=== PATIENT | male | born 1940 | race Caucasian/White ===

== ENCOUNTER → 2017-08-04 05:00 | Outpatient (REF) | payer MEDICARE, SELFPAY ==
[2017-08-04 10:12] LABS: Hematocrit 41.3 % (40-54); Hemoglobin 12.6 g/dl (13.0-16.5); Mean Corp Hgb Conc 30.5 g/gl (32-36); Mean Corpuscular Hgb 30.2 pg (27.0-32.0); Mean Platelet Vol. 10.9 fl (6.2-12.0); Platelet Count 127 K/mm3 (150-450); RBC Distribution Width CV 14.6 % (11.6-14.6); RBC Distribution Width SD 52.6 fl (35.1-43.9); Red Blood Count 4.17 M/mm3 (4.6-6.2); Scan Indicated on CBC? Y/N NO; White Blood Count 3.9 K/mm3 (4.4-11.0)
[2017-08-04 10:30] LABS: Anion Gap 7 (5-15); BUN 19 mg/dL (7-18); BUN/Creat Ratio 16.7 RATIO (10-20); Chloride 113 mmol/L (98-107); Creatinine, Serum 1.14 mg/dL (0.70-1.30); EST Glomerular Filtration Rate 67 mL/min (>60); Est Glom Filt Rate - Afr Amer 81 mL/min (>60); Glucose 98 mg/dL (70-110); Potassium 4.2 mmol/L (3.5-5.1); Sodium Level 145 mmol/L (136-145)
== END ==
LOC: OLS.WHLBEN 05:00
PROVIDERS: Visit Provider Family Medicine
DX: E78.5 Hyperlipidemia, unspecified (principal)
CPT/HCPCS: 36415; 80048; 85027

== ENCOUNTER → 2017-11-02 05:00 | Outpatient (REF) | payer MEDICARE, SELFPAY ==
[2017-11-02 09:22] LABS: Hemoglobin 12.6 g/dl (13.0-16.5); Mean Corp Hgb Conc 31.5 g/gl (32-36); Mean Corpuscular Hgb 31.1 pg (27.0-32.0); Mean Corpuscular Volume 98.8 fL (80-94); Platelet Count 115 K/mm3 (150-450); RBC Distribution Width CV 14.4 % (11.6-14.6); RBC Distribution Width SD 50.7 fl (35.1-43.9); Red Blood Count 4.05 M/mm3 (4.6-6.2); White Blood Count 4.1 K/mm3 (4.4-11.0)
[2017-11-02 09:30] LABS: Scan Indicated on CBC? Y/N NO
[2017-11-02 09:35] LABS: Anion Gap 5 (5-15); BUN 14 mg/dL (7-18); BUN/Creat Ratio 12.7 RATIO (10-20); Calcium,Total 7.8 mg/dL (8.5-10.1); Chloride 114 mmol/L (98-107); Cholesterol 83 mg/dL (200); EST Glomerular Filtration Rate 69 mL/min (>60); Est Glom Filt Rate - Afr Amer 84 mL/min (>60); Glucose 91 mg/dL (74-106); High Density Lipoprotein 28 mg/dL; Potassium 3.8 mmol/L (3.5-5.1); Sodium Level 145 mmol/L (136-145); Triglycerides 89 mg/dL; Very Low Density Lipoprotein 18 mg/dL (5-40)
== END ==
LOC: OLS.WHLBEN 05:00
PROVIDERS: Visit Provider Family Medicine
DX: I10 Essential (primary) hypertension (principal); E78.5 Hyperlipidemia, unspecified
CPT/HCPCS: 36415; 80048; 80061; 85027

== ENCOUNTER 2017-11-12 15:14 | Inpatient (IN) | payer MEDICARE, SELFPAY ==
[2017-11-12] VITALS (13 sets, daily range): BP systolic 90–114; BP diastolic 46–61; PULSE 62–74; RESP 19–27; TEMP 36.8–37.2; O2SAT 92–922; BMI 27.1; BMI 25.8; BMI 25.9
--- NOTE | 2017-11-12 15:40 | ED.VISSUMM ---
- ER Visit Summary Date of Service: 11/12/17 Chief Complaint: Dyspnea, cough History of Present Illness: The patient is a 77 M sent from [facility] for increasing dyspnea and cough since yesterday. History of CHF, COPD and coronary stents. Noted outpatient chest x-ray yesterday was negative. Patient states previously on as needed oxygen. No chronic O2 use. Subjective fevers. Denies any productive cough. States his mild chest discomfort with cough. Decreased urine output. No burning. Unclear on his last hospitalization however states it was for pneumonia. Remote tobacco. No vomiting or diarrhea. No abdominal pain. No other complaints. Past med history: Coronary disease, CHF, COPD, hypertension, hypercholesterolemia, depression, BPH, paroxysmal A. fib, DVT Physical Examination: General: Alert and oriented ?3, no acute distress HEENT: Normocephalic, atraumatic. Moist mucosa membranes Neck: supple, nontender. Cardiovascu mild expiratory wheezing, no distress stress Abdomen: Soft, nontender, nondistended Extremities: Nontender, no edema, pulses intact ?4 Neuro: no focal neurological deficits. Test Results: EKG: Sinus rate of 71, no ST or T-wave changes. WBC 2.8. Hemoglobin 12.1. Platelets 67. Creatinine 2.33, INR 1.2. Troponin 0 0.28. UA negative. Lactic acid 1.2. Chest x-ray: Atelectasis versus evolving left lower lobe infiltrate Emergency Department Course and Treatment: Patient noted 88% on 2 L per EMS. Increased to 8 L and aerosol treatment by EMS. His continue at 3 L here. Additional aerosol treatment for mild wheezing. Solu-Medrol started with a COPD history. EKG no acute process. Patient's 2 view chest x-ray read by radiology concern for possible evolving left lobe infiltrate. Reported fevers and cough. Pending labs, at the time noted there is a respiratory rate 21, sepsis labs added prior to antibiotics. Rocephin and Zithromax for community acquired pneumonia. White count returned at 2.8. Creatinine 2.33. Last creatinine was 1.1. He was given 500 cc bolus of fluids initially. Blood pressure rechecked was 115/57 at 1655. Lactic acid returned at 1.2. Troponin returned 0.28. Patient planes of chest discomfort with cough. Does not seem to be cardiac in nature. Patient currently on aspirin. Wheezing improved. Currently vitals are stable. With initial hypoxemia, discuss with hospitalist for admission. Treatment Plan: [] Disposition: Admission Impression: Community acquired pneumonia, hypoxemia, acute kidney injury, elevated troponin, thrombocytopenia This note was generated with [employer] dictation software. It may contain incorrect words, spelling, and punctuation that were not noted in review of the chart prior to signing ED Disposition - Plan for ED Patient: Disposition: Acute Care Hospital [facility] Chief Complaint: Shortness of Breath Diagnosis: Pneumonia, Hypoxemia, JOHANNE (acute kidney injury), Elevated troponin, Thrombocytopenia Referrals: Omer Rodriguez MD [Primary Care Provider] -
--- NOTE | 2017-11-12 15:41 | EKG12_ITS ---
Test Reason : SOB Blood Pressure : / mmHG Vent. Rate : 071 BPM Atrial Rate : 071 BPM P-R Int : 124 ms QRS Dur : 076 ms QT Int : 440 ms P-R-T Axes : 029 004 019 degrees QTc Int : 478 ms Sinus rhythm with Premature atrial complexes Otherwise normal ECG Confirmed by TRINI KIRKPATRICK ([id number]), visual effects editor HÉCTOR IVEY ([id number]) on 11/17/2017 2:45:26 PM Referred By: MANOLO Confirmed By:TRINI KIRKPATRICK
--- NOTE | 2017-11-12 15:41 | RAD_ITS ---
STUDY: X-RAY CHEST REASON FOR EXAM: Male, 77 years old. Cough and short of breath TECHNIQUE: PA and lateral COMPARISON: March 12, 2016 FINDINGS: There is mild chronic interstitial disease with asymmetric density in left lower lobe which may be consistent with coexisting atelectasis or evolving infiltrate.. There is no demonstrated pleural abnormality. Borderline cardiomegaly. Normal mediastinum and nancy. Normal visualized pulmonary arteries. Normal visualized aortic arch and descending thoracic aorta. Dorsal spine demonstrates spondylosis. Normal visualized ribs, clavicles, and shoulders. There is no demonstrated abnormality of the visualized soft tissue structures of the upper abdomen. RAD/Chest PA and Lateral IMPRESSION: Mild diffuse chronic interstitial changes with asymmetrically increased density in left lower lobe which may be consistent with coexisting atelectasis or evolving infiltrate.. Electronically Signed: Jose Juan Junior MD at 16:33 EDT , Service support ,
--- NOTE | 2017-11-12 15:44 | ED.DCSUM_ITS ---
- ER Visit Summary Date of Service: 11/12/17 Chief Complaint: Dyspnea, cough History of Present Illness: The patient is a 77 M sent from [facility] for increasing dyspnea and cough since yesterday. History of CHF, COPD and coronary stents. Noted outpatient chest x-ray yesterday was negative. Patient states previously on as needed oxygen. No chronic O2 use. Subjective fevers. Denies any productive cough. States his mild chest discomfort with cough. Decreased urine output. No burning. Unclear on his last hospitalization however states it was for pneumonia. Remote tobacco. No vomiting or diarrhea. No abdominal pain. No other complaints. Past med history: Coronary disease, CHF, COPD, hypertension, hypercholesterolemia, depression, BPH, paroxysmal A. fib, DVT Physical Examination: General: Alert and oriented ?3, no acute distress HEENT: Normocephalic, atraumatic. Moist mucosa membranes Neck: supple, nontender. Cardiovascu mild expiratory wheezing, no distress stress Abdomen: Soft, nontender, nondistended Extremities: Nontender, no edema, pulses intact ?4 Neuro: no focal neurological deficits. Test Results: EKG: Sinus rate of 71, no ST or T-wave changes. WBC 2.8. Hemoglobin 12.1. Platelets 67. Creatinine 2.33, INR 1.2. Troponin 0 0.28. UA negative. Lactic acid 1.2. Chest x-ray: Atelectasis versus evolving left lower lobe infiltrate Emergency Department Course and Treatment: Patient noted 88% on 2 L per EMS. Increased to 8 L and aerosol treatment by EMS. His continue at 3 L here. Additional aerosol treatment for mild wheezing. Solu-Medrol started with a COPD history. EKG no acute process. Patient's 2 view chest x-ray read by radiology concern for possible evolving left lobe infiltrate. Reported fevers and cough. Pending labs, at the time noted there is a respiratory rate 21, sepsis labs added prior to antibiotics. Rocephin and Zithromax for community acquired pneumonia. White count returned at 2.8. Creatinine 2.33. Last creatinine was 1.1. He was given 500 cc bolus of fluids initially. Blood pressure rechecked was 115/57 at 1655. Lactic acid returned at 1.2. Troponin returned 0.28. Patient planes of chest discomfort with cough. Does not seem to be cardiac in nature. Patient currently on aspirin. Wheezing improved. Currently vitals are stable. With initial hypoxemia, discuss with hospitalist for admission. Treatment Plan: [] Disposition: Admission Impression: Community acquired pneumonia, hypoxemia, acute kidney injury, elevated troponin, thrombocytopenia This note was generated with [employer] dictation software. It may contain incorrect words, spelling, and punctuation that were not noted in review of the chart prior to signing ED Disposition - Plan for ED Patient: Disposition: Acute Care Hospital [facility] Chief Complaint: Shortness of Breath Diagnosis: Pneumonia, Hypoxemia, JOHANNE (acute kidney injury), Elevated troponin, Thrombocytopenia Referrals: Omer Rodriguez MD [Primary Care Provider] -
[2017-11-12] MEDS: Ipratropium/Albuterol Sulfate 3 ML AMPUL.NEB INHALATION (15:55)
[2017-11-12] MEDS: MethylPREDNISolone 125 MG/2 ML Vial IV (16:02)
[2017-11-12 16:42] LABS: Squamous Epithelial Cells - UA 0 SEEN /hpf (0-5); White Blood Cells 0 SEEN /hpf (0-5)
[2017-11-12 16:55] LABS: Color, Urine Yellow (Yellow); Glucose, Dipstick Normal (Normal); Ketone-Dipstick 5 mg/dl (Negative); Leukocyte Esterase-Dipstick Negative /ul (Negative); Nitrite-Dipstick Negative (Negative); Occult Blood-Urine 25 /ul (Negative); Protein-Dipstick 30 mg/dl (Negative); Urine Clarity Cloudy (Clear); Urine Urobilinogen Normal (Normal)
[2017-11-12 17:06] LABS: Absolute Lymphocyte Count 0.77 X10^3/ul (0.83-4.51); Absolute Neutrophil Count 1.8 X10^3/uL (2.0-7.7); Hematocrit 39.7 % (40-54); Hemoglobin 12.1 g/dl (13.0-16.5); Lymphocyte # 0.77 X10^3/ul (4.0); Lymphocyte % 27.3 % (19-41); Mean Corp Hgb Conc 30.5 g/gl (32-36); Mean Corpuscular Hgb 30.1 pg (27.0-32.0); Mean Corpuscular Volume 98.8 fL (80-94); Mean Platelet Vol. 11.6 fl (6.2-12.0); Monocyte# 0.24 X10^3/uL; Monocyte% 8.5 % (0-10); Neutrophil # 1.81 X10^3/uL (2.7-7.7); Neutrophil % 64.2 % (47-70); POSITIVE COUNT NO; POSITIVE DIFFERENTIAL NO; POSITIVE MORPHOLOGY NO; Platelet Count 67 K/mm3 (150-450); RBC Distribution Width CV 15.6 % (11.6-14.6); RBC Distribution Width SD 57.4 fl (35.1-43.9); Red Blood Count 4.02 M/mm3 (4.6-6.2); White Blood Count 2.8 K/mm3 (4.4-11.0)
[2017-11-12 17:08] LABS: Urine Bilirubin Dipstick 1 mg/dL (Negative)
[2017-11-12 17:10] LABS: International Normalized Ratio 1.2
[2017-11-12 17:11] LABS: Partial Thromboplast Time 41.6 Seconds (24.1-36.2)
[2017-11-12 17:11] LABS: Coarse Granular Cast 0-5 SEEN /lpf (0-5 /lpf)
[2017-11-12 17:16] LABS: Fine Granular Cast- Urine 0-5 SEEN /lpf (0-5)
[2017-11-12 17:17] LABS: Bacteria 1+ /hpf (None Seen)
[2017-11-12 17:18] LABS: Renal Epithelial Cells 5-10 SEEN /hpf (0-5); Transitional Epithelial - Ur 0-5 SEEN /hpf (0-5)
[2017-11-12 17:19] LABS: Red Blood Cells-Urine 0-5 SEEN /hpf (0-5)
[2017-11-12 17:23] LABS: ALB/GLOB Ratio 0.9 RATIO (0.9-2.4); AST(SGOT) 59 U/L (15-37); Alanine Aminotransfer ALT/SGPT 27 U/L (16-61); Albumin, Serum 2.6 g/dL (3.2-5.0); Alkaline Phosphatase 74 U/L (45-117); Anion Gap 8 (5-15); BUN 40 mg/dL (7-18); BUN/Creat Ratio 17.2 RATIO (10-20); Calcium,Total 7.2 mg/dL (8.5-10.1); Chloride 113 mmol/L (98-107); Creatinine, Serum 2.33 mg/dL (0.70-1.30); EST Glomerular Filtration Rate 29 mL/min (>60); Est Glom Filt Rate - Afr Amer 35 mL/min (>60); Estimated Creatinine Clearance 30.07 ml/min; Glucose 112 mg/dL (74-106); Potassium 3.7 mmol/L (3.5-5.1); Protein, Total 5.6 g/dL (6.4-8.2); Sodium Level 144 mmol/L (136-145)
[2017-11-12] MEDS: Ceftriaxone 1 GM/50 ML BAG IV (17:24)
[2017-11-12 17:36] LABS: Lactic Acid 1.2 mmol/L (0.4-2.0)
[2017-11-12 17:41] LABS: Hyaline Cast 0-5 SEEN /lpf (0-5)
[2017-11-12 17:43] LABS: Mucous, Urine 1+ /hpf (<or=2+)
--- NOTE | 2017-11-12 18:01 | PCM.HP.STD ---
Problem List (1) JOHANNE (acute kidney injury) Status: Acute (2) Elevated troponin Status: Acute (3) Hypoxemia Status: Acute (4) Pneumonia Status: Acute (5) Thrombocytopenia Status: Acute (6) Paroxysmal atrial fibrillation Status: Chronic (7) Premature ventricular contraction Status: Chronic (8) Atherosclerotic heart disease of [place] coronary artery without angina pectoris Status: Chronic Comment: PTCA/BINA to mid RCA 04/09/05 (9) Benign essential HTN Status: Chronic (10) COPD (chronic obstructive pulmonary disease) Status: Chronic (11) Cardiomyopathy, dilated Status: Chronic (12) Chronic diastolic (congestive) heart failure Status: Chronic (13) Coronary artery disease Status: Chronic (14) Dementia Status: Chronic (15) Depression Status: Chronic (16) HLD (hyperlipidemia) Status: Chronic (17) History of PTCA Status: Chronic (18) PAT (paroxysmal atrial tachycardia) Status: Chronic (19) Presence of stent in coronary artery Status: Chronic Comment: PTCA/BINA to mid RCA 04/09/05 History of Present Illness Date of Admission: 11/12/17 Chief Complaint: Shortness of breath, cough, fever. The patient is a 77 year old M who presents to the emergency room from assisted living facility with complaints of shortness of breath, cough, fever. Patient has dementia and is a poor historian. He complains of chest discomfort associated with cough. He states he has oxygen available which he uses as needed at assisted living facility. He denies sputum production with cough. Denies other associated complaints. His other past medical history per records includes paroxysmal atrial fibrillation, dementia, coronary artery disease status post PTCA, COPD, hyperlipidemia, hypertension, depression, chronic diastolic CHF, chronic kidney disease. Past Medical History Past Medical History (Chronic Problems): Chronic Problems (Last Updated 11/03/17 @ 17:00 by Daisha Lucio) Atherosclerotic heart disease of [place] coronary artery without angina pectoris (Chronic) PTCA/BINA to mid RCA 04/09/05 Cardiomyopathy, dilated (Chronic) Presence of stent in coronary artery (Chronic ~04/09/05) PTCA/BINA to mid RCA 04/09/05 Chronic diastolic (congestive) heart failure (Chronic) Premature ventricular contraction (Chronic) Paroxysmal atrial fibrillation (Chronic) Benign essential HTN (Chronic) Depression (Chronic) HLD (hyperlipidemia) (Chronic) PAT (paroxysmal atrial tachycardia) (Chronic) History of PTCA (Chronic) COPD (chronic obstructive pulmonary disease) (Chronic) Coronary artery disease (Chronic) Dementia (Chronic) Allergies No Known Allergies Allergy (Verified 10/09/15 09:37) Home Medications: Ambulatory Orders Medication Instructions Recorded Aspirin [Aspirin, Baby] 81 mg PO DAILY@0800 09/23/15 Atorvastatin Calcium [Lipitor] 40 mg PO QHS 09/23/15 Carvedilol [Coreg (Beta Tasha)] 25 mg PO BID 09/23/15 Famotidine [Pepcid] 20 mg PO DAILY 09/23/15 Ipratropium/Albuterol Sulfate 3 ml INHALATION Q4HWA.RT PRN 09/23/15 [Duoneb] Lisinopril [Zestril] 10 mg PO DAILY 09/23/15 Acetaminophen [Tylenol] 650 mg PO Q6H PRN PRN 10/09/15 Umeclidinium Brm/Vilanterol Tr 1 ea IH DAILY 10/09/15 [Anoro Ellipta 62.5-25 Mcg INH] escitalopram 10 mg tablet 10 mg PO DAILY tab 11/03/17 guaifenesin ER 600 mg tablet, 600 mg PO Q12H tab 11/03/17 extended release 12 hr loratadine 10 mg tablet 10 mg PO QDAY PRN 11/03/17 nitroglycerin 0.4 mg sublingual 0.4 mg SUBLINGUAL Q5-15M PRN 11/03/17 tablet tamsulosin 0.4 mg capsule 0.4 mg PO QDAY 11/03/17 Amlodipine [Norvasc] 2.5 mg PO DAILY 11/12/17 Surgical History: total hip arthroplasty - left, - - Left knee repair, back surgery Psychiatric History: No pertinent psych hx 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 Denies: Edema, Light Headedness, Palpitations, Syncope Respiratory: Reports: Cough, Shortness of Breath, Wheezing. Denies: Sputum production Gastrointestinal: Denies: Abdominal Pain, Nausea, Vomiting Genitourinary: Denies: Dysuria Musculoskeletal: Denies: Joint Pain, Joint Tenderness Skin: Denies: Rash, Wounds Neurological: Denies: Numbness, Tingling, Focal weakness Psychiatric: Denies: Anxiety, Depression, Homicidal Ideations, Suicidal Ideations Hematologic/ Lymphatic: Denies: Easy Bruising, Easy Bleeding VTE Information - Inpt Only VTE Present on Admission: No VTE Mechan Device Prophylaxis: None VTE Pharm Prophylaxis ordered?: Yes Patient Problems: Active and Suspected Problems (Last Updated 11/03/17 @ 17:00 by Daisha Lucio) Pneumonia (Acute) Hypoxemia (Acute) JOHANNE (acute kidney injury) (Acute) Elevated troponin (Acute) Thrombocytopenia (Acute) - Physical Exam General: Alert, Cooperative, No apparent distress HEENT: Atraumatic, PERRLA, EOMI, Normocephalic Oral: Dry Mucosa Neck: Supple, No JVD, Negative Carotid Bruits Lungs: Diminished, Wheezes Cardiovascular: Regular rate, Regular Rhythm, Normal S1, Normal S2, No murmurs Abdomen: Bowel Sounds Present, Soft, Non Tender, Non-Distended Extremities: No clubbing, No cyanosis, No edema, Capillary Refill Less than 3 Seconds Skin: No rashes, No breakdown Musculoskeletal: No Tenderness to Palpation of Joints or Extremities Neurological: Cranial nerves II-XII grossly intact, Neuro grossly intact Psych/Mental Status: Normal Affect, Appropriate Vital Signs Temp Pulse Resp BP Pulse Ox 98.3 F 67 22 H 114/61 922 11/12/17 15:14 11/12/17 17:32 11/12/17 17:32 11/12/17 17:32 11/12/17 17:32 Oxygen Flow Rate (L/min) 4 Oxygen Delivery Method Nasal Cannula Weight: 90.718 kg Body Mass Index (BMI) 27.1 Finger Stick Blood Glucose 95 Laboratory Tests Past 24 Hrs 11/12/17 11/12/17 11/12/17 16:30 16:45 16:45 WBC 2.8 L RBC 4.02 L Hgb 12.1 L Hct 39.7 L MCV 98.8 H MCH 30.1 MCHC 30.5 L RDW 15.6 H RDW Differential 57.4 H Plt Count 67 L MPV 11.6 Immature Gran % (Auto) 0.000 Neut % (Auto) 64.2 Lymph % (Auto) 27.3 [place] % (Auto) 8.5 Eos % (Auto) 0.0 Baso % (Auto) 0.0 Absolute Neuts (auto) 1.8 L Absolute Lymphs (auto) 0.77 L Total Counted Not Reportable PT INR APTT Sodium 144 Potassium 3.7 Chloride 113 H Carbon Dioxide 23.0 Anion Gap 8 BUN 40 H Creatinine 2.33 H Estim Creat Clear Calc 30.07 Est GFR (MDRD) Af Amer 35 L Est GFR (MDRD) Non-Af 29 L BUN/Creatinine Ratio 17.2 Glucose 112 H Lactic Acid Calcium 7.2 L Total Bilirubin 0.50 AST 59 H ALT 27 Alkaline Phosphatase 74 Troponin I 0.28 H Total Protein 5.6 L Albumin 2.6 L Globulin 3.0 Albumin/Globulin Ratio 0.9 Urine Color Yellow Urine Clarity Cloudy Urine pH 5.0 Ur Specific [place] 1.020 Urine Protein 30 H Urine Glucose (UA) Normal Urine Ketones 5 H Urine Occult Blood 25 H Urine Nitrite Negative Urine Bilirubin 1 H Urine Urobilinogen Normal Ur Leukocyte Esterase Negative Urine RBC 0-5 SEEN Urine WBC 0 SEEN Ur Squamous Epith Cells 0 SEEN Ur Transition Epith Cell 0-5 SEEN Ur Renal Epithelial Cell 5-10 SEEN Urine Bacteria 1+ Hyaline Casts 0-5 SEEN Fine Granular Casts 0-5 SEEN Coarse Granular Casts 0-5 SEEN Urine Mucus 1+ 11/12/17 11/12/17 16:45 16:45 WBC RBC Hgb Hct MCV MCH MCHC RDW RDW Differential Plt Count MPV Immature Gran % (Auto) Neut % (Auto) Lymph % (Auto) [place] % (Auto) Eos % (Auto) Baso % (Auto) Absolute Neuts (auto) Absolute Lymphs (auto) Total Counted PT 15.0 H INR 1.2 APTT 41.6 H Sodium Potassium Chloride Carbon Dioxide Anion Gap BUN Creatinine Estim Creat Clear Calc Est GFR (MDRD) Af Amer Est GFR (MDRD) Non-Af BUN/Creatinine Ratio Glucose Lactic Acid 1.2 Calcium Total Bilirubin AST ALT Alkaline Phosphatase Troponin I Total Protein Albumin Globulin Albumin/Globulin Ratio Urine Color Urine Clarity Urine pH Ur Specific [place] Urine Protein Urine Glucose (UA) Urine Ketones Urine Occult Blood Urine Nitrite Urine Bilirubin Urine Urobilinogen Ur Leukocyte Esterase Urine RBC Urine WBC Ur Squamous Epith Cells Ur Transition Epith Cell Ur Renal Epithelial Cell Urine Bacteria Hyaline Casts Fine Granular Casts Coarse Granular Casts Urine Mucus Assessment/Plan Active and Suspected Problems (Last Updated 11/03/17 @ 17:00 by Daisha Lucio) Pneumonia (Acute) Hypoxemia (Acute) JOHANNE (acute kidney injury) (Acute) Elevated troponin (Acute) Thrombocytopenia (Acute) 1. Acute hypoxia secondary to suspected community-acquired left lower lobe pneumonia and COPD exacerbation-continue supplemental oxygen to maintain O2 at or above 90%. Patient will need walking pulse ox prior to discharge to assess if he needs chronic supplemental oxygen. Patient states he has oxygen available at assisted living facility which he uses as needed. 2. Acute community-acquired left lower lobe pneumonia-chest x-ray on admission with increased density in the left lower lobe. Patient reports subjective fever, cough. Lactic acid 1.2. Patient started on IV antibiotics with azithromycin and ceftriaxone in ER. Blood cultures drawn. Send sputum sample if able. Urine for strep and Legionella. Albuterol and DuoNeb aerosols. Begin IV Levaquin. PEP/IS. Continue supplemental oxygen to maintain O2 at or above 90%. 3. Acute on chronic COPD exacerbation-albuterol DuoNeb aerosols. Begin IV Solu-Medrol 40 mg every 6 hours. Continue supplemental oxygen to maintain O2 at or above 90%. Complete respiratory panel. 4. Acute kidney injury on chronic kidney disease-suspect secondary to dehydration. IV fluids. Monitor BMP. 5. Elevated troponin-suspect demand ischemia secondary to #1. Trend enzymes. EKG in ER without evidence of ischemia. 6. Chronic thrombocytopenia-unclear etiology. Monitor CBC. 7. CAD-status post PTCA/BINA to mid RCA in 2004. Patient had cardiac catheterization in 2016 which showed patent stents to the proximal mid RCA. Continue aspirin, statin. 8. Paroxysmal atrial fibrillation-currently sinus rhythm. Continue Coreg. Not on anticoagulation. 9. Chronic diastolic CHF-no acute exacerbation. 10. Hypertension-stable, continue home regimen. 11. Hyperlipidemia-continue statin. 12. Dementia-not on home regimen. Previously on donepezil. 13. BPH-continue home tamsulosin regimen. 14. GERD-continue famotidine regimen. DVT prophylaxis-heparin subcu. This patient was seen by ALISSA Mann under the supervision of Dr. Taylor.
--- NOTE | 2017-11-12 18:12 | ED.RN ---
Attempted to call [facility], unable to get nurse on line after 3 attempts.
[2017-11-12] MEDS: 0.9% Normal Saline 1,000 ML 100 ML IV (19:51)
[2017-11-12] MEDS: levoFLOXacin IV 750 MG/150 ML BAG 100 MG IV (20:41)
[2017-11-12] MEDS: guaiFENesin 600 MG Tablet PO (21:31)
[2017-11-12] MEDS: Heparin Injection 5,000 UNITS/ML Syringe 5000 UNITS SC (21:31)
[2017-11-12] MEDS: Carvedilol 25 MG Tablet PO (21:31)
[2017-11-12] MEDS: Atorvastatin Calcium 40 MG Tablet PO (21:32)
[2017-11-12] MEDS: 0.9% NaCl Peripheral Flush Adult/Peds IV (21:32)
[2017-11-13] VITALS (13 sets, daily range): BP systolic 107–125; BP diastolic 53–66; PULSE 61–83; RESP 18–23; TEMP 36.6–36.9; O2SAT 94–97
[2017-11-13] MEDS: 0.9% Normal Saline 1,000 ML 100 ML IV (05:32)
[2017-11-13] MEDS: Heparin Injection 5,000 UNITS/ML Syringe 5000 UNITS SC ×3 (05:32→21:49)
[2017-11-13] MEDS: 0.9% NaCl Peripheral Flush Adult/Peds IV ×2 (05:33→14:58)
[2017-11-13 06:52] LABS: Hematocrit 39.2 % (40-54); Hemoglobin 12.1 g/dl (13.0-16.5); Mean Corp Hgb Conc 30.9 g/gl (32-36); Mean Corpuscular Hgb 30.4 pg (27.0-32.0); Mean Corpuscular Volume 98.5 fL (80-94); Mean Platelet Vol. 11.5 fl (6.2-12.0); Platelet Count 61 K/mm3 (150-450); RBC Distribution Width CV 15.1 % (11.6-14.6); RBC Distribution Width SD 53.7 fl (35.1-43.9); Red Blood Count 3.98 M/mm3 (4.6-6.2); White Blood Count 1.9 K/mm3 (4.4-11.0)
[2017-11-13 06:56] LABS: Scan Indicated on CBC? Y/N NO
[2017-11-13 06:58] LABS: BUN 34 mg/dL (7-18); Creatinine, Serum 1.67 mg/dL (0.70-1.30); Glucose 140 mg/dL (74-106)
[2017-11-13 06:59] LABS: Anion Gap 6 (5-15); BUN/Creat Ratio 20.4 RATIO (10-20); Calcium,Total 7.2 mg/dL (8.5-10.1); Chloride 115 mmol/L (98-107); EST Glomerular Filtration Rate 43 mL/min (>60); Est Glom Filt Rate - Afr Amer 52 mL/min (>60); Estimated Creatinine Clearance 41.95 ml/min; Potassium 4.1 mmol/L (3.5-5.1); Sodium Level 145 mmol/L (136-145)
--- NOTE | 2017-11-13 09:25 | CASEMGMT ---
Addendum entered by Cyndi Stevens 11/13/17 11:50: Patient has the Flu, BRENDA faxed this information to Lizette at [facility]. Cyndi SHARIF CIGARETTE SELLER Original Note: BRENDA called Lizette at [facility] and patient is from their assisted living. BRENDA faxed her updates. Will await PT/OT evaluations and send them to [facility] to make sure he is okay to return to their AL. Plan: Return to [facility] either AL or SNF Cyndi SHARIF CIGARETTE SELLER
[2017-11-13] MEDS: Famotidine 20 MG Tablet PO (09:52)
[2017-11-13] MEDS: Aspirin 81 MG TAB.CHEW PO (09:52)
[2017-11-13] MEDS: guaiFENesin 600 MG Tablet PO ×2 (09:52→21:48)
[2017-11-13] MEDS: Carvedilol 25 MG Tablet PO ×2 (09:52→21:49)
[2017-11-13] MEDS: Escitalopram Oxalate 10 MG Tablet PO (09:52)
[2017-11-13] MEDS: Lisinopril 10 MG Tablet PO (09:52)
[2017-11-13] MEDS: amLODIPine 2.5 MG Tablet PO (09:52)
--- NOTE | 2017-11-13 12:21 | CASEMGMT ---
SW received a call from Lizette at [facility]. When patient is ready for d/c they want him to go to the retirement side. He will require insurance authorization for this, therefore he will not be able to be d/c over the weekend. Plan: [facility] retirement pending insurance approval. Cyndi SHARIF MSW
--- NOTE | 2017-11-13 13:59 | CHAPLAIN ---
Type of Pastoral Visit _x__ Initial Visit ___ Follow-up Visit ___ On-call Visit ___ General Patient Visit ___ Spiritual Assessment ___ Family Conference ___ Bereavement ___ Rapid Response ___ Code Blue ___ Other (describe below) Pastoral Care Referral From _x__ Patient ___ Family ___ Nurse ___ Physician ___ Hat Sprayer ___ Project Developer ___ Other (describe below) Sacrament/Intervention _x__ Active listening ___ Anointing ___ Rastafarian ___ Bereavement ___ Communion ___ Karol exploration ___ ___ Life review ___ Prayer ___ Reconciliation ___ Sacrament of Sick _x__ Supportive presence ___ Wedding ___ Other (describe below) Pastoral Comments
--- NOTE | 2017-11-13 14:25 | PN_ITS ---
<Lexie Sanabria - Last Filed: 11/13/17 14:25> Patient Problems: Active and Suspected Problems (Last Updated 11/03/17 @ 17:00 by Daisha Lucio ) Pneumonia (Acute) Hypoxemia (Acute) JOHANNE (acute kidney injury) (Acute) Elevated troponin (Acute) Thrombocytopenia (Acute) Subjective: Patient seen and examined. States he still feels bad. Denies specific complaints. Denies significant cough. Denies fever, chills. States shortness of breath is improved. Denies other complaints. - Physical Exam General: Alert, Oriented x3, Cooperative, No apparent distress HEENT: Atraumatic, PERRLA, EOMI, Normocephalic Oral: Dry Mucosa Neck: Supple, No JVD, Negative Carotid Bruits Lungs: Diminished, Wheezes Cardiovascular: Regular rate, Regular Rhythm, Normal S1, Normal S2, No murmurs Abdomen: Bowel Sounds Present, Soft, Non Tender, Non-Distended Extremities: No clubbing, No cyanosis, No edema, Capillary Refill Less than 3 Seconds Skin: No rashes, No breakdown Musculoskeletal: No Tenderness to Palpation of Joints or Extremities Neurological: Cranial nerves II-XII grossly intact, Neuro grossly intact Psych/Mental Status: Normal Affect, Appropriate Vital Signs Temp Pulse Resp BP Pulse Ox 98.2 F 64 22 H 123/66 H 96 11/13/17 10:01 11/13/17 11:10 11/13/17 10:01 11/13/17 10:01 11/13/17 10:01 Oxygen Flow Rate (L/min) 4 Oxygen Delivery Method Nasal Cannula Weight: 86.4 kg Body Mass Index (BMI) 25.8 Intake and Output for Last 24 Hours 11/11/17 11/12/17 11/13/17 23:59 23:59 23:59 Intake Total 784 / 784 1127 / 1127 Balance 784 / 784 1127 / 1127 Microbiology Past 72 Hours 11/12/17 20:00 Respiratory Panel (PCR) - Final Mucosa - Nose Influenzae B Laboratory Tests Past 24 Hrs 11/12/17 11/13/17 11/13/17 20:56 00:28 06:35 WBC 1.9 L RBC 3.98 L Hgb 12.1 L Hct 39.2 L MCV 98.5 H MCH 30.4 MCHC 30.9 L RDW 15.1 H RDW Differential 53.7 H Plt Count 61 L MPV 11.5 Sodium Potassium Chloride Carbon Dioxide Anion Gap BUN Creatinine Estim Creat Clear Calc Est GFR (MDRD) Af Amer Est GFR (MDRD) Non-Af BUN/Creatinine Ratio Glucose Calcium Troponin I 0.26 H 0.24 H 11/13/17 11/13/17 06:35 06:35 WBC RBC Hgb Hct MCV MCH MCHC RDW RDW Differential Plt Count MPV Sodium 145 Potassium 4.1 Chloride 115 H Carbon Dioxide 24.0 Anion Gap 6 BUN 34 H Creatinine 1.67 H Estim Creat Clear Calc 41.95 Est GFR (MDRD) Af Amer 52 L Est GFR (MDRD) Non-Af 43 L BUN/Creatinine Ratio 20.4 H Glucose 140 H Calcium 7.2 L Troponin I 0.21 H Medical Necessity - Tobacco Use Smoking Status: Former smoker Tobacco Use: Cigarettes Assessment/Plan Active and Suspected Problems (Last Updated 11/03/17 @ 17:00 by Daisha Lucio ) Pneumonia (Acute) Hypoxemia (Acute) JOHANNE (acute kidney injury) (Acute) Elevated troponin (Acute) Thrombocytopenia (Acute) Patient is a 77-year-old male admitted 11/12/17 due to shortness of breath, cough , fever. His past medical history per records includes dementia, paroxysmal atrial fibrillation, dementia, coronary artery disease status post PTCA, COPD, hyperlipidemia, hypertension, depression, chronic diastolic CHF, chronic kidney disease. 1. Acute hypoxia secondary to suspected community-acquired left lower lobe pneumonia and COPD exacerbation secondary to influenza B-continue supplemental oxygen to maintain O2 at or above 90%. Patient will need walking pulse ox prior to discharge to assess if he needs chronic supplemental oxygen. Patient states he has oxygen available at assisted living facility which he uses as needed. 2. Acute community-acquired left lower lobe pneumonia-chest x-ray on admission with increased density in the left lower lobe. Patient reports subjective fever , cough. Lactic acid 1.2. Continue IV Levaquin. Blood cultures pending. Send sputum sample if able. Urine for strep and Legionella. Albuterol and DuoNeb aerosols. PEP/IS. Continue supplemental oxygen to maintain O2 at or above 90%. 3. Acute on chronic COPD exacerbation secondary to acute influenza B-albuterol DuoNeb aerosols. Continue IV Solu-Medrol 40 mg every 8 hours. Continue supplemental oxygen to maintain O2 at or above 90%. Respiratory panel positive for influenza B. Started on Tamiflu 30 mg twice daily for 5 days. 4. Acute kidney injury on chronic kidney disease-suspect secondary to dehydration. Significant improvement with IV fluids. Monitor BMP. 5. Elevated troponin-suspect demand ischemia secondary to #1. EKG in ER without evidence of ischemia. 6. Chronic thrombocytopenia-unclear etiology. Monitor CBC. 7. CAD-status post PTCA/BINA to mid RCA in 2004. Patient had cardiac catheterization in 2016 which showed patent stents to the proximal mid RCA. Continue aspirin, statin. 8. Paroxysmal atrial fibrillation-currently sinus rhythm. Continue Coreg. Not on anticoagulation. 9. Chronic diastolic CHF-no acute exacerbation. 10. Hypertension-stable, continue home regimen. 11. Hyperlipidemia-continue statin. 12. Dementia-not on home regimen. Previously on donepezil. 13. BPH-continue home tamsulosin regimen. 14. GERD-continue famotidine regimen. DVT prophylaxis-heparin subcu. This patient was seen by ALISSA Mann under the supervision of Dr. Healy. <Teresa Healy - Last Filed: 11/13/17 16:30> - Physical Exam Vital Signs Temp Pulse Resp BP Pulse Ox 97.9 F 66 20 H 107/53 L 96 11/13/17 16:04 11/13/17 16:04 11/13/17 16:04 11/13/17 16:04 11/13/17 16:04 Oxygen Flow Rate (L/min) 4 Oxygen Delivery Method Nasal Cannula Weight: 86.4 kg Body Mass Index (BMI) 25.8 Intake and Output for Last 24 Hours 11/11/17 11/12/17 11/13/17 23:59 23:59 23:59 Intake Total 784 / 784 1127 / 1127 Balance 784 / 784 1127 / 1127 Microbiology Past 72 Hours 11/12/17 20:00 Respiratory Panel (PCR) - Final Mucosa - Nose Influenzae B Laboratory Tests Past 24 Hrs 11/12/17 11/13/17 11/13/17 20:56 00:28 06:35 WBC 1.9 L RBC 3.98 L Hgb 12.1 L Hct 39.2 L MCV 98.5 H MCH 30.4 MCHC 30.9 L RDW 15.1 H RDW Differential 53.7 H Plt Count 61 L MPV 11.5 Sodium Potassium Chloride Carbon Dioxide Anion Gap BUN Creatinine Estim Creat Clear Calc Est GFR (MDRD) Af Amer Est GFR (MDRD) Non-Af BUN/Creatinine Ratio Glucose Calcium Troponin I 0.26 H 0.24 H 11/13/17 11/13/17 06:35 06:35 WBC RBC Hgb Hct MCV MCH MCHC RDW RDW Differential Plt Count MPV Sodium 145 Potassium 4.1 Chloride 115 H Carbon Dioxide 24.0 Anion Gap 6 BUN 34 H Creatinine 1.67 H Estim Creat Clear Calc 41.95 Est GFR (MDRD) Af Amer 52 L Est GFR (MDRD) Non-Af 43 L BUN/Creatinine Ratio 20.4 H Glucose 140 H Calcium 7.2 L Troponin I 0.21 H Assessment/Plan Patient was seen and examined independently of the nurse practitioner Lexie Sanabria. I agree with above interval history, physical examination assessment and plan. Patient feels much better. He remains on 3 L of oxygen. Denies any dizziness or chest pain. Has audible wheezes on exam but also on auscultation there are no wheezes. Labs reviewed, noted leukopenia and elevated troponin secondary to demand ischemia Agree with oxygen therapy and would wean for SPO2 more than 94%, agree with treatment for influenza B, acute COPD exacerbation and pneumonia. Medications reviewed and agree. Code Visit Inpatient E&M: 08271 Subs Hosp L3
[2017-11-13] MEDS: Tamsulosin HCl 0.4 MG Capsule PO (17:02)
[2017-11-13] MEDS: 0.9% Normal Saline 1,000 ML 75 ML IV (17:03)
[2017-11-13] MEDS: Atorvastatin Calcium 40 MG Tablet PO (21:48)
[2017-11-13] MEDS: Oseltamivir Phosphate 30 MG Capsule PO (21:58)
[2017-11-14] VITALS (12 sets, daily range): BP systolic 97–122; BP diastolic 49–70; PULSE 56–95; RESP 16–20; TEMP 36.6–36.7; O2SAT 92–97
[2017-11-14 06:28] LABS: Anion Gap 8 (5-15); BUN 40 mg/dL (7-18); BUN/Creat Ratio 25.2 RATIO (10-20); Calcium,Total 7.2 mg/dL (8.5-10.1); Chloride 119 mmol/L (98-107); Creatinine, Serum 1.59 mg/dL (0.70-1.30); EST Glomerular Filtration Rate 45 mL/min (>60); Est Glom Filt Rate - Afr Amer 55 mL/min (>60); Estimated Creatinine Clearance 44.06 ml/min; Glucose 159 mg/dL (74-106); Sodium Level 144 mmol/L (136-145)
[2017-11-14 06:30] LABS: Absolute Lymphocyte Count 0.34 X10^3/ul (0.83-4.51); Absolute Neutrophil Count 1.5 X10^3/uL (2.0-7.7); Hematocrit 37.3 % (40-54); Hemoglobin 11.3 g/dl (13.0-16.5); Lymphocyte # 0.34 X10^3/ul (4.0); Lymphocyte % 17.5 % (19-41); Mean Corp Hgb Conc 30.3 g/gl (32-36); Mean Corpuscular Hgb 30.2 pg (27.0-32.0); Mean Corpuscular Volume 99.7 fL (80-94); Mean Platelet Vol. 12.5 fl (6.2-12.0); Monocyte# 0.08 X10^3/uL; Monocyte% 4.1 % (0-10); Neutrophil # 1.51 X10^3/uL (2.7-7.7); Neutrophil % 77.9 % (47-70); Platelet Count 53 K/mm3 (150-450); RBC Distribution Width CV 15.2 % (11.6-14.6); RBC Distribution Width SD 55.9 fl (35.1-43.9); Red Blood Count 3.74 M/mm3 (4.6-6.2); White Blood Count 1.9 K/mm3 (4.4-11.0)
[2017-11-14 06:31] LABS: Differential Indicated SCAN CRITERIA MET; POSITIVE COUNT NO; POSITIVE DIFFERENTIAL YES; POSITIVE MORPHOLOGY NO
[2017-11-14] MEDS: 0.9% Normal Saline 1,000 ML 75 ML IV ×2 (06:31→21:00)
[2017-11-14] MEDS: Heparin Injection 5,000 UNITS/ML Syringe 5000 UNITS SC ×3 (06:31→21:00)
[2017-11-14 06:46] LABS: Differential Comment SCANNED
[2017-11-14] MEDS: Aspirin 81 MG TAB.CHEW PO (08:52)
[2017-11-14] MEDS: guaiFENesin 600 MG Tablet PO ×2 (08:52→21:01)
[2017-11-14] MEDS: Oseltamivir Phosphate 30 MG Capsule PO ×2 (08:52→21:01)
[2017-11-14] MEDS: Escitalopram Oxalate 10 MG Tablet PO (08:52)
[2017-11-14] MEDS: Lisinopril 10 MG Tablet PO (08:52)
[2017-11-14] MEDS: amLODIPine 2.5 MG Tablet PO (08:52)
[2017-11-14] MEDS: Famotidine 20 MG Tablet PO (08:52)
[2017-11-14] MEDS: Carvedilol 25 MG Tablet PO ×2 (08:53→21:01)
[2017-11-14] MEDS: levoFLOXacin IV 750 MG/150 ML BAG 100 MG IV (08:55)
--- NOTE | 2017-11-14 11:15 | EKG12_ITS ---
Test Reason : Blood Pressure : / mmHG Vent. Rate : 065 BPM Atrial Rate : 069 BPM P-R Int : 000 ms QRS Dur : 080 ms QT Int : 432 ms P-R-T Axes : 000 013 010 degrees QTc Int : 449 ms Atrial fibrillation Abnormal ECG When compared with ECG of 12-NOV-2017 15:22, MANUAL COMPARISON REQUIRED, DATA IS UNCONFIRMED Confirmed by ANKIT HAGEN, BRIANNA ([id number]), newspaper copy editor HÉCTOR IVEY ([id number]) on 11/20/2017 3:48:01 PM Referred By: CORNELL Confirmed By:BRIANNA PHAM MD
--- NOTE | 2017-11-14 12:35 | PCM.PROGNOTE ---
Patient Problems: Active and Suspected Problems (Last Updated 11/03/17 @ 17:00 by Daisha Lucio) Pneumonia (Acute) Hypoxemia (Acute) JOHANNE (acute kidney injury) (Acute) Elevated troponin (Acute) Thrombocytopenia (Acute) Subjective: Patient seen and examined. States he feels somewhat improved today. Continues to have mild shortness of breath. Denies fever, chills. Denies cough. Complains of generalized weakness. Denies other complaints. - Physical Exam General: Alert, Oriented x3, Cooperative, No apparent distress HEENT: Atraumatic, PERRLA, EOMI, Normocephalic Neck: Supple, No JVD, Negative Carotid Bruits Lungs: Diminished, Wheezes Cardiovascular: Regular rate, Regular Rhythm, Normal S1, Normal S2, No murmurs Abdomen: Bowel Sounds Present, Soft, Non Tender, Non-Distended Extremities: No clubbing, No cyanosis, No edema, Capillary Refill Less than 3 Seconds Skin: No rashes, No breakdown Musculoskeletal: No Tenderness to Palpation of Joints or Extremities Neurological: Cranial nerves II-XII grossly intact, Neuro grossly intact Psych/Mental Status: Normal Affect, Appropriate Vital Signs Temp Pulse Resp BP Pulse Ox 97.8 F 64 18 109/70 94 11/14/17 08:45 11/14/17 11:12 11/14/17 08:45 11/14/17 08:45 11/14/17 08:45 Oxygen Flow Rate (L/min) 2 Oxygen Delivery Method Nasal Cannula Weight: 87.1 kg Body Mass Index (BMI) 25.8 Intake and Output for Last 24 Hours 11/12/17 11/13/17 11/14/17 23:59 23:59 23:59 Intake Total 784 / 784 1800 / 1800 1992 Balance 784 / 784 1800 / 1800 1992 Microbiology Past 72 Hours 11/12/17 20:00 Respiratory Panel (PCR) - Final Mucosa - Nose Influenzae B Laboratory Tests Past 24 Hrs 11/14/17 11/14/17 05:48 05:48 WBC 1.9 L RBC 3.74 L Hgb 11.3 L Hct 37.3 L MCV 99.7 H MCH 30.2 MCHC 30.3 L RDW 15.2 H RDW Differential 55.9 H Plt Count 53 L MPV 12.5 H Immature Gran % (Auto) 0.500 Neut % (Auto) 77.9 H Lymph % (Auto) 17.5 L [place] % (Auto) 4.1 Eos % (Auto) 0.0 Baso % (Auto) 0.0 Absolute Neuts (auto) 1.5 L Absolute Lymphs (auto) 0.34 L Total Counted Not Reportable Differential Comment SCANNED Sodium 144 Potassium 4.0 Chloride 119 H Carbon Dioxide 17.0 L Anion Gap 8 BUN 40 H Creatinine 1.59 H Estim Creat Clear Calc 44.06 Est GFR (MDRD) Af Amer 55 L Est GFR (MDRD) Non-Af 45 L BUN/Creatinine Ratio 25.2 H Glucose 159 H Calcium 7.2 L Medical Necessity - Tobacco Use Smoking Status: Former smoker Tobacco Use: Cigarettes Assessment/Plan Active and Suspected Problems (Last Updated 11/03/17 @ 17:00 by Daisha Lucio) Pneumonia (Acute) Hypoxemia (Acute) JOHANNE (acute kidney injury) (Acute) Elevated troponin (Acute) Thrombocytopenia (Acute) Patient is a 77-year-old male admitted 11/12/17 due to shortness of breath, cough, fever. His past medical history per records includes dementia, paroxysmal atrial fibrillation, dementia, coronary artery disease status post PTCA, COPD, hyperlipidemia, hypertension, depression, chronic diastolic CHF, chronic kidney disease. 1. Acute hypoxia secondary to suspected community-acquired left lower lobe pneumonia and COPD exacerbation secondary to influenza B-continue supplemental oxygen to maintain O2 at or above 90%. Patient will need walking pulse ox prior to discharge to assess if he needs chronic supplemental oxygen. Patient states he has oxygen available at assisted living facility which he uses as needed. 2. Acute community-acquired left lower lobe pneumonia-chest x-ray on admission with increased density in the left lower lobe. Patient reported subjective fever, cough on admission. Lactic acid 1.2. Continue IV Levaquin. Blood cultures pending. Send sputum sample if able. Urine for strep and Legionella negative. Albuterol and DuoNeb aerosols. PEP/IS. Continue supplemental oxygen to maintain O2 at or above 90%. 3. Acute on chronic COPD exacerbation secondary to acute influenza B-albuterol DuoNeb aerosols. Continue IV Solu-Medrol 40 mg every 8 hours. Continue supplemental oxygen to maintain O2 at or above 90%. Respiratory panel positive for influenza B. Started on Tamiflu 30 mg twice daily for 5 days. 4. Acute kidney injury on chronic kidney disease-suspect secondary to dehydration. Significant improvement with IV fluids. Monitor BMP. 5. Elevated troponin-suspect demand ischemia secondary to #1. EKG in ER without evidence of ischemia. 6. Chronic thrombocytopenia-unclear etiology. Monitor CBC. 7. CAD-status post PTCA/BINA to mid RCA in 2004. Patient had cardiac catheterization in 2016 which showed patent stents to the proximal mid RCA. Continue aspirin, statin. 8. Paroxysmal atrial fibrillation-currently sinus rhythm. Continue Coreg. Not on anticoagulation. 9. Chronic diastolic CHF-no acute exacerbation. 10. Hypertension-stable, continue home regimen. 11. Hyperlipidemia-continue statin. 12. Dementia-not on home regimen. Previously on donepezil. 13. BPH-continue home tamsulosin regimen. 14. GERD-continue famotidine regimen. DVT prophylaxis-heparin subcu. This patient was seen by ALISSA Mann under the supervision of Dr. Taylor.
[2017-11-14] MEDS: Tamsulosin HCl 0.4 MG Capsule PO (17:47)
[2017-11-14] MEDS: 0.9% NaCl Peripheral Flush Adult/Peds IV (21:01)
[2017-11-14] MEDS: Atorvastatin Calcium 40 MG Tablet PO (21:01)
[2017-11-14] MEDS: Acetaminophen 325 MG Tablet 650 MG PO (21:07)
[2017-11-15] VITALS (15 sets, daily range): BP systolic 96–123; BP diastolic 50–65; PULSE 70–84; RESP 18–20; TEMP 36.5–36.6; O2SAT 93–96
[2017-11-15] MEDS: Heparin Injection 5,000 UNITS/ML Syringe 5000 UNITS SC ×3 (05:21→21:01)
[2017-11-15 05:58] LABS: Absolute Lymphocyte Count 0.49 X10^3/ul (0.83-4.51); Absolute Neutrophil Count 2.4 X10^3/uL (2.0-7.7); Basophil# 0.01 X10^3/uL; Basophil% 0.3 % (0-1); Hematocrit 36.6 % (40-54); Hemoglobin 11.4 g/dl (13.0-16.5); Lymphocyte # 0.49 X10^3/ul (4.0); Lymphocyte % 16.1 % (19-41); Mean Corp Hgb Conc 31.1 g/gl (32-36); Mean Corpuscular Hgb 30.7 pg (27.0-32.0); Mean Corpuscular Volume 98.7 fL (80-94); Mean Platelet Vol. 12.2 fl (6.2-12.0); Monocyte# 0.15 X10^3/uL; Monocyte% 4.9 % (0-10); Neutrophil # 2.39 X10^3/uL (2.7-7.7); Neutrophil % 78.4 % (47-70); Platelet Count 61 K/mm3 (150-450); RBC Distribution Width CV 14.9 % (11.6-14.6); RBC Distribution Width SD 51.6 fl (35.1-43.9); Red Blood Count 3.71 M/mm3 (4.6-6.2); White Blood Count 3.1 K/mm3 (4.4-11.0)
[2017-11-15 06:01] LABS: Anion Gap 9 (5-15); BUN 35 mg/dL (7-18); BUN/Creat Ratio 27.1 RATIO (10-20); Calcium,Total 7.2 mg/dL (8.5-10.1); Chloride 119 mmol/L (98-107); Creatinine, Serum 1.29 mg/dL (0.70-1.30); Differential Indicated SCAN CRITERIA MET; EST Glomerular Filtration Rate 58 mL/min (>60); Est Glom Filt Rate - Afr Amer 70 mL/min (>60); Estimated Creatinine Clearance 54.31 ml/min; Glucose 149 mg/dL (74-106); POSITIVE COUNT NO; POSITIVE DIFFERENTIAL YES; POSITIVE MORPHOLOGY NO; Potassium 3.9 mmol/L (3.5-5.1); Sodium Level 147 mmol/L (136-145)
[2017-11-15] MEDS: Lisinopril 10 MG Tablet PO (09:36)
[2017-11-15] MEDS: Oseltamivir Phosphate 30 MG Capsule PO ×2 (09:36→21:01)
[2017-11-15] MEDS: Famotidine 20 MG Tablet PO (09:36)
[2017-11-15] MEDS: Escitalopram Oxalate 10 MG Tablet PO (09:36)
[2017-11-15] MEDS: Carvedilol 25 MG Tablet PO ×2 (09:36→21:01)
[2017-11-15] MEDS: amLODIPine 2.5 MG Tablet PO (09:36)
[2017-11-15] MEDS: guaiFENesin 600 MG Tablet PO ×2 (09:36→21:01)
[2017-11-15] MEDS: Aspirin 81 MG TAB.CHEW PO (09:39)
[2017-11-15] MEDS: 0.9% Normal Saline 1,000 ML 75 ML IV (09:39)
--- NOTE | 2017-11-15 10:36 | PN_ITS ---
Patient Problems: Active and Suspected Problems (Last Updated 11/03/17 @ 17:00 by Daisha Lucio ) Pneumonia (Acute) Hypoxemia (Acute) JOHANNE (acute kidney injury) (Acute) Elevated troponin (Acute) Thrombocytopenia (Acute) Subjective: Patient seen and examined. Sitting in chair in no acute distress. States he feels somewhat improved today but continues to feel generally weak. Denies other complaints. No acute events overnight. - Physical Exam General: Alert, Oriented x3, Cooperative, No apparent distress HEENT: Atraumatic, PERRLA, EOMI, Normocephalic Neck: Supple, No JVD, Negative Carotid Bruits Lungs: Clear to auscultation, Diminished Cardiovascular: Regular rate, Regular Rhythm, Normal S1, Normal S2, No murmurs Abdomen: Bowel Sounds Present, Soft, Non Tender, Non-Distended Extremities: No clubbing, No cyanosis, No edema, Capillary Refill Less than 3 Seconds Skin: No rashes, No breakdown Musculoskeletal: No Tenderness to Palpation of Joints or Extremities Neurological: Cranial nerves II-XII grossly intact, Neuro grossly intact Psych/Mental Status: Normal Affect, Appropriate Vital Signs Temp Pulse Resp BP Pulse Ox 97.8 F 78 18 100/50 L 94 11/15/17 09:29 11/15/17 09:29 11/15/17 09:29 11/15/17 09:29 11/15/17 09:29 Oxygen Flow Rate (L/min) 1 Oxygen Delivery Method Nasal Cannula Weight: 86.9 kg Body Mass Index (BMI) 25.8 Intake and Output for Last 24 Hours 11/13/17 11/14/17 11/15/17 23:59 23:59 23:59 Intake Total 1800 / 1800 2646 / 2646 968 / 968 Balance 1800 / 1800 2646 / 2646 968 / 968 Microbiology Past 72 Hours 11/12/17 20:00 Respiratory Panel (PCR) - Final Mucosa - Nose Influenzae B Laboratory Tests Past 24 Hrs 11/15/17 11/15/17 05:03 05:03 WBC 3.1 L RBC 3.71 L Hgb 11.4 L Hct 36.6 L MCV 98.7 H MCH 30.7 MCHC 31.1 L RDW 14.9 H RDW Differential 51.6 H Plt Count 61 L MPV 12.2 H Immature Gran % (Auto) 0.300 Neut % (Auto) 78.4 H Lymph % (Auto) 16.1 L [place] % (Auto) 4.9 Eos % (Auto) 0.0 Baso % (Auto) 0.3 Absolute Neuts (auto) 2.4 Absolute Lymphs (auto) 0.49 L Total Counted Not Reportable Sodium 147 H Potassium 3.9 Chloride 119 H Carbon Dioxide 19.0 L Anion Gap 9 BUN 35 H Creatinine 1.29 Estim Creat Clear Calc 54.31 Est GFR (MDRD) Af Amer 70 Est GFR (MDRD) Non-Af 58 L BUN/Creatinine Ratio 27.1 H Glucose 149 H Calcium 7.2 L Medical Necessity - Tobacco Use Smoking Status: Former smoker Tobacco Use: Cigarettes Assessment/Plan Active and Suspected Problems (Last Updated 11/03/17 @ 17:00 by Daisha Lucio ) Pneumonia (Acute) Hypoxemia (Acute) JOHANNE (acute kidney injury) (Acute) Elevated troponin (Acute) Thrombocytopenia (Acute) Patient is a 77-year-old male admitted 11/12/17 due to shortness of breath, cough , fever. His past medical history per records includes dementia, paroxysmal atrial fibrillation, dementia, coronary artery disease status post PTCA, COPD, hyperlipidemia, hypertension, depression, chronic diastolic CHF, chronic kidney disease. 1. Acute hypoxia secondary to suspected community-acquired left lower lobe pneumonia and COPD exacerbation secondary to influenza B-continue supplemental oxygen to maintain O2 at or above 90%. Patient will need walking pulse ox prior to discharge to assess if he needs chronic supplemental oxygen. Patient states he has oxygen available at assisted living facility which he uses as needed. 2. Acute community-acquired left lower lobe pneumonia-chest x-ray on admission with increased density in the left lower lobe. Patient reported subjective fever, cough on admission. Lactic acid 1.2. Patient initially received IV Levaquin and transitioned to oral Levaquin 750 mg every 48hr. Blood cultures show no growth. Send sputum sample if able. Urine for strep and Legionella negative. Albuterol and DuoNeb aerosols. PEP/IS. Continue supplemental oxygen to maintain O2 at or above 90%. 3. Acute on chronic COPD exacerbation secondary to acute influenza B-albuterol DuoNeb aerosols. Received IV Solu-Medrol. Transition to oral prednisone taper. Continue supplemental oxygen to maintain O2 at or above 90%. Respiratory panel positive for influenza B. Started on Tamiflu 30 mg twice daily for 5 days. 4. Acute kidney injury on chronic kidney disease-suspect secondary to dehydration. Resolved with IV fluids. Monitor BMP. 5. Elevated troponin-suspect demand ischemia secondary to #1. EKG in ER without evidence of ischemia. 6. Chronic thrombocytopenia-unclear etiology. Monitor CBC. 7. CAD-status post PTCA/BINA to mid RCA in 2004. Patient had cardiac catheterization in 2016 which showed patent stents to the proximal mid RCA. Continue aspirin, statin. 8. Paroxysmal atrial fibrillation-currently sinus rhythm. Continue Coreg. Not on anticoagulation. 9. Chronic diastolic CHF-no acute exacerbation. 10. Hypertension-stable, continue home regimen. 11. Hyperlipidemia-continue statin. 12. Dementia-not on home regimen. Previously on donepezil. 13. BPH-continue home tamsulosin regimen. 14. GERD-continue famotidine regimen. DVT prophylaxis-heparin subcu. Discharge planning: Patient previously from assisted living facility. Likely needs SNF at discharge. This patient was seen by ALISSA Mann under the supervision of Dr. Taylor.
[2017-11-15] MEDS: predniSONE 10 MG Tablet 40 MG PO (11:35)
[2017-11-15] MEDS: Tamsulosin HCl 0.4 MG Capsule PO (18:21)
[2017-11-15] MEDS: Atorvastatin Calcium 40 MG Tablet PO (21:01)
[2017-11-16] VITALS (9 sets, daily range): BP systolic 91–123; BP diastolic 53–61; PULSE 63–90; RESP 16–22; TEMP 36.4–36.6; O2SAT 91–96
[2017-11-16] MEDS: levoFLOXacin 750 MG Tablet PO (06:13)
[2017-11-16] MEDS: Heparin Injection 5,000 UNITS/ML Syringe 5000 UNITS SC ×2 (06:13→14:45)
[2017-11-16 06:38] LABS: Anion Gap 7 (5-15); BUN 31 mg/dL (7-18); BUN/Creat Ratio 26.7 RATIO (10-20); Calcium,Total 7.4 mg/dL (8.5-10.1); Chloride 116 mmol/L (98-107); Creatinine, Serum 1.16 mg/dL (0.70-1.30); EST Glomerular Filtration Rate 65 mL/min (>60); Est Glom Filt Rate - Afr Amer 79 mL/min (>60); Estimated Creatinine Clearance 60.39 ml/min; Glucose 149 mg/dL (74-106); Potassium 3.8 mmol/L (3.5-5.1); Sodium Level 147 mmol/L (136-145)
[2017-11-16 06:55] LABS: Absolute Lymphocyte Count 0.45 X10^3/ul (0.83-4.51); Basophil# 0.01 X10^3/uL; Basophil% 0.4 % (0-1); Hematocrit 36.9 % (40-54); Hemoglobin 11.5 g/dl (13.0-16.5); Lymphocyte # 0.45 X10^3/ul (4.0); Lymphocyte % 16.7 % (19-41); Mean Corp Hgb Conc 31.2 g/gl (32-36); Mean Corpuscular Hgb 30.7 pg (27.0-32.0); Mean Corpuscular Volume 98.4 fL (80-94); Mean Platelet Vol. 12.1 fl (6.2-12.0); Monocyte% 7.4 % (0-10); Neutrophil # 2.03 X10^3/uL (2.7-7.7); Neutrophil % 75.1 % (47-70); Platelet Count 58 K/mm3 (150-450); RBC Distribution Width CV 14.8 % (11.6-14.6); RBC Distribution Width SD 51.5 fl (35.1-43.9); Red Blood Count 3.75 M/mm3 (4.6-6.2); White Blood Count 2.7 K/mm3 (4.4-11.0)
[2017-11-16 07:02] LABS: Differential Indicated SCAN CRITERIA MET; POSITIVE COUNT NO; POSITIVE DIFFERENTIAL YES; POSITIVE MORPHOLOGY NO
[2017-11-16 07:19] LABS: Differential Comment SCANNED
[2017-11-16] MEDS: Escitalopram Oxalate 10 MG Tablet PO (09:28)
[2017-11-16] MEDS: Oseltamivir Phosphate 30 MG Capsule PO (09:28)
[2017-11-16] MEDS: predniSONE 10 MG Tablet 40 MG PO (09:28)
[2017-11-16] MEDS: guaiFENesin 600 MG Tablet PO (09:28)
[2017-11-16] MEDS: Carvedilol 25 MG Tablet PO (09:28)
[2017-11-16] MEDS: Lisinopril 10 MG Tablet PO (09:29)
[2017-11-16] MEDS: Aspirin 81 MG TAB.CHEW PO (09:29)
[2017-11-16] MEDS: amLODIPine 2.5 MG Tablet PO (09:29)
[2017-11-16] MEDS: Famotidine 20 MG Tablet PO (09:29)
--- NOTE | 2017-11-16 09:42 | CASEMGMT ---
Addendum entered by Aditi Garcia 11/16/17 11:46: Spoke with Lizette at [facility] and precert has been submitted to insurance. Will await return call from [facility] for determination. IMELDA Robbins Original Note: Social Work Rounds completed with FLOOR CLERK and pt will be ready for d/c today. Updated clinicals faxed to Lizette at [facility] and phone call placed to Lizette with left requesting return call to verify insurance precert. will follow for SNF placement. Plan: [facility], Pending insurance precert IMELDA Robbins
--- NOTE | 2017-11-16 10:11 | PCM.EXTCARCO ---
- Diet 11/12/17 17:54 Diet: Cardiac/Low Cholesterol Food consistency:: Regular Liquid Consistency:: Regular/Thin - Routine Orders/Code Status Enema Type: Fleetz Enema Frequency: Daily PRN Suppository Type: Dulcolax 10mg Suppository Frequency: Daily PRN O2 Liters per Minute: 1-4 O2 Frequency: PRN Keep PO Greater than or Equal to (%): 90 Routine Lab Work: CBC, BMP, - - Q week Code Status: Full Code - Suggestions for Active Care Change Position every (hours): 2 Times a day to sit in chair: 3 - Therapies Physical Therapy: Eval and Treat Occupational Therapy: Eval and Treat - Problem/Diagnosis (1) JOHANNE (acute kidney injury) Status: Acute Current Visit: Yes (2) Elevated troponin Status: Acute Current Visit: Yes (3) Hypoxemia Status: Acute Current Visit: Yes (4) Pneumonia Status: Acute Current Visit: Yes (5) Thrombocytopenia Status: Acute Current Visit: Yes (6) Paroxysmal atrial fibrillation Status: Chronic Current Visit: No (7) Premature ventricular contraction Status: Chronic Current Visit: No (8) Atherosclerotic heart disease of [place] coronary artery without angina pectoris Status: Chronic Comment: PTCA/BINA to mid RCA 04/09/05 Current Visit: No (9) Benign essential HTN Status: Chronic Current Visit: No (10) COPD (chronic obstructive pulmonary disease) Status: Chronic Current Visit: No (11) Cardiomyopathy, dilated Status: Chronic Current Visit: No (12) Chronic diastolic (congestive) heart failure Status: Chronic Current Visit: No (13) Coronary artery disease Status: Chronic Current Visit: No (14) Dementia Status: Chronic Current Visit: No (15) Depression Status: Chronic Current Visit: No (16) HLD (hyperlipidemia) Status: Chronic Current Visit: No (17) History of PTCA Status: Chronic Current Visit: No (18) PAT (paroxysmal atrial tachycardia) Status: Chronic Current Visit: No (19) Presence of stent in coronary artery Status: Chronic Comment: PTCA/BINA to mid RCA 04/09/05 Current Visit: No - Allergies/Procedures Done in Hospital Allergies/Adverse Reactions: Allergies No Known Allergies Allergy (Verified 10/09/15 09:37) Procedures: None - Type of Care/Length of Stay Estimated LOS: More Than 30 Days Type of Care Needed: Skilled Rehab Potential: Fair Prognosis: Fair - Additional Orders/Day of Discharge H&P will serve as current which was dated: 11/12/17 Day of Discharge: 11/16/17 - Follow Up Care Primary Care Physician: Omer Rodriguez MD [Primary Care Provider] - Please follow up with your Primary Care Physician in: 1 Week
--- NOTE | 2017-11-16 10:16 | PCM.DC.SUM ---
<Lexie Sanabria - Last Filed: 11/16/17 10:24> Discharge Date and Diagnosis Date of Admission: 11/12/17 Date of Discharge: 11/16/17 - Primary Discharge Diagnosis Active and Suspected Problems (Last Updated 11/03/17 @ 17:00 by Daisha Lucio) 1. Acute hypoxia secondary to community-acquired left lower lobe pneumonia and COPD exacerbation secondary to acute influenza B 2. Acute community-acquired left lower lobe pneumonia, suspected gram-negative 3. Acute on chronic COPD exacerbation secondary to acute influenza B 4. Acute kidney injury on chronic kidney disease 5. Elevated troponin secondary to demand ischemia as a result of #1 6. Chronic thrombocytopenia - Secondary Discharge Diagnosis Chronic Problems (Last Updated 11/03/17 @ 17:00 by Daisha Lucio) Atherosclerotic heart disease of [place] coronary artery without angina pectoris (Chronic) PTCA/BINA to mid RCA 04/09/05 Cardiomyopathy, dilated (Chronic) Presence of stent in coronary artery (Chronic ~04/09/05) PTCA/BINA to mid RCA 04/09/05 Chronic diastolic (congestive) heart failure (Chronic) Premature ventricular contraction (Chronic) Paroxysmal atrial fibrillation (Chronic) Benign essential HTN (Chronic) Depression (Chronic) HLD (hyperlipidemia) (Chronic) PAT (paroxysmal atrial tachycardia) (Chronic) History of PTCA (Chronic) COPD (chronic obstructive pulmonary disease) (Chronic) Coronary artery disease (Chronic) Dementia (Chronic) Hospital Course and Treatment Imaging Results: Diagnostic Data Chest X-Ray 11/12/17 15:41 IMPRESSION: Mild diffuse chronic interstitial changes with asymmetrically increased density in left lower lobe which may be consistent with coexisting atelectasis or evolving infiltrate.. Electronically Signed: Jose Juan Junior MD at 16:33 EDT , Service support , Operations: None, - Procedures: None Summary of Care Provided: Patient is a 77-year-old male admitted 11/12/17 due to shortness of breath, cough, fever. His past medical history per records includes dementia, paroxysmal atrial fibrillation, dementia, coronary artery disease status post PTCA, COPD, hyperlipidemia, hypertension, depression, chronic diastolic CHF, chronic kidney disease. 1. Acute hypoxia secondary to suspected community-acquired left lower lobe pneumonia and COPD exacerbation secondary to influenza B-continue supplemental oxygen to maintain O2 at or above 90%. 2. Acute community-acquired left lower lobe pneumonia-chest x-ray on admission with increased density in the left lower lobe. Patient reported subjective fever, cough on admission. Lactic acid 1.2. Patient initially received IV Levaquin and transitioned to oral Levaquin 750 mg every 48hr. Blood cultures show no growth. Not able to send sputum for culture. Urine for strep and Legionella negative. Albuterol and DuoNeb aerosols. Continue supplemental oxygen to maintain O2 at or above 90%. 3. Acute on chronic COPD exacerbation secondary to acute influenza B-albuterol DuoNeb aerosols. Received IV Solu-Medrol. Transition to oral prednisone taper. Continue supplemental oxygen to maintain O2 at or above 90%. Respiratory panel positive for influenza B. Continue Tamiflu 30 mg twice daily for 5 days. 4. Acute kidney injury on chronic kidney disease-suspect secondary to dehydration. Resolved with IV fluids. Monitor BMP. 5. Elevated troponin-suspect demand ischemia secondary to #1. EKG in ER without evidence of ischemia. 6. Chronic thrombocytopenia-unclear etiology. Monitor CBC. 7. CAD-status post PTCA/BINA to mid RCA in 2004. Patient had cardiac catheterization in 2016 which showed patent stents to the proximal mid RCA. Continue aspirin, statin. 8. Paroxysmal atrial fibrillation-currently sinus rhythm. Continue Coreg. Not on anticoagulation. 9. Chronic diastolic CHF-no acute exacerbation. 10. Hypertension-stable, continue home regimen. 11. Hyperlipidemia-continue statin. 12. Dementia-not on home regimen. Previously on donepezil. 13. BPH-continue home tamsulosin regimen. 14. GERD-continue famotidine regimen. General: Alert, Oriented x3, Cooperative, No apparent distress HEENT: Atraumatic, PERRLA, EOMI, Normocephalic Neck: Supple, No JVD, Negative Carotid Bruits Lungs: Clear to auscultation, Diminished Cardiovascular: Regular rate, Regular Rhythm, Normal S1, Normal S2, No murmurs Abdomen: Bowel Sounds Present, Soft, Non Tender, Non-Distended Extremities: No clubbing, No cyanosis, No edema, Capillary Refill Less than 3 Seconds Skin: No rashes, No breakdown Musculoskeletal: No Tenderness to Palpation of Joints or Extremities Neurological: Cranial nerves II-XII grossly intact, Neuro grossly intact Psych/Mental Status: Normal Affect, Appropriate Patient seen and examined prior to discharge. Physical assessment as noted above. Patient stable for [facility] to correction facility. This patient was seen by ALISSA Mann under the supervision of Dr. Healy. Home Medications: Medications to take at Discharge Aspirin [Aspirin, Baby] 81 mg PO DAILY@0800 09/23/15 Atorvastatin Calcium [Lipitor] 40 mg PO QHS 09/23/15 Carvedilol [Coreg (Beta Tasha)] 25 mg PO BID 09/23/15 Famotidine [Pepcid] 20 mg PO DAILY 09/23/15 Ipratropium/Albuterol Sulfate [Duoneb] 3 ml INHALATION Q4HWA.RT PRN 09/23/15 Lisinopril [Zestril] 10 mg PO DAILY 09/23/15 Acetaminophen [Tylenol] 650 mg PO BID 10/09/15 Umeclidinium Brm/Vilanterol Tr [Anoro Ellipta 62.5-25 Mcg INH] 1 ea IH DAILY 10/09/15 escitalopram 10 mg tablet 10 mg PO DAILY tab 11/03/17 guaifenesin ER 600 mg tablet, extended release 12 hr 600 mg PO Q12H tab 11/03/17 loratadine 10 mg tablet 10 mg PO DAILY 11/03/17 nitroglycerin 0.4 mg sublingual tablet 0.4 mg SUBLINGUAL Q5-15M PRN 11/03/17 tamsulosin 0.4 mg capsule 0.4 mg PO DAILY 11/03/17 Amlodipine [Norvasc] 2.5 mg PO QHS 11/12/17 Oseltamivir Phosphate [Tamiflu] 30 mg PO BID capsule 11/16/17 Prednisone See Taper PO DAILY #22 tablet 11/16/17 levoFLOXacin tablet [Levaquin tablet] 750 mg PO Q48@0600 tablet 11/16/17 Following Prescrptions Were Given to Patient: Prednisone See Taper PO DAILY #22 tablet Primary Care Physician: Omer Rodriguez MD [Primary Care Provider] - Please follow up with your Primary Care Physician in: 1 Week Disposition: [facility] facility Minutes spent on discharge:: 35 Patient Condition:: Stable Medical Necessity - Tobacco Use Smoking Status: Former smoker Tobacco Use: Cigarettes Meaningful Use Info Meaningful Use Diagnoses (Choose all that apply): None applicable <Teresa Healy - Last Filed: 11/16/17 11:15> Discharge Date and Diagnosis - Secondary Discharge Diagnosis Chronic Problems (Last Updated 11/03/17 @ 17:00 by Daisha Lucio) Atherosclerotic heart disease of [place] coronary artery without angina pectoris (Chronic) PTCA/BINA to mid RCA 04/09/05 Cardiomyopathy, dilated (Chronic) Presence of stent in coronary artery (Chronic ~04/09/05) PTCA/BINA to mid RCA 04/09/05 Chronic diastolic (congestive) heart failure (Chronic) Premature ventricular contraction (Chronic) Paroxysmal atrial fibrillation (Chronic) Benign essential HTN (Chronic) Depression (Chronic) HLD (hyperlipidemia) (Chronic) PAT (paroxysmal atrial tachycardia) (Chronic) History of PTCA (Chronic) COPD (chronic obstructive pulmonary disease) (Chronic) Coronary artery disease (Chronic) Dementia (Chronic) Hospital Course and Treatment Summary of Care Provided: The patient is a 77 year old M [] Code Visit Inpatient E&M: 75539 Disch Hosp
--- NOTE | 2017-11-16 10:23 | DS.PCM_ITS ---
<Lexie Sanabria - Last Filed: 11/16/17 10:24> Discharge Date and Diagnosis Date of Admission: 11/12/17 Date of Discharge: 11/16/17 - Primary Discharge Diagnosis Active and Suspected Problems (Last Updated 11/03/17 @ 17:00 by Daisha Lucio ) 1. Acute hypoxia secondary to community-acquired left lower lobe pneumonia and COPD exacerbation secondary to acute influenza B 2. Acute community-acquired left lower lobe pneumonia, suspected gram-negative 3. Acute on chronic COPD exacerbation secondary to acute influenza B 4. Acute kidney injury on chronic kidney disease 5. Elevated troponin secondary to demand ischemia as a result of #1 6. Chronic thrombocytopenia - Secondary Discharge Diagnosis Chronic Problems (Last Updated 11/03/17 @ 17:00 by Daisha Lucio) Atherosclerotic heart disease of [place] coronary artery without angina pectoris (Chronic) PTCA/BINA to mid RCA 04/09/05 Cardiomyopathy, dilated (Chronic) Presence of stent in coronary artery (Chronic ~04/09/05) PTCA/BINA to mid RCA 04/09/05 Chronic diastolic (congestive) heart failure (Chronic) Premature ventricular contraction (Chronic) Paroxysmal atrial fibrillation (Chronic) Benign essential HTN (Chronic) Depression (Chronic) HLD (hyperlipidemia) (Chronic) PAT (paroxysmal atrial tachycardia) (Chronic) History of PTCA (Chronic) COPD (chronic obstructive pulmonary disease) (Chronic) Coronary artery disease (Chronic) Dementia (Chronic) Hospital Course and Treatment Imaging Results: Diagnostic Data Chest X-Ray 11/12/17 15:41 IMPRESSION: Mild diffuse chronic interstitial changes with asymmetrically increased density in left lower lobe which may be consistent with coexisting atelectasis or evolving infiltrate.. Electronically Signed: Jose Juan Junior MD at 16:33 EDT , Service support , Operations: None, - Procedures: None Summary of Care Provided: Patient is a 77-year-old male admitted 11/12/17 due to shortness of breath, cough , fever. His past medical history per records includes dementia, paroxysmal atrial fibrillation, dementia, coronary artery disease status post PTCA, COPD, hyperlipidemia, hypertension, depression, chronic diastolic CHF, chronic kidney disease. 1. Acute hypoxia secondary to suspected community-acquired left lower lobe pneumonia and COPD exacerbation secondary to influenza B-continue supplemental oxygen to maintain O2 at or above 90%. 2. Acute community-acquired left lower lobe pneumonia-chest x-ray on admission with increased density in the left lower lobe. Patient reported subjective fever, cough on admission. Lactic acid 1.2. Patient initially received IV Levaquin and transitioned to oral Levaquin 750 mg every 48hr. Blood cultures show no growth. Not able to send sputum for culture. Urine for strep and Legionella negative. Albuterol and DuoNeb aerosols. Continue supplemental oxygen to maintain O2 at or above 90%. 3. Acute on chronic COPD exacerbation secondary to acute influenza B-albuterol DuoNeb aerosols. Received IV Solu-Medrol. Transition to oral prednisone taper. Continue supplemental oxygen to maintain O2 at or above 90%. Respiratory panel positive for influenza B. Continue Tamiflu 30 mg twice daily for 5 days. 4. Acute kidney injury on chronic kidney disease-suspect secondary to dehydration. Resolved with IV fluids. Monitor BMP. 5. Elevated troponin-suspect demand ischemia secondary to #1. EKG in ER without evidence of ischemia. 6. Chronic thrombocytopenia-unclear etiology. Monitor CBC. 7. CAD-status post PTCA/BINA to mid RCA in 2004. Patient had cardiac catheterization in 2016 which showed patent stents to the proximal mid RCA. Continue aspirin, statin. 8. Paroxysmal atrial fibrillation-currently sinus rhythm. Continue Coreg. Not on anticoagulation. 9. Chronic diastolic CHF-no acute exacerbation. 10. Hypertension-stable, continue home regimen. 11. Hyperlipidemia-continue statin. 12. Dementia-not on home regimen. Previously on donepezil. 13. BPH-continue home tamsulosin regimen. 14. GERD-continue famotidine regimen. General: Alert, Oriented x3, Cooperative, No apparent distress HEENT: Atraumatic, PERRLA, EOMI, Normocephalic Neck: Supple, No JVD, Negative Carotid Bruits Lungs: Clear to auscultation, Diminished Cardiovascular: Regular rate, Regular Rhythm, Normal S1, Normal S2, No murmurs Abdomen: Bowel Sounds Present, Soft, Non Tender, Non-Distended Extremities: No clubbing, No cyanosis, No edema, Capillary Refill Less than 3 Seconds Skin: No rashes, No breakdown Musculoskeletal: No Tenderness to Palpation of Joints or Extremities Neurological: Cranial nerves II-XII grossly intact, Neuro grossly intact Psych/Mental Status: Normal Affect, Appropriate Patient seen and examined prior to discharge. Physical assessment as noted above. Patient stable for discharge to longterm facility. This patient was seen by ALISSA Mann under the supervision of Dr. Healy. Home Medications: Medications to take at Discharge Aspirin [Aspirin, Baby] 81 mg PO DAILY@0800 09/23/15 Atorvastatin Calcium [Lipitor] 40 mg PO QHS 09/23/15 Carvedilol [Coreg (Beta Tasha)] 25 mg PO BID 09/23/15 Famotidine [Pepcid] 20 mg PO DAILY 09/23/15 Ipratropium/Albuterol Sulfate [Duoneb] 3 ml INHALATION Q4HWA.RT PRN 09/23/15 Lisinopril [Zestril] 10 mg PO DAILY 09/23/15 Acetaminophen [Tylenol] 650 mg PO BID 10/09/15 Umeclidinium Brm/Vilanterol Tr [Anoro Ellipta 62.5-25 Mcg INH] 1 ea IH DAILY escitalopram 10 mg tablet 10 mg PO DAILY tab 11/03/17 guaifenesin ER 600 mg tablet, extended release 12 hr 600 mg PO Q12H tab loratadine 10 mg tablet 10 mg PO DAILY 11/03/17 nitroglycerin 0.4 mg sublingual tablet 0.4 mg SUBLINGUAL Q5-15M PRN 11/03/17 tamsulosin 0.4 mg capsule 0.4 mg PO DAILY 11/03/17 Amlodipine [Norvasc] 2.5 mg PO QHS 11/12/17 Oseltamivir Phosphate [Tamiflu] 30 mg PO BID capsule 11/16/17 Prednisone See Taper PO DAILY #22 tablet 11/16/17 levoFLOXacin tablet [Levaquin tablet] 750 mg PO Q48@0600 tablet 11/16/17 Following Prescrptions Were Given to Patient: Prednisone See Taper PO DAILY #22 tablet Primary Care Physician: Omer Rodriguez MD [Primary Care Provider] - Please follow up with your Primary Care Physician in: 1 Week [facility]position: [facility] Minutes spent on discharge:: 35 Patient Condition:: Stable Medical Necessity - Tobacco Use Smoking Status: Former smoker Tobacco Use: Cigarettes Meaningful Use Info Meaningful Use Diagnoses (Choose all that apply): None applicable <Teresa Healy - Last Filed: 11/16/17 11:15> Discharge Date and Diagnosis - Secondary Discharge Diagnosis Chronic Problems (Last Updated 11/03/17 @ 17:00 by Daisha Lucio) Atherosclerotic heart disease of [place] coronary artery without angina pectoris (Chronic) PTCA/BINA to mid RCA 04/09/05 Cardiomyopathy, dilated (Chronic) Presence of stent in coronary artery (Chronic ~04/09/05) PTCA/BINA to mid RCA 04/09/05 Chronic diastolic (congestive) heart failure (Chronic) Premature ventricular contraction (Chronic) Paroxysmal atrial fibrillation (Chronic) Benign essential HTN (Chronic) Depression (Chronic) HLD (hyperlipidemia) (Chronic) PAT (paroxysmal atrial tachycardia) (Chronic) History of PTCA (Chronic) COPD (chronic obstructive pulmonary disease) (Chronic) Coronary artery disease (Chronic) Dementia (Chronic) Hospital Course and Treatment Summary of Care Provided: The patient is a 77 year old M [] Code Visit Inpatient E&M: 14139 Disch Hosp
--- NOTE | 2017-11-16 12:56 | CASEMGMT ---
This MG DALY received call from Jennifer Canales at [facility] inquiring about pt and disposition. Call back to Jennifer at [phone] and updated that pt will be going to skilled side of [facility] and that we are awaiting precert, voices understanding and states she will f/u with pt once he has been discharged. [place] SW aware of all at this time, voices understanding. [facility] MG DALY
[2017-11-16] MEDS: Ipratropium/Albuterol Sulfate 3 ML AMPUL.NEB INHALATION (13:12)
[2017-11-16] MEDS: Acetaminophen 325 MG Tablet 650 MG PO (14:44)
--- NOTE | 2017-11-16 16:06 | CASEMGMT ---
Social Work Received phone call from Lizette at [facility] and precert has been obtained. Physician notified and pt ready for d/c. Met with pt in room and informed that d/c is planned for today and pt will be going to Skilled section of [facility] not assisted living. Pt expressing understanding and agreement. With permission, phone call to pt roman Wagner and informed of above. No preference on transportation used. Wheel chair ambulette setup for 5pm chart picker by [facility]. Pt, [facility] and nursing made aware of d/c time. Orders faxed to [facility] and [facility] [id number] completed. IMELDA Robbins
[2017-11-16] MEDS: Tamsulosin HCl 0.4 MG Capsule PO (16:16)
--- NOTE | 2017-11-16 16:48 | NURSING ---
Report called to Irma at [facility] at this time.
[2017-11-17 09:54] LABS: Pathologist Review Reviewed
== END 2017-11-16 17:05 | disposition skilled nursing facility (03) | DRG 178 ==
LOC: ED 17:59 → PCU 18:15
PROVIDERS: Nurse Practitioner Family; Admitting Provider Internal Medicine; Emergency Provider Emergency Medicine; Family Provider Family Medicine; PCP Family Medicine; Visit Provider Internal Medicine
DX: J10.08 Influenza due to other identified influenza virus with other specified pneumonia (principal); N17.9 Acute kidney failure, unspecified; J15.6 Pneumonia due to other Gram-negative bacteria; I13.0 Hypertensive heart and chronic kidney disease with heart failure and stage 1 through stage 4 chronic kidney disease, or unspecified chronic kidney disease; I50.32 Chronic diastolic (congestive) heart failure; N18.9 Chronic kidney disease, unspecified; J44.0 Chronic obstructive pulmonary disease with (acute) lower respiratory infection; J44.1 Chronic obstructive pulmonary disease with (acute) exacerbation; I42.0 Dilated cardiomyopathy; I47.1 Supraventricular tachycardia; I24.8 Other forms of acute ischemic heart disease; I48.0 Paroxysmal atrial fibrillation; E86.0 Dehydration; R09.02 Hypoxemia; I25.10 Atherosclerotic heart disease of native coronary artery without angina pectoris; E78.5 Hyperlipidemia, unspecified; D69.6 Thrombocytopenia, unspecified; K21.9 Gastro-esophageal reflux disease without esophagitis; N40.0 Benign prostatic hyperplasia without lower urinary tract symptoms; F32.9 Major depressive disorder, single episode, unspecified; F03.90 Unspecified dementia, unspecified severity, without behavioral disturbance, psychotic disturbance, mood disturbance, and anxiety; Z96.642 Presence of left artificial hip joint; Z79.82 Long term (current) use of aspirin; Z79.899 Other long term (current) drug therapy; Z86.718 Personal history of other venous thrombosis and embolism; Z87.891 Personal history of nicotine dependence; Z95.5 Presence of coronary angioplasty implant and graft; Z87.01 Personal history of pneumonia (recurrent)
CPT/HCPCS: 36415; 71046; 80048; 80053; 81001; 83605; 84484; 85025; 85027; 85610; 85730; 87040; 87449; 87633; 93005; 94640; 97110; 97162; 97166; 97530; 97535; 97802; 99285; J7030; J7040; A4216

== ENCOUNTER 2017-12-24 16:05 | Emergency (ER) | payer MEDICARE, SELFPAY ==
--- NOTE | 2017-12-24 16:05 | DT_ITS ---
This patient was seen during an EMR downtime December 21, 2017 - December 28, 2017. This patient may have a combination of paper and electronic documentation or all paper documentation. All documentation is viewable within the e-chart portion of [facility] for each patient visit.
--- NOTE | 2017-12-24 16:14 | RAD_ITS ---
STUDY: X-RAY - PELVIS REASON FOR EXAM: Male, 77 years old. Pain TECHNIQUE: One view of the pelvis was obtained. COMPARISON: CT 06/20/2015 FINDINGS: There is a non-specific bowel gas pattern. There are atherosclerotic vascular calcifications of the pelvic arteries. Postoperative changes are seen within the lower lumbar spine. Normal bilateral iliac wings, sacroiliac joints and visualized sacrum. Normal visualized bilateral superior and inferior pubic rami. Normal pubic symphysis. Normal ischial tuberosities. Normal visualized right femoral head. Normal right acetabulum. There is mild articular joint space narrowing of the right hip. A proximal left femoral prosthesis is partially visualized. The orthopedic hardware appears intact in its visualized portions. Normal left acetabulum. Normal left hip joint. RAD/Pelvis 1 or 2 Views IMPRESSION: Postoperative changes to the left hip. No acute bony abnormality. Electronically Signed: Zuhair Sanabria DO at 13:13 EDT Tel , Service support ,
== END 2017-12-24 17:40 | disposition home or self-care (01) ==
LOC: ED 12-25 10:17
PROVIDERS: Emergency Provider Emergency Medicine; Family Provider Family Medicine; PCP Family Medicine
DX: S30.0XXA Contusion of lower back and pelvis, initial encounter (principal); X58.XXXA Exposure to other specified factors, initial encounter; Y93.9 Activity, unspecified; Y92.9 Unspecified place or not applicable; F03.90 Unspecified dementia, unspecified severity, without behavioral disturbance, psychotic disturbance, mood disturbance, and anxiety; I69.354 Hemiplegia and hemiparesis following cerebral infarction affecting left non-dominant side; J44.9 Chronic obstructive pulmonary disease, unspecified; I25.10 Atherosclerotic heart disease of native coronary artery without angina pectoris; I11.0 Hypertensive heart disease with heart failure; I50.9 Heart failure, unspecified; E78.00 Pure hypercholesterolemia, unspecified; I48.91 Unspecified atrial fibrillation; F32.9 Major depressive disorder, single episode, unspecified; Z87.09 Personal history of other diseases of the respiratory system; Z79.82 Long term (current) use of aspirin; Z96.642 Presence of left artificial hip joint; Z79.899 Other long term (current) drug therapy; Z87.891 Personal history of nicotine dependence
CPT/HCPCS: 72170; 99283

== ENCOUNTER → 2017-12-28 13:45 | Outpatient (REF) | payer MEDICARE, SELFPAY | LOC: OLS.WHLBEN 13:45 | PROVIDERS: Visit Provider Family Medicine | DX: J18.9 Pneumonia, unspecified organism (principal) | CPT/HCPCS: 87449 ==

== ENCOUNTER 2018-02-19 18:44 | Inpatient (IN) | payer MEDICARE, SELFPAY ==
[2018-02-19] VITALS (8 sets, daily range): BP systolic 128–168; BP diastolic 69–85; PULSE 83–95; RESP 21–42; TEMP 37–38.8; O2SAT 92–95; BMI 26.8; BMI 25.4; BMI 25.5
[2018-02-19] MEDS: Ondansetron 4 MG/2 ML Vial IV (19:14)
[2018-02-19 19:16] LABS: Absolute Lymphocyte Count 0.89 X10^3/ul (0.83-4.51); Absolute Neutrophil Count 7.2 X10^3/uL (2.0-7.7); Basophil# 0.01 X10^3/uL; Basophil% 0.1 % (0-1); Hematocrit 40.7 % (40-54); Hemoglobin 12.5 g/dl (13.0-16.5); Lymphocyte # 0.89 X10^3/ul (4.0); Lymphocyte % 10.3 % (19-41); Mean Corp Hgb Conc 30.7 g/gl (32-36); Mean Corpuscular Hgb 29.9 pg (27.0-32.0); Mean Corpuscular Volume 97.4 fL (80-94); Mean Platelet Vol. 11.4 fl (6.2-12.0); Monocyte# 0.61 X10^3/uL; Neutrophil # 7.15 X10^3/uL (2.7-7.7); Neutrophil % 82.6 % (47-70); POSITIVE COUNT NO; POSITIVE DIFFERENTIAL NO; POSITIVE MORPHOLOGY NO; Platelet Count 91 K/mm3 (150-450); RBC Distribution Width CV 14.6 % (11.6-14.6); RBC Distribution Width SD 51.9 fl (35.1-43.9); Red Blood Count 4.18 M/mm3 (4.6-6.2); White Blood Count 8.7 K/mm3 (4.4-11.0)
[2018-02-19 19:19] LABS: International Normalized Ratio 1.3
[2018-02-19 19:20] LABS: Partial Thromboplast Time 39.1 Seconds (24.1-36.2)
[2018-02-19 19:26] LABS: ALB/GLOB Ratio 0.8 RATIO (0.9-2.4); AST(SGOT) 12 U/L (15-37); Alanine Aminotransfer ALT/SGPT 13 U/L (16-61); Alkaline Phosphatase 89 U/L (45-117); Anion Gap 7 (5-15); BUN 13 mg/dL (7-18); BUN/Creat Ratio 11.2 RATIO (10-20); Calcium,Total 8.2 mg/dL (8.5-10.1); Chloride 111 mmol/L (98-107); Creatinine, Serum 1.16 mg/dL (0.70-1.30); EST Glomerular Filtration Rate 65 mL/min (>60); Est Glom Filt Rate - Afr Amer 79 mL/min (>60); Estimated Creatinine Clearance 60.39 ml/min; Glucose 122 mg/dL (74-106); Potassium 3.5 mmol/L (3.5-5.1); Sodium Level 142 mmol/L (136-145)
[2018-02-19 19:32] LABS: Bacteria 0 SEEN /hpf (None Seen); Mucous, Urine 0 SEEN /hpf (<or=2+); Squamous Epithelial Cells - UA 0 SEEN /hpf (0-5); White Blood Cells 0 SEEN /hpf (0-5)
--- NOTE | 2018-02-19 19:33 | RAD_ITS ---
STUDY: X-RAY CHEST REASON FOR EXAM: Male, 77 years old. Fever, shortness of breath, hypoxia TECHNIQUE: PA and lateral views of the chest. COMPARISON: Prior study of 11/12/2017 FINDINGS: teletypesetter monitor leads are seen. There are chronic interstitial fibrotic changes of the lungs. There is no demonstrated pleural abnormality. Normal size heart. Normal mediastinum and nancy. Normal visualized pulmonary arteries. There are calcified plaques of the aortic arch. Normal visualized thoracic spine. Normal visualized ribs, clavicles, and shoulders. There is no demonstrated abnormality of the visualized soft tissue structures of the upper abdomen. RAD/Chest PA and Lateral IMPRESSION: 1. 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 2. Calcific plaques of the aortic arch. 3. Generalized osteopenia. 4. No acute cardiopulmonary disease process is seen. There is no evidence of infiltrate, atelectasis, or pleural effusion. Electronically Signed: Jose Marie MD at 19:53 EDT , Service support ,
[2018-02-19 19:47] LABS: Color, Urine Yellow (Yellow); Glucose, Dipstick Normal (Normal); Ketone-Dipstick 5 mg/dl (Negative); Leukocyte Esterase-Dipstick 25 /ul (Negative); Nitrite-Dipstick Negative (Negative); Occult Blood-Urine 50 /ul (Negative); Protein-Dipstick 100 mg/dl (Negative); Urine Bilirubin Dipstick Negative (Negative); Urine Clarity Clear (Clear); Urine Urobilinogen 1 mg/dl (Normal)
[2018-02-19 19:57] LABS: Red Blood Cells-Urine 0-5 SEEN /hpf (0-5)
--- NOTE | 2018-02-19 20:24 | ED.VISSUMM ---
- ER Visit Summary Date of Service: 02/19/18 Chief Complaint: Fever and cough History of Present Illness: The patient is a [address] Omer Rodriguez. He is a poor informant. [facility] notes that he had a fever of 103? and was given Tylenol approximately an hour and a half ago. Patient does admit to a cough. He denies any chest pain or shortness of breath. Upon arrival to the emergency department patient complains of abdominal pain. He vomited twice. No blood in his emesis. He denies any diarrhea, dysuria or frequency. He does admit to generalized weakness. Physical Examination: Vitals: 102.0, 160/85, 87, 22, 95% on room air which is not hypoxic. General: Well-nourished and well-developed. Head: Normocephalic atraumatic. Neck: Supple, no lymphadenopathy. No JVD. Nontender. Cardiovascular: Regular rate and rhythm. 2 out of 6 systolic murmur. Respiratory: No respiratory distress. Rhonchi bilaterally. Abdominal: Soft, nontender, nondistended, normal bowel sounds. No guarding, rebound, or peritoneal signs. Back: Nontender. Extremities: Nontender, no edema. Skin: Normal color, no rash. Neurologic: Alert and oriented ?2. Cranial nerves II through XII are intact. Normal strength and sensation. Psych: Normal affect. Test Results: CBC is marked for hemoglobin 12.5, platelets 291, segmented neutrophils 83, lymphocytes of 10. Chem-7 is more for chloride 111, glucose 120, calcium 8.2. LFTs marked for an albumin 3.0, ALT of 13, AST of 12. INR is 1.3. PTT is 39.1. UA is negative. Lactic acid is 1.0. Chest x-ray shows chronic changes. Emergency Department Course and Treatment: Patient was given Zofran IV. After discussion with the hospitalist the patient was given Zosyn and vancomycin IV. Treatment Plan: Patient has had a fever to 103?. His temperature here is 102?. While the chest x-ray does not show any obvious pneumonia the patient has pneumonia clinically. He will be admitted to the hospital for further relation and treatment. Disposition: Admitted in serious condition. Impression: 1. Clinical pneumonia. This note was generated with [employer] software. It may contain incorrect words, spelling, and punctuation that were not noted in review of the chart prior to signing ED Disposition - Plan for ED Patient: Chief Complaint: Shortness of Breath Referrals: Omer Rodriguez MD [Primary Care Provider] -
--- NOTE | 2018-02-19 20:31 | NURSING ---
Called ED Charge Ady yeung to bring patient to floor.
--- NOTE | 2018-02-19 20:40 | PCM.HP.STD ---
Problem List (1) Thrombocytopenia Status: Chronic (2) Chronic diastolic (congestive) heart failure Status: Chronic (3) Paroxysmal atrial fibrillation Status: Chronic (4) Benign essential HTN Status: Chronic (5) Depression Status: Chronic (6) HLD (hyperlipidemia) Status: Chronic Qualifiers: (7) COPD (chronic obstructive pulmonary disease) Status: Chronic (8) Coronary artery disease Status: Chronic (9) Dementia Status: Chronic History of Present Illness Date of Admission: 02/19/18 Chief Complaint: Fever. The patient is a 77 year old M with past medical history as mentioned above [facility]. The patient has demented, confused and disoriented at baseline and is not able to provide good history. He is a poor informant. When I asked him few questions, he just replies yes. Reportedly, he had a fever at the [facility] of up to 103 Fahrenheit and he has been having cough as well. Patient himself did admit that he has cough with some sputum as well. He denied chest pain or shortness of breath. He had a history of paroxysmal atrial fibrillation, has been on Coreg for rate control but not on any anticoagulation because of high risk of bleeding. He has a history of CAD status post stents and he has been on aspirin, statins, beta blockers and SHUN inhibitors. He has a history of chronic thrombocytopenia and his platelet counts are always low since 2013. He had history of COPD and he has been on bronchodilators at the [facility]. In the emergency department, patient was febrile, tachypneic and pulse ox was 92% on room air. His heart rate was above 90/min. His routine blood work is remarkable for hemoglobin of 12.5 g/dL, platelet count of 91,000, otherwise normal. Lactic acid was normal. LFT was normal. Urinalysis revealed clear urine without evidence of acute cystitis. Chest x-ray showed chronic fibrotic changes without evidence of acute infiltrate or consolidation. He is being admitted for probable healthcare associated pneumonia with sepsis. Past Medical History Past Medical History (Chronic Problems): Chronic Problems (Last Updated 02/19/18 @ 20:40 by Andre Bolaños MD) Thrombocytopenia (Chronic) Atherosclerotic heart disease of [place] coronary artery without angina pectoris (Chronic) PTCA/BINA to mid RCA 04/09/05 Cardiomyopathy, dilated (Chronic) Presence of stent in coronary artery (Chronic ~04/09/05) PTCA/BINA to mid RCA 04/09/05 Chronic diastolic (congestive) heart failure (Chronic) Premature ventricular contraction (Chronic) Paroxysmal atrial fibrillation (Chronic) Benign essential HTN (Chronic) Depression (Chronic) HLD (hyperlipidemia) (Chronic) PAT (paroxysmal atrial tachycardia) (Chronic) History of PTCA (Chronic) COPD (chronic obstructive pulmonary disease) (Chronic) Coronary artery disease (Chronic) Dementia (Chronic) Medical History: Medical History (Last Updated 02/19/18 @ 20:40 by Andre Bolaños MD) Thrombocytopenia (Chronic) D69.6 Atherosclerotic heart disease of [place] coronary artery without angina pectoris (Chronic) I25.10 PTCA/BINA to mid RCA 04/09/05 Cardiomyopathy, dilated (Chronic) I42.0 Presence of stent in coronary artery (Chronic) Onset Date: ~04/09/05 Z95.5 PTCA/BINA to mid RCA 04/09/05 Chronic diastolic (congestive) heart failure (Chronic) I50.32 Premature ventricular contraction (Chronic) I49.3 Paroxysmal atrial fibrillation (Chronic) I48.0 Benign essential HTN (Chronic) I10 Depression (Chronic) F32.9 HLD (hyperlipidemia) (Chronic) E78.5 PAT (paroxysmal atrial tachycardia) (Chronic) COPD (chronic obstructive pulmonary disease) (Chronic) J44.9 Coronary artery disease (Chronic) I25.10 Dementia (Chronic) F03.90 CVA (cerebral vascular accident) I63.9 TIA (transient ischemic attack) G45.9 Hypertension I10 Allergies No Known Allergies Allergy (Verified 02/19/18 19:02) Home Medications: Ambulatory Orders Medication Instructions Recorded Aspirin [Aspirin, Baby] 81 mg PO DAILY@0800 09/23/15 Atorvastatin Calcium [Lipitor] 40 mg PO QHS 09/23/15 Carvedilol [Coreg (Beta Tasha)] 25 mg PO BID 09/23/15 Famotidine [Pepcid] 20 mg PO DAILY 09/23/15 Ipratropium/Albuterol Sulfate 3 ml INHALATION Q4HWA.RT PRN 09/23/15 [Duoneb] Lisinopril [Zestril] 10 mg PO DAILY 09/23/15 Acetaminophen [Tylenol] 650 mg PO BID 10/09/15 Umeclidinium Brm/Vilanterol Tr 1 inh INHALATION DAILY 10/09/15 [Anoro Ellipta 62.5-25 Mcg INH] escitalopram 10 mg tablet 10 mg PO DAILY tab 11/03/17 loratadine 10 mg tablet 10 mg PO DAILY 11/03/17 nitroglycerin 0.4 mg sublingual 0.4 mg SUBLINGUAL Q5-15M PRN 11/03/17 tablet tamsulosin 0.4 mg capsule 0.4 mg PO DAILY 11/03/17 Amoxicillin/Potassium Clav 1 tab PO BID 02/19/18 [Augmentin 875-125 Tablet] Docusate Sodium [Colace] 200 mg PO DAILY 02/19/18 Guaifenesin [Mucinex] 600 mg PO BID 02/19/18 Surgical History: Surgical History (Last Reviewed 11/30/17 @ 10:38 by Araceli Simon) History of PTCA (Chronic) Z98.61 History of back surgery Z98.890 History of knee replacement procedure of right knee Z96.651 Surgical History: total hip arthroplasty - left, - - Left knee repair, back surgery Psychiatric History: No pertinent psych hx Lives: Jail Smoking Status: Former smoker Alcohol: None Drugs: None - *Family History Maternal Family History: Family History (Last Reviewed 11/30/17 @ 10:38 by Araceli Simon) Mother CAD (coronary artery disease) CHF (congestive heart failure) Brother Heart disease History Items: Heart Disease Paternal Family History: Family History (Last Reviewed 11/30/17 @ 10:38 by Araceli Simon) Mother CAD (coronary artery disease) CHF (congestive heart failure) Brother Heart disease History Items: Heart Disease Review of Systems Constitutional: Reports: Fever. Denies: Anorexia, Chills, Weakness Eyes: Denies: Blurred vision, Double vision, Drainage, Redness HEENT: Denies: Difficulty Hearing, Ear Pain, Eye Pain, Nasal Congestion, Sore Throat Cardiovascular: Denies: Chest Pain, Chest Pressure, Palpitations, Syncope Respiratory: Reports: Cough, Shortness of Breath. Denies: Pleuritic Pain, Wheezing Gastrointestinal: Denies: Abdominal Pain, Diarrhea, Nausea, Vomiting Genitourinary: Denies: Dysuria, Frequency, Hematuria Musculoskeletal: Denies: Arm Pain, Back Pain, Foot Pain Skin: Denies: Dryness, Rash Neurological: Reports: Confusion. Denies: Balance problems, Double vision, Change in Speech, Focal weakness, Headaches, Incoordination Psychiatric: Reports: Depression. Denies: Anxiety Endocrine: Denies: Change in Body Habitus, Polydipsia VTE Information - Inpt Only VTE Present on Admission: No VTE Mechan Device Prophylaxis: None VTE Pharm Prophylaxis ordered?: Yes - Physical Exam General: Alert, Cooperative, Confused, Disoriented, - - Minimally short of breath. HEENT: Atraumatic, PERRLA, EOMI, Normocephalic Oral: Moist Mucosa, No Gingival or Mucosal Lesions/ Ulcerations Neck: Supple, No JVD, Negative Carotid Bruits, Trachea Midline, Thyroid Normal Size and Texture Lungs: No wheeze, Diminished, Rales, Rhonchi, Short of Breath, - - Decreased breath sounds bilateral, bilateral rhonchi, coarse crackles. Cardiovascular: Normal S1, Normal S2, PMI Normal, Irregular Rate Abdomen: Bowel Sounds Present, Soft, Non Tender, Non-Distended, No Hepato-splenomegaly Extremities: No clubbing, No cyanosis, No edema Skin: No rashes, No breakdown Lymphatic: No Cervical, Supraclavicular, or Inguinal Adenopathy Neurological: Cranial nerves II-XII grossly intact, Motor Exam 5/5 strength throughout Psych/Mental Status: Flat Affect Vital Signs Temp Pulse Resp BP Pulse Ox 98.6 F 93 21 H 159/73 H 93 02/19/18 20:22 02/19/18 20:00 02/19/18 20:00 02/19/18 20:00 02/19/18 20:00 Oxygen Flow Rate (L/min) 4 Oxygen Delivery Method Room Air Weight: 197 lb 12.074 oz Body Mass Index (BMI) 26.8 Finger Stick Blood Glucose 95 Laboratory Tests Past 24 Hrs 02/19/18 02/19/18 02/19/18 18:59 18:59 18:59 WBC 8.7 RBC 4.18 L Hgb 12.5 L Hct 40.7 MCV 97.4 H MCH 29.9 MCHC 30.7 L RDW 14.6 RDW Differential 51.9 H Plt Count 91 L MPV 11.4 Immature Gran % (Auto) 0.000 Neut % (Auto) 82.6 H Lymph % (Auto) 10.3 L [place] % (Auto) 7.0 Eos % (Auto) 0.0 Baso % (Auto) 0.1 Absolute Neuts (auto) 7.2 Absolute Lymphs (auto) 0.89 Total Counted Not Reportable PT 16.0 H INR 1.3 APTT 39.1 H Sodium 142 Potassium 3.5 Chloride 111 H Carbon Dioxide 24.0 Anion Gap 7 BUN 13 Creatinine 1.16 Estim Creat Clear Calc 60.39 Est GFR (MDRD) Af Amer 79 Est GFR (MDRD) Non-Af 65 BUN/Creatinine Ratio 11.2 Glucose 122 H Lactic Acid Calcium 8.2 L Total Bilirubin 1.00 AST 12 L ALT 13 L Alkaline Phosphatase 89 Total Protein 7.0 Albumin 3.0 L Globulin 4.0 Albumin/Globulin Ratio 0.8 L Urine Color Urine Clarity Urine pH Ur Specific [place] Urine Protein Urine Glucose (UA) Urine Ketones Urine Occult Blood Urine Nitrite Urine Bilirubin Urine Urobilinogen Ur Leukocyte Esterase Urine RBC Urine WBC Ur Squamous Epith Cells Urine Bacteria Urine Mucus 02/19/18 02/19/18 18:59 19:26 WBC RBC Hgb Hct MCV MCH MCHC RDW RDW Differential Plt Count MPV Immature Gran % (Auto) Neut % (Auto) Lymph % (Auto) [place] % (Auto) Eos % (Auto) Baso % (Auto) Absolute Neuts (auto) Absolute Lymphs (auto) Total Counted PT INR APTT Sodium Potassium Chloride Carbon Dioxide Anion Gap BUN Creatinine Estim Creat Clear Calc Est GFR (MDRD) Af Amer Est GFR (MDRD) Non-Af BUN/Creatinine Ratio Glucose Lactic Acid 1.0 Calcium Total Bilirubin AST ALT Alkaline Phosphatase Total Protein Albumin Globulin Albumin/Globulin Ratio Urine Color Yellow Urine Clarity Clear Urine pH 7.0 Ur Specific [place] 1.010 Urine Protein 100 H Urine Glucose (UA) Normal Urine Ketones 5 H Urine Occult Blood 50 H Urine Nitrite Negative Urine Bilirubin Negative Urine Urobilinogen 1 H Ur Leukocyte Esterase 25 H Urine RBC 0-5 SEEN Urine WBC 0 SEEN Ur Squamous Epith Cells 0 SEEN Urine Bacteria 0 SEEN Urine Mucus 0 SEEN Clinical Impression(s) from Imaging Studies Chest X-Ray 02/19/18 19:33 IMPRESSION: 1. 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 2. Calcific plaques of the aortic arch. 3. Generalized osteopenia. 4. No acute cardiopulmonary disease process is seen. There is no evidence of infiltrate, atelectasis, or pleural effusion. Electronically Signed: Jose Marie MD at 19:53 EDT , Service support , Assessment/Plan All Active Problems (Last Updated 02/19/18 @ 20:40 by Andre Bolaños MD) CAP (community acquired pneumonia) (Resolved) DVT (deep venous thrombosis) (Resolved) This is a 77 years old male patient was [facility] because of fever and cough, found to have probable healthcare associated pneumonia based on fever, productive cough, tachypnea, chest auscultation and also found to have sepsis and he is being admitted for treatment. #1 probable healthcare associated pneumonia/sepsis: This is based on symptoms of cough with sputum, fever, chest auscultation, tachypnea. Chest x-ray showed no obvious infiltrate. No other source of infection identified. No reported aspiration or choking. At this time, blood pressure stable as well as heart rate, pulse ox is 92% on room air. Plan: Admit to PCU, cardiac monitoring, blood culture, urine culture, sputum culture, chest physical therapy, bronchodilators, incentive spirometer, IV vancomycin and Zosyn, repeat CBC and BMP tomorrow morning, repeat chest x-ray tomorrow morning, PT OT evaluation and treatment. #2 CAD status post stents: Patient denies any chest pain. Plan to do routine EKG, troponin ?1. Continue aspirin, Coreg, Lipitor and lisinopril. #3 paroxysmal atrial fibrillation: Rate is controlled. Plan to continue Coreg for rate control. Patient is not on anticoagulation. #4 hypertension: Blood pressure stable, continue Coreg and lisinopril. #5 hyperlipidemia: Continue statins. #6 chronic diastolic CHF: Clinically stable, compensated. Plan for gentle IV Hydration, Monitor for Volume Overload, Continue Coreg and Lisinopril As Well As Aspirin and Statins. #7 COPD: DuoNeb every 6 hours, albuterol as needed, chest physiotherapy, incentive spirometer. #8 dementia: Patient is demented, confused and disoriented at baseline. #9 chronic thrombocytopenia: Admission platelet count is 91,000, this is chronic. No evidence of active bleeding. Plan to repeat CBC tomorrow morning. #10 DVT prophylaxis: Subcu Lovenox. This note was generated with [employer] software. It may contain incorrect words, spelling, and punctuation that were not noted in checking the note before signing. Code Visit Inpatient E&M: 09034 Init Hosp L3
--- NOTE | 2018-02-19 20:43 | HP.PCM_ITS ---
Problem List (1) Thrombocytopenia Status: Chronic (2) Chronic diastolic (congestive) heart failure Status: Chronic (3) Paroxysmal atrial fibrillation Status: Chronic (4) Benign essential HTN Status: Chronic (5) Depression Status: Chronic (6) HLD (hyperlipidemia) Status: Chronic Qualifiers: (7) COPD (chronic obstructive pulmonary disease) Status: Chronic (8) Coronary artery disease Status: Chronic (9) Dementia Status: Chronic History of Present Illness Date of Admission: 02/19/18 Chief Complaint: Fever. The patient is a 77 year old M with past medical history as mentioned above [facility] because of fever. The patient has demented, confused and disoriented at baseline and is not able to provide good history. He is a poor informant. When I asked him few questions, he just replies yes. Reportedly, he had a fever at the [facility] of up to 103 Fahrenheit and he has been having cough as well. Patient himself did admit that he has cough with some sputum as well. He denied chest pain or shortness of breath. He had a history of paroxysmal atrial fibrillation, has been on Coreg for rate control but not on any anticoagulation because of high risk of bleeding. He has a history of CAD status post stents and he has been on aspirin , statins, beta blockers and SHUN inhibitors. He has a history of chronic thrombocytopenia and his platelet counts are always low since 2013. He had history of COPD and he has been on bronchodilators at the [facility]. In the emergency department, patient was febrile, tachypneic and pulse ox was 92% on room air. His heart rate was above 90/min. His routine blood work is remarkable for hemoglobin of 12.5 g/dL, platelet count of 91,000, otherwise normal. Lactic acid was normal. LFT was normal. Urinalysis revealed clear urine without evidence of acute cystitis. Chest x-ray showed chronic fibrotic changes without evidence of acute infiltrate or consolidation. He is being admitted for probable healthcare associated pneumonia with sepsis. Past Medical History Past Medical History (Chronic Problems): Chronic Problems (Last Updated 02/19/18 @ 20:40 by Andre Bolaños MD) Thrombocytopenia (Chronic) Atherosclerotic heart disease of [place] coronary artery without angina pectoris (Chronic) PTCA/BINA to mid RCA 04/09/05 Cardiomyopathy, dilated (Chronic) Presence of stent in coronary artery (Chronic ~04/09/05) PTCA/BINA to mid RCA 04/09/05 Chronic diastolic (congestive) heart failure (Chronic) Premature ventricular contraction (Chronic) Paroxysmal atrial fibrillation (Chronic) Benign essential HTN (Chronic) Depression (Chronic) HLD (hyperlipidemia) (Chronic) PAT (paroxysmal atrial tachycardia) (Chronic) History of PTCA (Chronic) COPD (chronic obstructive pulmonary disease) (Chronic) Coronary artery disease (Chronic) Dementia (Chronic) Medical History: Medical History (Last Updated 02/19/18 @ 20:40 by Andre Bolaños MD) Thrombocytopenia (Chronic) D69.6 Atherosclerotic heart disease of [place] coronary artery without angina pectoris (Chronic) I25.10 PTCA/BINA to mid RCA 04/09/05 Cardiomyopathy, dilated (Chronic) I42.0 Presence of stent in coronary artery (Chronic) Onset Date: ~04/09/05 Z95.5 PTCA/BINA to mid RCA 04/09/05 Chronic diastolic (congestive) heart failure (Chronic) I50.32 Premature ventricular contraction (Chronic) I49.3 Paroxysmal atrial fibrillation (Chronic) I48.0 Benign essential HTN (Chronic) I10 Depression (Chronic) F32.9 HLD (hyperlipidemia) (Chronic) E78.5 PAT (paroxysmal atrial tachycardia) (Chronic) COPD (chronic obstructive pulmonary disease) (Chronic) J44.9 Coronary artery disease (Chronic) I25.10 Dementia (Chronic) F03.90 CVA (cerebral vascular accident) I63.9 TIA (transient ischemic attack) G45.9 Hypertension I10 Allergies No Known Allergies Allergy (Verified 02/19/18 19:02) Home Medications: Ambulatory Orders Medication Instructions Recorded Aspirin [Aspirin, Baby] 81 mg PO DAILY@0800 09/23/15 Atorvastatin Calcium [Lipitor] 40 mg PO QHS 09/23/15 Carvedilol [Coreg (Beta Tasha)] 25 mg PO BID 09/23/15 Famotidine [Pepcid] 20 mg PO DAILY 09/23/15 Ipratropium/Albuterol Sulfate 3 ml INHALATION Q4HWA.RT PRN 09/23/15 [Duoneb] Lisinopril [Zestril] 10 mg PO DAILY 09/23/15 Acetaminophen [Tylenol] 650 mg PO BID 10/09/15 Umeclidinium Brm/Vilanterol Tr 1 inh INHALATION DAILY 10/09/15 [Anoro Ellipta 62.5-25 Mcg INH] escitalopram 10 mg tablet 10 mg PO DAILY tab 11/03/17 loratadine 10 mg tablet 10 mg PO DAILY 11/03/17 nitroglycerin 0.4 mg sublingual 0.4 mg SUBLINGUAL Q5-15M PRN 11/03/17 tablet tamsulosin 0.4 mg capsule 0.4 mg PO DAILY 11/03/17 Amoxicillin/Potassium Clav 1 tab PO BID 02/19/18 [Augmentin 875-125 Tablet] Docusate Sodium [Colace] 200 mg PO DAILY 02/19/18 Guaifenesin [Mucinex] 600 mg PO BID 02/19/18 Surgical History: Surgical History (Last Reviewed 11/30/17 @ 10:38 by Araceli Simon) History of PTCA (Chronic) Z98.61 History of back surgery Z98.890 History of knee replacement procedure of right knee Z96.651 Surgical History: total hip arthroplasty - left, - - Left knee repair, back surgery Psychiatric History: No pertinent psych hx Lives: Prison Smoking Status: Former smoker Alcohol: None Drugs: None - *Family History Maternal Family History: Family History (Last Reviewed 11/30/17 @ 10:38 by Araceli Simon) Mother CAD (coronary artery disease) CHF (congestive heart failure) Brother Heart disease History Items: Heart Disease Paternal Family History: Family History (Last Reviewed 11/30/17 @ 10:38 by Araceli Simon) Mother CAD (coronary artery disease) CHF (congestive heart failure) Brother Heart disease History Items: Heart Disease Review of Systems Constitutional: Reports: Fever. Denies: Anorexia, Chills, Weakness Eyes: Denies: Blurred vision, Double vision, Drainage, Redness HEENT: Denies: Difficulty Hearing, Ear Pain, Eye Pain, Nasal Congestion, Sore Throat Cardiovascular: Denies: Chest Pain, Chest Pressure, Palpitations, Syncope Respiratory: Reports: Cough, Shortness of Breath. Denies: Pleuritic Pain, Wheezing Gastrointestinal: Denies: Abdominal Pain, Diarrhea, Nausea, Vomiting Genitourinary: Denies: Dysuria, Frequency, Hematuria Musculoskeletal: Denies: Arm Pain, Back Pain, Foot Pain Skin: Denies: Dryness, Rash Neurological: Reports: Confusion. Denies: Balance problems, Double vision, Change in Speech, Focal weakness, Headaches, Incoordination Psychiatric: Reports: Depression. Denies: Anxiety Endocrine: Denies: Change in Body Habitus, Polydipsia VTE Information - Inpt Only VTE Present on Admission: No VTE Mechan Device Prophylaxis: None VTE Pharm Prophylaxis ordered?: Yes - Physical Exam General: Alert, Cooperative, Confused, Disoriented, - - Minimally short of breath. HEENT: Atraumatic, PERRLA, EOMI, Normocephalic Oral: Moist Mucosa, No Gingival or Mucosal Lesions/ Ulcerations Neck: Supple, No JVD, Negative Carotid Bruits, Trachea Midline, Thyroid Normal Size and Texture Lungs: No wheeze, Diminished, Rales, Rhonchi, Short of Breath, - - Decreased breath sounds bilateral, bilateral rhonchi, coarse crackles. Cardiovascular: Normal S1, Normal S2, PMI Normal, Irregular Rate Abdomen: Bowel Sounds Present, Soft, Non Tender, Non-Distended, No Hepato- splenomegaly Extremities: No clubbing, No cyanosis, No edema Skin: No rashes, No breakdown Lymphatic: No Cervical, Supraclavicular, or Inguinal Adenopathy Neurological: Cranial nerves II-XII grossly intact, Motor Exam 5/5 strength throughout Psych/Mental Status: Flat Affect Vital Signs Temp Pulse Resp BP Pulse Ox 98.6 F 93 21 H 159/73 H 93 02/19/18 20:22 02/19/18 20:00 02/19/18 20:00 02/19/18 20:00 02/19/18 20:00 Oxygen Flow Rate (L/min) 4 Oxygen Delivery Method Room Air Weight: 197 lb 12.074 oz Body Mass Index (BMI) 26.8 Finger Stick Blood Glucose 95 Laboratory Tests Past 24 Hrs 02/19/18 02/19/18 02/19/18 18:59 18:59 18:59 WBC 8.7 RBC 4.18 L Hgb 12.5 L Hct 40.7 MCV 97.4 H MCH 29.9 MCHC 30.7 L RDW 14.6 RDW Differential 51.9 H Plt Count 91 L MPV 11.4 Immature Gran % (Auto) 0.000 Neut % (Auto) 82.6 H Lymph % (Auto) 10.3 L [place] % (Auto) 7.0 Eos % (Auto) 0.0 Baso % (Auto) 0.1 Absolute Neuts (auto) 7.2 Absolute Lymphs (auto) 0.89 Total Counted Not Reportable PT 16.0 H INR 1.3 APTT 39.1 H Sodium 142 Potassium 3.5 Chloride 111 H Carbon Dioxide 24.0 Anion Gap 7 BUN 13 Creatinine 1.16 Estim Creat Clear Calc 60.39 Est GFR (MDRD) Af Amer 79 Est GFR (MDRD) Non-Af 65 BUN/Creatinine Ratio 11.2 Glucose 122 H Lactic Acid Calcium 8.2 L Total Bilirubin 1.00 AST 12 L ALT 13 L Alkaline Phosphatase 89 Total Protein 7.0 Albumin 3.0 L Globulin 4.0 Albumin/Globulin Ratio 0.8 L Urine Color Urine Clarity Urine pH Ur Specific [place] Urine Protein Urine Glucose (UA) Urine Ketones Urine Occult Blood Urine Nitrite Urine Bilirubin Urine Urobilinogen Ur Leukocyte Esterase Urine RBC Urine WBC Ur Squamous Epith Cells Urine Bacteria Urine Mucus 02/19/18 02/19/18 18:59 19:26 WBC RBC Hgb Hct MCV MCH MCHC RDW RDW Differential Plt Count MPV Immature Gran % (Auto) Neut % (Auto) Lymph % (Auto) [place] % (Auto) Eos % (Auto) Baso % (Auto) Absolute Neuts (auto) Absolute Lymphs (auto) Total Counted PT INR APTT Sodium Potassium Chloride Carbon Dioxide Anion Gap BUN Creatinine Estim Creat Clear Calc Est GFR (MDRD) Af Amer Est GFR (MDRD) Non-Af BUN/Creatinine Ratio Glucose Lactic Acid 1.0 Calcium Total Bilirubin AST ALT Alkaline Phosphatase Total Protein Albumin Globulin Albumin/Globulin Ratio Urine Color Yellow Urine Clarity Clear Urine pH 7.0 Ur Specific [place] 1.010 Urine Protein 100 H Urine Glucose (UA) Normal Urine Ketones 5 H Urine Occult Blood 50 H Urine Nitrite Negative Urine Bilirubin Negative Urine Urobilinogen 1 H Ur Leukocyte Esterase 25 H Urine RBC 0-5 SEEN Urine WBC 0 SEEN Ur Squamous Epith Cells 0 SEEN Urine Bacteria 0 SEEN Urine Mucus 0 SEEN Clinical Impression(s) from Imaging Studies Chest X-Ray 02/19/18 19:33 IMPRESSION: 1. 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 2. Calcific plaques of the aortic arch. 3. Generalized osteopenia. 4. No acute cardiopulmonary disease process is seen. There is no evidence of infiltrate, atelectasis, or pleural effusion. Electronically Signed: Jose Marie MD at 19:53 EDT , Service support , Assessment/Plan All Active Problems (Last Updated 02/19/18 @ 20:40 by Andre Bolaños MD) CAP (community acquired pneumonia) (Resolved) DVT (deep venous thrombosis) (Resolved) This is a 77 years old male patient was [facility] to ER [facility] because of fever and cough, found to have probable healthcare associated pneumonia based on fever, productive cough, tachypnea, chest auscultation and also found to have sepsis and he is being admitted for treatment. #1 probable healthcare associated pneumonia/sepsis: This is based on symptoms of cough with sputum, fever, chest auscultation, tachypnea. Chest x-ray showed no obvious infiltrate. No other source of infection identified. No reported aspiration or choking. At this time, blood pressure stable as well as heart rate, pulse ox is 92% on room air. Plan: Admit to PCU, cardiac monitoring, blood culture, urine culture, sputum culture, chest physical therapy, bronchodilators, incentive spirometer, IV vancomycin and Zosyn, repeat CBC and BMP tomorrow morning, repeat chest x-ray tomorrow morning, PT OT evaluation and treatment. #2 CAD status post stents: Patient denies any chest pain. Plan to do routine EKG, troponin ?1. Continue aspirin, Coreg, Lipitor and lisinopril. #3 paroxysmal atrial fibrillation: Rate is controlled. Plan to continue Coreg for rate control. Patient is not on anticoagulation. #4 hypertension: Blood pressure stable, continue Coreg and lisinopril. #5 hyperlipidemia: Continue statins. #6 chronic diastolic CHF: Clinically stable, compensated. Plan for gentle IV Hydration, Monitor for Volume Overload, Continue Coreg and Lisinopril As Well As Aspirin and Statins. #7 COPD: DuoNeb every 6 hours, albuterol as needed, chest physiotherapy, incentive spirometer. #8 dementia: Patient is demented, confused and disoriented at baseline. #9 chronic thrombocytopenia: Admission platelet count is 91,000, this is chronic. No evidence of active bleeding. Plan to repeat CBC tomorrow morning. #10 DVT prophylaxis: Subcu Lovenox. This note was generated with [employer] software. It may contain incorrect words, spelling, and punctuation that were not noted in checking the note before signing. Code Visit Inpatient E&M: 19645 Init Hosp L3
--- NOTE | 2018-02-19 21:52 | EKG12_ITS ---
Test Reason : AMEKG Blood Pressure : / mmHG Vent. Rate : 075 BPM Atrial Rate : 075 BPM P-R Int : 168 ms QRS Dur : 136 ms QT Int : 478 ms P-R-T Axes : 036 011 156 degrees QTc Int : 533 ms Normal sinus rhythm Left bundle branch block Abnormal ECG Confirmed by REVA HAGEN, SANTOSH ([id number]), manager editorial HÉCTOR IVEY ([id number] on 02/24/2018 11:37:18 AM Referred By: DR COBB Confirmed By:SANTOSH ARDON MD
[2018-02-19] MEDS: Carvedilol 25 MG Tablet PO (22:30)
[2018-02-19] MEDS: Atorvastatin Calcium 40 MG Tablet PO (22:31)
[2018-02-19] MEDS: 0.9% Normal Saline 1,000 ML 75 ML IV (23:21)
[2018-02-19] MEDS: Piperacil/Tazobactam 3.375 GM/50 ML ML IV (23:37)
[2018-02-19] MEDS: guaiFENesin 1,200 MG Tablet 1200 MG PO (23:38)
[2018-02-20] VITALS (21 sets, daily range): BP systolic 117–137; BP diastolic 57–68; PULSE 62–89; RESP 18–31; TEMP 36.6–38.5; O2SAT 92–96
[2018-02-20] MEDS: Ipratropium/Albuterol Sulfate 3 ML AMPUL.NEB INHALATION ×5 (03:25→19:33)
[2018-02-20] MEDS: 0.9% Normal Saline 1,000 ML 75 ML IV ×2 (05:29→17:58)
[2018-02-20] MEDS: Piperacil/Tazobactam 3.375 GM/50 ML ML IV (05:33)
--- NOTE | 2018-02-20 05:52 | PCM.RX.CS ---
Consult Pharmacy has been consulted to manage selected antiobiotic: Vancomycin Type of Consult: New start Suspected Infection: Pneumonia Labs: Sodium 142 mmol/L (136-145) 02/19/18 18:59 Potassium 3.5 mmol/L (3.5-5.1) 02/19/18 18:59 Chloride 111 mmol/L (98-107) H 02/19/18 18:59 Carbon Dioxide 24.0 mmol/L (21.0-32.0) 02/19/18 18:59 Anion Gap 7 (5-15) 02/19/18 18:59 BUN 13 mg/dL (7-18) 02/19/18 18:59 Creatinine 1.16 mg/dL (0.70-1.30) 02/19/18 18:59 Est GFR (MDRD) Af Amer 79 mL/min (>60) 08 18:59 Est GFR (MDRD) Non-Af 65 mL/min (>60) 02/19/18 18:59 BUN/Creatinine Ratio 11.2 RATIO (10-20) 02/19/18 18:59 Glucose 122 mg/dL (74-106) H 02/19/18 18:59 Estimated Creatinine Clearance: 1.16 Goal Trough: 15-20 mcg/mL Pharmacy Plan for Drug Dosing: Pharmacy Service will continue to monitor and adjust dosing as required. Medications Vancomycin HCl (Vancomycin) 1,000 mg in 200 mls @ 200 mls/hr IV Q12H YVROSE Discontinued Medications Vancomycin HCl 1,250 mg/ (Sodium Chloride) 275 mls @ 167 mls/hr IV X1 ONE Stop: 02/20/18 02:08 Last Admin: 02/20/18 00:17 Dose: 167 mls/hr Follow-Up Labs: Trough Vancomycin Labs to be done on [date and time ordered]: 02/21 @ 1200
[2018-02-20 06:50] LABS: Absolute Lymphocyte Count 0.67 X10^3/ul (0.83-4.51); Absolute Neutrophil Count 7.1 X10^3/uL (2.0-7.7); Basophil# 0.01 X10^3/uL; Basophil% 0.1 % (0-1); Eosinophil# 0.01 X10^3/uL; Eosinophils% 0.1 % (0-5); Hematocrit 37.3 % (40-54); Hemoglobin 11.3 g/dl (13.0-16.5); Lymphocyte # 0.67 X10^3/ul (4.0); Lymphocyte % 7.9 % (19-41); Mean Corp Hgb Conc 30.3 g/gl (32-36); Mean Corpuscular Hgb 30.6 pg (27.0-32.0); Mean Corpuscular Volume 101.1 fL (80-94); Mean Platelet Vol. 10.5 fl (6.2-12.0); Monocyte# 0.65 X10^3/uL; Monocyte% 7.7 % (0-10); Neutrophil # 7.07 X10^3/uL (2.7-7.7); Neutrophil % 83.8 % (47-70); Platelet Count 59 K/mm3 (150-450); RBC Distribution Width CV 14.8 % (11.6-14.6); RBC Distribution Width SD 53.3 fl (35.1-43.9); Red Blood Count 3.69 M/mm3 (4.6-6.2); White Blood Count 8.4 K/mm3 (4.4-11.0)
[2018-02-20 06:52] LABS: POSITIVE COUNT NO; POSITIVE DIFFERENTIAL NO; POSITIVE MORPHOLOGY NO
[2018-02-20 07:02] LABS: Anion Gap 7 (5-15); BUN 17 mg/dL (7-18); Calcium,Total 7.6 mg/dL (8.5-10.1); Chloride 113 mmol/L (98-107); Creatinine, Serum 1.21 mg/dL (0.70-1.30); EST Glomerular Filtration Rate 62 mL/min (>60); Est Glom Filt Rate - Afr Amer 75 mL/min (>60); Glucose 107 mg/dL (74-106); Potassium 3.7 mmol/L (3.5-5.1); Sodium Level 143 mmol/L (136-145)
[2018-02-20] MEDS: Docusate Sodium 100 MG Capsule 200 MG PO (09:13)
[2018-02-20] MEDS: Aspirin 81 MG TAB.CHEW PO (09:13)
[2018-02-20] MEDS: Carvedilol 25 MG Tablet PO ×2 (09:13→21:51)
[2018-02-20] MEDS: Escitalopram Oxalate 10 MG Tablet PO (09:14)
[2018-02-20] MEDS: Famotidine 20 MG Tablet PO (09:14)
[2018-02-20] MEDS: guaiFENesin 1,200 MG Tablet 1200 MG PO ×2 (09:14→21:52)
[2018-02-20] MEDS: Tamsulosin HCl 0.4 MG Capsule PO (09:14)
[2018-02-20] MEDS: Lisinopril 10 MG Tablet PO (09:15)
--- NOTE | 2018-02-20 09:27 | RAD_ITS ---
STUDY: X-RAY CHEST REASON FOR EXAM: Male, 77 years old. Fever pneumonia sepsis TECHNIQUE: PA and lateral views of the chest. COMPARISON: February 19, 2018 chest x-ray FINDINGS: The lungs are underexpanded. There is otherwise focal subtle opacity in the left upper lobe. There is patchy density in the lingula left lower lobe. The interstitial markings are prominent suggesting underlying chronic lung disease. There is mild cardiac enlargement. Normal mediastinum and nancy. Normal visualized pulmonary arteries. Normal visualized aortic arch and descending thoracic aorta. There are diffuse degenerative changes of the visualized thoracic spine. Normal visualized ribs, clavicles, and shoulders. There is no demonstrated abnormality of the visualized soft tissue structures of the upper abdomen. RAD/Chest PA and Lateral IMPRESSION: Findings are suspicious for possible multifocal pneumonia superimposed on underlying chronic lung disease. Consider follow-up noncontrast chest CT for clarification. Electronically Signed: Dione Lopez MD at 10:16 EDT Tel , Service support ,
--- NOTE | 2018-02-20 09:48 | CASEMGMT ---
Social Work Referral for return placement. Reviewed patient chart. Noted that patient address is [facility]. Spoke with patient in room. This social introduced self as well as role. Patient reporting to have been living in the assisted living section of [facility] ([facility]) prior. Patient unsure if oxygen is new. Patient notes to have a diagnosis of Dementia. Patient unable to answer any other questions in regards to mobility. Patient agreeable to this director social contact patient son, Bernard who patient reports as main contact. Telephone call to Bernard. Bernard confirming above information and reporting that patient was using a walker and sometimes a mobility chair within the assisted living. Bernard reporting that patient was using oxygen sometimes. Bernard reporting that discharge plan would be for patient to return to the assisted living vs. SNF at [facility]. Bernard aware that therapy evaluations are pending at this time and it is unclear whether patient would benefit from skilled services. Bernard aware that is patient does not require skilled services the plan would be for patient to return to [facility] assisted living, but if patient requires skilled patient would need to stay until Thursday to obtain pre-cert. Bernard voicing understanding and agreeable to plan. Support given. Telephone call to [facility], this director social spoke with patient nurse and reported above discharge plan. Green sheet placed on chart in the event that patient is ready to discharge this weekend to the assisted living. Social work to follow as needed. Lorena SEGURA, [employer]
[2018-02-20] MEDS: Vancomycin IV 1,000 MG/200 ML BAG 200 MG IV (11:38)
--- NOTE | 2018-02-20 12:16 | PCM.PN.HOSP ---
Subjective: no new complaints. Vitals/I&O's: Vital Signs Temp Pulse Resp BP Pulse Ox 37.0 C 80 24 H 117/68 96 02/20/18 07:30 02/20/18 11:12 02/20/18 10:34 02/20/18 07:30 02/20/18 07:30 Oxygen Flow Rate (L/min) 5 Oxygen Delivery Method Nasal Cannula Weight: 85.3 kg Body Mass Index (BMI) 25.4 Intake and Output for Last 24 Hours 02/18/18 02/19/18 02/20/18 23:59 23:59 23:59 Intake Total 283.5 / 283.5 1333.8 / 1333.8 Output Total 0 / 0 0 / 0 Balance 283.5 / 283.5 1333.8 / 1333.8 General: Alert, No apparent distress HEENT: Atraumatic, Normocephalic Oral: Moist Mucosa, No Gingival or Mucosal Lesions/ Ulcerations Neck: No Nodes, Thyroid Normal Size and Texture Lungs: Diminished, - - coarse breath sounds bilaterally. Cardiovascular: Regular rate, Regular Rhythm, Normal S1, Normal S2, No murmurs Abdomen: Bowel Sounds Present, Soft, Non Tender, Non-Distended, No Hepato-splenomegaly Extremities: No edema, No Calf Tenderness Psych/Mental Status: Appropriate, Flat Affect Laboratory Results 02/19/18 22:13: Troponin I 0.020 02/20/18 06:00: Sodium 143, Potassium 3.7, Chloride 113 H, Carbon Dioxide 23.0, Anion Gap 7, BUN 17, Creatinine 1.21, Estim Creat Clear Calc 57.90, Est GFR (MDRD) Af Amer 75, Est GFR (MDRD) Non-Af 62, BUN/Creatinine Ratio 14.0, Glucose 107 H, Calcium 7.6 L 02/20/18 06:00: WBC 8.4, RBC 3.69 L, Hgb 11.3 L, Hct 37.3 L, MCV 101.1 H, MCH 30.6, MCHC 30.3 L, RDW 14.8 H, RDW Differential 53.3 H, Plt Count 59 L, MPV 10.5, Immature Gran % (Auto) 0.400, Neut % (Auto) 83.8 H, Lymph % (Auto) 7.9 L, [place] % (Auto) 7.7, Eos % (Auto) 0.1, Baso % (Auto) 0.1, Absolute Neuts (auto) 7.1, Absolute Lymphs (auto) 0.67 L, Total Counted Not Reportable Current Medications Acetaminophen (Tylenol) 650 mg PO Q4H PRN PRN PRN Reason: FEVER Albuterol Sulfate (Ventolin Aerosols) 2.5 mg INHALATION Q2H PRN PRN PRN Reason: SHORTNESS OF BREATH Albuterol/Ipratropium (Duoneb) 3 ml INHALATION Q4H.RT ON LICENSE OF [facility] Last Admin: 02/20/18 10:34 Dose: 3 ml Aspirin (Aspirin, Baby) 81 mg PO DAILY@0800 ON LICENSE OF [facility] Last Admin: 02/20/18 09:13 Dose: 81 mg Atorvastatin Calcium (Lipitor) 40 mg PO QHS ON LICENSE OF [facility] Last Admin: 02/19/18 22:31 Dose: 40 mg Carvedilol (Coreg) 25 mg PO BID ON LICENSE OF [facility] Last Admin: 02/20/18 09:13 Dose: 25 mg Docusate Sodium (Colace) 200 mg PO DAILY ON LICENSE OF [facility] Last Admin: 02/20/18 09:13 Dose: 200 mg Enoxaparin Sodium (Lovenox) 30 mg SC DAILY@1000 ON LICENSE OF [facility] Last Admin: 02/20/18 09:38 Dose: Not Given Escitalopram Oxalate (Lexapro) 10 mg PO DAILY ON LICENSE OF [facility] Last Admin: 02/20/18 09:14 Dose: 10 mg Famotidine (Pepcid) 20 mg PO DAILY ON LICENSE OF [facility] Last Admin: 02/20/18 09:14 Dose: 20 mg Guaifenesin (Mucinex) 1,200 mg PO BID ON LICENSE OF [facility] Last Admin: 02/20/18 09:14 Dose: 1,200 mg Sodium Chloride () 1,000 mls @ 75 mls/hr IV .[id number] ON LICENSE OF [facility] Last Admin: 02/20/18 05:29 Dose: 75 mls/hr Piperacillin Sod/Tazobactam Sod (Zosyn) 3.375 gm in 50 mls @ 12.5 mls/hr IV Q8 ON LICENSE OF [facility] Last Admin: 02/20/18 05:33 Dose: 12.5 mls/hr Vancomycin HCl (Vancomycin) 1,000 mg in 200 mls @ 200 mls/hr IV Q12H ON LICENSE OF [facility] Last Admin: 02/20/18 11:38 Dose: 200 mls/hr Lisinopril (Zestril) 10 mg PO DAILY ON LICENSE OF [facility] Last Admin: 02/20/18 09:15 Dose: 10 mg Magnesium Hydroxide (Milk Of Magnesia) 30 ml PO DAILY PRN PRN Reason: Constipation Nutritional Formula (Lactose Free) (Ensure Enlive) 120 ml PO 4X/DAY ON LICENSE OF [facility] Last Admin: 02/20/18 09:14 Dose: 120 ml Ondansetron HCl (Zofran) 4 mg IV Q8H PRN PRN PRN Reason: Nausea Tamsulosin HCl (Flomax) 0.4 mg PO DAILY ON LICENSE OF [facility] Last Admin: 02/20/18 09:14 Dose: 0.4 mg Medical Necessity - Tobacco Use Smoking Status: Former smoker Assessment/Plan All Active Problems (Last Updated 02/19/18 @ 20:40 by Andre Bolaños MD) CAP (community acquired pneumonia) (Resolved) DVT (deep venous thrombosis) (Resolved) 1. Sepsis Present on arrival Secondary to pneumonia Supportive management 2. Suspected pneumococcal pneumonia Appears patient has not been hospitalized in 3 months but is currently residing in assisted living Sputum culture pending Blood cultures pending Again change his antibiotics to Rocephin and azithromycin and discontinue the vancomycin and Zosyn Continue with pulmonary toilet 3. Debility Patient resides in assisted living and not a long-term Therapy was evaluated patient saw patient earlier and will await their recommendations in regards to placement 4. DVT prophylaxis with Lovenox Code Visit Inpatient E&M: [id number] [facility] Hosp L2
--- NOTE | 2018-02-20 12:21 | PN_ITS ---
Subjective: no new complaints. Vitals/I&O's: Vital Signs Temp Pulse Resp BP Pulse Ox 37.0 C 80 24 H 117/68 96 02/20/18 07:30 02/20/18 11:12 02/20/18 10:34 02/20/18 07:30 02/20/18 07:30 Oxygen Flow Rate (L/min) 5 Oxygen Delivery Method Nasal Cannula Weight: 85.3 kg Body Mass Index (BMI) 25.4 Intake and Output for Last 24 Hours 02/18/18 02/19/18 02/20/18 23:59 23:59 23:59 Intake Total 283.5 / 283.5 1333.8 / 1333.8 Output Total 0 / 0 0 / 0 Balance 283.5 / 283.5 1333.8 / 1333.8 General: Alert, No apparent distress HEENT: Atraumatic, Normocephalic Oral: Moist Mucosa, No Gingival or Mucosal Lesions/ Ulcerations Neck: No Nodes, Thyroid Normal Size and Texture Lungs: Diminished, - - coarse breath sounds bilaterally. Cardiovascular: Regular rate, Regular Rhythm, Normal S1, Normal S2, No murmurs Abdomen: Bowel Sounds Present, Soft, Non Tender, Non-Distended, No Hepato- splenomegaly Extremities: No edema, No Calf Tenderness Psych/Mental Status: Appropriate, Flat Affect Laboratory Results 02/19/18 22:13: Troponin I 0.020 02/20/18 06:00: Sodium 143, Potassium 3.7, Chloride 113 H, Carbon Dioxide 23.0, Anion Gap 7, BUN 17, Creatinine 1.21, Estim Creat Clear Calc 57.90, Est GFR ( MDRD) Af Amer 75, Est GFR (MDRD) Non-Af 62, BUN/Creatinine Ratio 14.0, Glucose 107 H, Calcium 7.6 L 02/20/18 06:00: WBC 8.4, RBC 3.69 L, Hgb 11.3 L, Hct 37.3 L, MCV 101.1 H, MCH 30.6, MCHC 30.3 L, RDW 14.8 H, RDW Differential 53.3 H, Plt Count 59 L, MPV 10.5 , Immature Gran % (Auto) 0.400, Neut % (Auto) 83.8 H, Lymph % (Auto) 7.9 L, [place] % (Auto) 7.7, Eos % (Auto) 0.1, Baso % (Auto) 0.1, Absolute Neuts (auto) 7.1, Absolute Lymphs (auto) 0.67 L, Total Counted Not Reportable Current Medications Acetaminophen (Tylenol) 650 mg PO Q4H PRN PRN PRN Reason: FEVER Albuterol Sulfate (Ventolin Aerosols) 2.5 mg INHALATION Q2H PRN PRN PRN Reason: SHORTNESS OF BREATH Albuterol/Ipratropium (Duoneb) 3 ml INHALATION Q4H.RT [facility] Last Admin: 02/20/18 10:34 Dose: 3 ml Aspirin (Aspirin, Baby) 81 mg PO DAILY@0800 [facility] Last Admin: 02/20/18 09:13 Dose: 81 mg Atorvastatin Calcium (Lipitor) 40 mg PO QHS [facility] Last Admin: 02/19/18 22:31 Dose: 40 mg Carvedilol (Coreg) 25 mg PO BID [facility] Last Admin: 02/20/18 09:13 Dose: 25 mg Docusate Sodium (Colace) 200 mg PO DAILY [facility] Last Admin: 02/20/18 09:13 Dose: 200 mg Enoxaparin Sodium (Lovenox) 30 mg SC DAILY@1000 [facility] Last Admin: 02/20/18 09:38 Dose: Not Given Escitalopram Oxalate (Lexapro) 10 mg PO DAILY [facility] Last Admin: 02/20/18 09:14 Dose: 10 mg Famotidine (Pepcid) 20 mg PO DAILY [facility] Last Admin: 02/20/18 09:14 Dose: 20 mg Guaifenesin (Mucinex) 1,200 mg PO BID [facility] Last Admin: 02/20/18 09:14 Dose: 1,200 mg Sodium Chloride () 1,000 mls @ 75 mls/hr IV .[id number] [facility] Last Admin: 02/20/18 05:29 Dose: 75 mls/hr Piperacillin Sod/Tazobactam Sod (Zosyn) 3.375 gm in 50 mls @ 12.5 mls/hr IV Q8 [facility] Last Admin: 02/20/18 05:33 Dose: 12.5 mls/hr Vancomycin HCl (Vancomycin) 1,000 mg in 200 mls @ 200 mls/hr IV Q12H [facility] Last Admin: 02/20/18 11:38 Dose: 200 mls/hr Lisinopril (Zestril) 10 mg PO DAILY [facility] Last Admin: 02/20/18 09:15 Dose: 10 mg Magnesium Hydroxide (Milk Of Magnesia) 30 ml PO DAILY PRN PRN Reason: Constipation Nutritional Formula (Lactose Free) (Ensure Enlive) 120 ml PO 4X/DAY [facility] Last Admin: 02/20/18 09:14 Dose: 120 ml Ondansetron HCl (Zofran) 4 mg IV Q8H PRN PRN PRN Reason: Nausea Tamsulosin HCl (Flomax) 0.4 mg PO DAILY [facility] Last Admin: 02/20/18 09:14 Dose: 0.4 mg Medical Necessity - Tobacco Use Smoking Status: Former smoker Assessment/Plan All Active Problems (Last Updated 02/19/18 @ 20:40 by Andre Bolaños MD) CAP (community acquired pneumonia) (Resolved) DVT (deep venous thrombosis) (Resolved) 1. Sepsis * Present on arrival * Secondary to pneumonia * Supportive management 2. Suspected pneumococcal pneumonia * Appears patient has not been hospitalized in 3 months but is currently residing in assisted living * Sputum culture pending * Blood cultures pending * Again change his antibiotics to Rocephin and azithromycin and discontinue the vancomycin and Zosyn * Continue with pulmonary toilet 3. Debility * Patient resides in assisted living and not a senior care * Therapy was evaluated patient saw patient earlier and will await their recommendations in regards to placement 4. DVT prophylaxis with Lovenox Code Visit Inpatient E&M: 06072 [facility] Hosp L2
[2018-02-20] MEDS: Atorvastatin Calcium 40 MG Tablet PO (21:51)
[2018-02-21] VITALS (18 sets, daily range): BP systolic 127–141; BP diastolic 54–72; PULSE 47–84; RESP 18–26; TEMP 36.9–37.6; O2SAT 92–96
--- NOTE | 2018-02-21 05:55 | EKG12_ITS ---
Test Reason : AM EKG Blood Pressure : / mmHG Vent. Rate : 074 BPM Atrial Rate : 074 BPM P-R Int : 170 ms QRS Dur : 132 ms QT Int : 406 ms P-R-T Axes : 043 022 188 degrees QTc Int : 450 ms Sinus rhythm with Premature atrial complexes and Premature ventricular complexes or Fusion complexes Left bundle branch block Abnormal ECG Confirmed by REVA HAGEN, SANTOSH ([id number]), associate entertainment editor HÉCTOR IVEY ([id number]) on 02/24/2018 11:31:43 AM Referred By: DIVINE Confirmed By:SANTOSH ARDON MD
[2018-02-21] MEDS: Ipratropium/Albuterol Sulfate 3 ML AMPUL.NEB INHALATION ×4 (06:43→20:20)
[2018-02-21 06:50] LABS: Absolute Lymphocyte Count 0.79 X10^3/ul (0.83-4.51); Absolute Neutrophil Count 3.6 X10^3/uL (2.0-7.7); Basophil# 0.01 X10^3/uL; Basophil% 0.2 % (0-1); Hematocrit 34.1 % (40-54); Hemoglobin 10.1 g/dl (13.0-16.5); Lymphocyte # 0.79 X10^3/ul (4.0); Lymphocyte % 15.9 % (19-41); Mean Corp Hgb Conc 29.6 g/gl (32-36); Mean Corpuscular Hgb 30.1 pg (27.0-32.0); Mean Corpuscular Volume 101.8 fL (80-94); Mean Platelet Vol. 11.1 fl (6.2-12.0); Monocyte# 0.44 X10^3/uL; Monocyte% 8.8 % (0-10); Neutrophil # 3.63 X10^3/uL (2.7-7.7); Neutrophil % 72.9 % (47-70); Platelet Count 78 K/mm3 (150-450); RBC Distribution Width CV 14.7 % (11.6-14.6); RBC Distribution Width SD 53.2 fl (35.1-43.9); Red Blood Count 3.35 M/mm3 (4.6-6.2)
[2018-02-21 06:58] LABS: POSITIVE COUNT NO; POSITIVE DIFFERENTIAL NO; POSITIVE MORPHOLOGY NO
[2018-02-21 07:13] LABS: Anion Gap 6 (5-15); BUN 20 mg/dL (7-18); BUN/Creat Ratio 16.4 RATIO (10-20); Calcium,Total 7.6 mg/dL (8.5-10.1); Chloride 115 mmol/L (98-107); Creatinine, Serum 1.22 mg/dL (0.70-1.30); EST Glomerular Filtration Rate 62 mL/min (>60); Est Glom Filt Rate - Afr Amer 74 mL/min (>60); Estimated Creatinine Clearance 57.42 ml/min; Glucose 101 mg/dL (74-106); Potassium 3.7 mmol/L (3.5-5.1); Sodium Level 147 mmol/L (136-145)
[2018-02-21 07:18] LABS: Magnesium 2.3 mg/dL (1.6-2.6)
--- NOTE | 2018-02-21 07:30 | NURSING ---
This RN attempted to straight cath pt this AM for urine sample. Attempt unsuccessful.
[2018-02-21] MEDS: Aspirin 81 MG TAB.CHEW PO (09:16)
[2018-02-21] MEDS: 0.9% Normal Saline 1,000 ML 75 ML IV (09:17)
[2018-02-21] MEDS: Docusate Sodium 100 MG Capsule 200 MG PO (09:17)
[2018-02-21] MEDS: Tamsulosin HCl 0.4 MG Capsule PO (09:17)
[2018-02-21] MEDS: Carvedilol 25 MG Tablet PO ×2 (09:17→21:14)
[2018-02-21] MEDS: Ceftriaxone 1 GM/50 ML BAG IV (09:18)
[2018-02-21] MEDS: Famotidine 20 MG Tablet PO (09:18)
[2018-02-21] MEDS: Escitalopram Oxalate 10 MG Tablet PO (09:18)
[2018-02-21] MEDS: guaiFENesin 1,200 MG Tablet 1200 MG PO ×2 (09:18→21:14)
[2018-02-21] MEDS: Lisinopril 10 MG Tablet PO (09:18)
--- NOTE | 2018-02-21 12:38 | PN_ITS ---
Subjective: no new complaints. Vitals/I&O's: Vital Signs Temp Pulse Resp BP Pulse Ox 36.9 C 83 24 H 141/54 H 95 02/21/18 09:42 02/21/18 10:51 02/21/18 10:51 02/21/18 09:42 02/21/18 09:42 Oxygen Flow Rate (L/min) 3 Oxygen Delivery Method Nasal Cannula Weight: 85.3 kg Body Mass Index (BMI) 25.4 Intake and Output for Last 24 Hours 02/19/18 02/20/18 02/21/18 23:59 23:59 23:59 Intake Total 283.5 / 283.5 2895.8 / 2895.8 1127 / 1127 Output Total 0 / 0 0 / 0 200 / 200 Balance 283.5 / 283.5 2895.8 / 2895.8 927 / 927 General: Alert, No apparent distress HEENT: Atraumatic, Normocephalic Oral: Moist Mucosa, No Gingival or Mucosal Lesions/ Ulcerations Neck: No Nodes, Thyroid Normal Size and Texture Lungs: Diminished, - - bibasilar crackles. Cardiovascular: Regular rate, Regular Rhythm, Normal S1, Normal S2, No murmurs Abdomen: Bowel Sounds Present, Soft, Non Tender, Non-Distended Extremities: No edema, No Calf Tenderness Skin: No rashes, No breakdown Psych/Mental Status: Normal Affect, Appropriate Microbiology Past 72 Hours 02/21/18 07:20 Urine, Clean Catch Streptococcus pneumoniae Antigen (M - Final 02/21/18 07:20 Urine, Clean Catch Legionella Antigen - Final 02/20/18 03:04 Sputum, Induced/Lukens Gram Stain - Final Laboratory Results 02/21/18 06:00: Sodium 147 H, Potassium 3.7, Chloride 115 H, Carbon Dioxide 26.0 , Anion Gap 6, BUN 20 H, Creatinine 1.22, Estim Creat Clear Calc 57.42, Est GFR (MDRD) Af Amer 74, Est GFR (MDRD) Non-Af 62, BUN/Creatinine Ratio 16.4, Glucose 101, Calcium 7.6 L 02/21/18 06:00: WBC 5.0, RBC 3.35 L, Hgb 10.1 L, Hct 34.1 L, MCV 101.8 H, MCH 30.1, MCHC 29.6 L, RDW 14.7 H, RDW Differential 53.2 H, Plt Count 78 L, MPV 11.1 , Immature Gran % (Auto) 0.200, Neut % (Auto) 72.9 H, Lymph % (Auto) 15.9 L, [place] % (Auto) 8.8, Eos % (Auto) 2.0, Baso % (Auto) 0.2, Absolute Neuts (auto) 3.6, Absolute Lymphs (auto) 0.79 L, Total Counted Not Reportable 02/21/18 06:00: Magnesium 2.3 Current Medications Acetaminophen (Tylenol) 650 mg PO Q4H PRN PRN PRN Reason: FEVER Albuterol Sulfate (Ventolin Aerosols) 2.5 mg INHALATION Q2H PRN PRN PRN Reason: SHORTNESS OF BREATH Albuterol/Ipratropium (Duoneb) 3 ml INHALATION Q4H.RT [facility] Last Admin: 02/21/18 10:50 Dose: 3 ml Aspirin (Aspirin, Baby) 81 mg PO DAILY@0800 [facility] Last Admin: 02/21/18 09:16 Dose: 81 mg Atorvastatin Calcium (Lipitor) 40 mg PO QHS [facility] Last Admin: 02/20/18 21:51 Dose: 40 mg Carvedilol (Coreg) 25 mg PO BID [facility] Last Admin: 02/21/18 09:17 Dose: 25 mg Docusate Sodium (Colace) 200 mg PO DAILY [facility] Last Admin: 02/21/18 09:17 Dose: 200 mg Enoxaparin Sodium (Lovenox) 30 mg SC DAILY@1000 [facility] Last Admin: 02/21/18 10:02 Dose: Not Given Escitalopram Oxalate (Lexapro) 10 mg PO DAILY [facility] Last Admin: 02/21/18 09:18 Dose: 10 mg Famotidine (Pepcid) 20 mg PO DAILY [facility] Last Admin: 02/21/18 09:18 Dose: 20 mg Guaifenesin (Mucinex) 1,200 mg PO BID [facility] Last Admin: 02/21/18 09:18 Dose: 1,200 mg Sodium Chloride () 1,000 mls @ 75 mls/hr IV .[id number] [facility] Last Admin: 02/21/18 09:17 Dose: 75 mls/hr Azithromycin 500 mg/ Dextrose 255 mls @ 250 mls/hr IV Q24 [facility] Last Admin: 02/21/18 10:28 Dose: 250 mls/hr Ceftriaxone Sodium (Rocephin) 1 gm in 50 mls @ 100 mls/hr IV Q24 [facility] Last Admin: 02/21/18 09:18 Dose: 100 mls/hr Lisinopril (Zestril) 10 mg PO DAILY [facility] Last Admin: 02/21/18 09:18 Dose: 10 mg Magnesium Hydroxide (Milk Of Magnesia) 30 ml PO DAILY PRN PRN Reason: Constipation Nutritional Formula (Lactose Free) (Ensure Enlive) 120 ml PO 4X/DAY [facility] Last Admin: 02/21/18 09:17 Dose: 120 ml Ondansetron HCl (Zofran) 4 mg IV Q8H PRN PRN PRN Reason: Nausea Tamsulosin HCl (Flomax) 0.4 mg PO DAILY [facility] Last Admin: 02/21/18 09:17 Dose: 0.4 mg Medical Necessity - Tobacco Use Smoking Status: Former smoker Assessment/Plan All Active Problems (Last Updated 02/19/18 @ 20:40 by Andre Bolaños MD) CAP (community acquired pneumonia) (Resolved) DVT (deep venous thrombosis) (Resolved) 1. Sepsis * Present on arrival * Secondary to pneumonia * Supportive management 2. Suspected pneumococcal pneumonia * Appears patient has not been hospitalized in 3 months but is currently residing in assisted living * Sputum culture pending * Blood cultures pending * Again change his antibiotics to Rocephin and azithromycin and discontinue the vancomycin and Zosyn * Continue with pulmonary toilet * antigens for strep and legionella negative. 3. Debility * Patient resides in assisted living and not a [facility] * Therapy was evaluated patient saw patient earlier and will await their recommendations in regards to placement 4. DVT prophylaxis with Lovenox Code Visit Inpatient E&M: 57585 Subs Hosp L2
[2018-02-21] MEDS: Atorvastatin Calcium 40 MG Tablet PO (21:14)
[2018-02-22] VITALS (16 sets, daily range): BP systolic 123–159; BP diastolic 57–72; PULSE 34–110; RESP 14–30; TEMP 37.2–37.6; O2SAT 93–99
[2018-02-22] MEDS: 0.9% Normal Saline 1,000 ML 75 ML IV (00:28)
[2018-02-22] MEDS: Ipratropium/Albuterol Sulfate 3 ML AMPUL.NEB INHALATION ×4 (07:24→22:53)
--- NOTE | 2018-02-22 08:02 | PCM.PROGNOTE ---
Subjective: Chief complaint: Follow-up after admission for healthcare associated pneumonia and sepsis. Patient seen and examined. No acute events overnight. Patient is demented at baseline. He complains of mild dry cough. No other symptoms. His vital signs are stable, pulse ox is maintained on 2 L. He has been afebrile. - Physical Exam General: Alert, Cooperative, No apparent distress, Disoriented HEENT: Atraumatic, PERRLA, EOMI, Normocephalic Oral: Moist Mucosa, No Gingival or Mucosal Lesions/ Ulcerations Neck: Supple, No JVD, Negative Carotid Bruits, Trachea Midline, Thyroid Normal Size and Texture Lungs: No wheeze, No rales, Diminished, Rhonchi, - - Decreased breath sounds bilateral, rhonchi. Cardiovascular: Normal S1, Normal S2, No murmurs, PMI Normal, Irregular Rate Abdomen: Bowel Sounds Present, Soft, Non Tender, Non-Distended, No Hepato-splenomegaly Extremities: No clubbing, No cyanosis, No edema Skin: No rashes, No breakdown Lymphatic: No Cervical, Supraclavicular, or Inguinal Adenopathy Neurological: Cranial nerves II-XII grossly intact, Neuro grossly intact Psych/Mental Status: Normal Affect, Appropriate Vital Signs Temp Pulse Resp BP Pulse Ox 99 F 78 18 139/60 H 93 02/22/18 03:06 02/22/18 07:30 02/22/18 03:06 02/22/18 03:06 02/22/18 03:06 Oxygen Flow Rate (L/min) 2 Oxygen Delivery Method Nasal Cannula Weight: 188 lb 0.869 oz Body Mass Index (BMI) 25.4 Intake and Output for Last 24 Hours 02/20/18 02/21/18 02/22/18 23:59 23:59 23:59 Intake Total 2895.8 / 2895.8 2664 / 2664 1290 / 1290 Output Total 0 / 0 200 / 200 125 / 125 Balance 2895.8 / 2895.8 2464 / 2464 1165 / 1165 Microbiology Past 72 Hours 02/21/18 07:20 Streptococcus pneumoniae Antigen (M - Final Urine, Clean Catch 02/21/18 07:20 Legionella Antigen - Final Urine, Clean Catch 02/20/18 03:04 Gram Stain - Final Sputum, Induced/Lukens Medical Necessity - Tobacco Use Smoking Status: Former smoker Assessment/Plan All Active Problems (Last Updated 02/19/18 @ 20:40 by Andre Bolaños MD) CAP (community acquired pneumonia) (Resolved) DVT (deep venous thrombosis) (Resolved) This is a 77 years old male patient was sent to ER by his PCP from the care home because of fever and cough, found to have probable healthcare associated pneumonia based on fever, productive cough, tachypnea, chest auscultation and also found to have sepsis and he is being admitted for treatment. #1 healthcare associated pneumonia/sepsis: On admission, I started him on IV Zosyn and vancomycin. Now, he is on IV Rocephin and Zithromax. He does have healthcare associated pneumonia, he is a care home resident. His vital signs are stable, afebrile. Routine blood work from today reviewed, unremarkable. Blood culture pending. Urine culture showed no growth. Pneumococcal and Legionella antigen were negative. Sputum cultures pending. Plan to change to IV Zosyn, DC IV Rocephin and Zithromax. #2 CAD status post stents: Stable, continue aspirin, statins, Coreg and lisinopril. #3 paroxysmal atrial fibrillation: Rate is controlled. continue Coreg for rate control. Patient is not on anticoagulation. #4 hypertension: Blood pressure stable, continue Coreg and lisinopril. #5 hyperlipidemia: Continue statins. #6 chronic diastolic CHF: Clinically stable, compensated. Continue Coreg and Lisinopril As Well As Aspirin and Statins. #7 COPD: DuoNeb every 6 hours, albuterol as needed, chest physiotherapy, incentive spirometer. #8 dementia: Patient is demented, confused and disoriented at baseline. #9 chronic thrombocytopenia: Admission platelet count is 91,000, this is chronic. No evidence of active bleeding. Today's platelet count is 78,000. #10 DVT prophylaxis: Subcu Lovenox. This note was generated with [employer] dictation software. It may contain incorrect words, spelling, and punctuation that were not noted in checking the note before signing. Code Visit Inpatient E&M: 11771 Subs Hosp L2
--- NOTE | 2018-02-22 08:08 | PN_ITS ---
Subjective: Chief complaint: Follow-up after admission for healthcare associated pneumonia and sepsis. Patient seen and examined. No acute events overnight. Patient is demented at baseline. He complains of mild dry cough. No other symptoms. His vital signs are stable, pulse ox is maintained on 2 L. He has been afebrile. - Physical Exam General: Alert, Cooperative, No apparent distress, Disoriented HEENT: Atraumatic, PERRLA, EOMI, Normocephalic Oral: Moist Mucosa, No Gingival or Mucosal Lesions/ Ulcerations Neck: Supple, No JVD, Negative Carotid Bruits, Trachea Midline, Thyroid Normal Size and Texture Lungs: No wheeze, No rales, Diminished, Rhonchi, - - Decreased breath sounds bilateral, rhonchi. Cardiovascular: Normal S1, Normal S2, No murmurs, PMI Normal, Irregular Rate Abdomen: Bowel Sounds Present, Soft, Non Tender, Non-Distended, No Hepato- splenomegaly Extremities: No clubbing, No cyanosis, No edema Skin: No rashes, No breakdown Lymphatic: No Cervical, Supraclavicular, or Inguinal Adenopathy Neurological: Cranial nerves II-XII grossly intact, Neuro grossly intact Psych/Mental Status: Normal Affect, Appropriate Vital Signs Temp Pulse Resp BP Pulse Ox 99 F 78 18 139/60 H 93 02/22/18 03:06 02/22/18 07:30 02/22/18 03:06 02/22/18 03:06 02/22/18 03:06 Oxygen Flow Rate (L/min) 2 Oxygen Delivery Method Nasal Cannula Weight: 188 lb 0.869 oz Body Mass Index (BMI) 25.4 Intake and Output for Last 24 Hours 02/20/18 02/21/18 02/22/18 23:59 23:59 23:59 Intake Total 2895.8 / 2895.8 2664 / 2664 1290 / 1290 Output Total 0 / 0 200 / 200 125 / 125 Balance 2895.8 / 2895.8 2464 / 2464 1165 / 1165 Microbiology Past 72 Hours 02/21/18 07:20 Streptococcus pneumoniae Antigen (M - Final Urine, Clean Catch 02/21/18 07:20 Legionella Antigen - Final Urine, Clean Catch 02/20/18 03:04 Gram Stain - Final Sputum, Induced/Lukens Medical Necessity - Tobacco Use Smoking Status: Former smoker Assessment/Plan All Active Problems (Last Updated 02/19/18 @ 20:40 by Andre Bolaños MD) CAP (community acquired pneumonia) (Resolved) DVT (deep venous thrombosis) (Resolved) This is a 77 years old male patient was [facility] because of fever and cough, found to have probable healthcare associated pneumonia based on fever, productive cough, tachypnea, chest auscultation and also found to have sepsis and he is being admitted for treatment. #1 healthcare associated pneumonia/sepsis: On admission, I started him on IV Zosyn and vancomycin. Now, he is on IV Rocephin and Zithromax. He does have healthcare associated pneumonia, [facility] is a [facility]. His vital signs are stable, afebrile. Routine blood work from today reviewed, unremarkable. Blood culture pending. Urine culture showed no growth. Pneumococcal and Legionella antigen were negative. Sputum cultures pending. Plan to change to IV Zosyn, DC IV Rocephin and Zithromax. #2 CAD status post stents: Stable, continue aspirin, statins, Coreg and lisinopril. #3 paroxysmal atrial fibrillation: Rate is controlled. continue Coreg for rate control. Patient is not on anticoagulation. #4 hypertension: Blood pressure stable, continue Coreg and lisinopril. #5 hyperlipidemia: Continue statins. #6 chronic diastolic CHF: Clinically stable, compensated. Continue Coreg and Lisinopril As Well As Aspirin and Statins. #7 COPD: DuoNeb every 6 hours, albuterol as needed, chest physiotherapy, incentive spirometer. #8 dementia: Patient is demented, confused and disoriented at baseline. #9 chronic thrombocytopenia: Admission platelet count is 91,000, this is chronic. No evidence of active bleeding. Today's platelet count is 78,000. #10 DVT prophylaxis: Subcu Lovenox. This note was generated with [employer] dictation software. It may contain incorrect words, spelling, and punctuation that were not noted in checking the note before signing. Code Visit Inpatient E&M: 41422 Subs Hosp L2
[2018-02-22] MEDS: Docusate Sodium 100 MG Capsule 200 MG PO (08:59)
[2018-02-22] MEDS: Aspirin 81 MG TAB.CHEW PO (08:59)
[2018-02-22] MEDS: guaiFENesin 1,200 MG Tablet 1200 MG PO ×2 (09:00→21:01)
[2018-02-22] MEDS: Carvedilol 25 MG Tablet PO ×2 (09:00→21:00)
[2018-02-22] MEDS: Tamsulosin HCl 0.4 MG Capsule PO (09:00)
[2018-02-22] MEDS: Piperacil/Tazobactam 3.375 GM/50 ML ML IV ×3 (09:00→21:01)
[2018-02-22] MEDS: Enoxaparin 30 MG/0.3 ML Syringe SC (09:00)
[2018-02-22] MEDS: Escitalopram Oxalate 10 MG Tablet PO (09:00)
[2018-02-22] MEDS: Lisinopril 10 MG Tablet PO (09:01)
[2018-02-22] MEDS: Famotidine 20 MG Tablet PO (09:01)
--- NOTE | 2018-02-22 10:43 | CASEMGMT ---
Social Work Phone call to Isis at [facility]. They do have skilled beds available. Referral sent to assess if pt would benefit from SNF or return to [place]. SW requested if SNF precert be started. Met with pt and informed of above. SW will follow. IMELDA Robbins
--- NOTE | 2018-02-22 15:48 | CASEMGMT ---
Social Work: TC to Isis at [facility]. Isis states a skilled male bed is available and [facility] is able to accept patient. Isis states that precert was started earlier today but no determination has been received from insurance company as of yet. SW to continue to follow. PLAN: Patient to be discharged to [facility] for skilled care once precert has been obtained. RAFITA Perdomo
--- NOTE | 2018-02-22 16:50 | CASEMGMT ---
Social Work Return call from Isis at [facility] and they would like pt to come to Skilled side of facility prior to returning to [place]. PRecert has been started. Met with pt and informed and he is agreeable. Phone call to pt son Bernard and he is agreeable. Plan: [facility], pending precert IMELDA Robbins
[2018-02-22] MEDS: Atorvastatin Calcium 40 MG Tablet PO (21:01)
[2018-02-23] VITALS (9 sets, daily range): BP systolic 136–153; BP diastolic 51–70; PULSE 45–86; RESP 16–24; TEMP 36.6–37.2; O2SAT 94–97
[2018-02-23] MEDS: Ipratropium/Albuterol Sulfate 3 ML AMPUL.NEB INHALATION ×3 (02:25→10:56)
--- NOTE | 2018-02-23 04:20 | EKG12_ITS ---
Test Reason : BRADYCARDIA Blood Pressure : / mmHG Vent. Rate : 040 BPM Atrial Rate : 040 BPM P-R Int : 156 ms QRS Dur : 076 ms QT Int : 446 ms P-R-T Axes : 041 015 062 degrees QTc Int : 363 ms Marked sinus bradycardia Nonspecific ST and T wave abnormality Abnormal ECG Confirmed by REVA HAGEN, SANTOSH ([id number]), state editor HÉCTOR IVEY ([id number]) on 02/26/2018 2:08:58 PM Referred By: VASQUEZ Confirmed By:SANTOSH ARDON MD
[2018-02-23] MEDS: Piperacil/Tazobactam 3.375 GM/50 ML ML IV (05:59)
[2018-02-23] MEDS: Docusate Sodium 100 MG Capsule 200 MG PO (09:06)
[2018-02-23] MEDS: Aspirin 81 MG TAB.CHEW PO (09:06)
[2018-02-23] MEDS: Tamsulosin HCl 0.4 MG Capsule PO (09:06)
[2018-02-23] MEDS: Escitalopram Oxalate 10 MG Tablet PO (09:07)
[2018-02-23] MEDS: Famotidine 20 MG Tablet PO (09:07)
[2018-02-23] MEDS: Enoxaparin 30 MG/0.3 ML Syringe SC (09:07)
[2018-02-23] MEDS: Lisinopril 10 MG Tablet PO (09:07)
[2018-02-23] MEDS: guaiFENesin 1,200 MG Tablet 1200 MG PO (09:07)
[2018-02-23] MEDS: Carvedilol 12.5 MG Tablet PO (10:05)
--- NOTE | 2018-02-23 10:11 | PCM.DC ---
You will use the following diet at home:: Cardiac Your food should be the consistency of: Mechanical soft (ground) Your liquids should be the consistency of: [place] Thick Discharge Activity: Return to Normal Activity Weight Bearing Status: Weight bearing as tolerated Call your doctor if you observe: Fever of 101 or Higher, Shortness of breath, Dizziness, Fainting spells, Chest pain, Increased palpitations (irregular heartbeat), Uncontrolled pain Additional Instructions: Keep patient on oxygen at 2 L to maintain pulse oximeter around 92%. Allergies/Adverse Reactions: Allergies No Known Allergies Allergy (Verified 02/19/18 19:02) Medications to take at Discharge Aspirin [Aspirin, Baby] 81 mg PO DAILY@0800 09/23/15 Atorvastatin Calcium [Lipitor] 40 mg PO QHS 09/23/15 Famotidine [Pepcid] 20 mg PO DAILY 09/23/15 Lisinopril [Zestril] 10 mg PO DAILY 09/23/15 Acetaminophen [Tylenol] 650 mg PO BID 10/09/15 Umeclidinium Brm/Vilanterol Tr [Anoro Ellipta 62.5-25 Mcg INH] 1 inh INHALATION DAILY 10/09/15 escitalopram 10 mg tablet 10 mg PO DAILY tab 11/03/17 loratadine 10 mg tablet 10 mg PO DAILY 11/03/17 nitroglycerin 0.4 mg sublingual tablet 0.4 mg SUBLINGUAL Q5-15M PRN 11/03/17 tamsulosin 0.4 mg capsule 0.4 mg PO DAILY 11/03/17 Docusate Sodium [Colace] 200 mg PO DAILY 02/19/18 Guaifenesin [Mucinex] 600 mg PO BID 02/19/18 Amoxicillin/Potassium Clav [Augmentin 875-125 Tablet] 1 tab PO BID #10 tab 02/23/18 Carvedilol [Coreg (Beta Tasha)] 12.5 mg PO BID #90 tab 02/23/18 Ipratropium/Albuterol Sulfate [Duoneb] 3 ml INHALATION Q4H PRN PRN #0 02/23/18 The following prescriptions were given: Amoxicillin/Potassium Clav [Augmentin 875-125 Tablet] 1 tab PO BID #10 tab Carvedilol [Coreg (Beta Tasha)] 12.5 mg PO BID #90 tab Primary Care Physician: Omer Rodriguez MD [Primary Care Provider] - Please follow up with your Primary Care Physician in: 1 week. Test Results: Test results from this visit will be discussed in further detail at your follow-up appointment, if applicable.
--- NOTE | 2018-02-23 11:06 | CASEMGMT ---
Insurance authorization has been received. Faxed orders to [facility]. Com[facility] get [facility] at via [employer] van. SW called patient's son and left him a message letting him know patient will be d/c to [facility] today and SW will set up transportation. BRENDA notified patient, RN, discharge planner, and typing secretary of d/c and time. BRENDA also notified Isis at [facility]. Plan: d/c to [facility] under skilled level of care on a convalescent stay. [facility] [place] via [employer] van. Cyndi SHARIF CYTOMETRY TECHNOLOGIST
--- NOTE | 2018-02-23 11:13 | NURSING ---
report called to Sharri HOLLIDAY at [facility].
--- NOTE | 2018-02-23 14:00 | DS.PCM_ITS ---
Discharge Date and Diagnosis Date of Admission: 02/19/18 Date of Discharge: 02/23/18 - Primary Discharge Diagnosis #1 Haemophilus influenza acute healthcare associated pneumonia. #2 sepsis. - Secondary Discharge Diagnosis Chronic Problems (Last Updated 02/19/18 @ 20:40 by Andre Bolaños MD) Thrombocytopenia (Chronic) Atherosclerotic heart disease of [place] coronary artery without angina pectoris (Chronic) PTCA/BINA to mid RCA 04/09/05 Cardiomyopathy, dilated (Chronic) Presence of stent in coronary artery (Chronic ~04/09/05) PTCA/BINA to mid RCA 04/09/05 Chronic diastolic (congestive) heart failure (Chronic) Premature ventricular contraction (Chronic) Paroxysmal atrial fibrillation (Chronic) Benign essential HTN (Chronic) Depression (Chronic) HLD (hyperlipidemia) (Chronic) PAT (paroxysmal atrial tachycardia) (Chronic) History of PTCA (Chronic) COPD (chronic obstructive pulmonary disease) (Chronic) Coronary artery disease (Chronic) Dementia (Chronic) Hospital Course and Treatment Imaging Results: Clinical Impression(s) from Imaging Studies Chest X-Ray 02/19/18 19:33 IMPRESSION: 1. 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 2. Calcific plaques of the aortic arch. 3. Generalized osteopenia. 4. No acute cardiopulmonary disease process is seen. There is no evidence of infiltrate, atelectasis, or pleural effusion. Electronically Signed: Jose Marie MD at 19:53 EDT , Service support , Chest X-Ray 02/20/18 09:27 IMPRESSION: Findings are suspicious for possible multifocal pneumonia superimposed on underlying chronic lung disease. Consider follow-up noncontrast chest CT for clarification. Electronically Signed: Dione Lopez MD at 10:16 EDT Tel , Service support , Operations: None, - Procedures: EKG Summary of Care Provided: Patient seen and examined on the day of discharge and appeared to be stable to be discharged to assisted living. Today, he denied any significant complaints. He has no more cough or sputum production, breathing is fine. His heart rate has been in the 50s, other vital signs are stable and pulse ox maintained on 2 L of oxygen. - Physical Exam General: Alert, Cooperative, No apparent distress, Disoriented HEENT: Atraumatic, PERRLA, EOMI, Normocephalic Oral: Moist Mucosa, No Gingival or Mucosal Lesions/ Ulcerations Neck: Supple, No JVD, Negative Carotid Bruits, Trachea Midline, Thyroid Normal Size and Texture Lungs: No wheeze, No rales, Diminished, Rhonchi, - - Decreased breath sounds bilateral, rhonchi. Cardiovascular: Normal S1, Normal S2, No murmurs, PMI Normal, Irregular Rate Abdomen: Bowel Sounds Present, Soft, Non Tender, Non-Distended, No Hepato- splenomegaly Extremities: No clubbing, No cyanosis, No edema Skin: No rashes, No breakdown Lymphatic: No Cervical, Supraclavicular, or Inguinal Adenopathy Neurological: Cranial nerves II-XII grossly intact, Neuro grossly intact Psych/Mental Status: Normal Affect, Appropriate Vital Signs are stable. Hospital course: The patient is a 77 year old M admitted from the half-way because of fever, cough and low oxygen on pulse oximeter and he was found to have Haemophilus influenza healthcare associated pneumonia complicated by sepsis. His initial chest x-ray revealed no evidence of acute or new infiltrate or consolidation. Repeat chest x-ray revealed findings consistent with possible multifocal pneumonia superimposed on underlying chronic lung disease. Patient was found to be in sepsis based on fever, hypoxia and chest x-ray findings. His lactic acid was normal. He was treated with IV vancomycin and Zosyn for healthcare associated pneumonia. His blood culture showed no growth in 48 hours. Urine culture showed no growth. Pneumococcal and Legionella antigen were negative. Sputum culture revealed Haemophilus influenza. During this hospital stay, patient's heart rate has been in the 40s and he has been on high dose of Coreg 25 mg p.o. twice daily. Dose of Coreg decreased down to 12.5 mg p.o. twice daily because of bradycardia. With above-mentioned treatment, patient symptoms improved and he was able to maintain his pulse oximeter at around 95% on 2 L on the day of discharge. Patient discharged back to the assisted living in a stable medical condition, discharged on mechanical soft diet and nectar thick liquid, discharged on Augmentin twice daily for another 5 days of treatment, dose of Coreg decreased down to 12.5 mg p.o. twice daily, discharged on oxygen at 2 L, recommended to follow-up with PCP in 1 week. Discharge Activity: Return to Normal Activity Weight Bearing Status: Weight bearing as tolerated Call your doctor if you observe: Fever of 101 or Higher, Shortness of breath, Dizziness, Fainting spells, Chest pain, Increased palpitations (irregular heartbeat), Uncontrolled pain Home Medications: Medications to take at Discharge Aspirin [Aspirin, Baby] 81 mg PO DAILY@0800 09/23/15 Atorvastatin Calcium [Lipitor] 40 mg PO QHS 09/23/15 Famotidine [Pepcid] 20 mg PO DAILY 09/23/15 Lisinopril [Zestril] 10 mg PO DAILY 09/23/15 Acetaminophen [Tylenol] 650 mg PO BID 10/09/15 Umeclidinium Brm/Vilanterol Tr [Anoro Ellipta 62.5-25 Mcg INH] 1 inh INHALATION DAILY 10/09/15 escitalopram 10 mg tablet 10 mg PO DAILY tab 11/03/17 loratadine 10 mg tablet 10 mg PO DAILY 11/03/17 nitroglycerin 0.4 mg sublingual tablet 0.4 mg SUBLINGUAL Q5-15M PRN 11/03/17 tamsulosin 0.4 mg capsule 0.4 mg PO DAILY 11/03/17 Docusate Sodium [Colace] 200 mg PO DAILY 02/19/18 Guaifenesin [Mucinex] 600 mg PO BID 02/19/18 Amoxicillin/Potassium Clav [Augmentin 875-125 Tablet] 1 tab PO BID #10 tab 02/23 Carvedilol [Coreg (Beta Tasha)] 12.5 mg PO BID #90 tab 02/23/18 Ipratropium/Albuterol Sulfate [Duoneb] 3 ml INHALATION Q4H PRN PRN #0 02/23/18 Following Prescrptions Were Given to Patient: Amoxicillin/Potassium Clav [Augmentin 875-125 Tablet] 1 tab PO BID #10 tab Carvedilol [Coreg (Beta Tasha)] 12.5 mg PO BID #90 tab Primary Care Physician: Omer Rodriguez MD [Primary Care Provider] - Please follow up with your Primary Care Physician in: 1 week. Please Follow Up With: Omer Rodriguez MD Disposition: Asstd Living/Non-Skill [place] Minutes spent on discharge:: 32 Patient Condition:: Stable Medical Necessity - Tobacco Use Smoking Status: Former smoker Meaningful Use Info Meaningful Use Diagnoses (Choose all that apply): None applicable Code Visit Inpatient E&M: 39915 Disch Hosp
== END 2018-02-23 15:56 | disposition skilled nursing facility (03) | DRG 871 ==
LOC: ED 19:51 → PCU 21:07
PROVIDERS: Family Medicine; Admitting Provider Hospitalist; Emergency Provider Emergency Medicine; Family Provider Family Medicine; PCP Family Medicine; Visit Provider Hospitalist
DX: A41.9 Sepsis, unspecified organism (principal); J44.0 Chronic obstructive pulmonary disease with (acute) lower respiratory infection; J14 Pneumonia due to Hemophilus influenzae; Y95 Nosocomial condition; I11.0 Hypertensive heart disease with heart failure; I50.32 Chronic diastolic (congestive) heart failure; I48.0 Paroxysmal atrial fibrillation; I25.10 Atherosclerotic heart disease of native coronary artery without angina pectoris; D69.6 Thrombocytopenia, unspecified; E78.5 Hyperlipidemia, unspecified; K21.9 Gastro-esophageal reflux disease without esophagitis; F03.90 Unspecified dementia, unspecified severity, without behavioral disturbance, psychotic disturbance, mood disturbance, and anxiety; F32.9 Major depressive disorder, single episode, unspecified; Z96.642 Presence of left artificial hip joint; Z96.651 Presence of right artificial knee joint; Z79.82 Long term (current) use of aspirin; Z79.899 Other long term (current) drug therapy; Z86.718 Personal history of other venous thrombosis and embolism; Z87.01 Personal history of pneumonia (recurrent); Z86.73 Personal history of transient ischemic attack (TIA), and cerebral infarction without residual deficits; Z87.891 Personal history of nicotine dependence; Z95.5 Presence of coronary angioplasty implant and graft
CPT/HCPCS: 36415; 71046; 80048; 80053; 81001; 83605; 83735; 84484; 85025; 85610; 85730; 87040; 87070; 87077; 87086; 87205; 87449; 92526; 93005; 94640; 94667; 94668; 97110; 97162; 97166; 97530; 97535; 97802; 99285; J7030; J7040; J7050; J2405

== ENCOUNTER → 2018-04-08 05:00 | Outpatient (REF) | payer MEDICARE, SELFPAY ==
[2018-04-08 08:56] LABS: Hematocrit 39.1 % (40-54); Hemoglobin 11.9 g/dl (13.0-16.5); Mean Corp Hgb Conc 30.4 g/gl (32-36); Mean Corpuscular Volume 98.5 fL (80-94); Mean Platelet Vol. 11.3 fl (6.2-12.0); Platelet Count 94 K/mm3 (150-450); RBC Distribution Width CV 14.3 % (11.6-14.6); RBC Distribution Width SD 50.1 fl (35.1-43.9); Red Blood Count 3.97 M/mm3 (4.6-6.2); White Blood Count 3.9 K/mm3 (4.4-11.0)
[2018-04-08 08:59] LABS: Scan Indicated on CBC? Y/N NO
[2018-04-08 09:13] LABS: Anion Gap 8 (5-15); BUN 12 mg/dL (7-18); BUN/Creat Ratio 11.3 RATIO (10-20); Calcium,Total 8.2 mg/dL (8.5-10.1); Chloride 111 mmol/L (98-107); Creatinine, Serum 1.06 mg/dL (0.70-1.30); EST Glomerular Filtration Rate 72 mL/min (>60); Est Glom Filt Rate - Afr Amer 88 mL/min (>60); Glucose 90 mg/dL (74-106); Potassium 3.9 mmol/L (3.5-5.1); Sodium Level 144 mmol/L (136-145)
== END ==
LOC: OLS.WHLBEN 05:00
PROVIDERS: Visit Provider Family Medicine
DX: I10 Essential (primary) hypertension (principal); E78.5 Hyperlipidemia, unspecified
CPT/HCPCS: 36415; 80048; 85027

== ENCOUNTER → 2018-04-12 05:00 | Outpatient (REF) | payer MEDICARE, SELFPAY ==
[2018-04-12 08:05] LABS: Absolute Lymphocyte Count 1.17 X10^3/ul (0.83-4.51); Absolute Neutrophil Count 1.8 X10^3/uL (2.0-7.7); Basophil# 0.01 X10^3/uL; Basophil% 0.3 % (0-1); Eosinophil# 0.07 X10^3/uL; Eosinophils% 2.1 % (0-5); Hematocrit 37.4 % (40-54); Hemoglobin 11.4 g/dl (13.0-16.5); Lymphocyte # 1.17 X10^3/ul (4.0); Lymphocyte % 34.8 % (19-41); Mean Corp Hgb Conc 30.5 g/gl (32-36); Mean Corpuscular Volume 98.4 fL (80-94); Mean Platelet Vol. 10.9 fl (6.2-12.0); Monocyte# 0.31 X10^3/uL; Monocyte% 9.2 % (0-10); Neutrophil # 1.79 X10^3/uL (2.7-7.7); Neutrophil % 53.3 % (47-70); Platelet Count 83 K/mm3 (150-450); RBC Distribution Width CV 14.7 % (11.6-14.6); RBC Distribution Width SD 51.2 fl (35.1-43.9); White Blood Count 3.4 K/mm3 (4.4-11.0)
[2018-04-12 08:06] LABS: POSITIVE COUNT NO; POSITIVE DIFFERENTIAL NO; POSITIVE MORPHOLOGY NO
[2018-04-12 08:07] LABS: Anion Gap 6 (5-15); BUN 17 mg/dL (7-18); Calcium,Total 7.7 mg/dL (8.5-10.1); Chloride 112 mmol/L (98-107); Creatinine, Serum 1.13 mg/dL (0.70-1.30); EST Glomerular Filtration Rate 67 mL/min (>60); Est Glom Filt Rate - Afr Amer 81 mL/min (>60); Glucose 88 mg/dL (74-106); Potassium 3.7 mmol/L (3.5-5.1); Sodium Level 144 mmol/L (136-145)
== END ==
LOC: OLS.WHLBEN 05:00
PROVIDERS: Visit Provider Family Medicine
DX: R50.9 Fever, unspecified (principal); R05 Cough
CPT/HCPCS: 36415; 80048; 85025

== ENCOUNTER → 2018-04-15 12:30 | Outpatient (REF) | payer MEDICARE, SELFPAY | LOC: OLS.WHLBEN 12:30 | PROVIDERS: Visit Provider Family Medicine | DX: J18.9 Pneumonia, unspecified organism (principal) | CPT/HCPCS: 87449 ==

== ENCOUNTER → 2018-05-05 05:00 | Outpatient (REF) | payer MEDICARE, SELFPAY ==
[2018-05-05 08:01] LABS: Anion Gap 6 (5-15); BUN 17 mg/dL (7-18); BUN/Creat Ratio 14.5 RATIO (10-20); Calcium,Total 8.3 mg/dL (8.5-10.1); Chloride 113 mmol/L (98-107); Creatinine, Serum 1.17 mg/dL (0.70-1.30); EST Glomerular Filtration Rate 65 mL/min (>60); Est Glom Filt Rate - Afr Amer 78 mL/min (>60); Glucose 94 mg/dL (74-106); Hemoglobin 11.8 g/dl (13.0-16.5); Mean Corp Hgb Conc 30.3 g/gl (32-36); Mean Corpuscular Hgb 29.8 pg (27.0-32.0); Mean Corpuscular Volume 98.5 fL (80-94); Mean Platelet Vol. 11.4 fl (6.2-12.0); Platelet Count 85 K/mm3 (150-450); Potassium 3.7 mmol/L (3.5-5.1); RBC Distribution Width CV 15.2 % (11.6-14.6); RBC Distribution Width SD 53.6 fl (35.1-43.9); Red Blood Count 3.96 M/mm3 (4.6-6.2); Sodium Level 146 mmol/L (136-145); White Blood Count 5.5 K/mm3 (4.4-11.0)
[2018-05-05 08:03] LABS: Scan Indicated on CBC? Y/N NO
== END ==
LOC: OLS.WHLBEN 05:00
PROVIDERS: Visit Provider Family Medicine
DX: I10 Essential (primary) hypertension (principal)
CPT/HCPCS: 36415; 80048; 85027

== ENCOUNTER → 2018-06-02 05:00 | Outpatient (REF) | payer MEDICARE, SELFPAY ==
[2018-06-02 07:57] LABS: Hematocrit 37.5 % (40-54); Hemoglobin 11.4 g/dl (13.0-16.5); Mean Corp Hgb Conc 30.4 g/gl (32-36); Mean Corpuscular Hgb 29.9 pg (27.0-32.0); Mean Corpuscular Volume 98.4 fL (80-94); Mean Platelet Vol. 10.6 fl (6.2-12.0); Platelet Count 83 K/mm3 (150-450); RBC Distribution Width CV 14.9 % (11.6-14.6); RBC Distribution Width SD 51.9 fl (35.1-43.9); Red Blood Count 3.81 M/mm3 (4.6-6.2); White Blood Count 4.8 K/mm3 (4.4-11.0)
[2018-06-02 07:58] LABS: Anion Gap 7 (5-15); BUN 10 mg/dL (7-18); Calcium,Total 7.8 mg/dL (8.5-10.1); Chloride 111 mmol/L (98-107); EST Glomerular Filtration Rate 77 mL/min (>60); Est Glom Filt Rate - Afr Amer 94 mL/min (>60); Glucose 82 mg/dL (74-106); Potassium 3.7 mmol/L (3.5-5.1); Sodium Level 145 mmol/L (136-145)
[2018-06-02 08:00] LABS: Scan Indicated on CBC? Y/N NO
== END ==
LOC: OLS.WHLBEN 05:00
PROVIDERS: Visit Provider Family Medicine
DX: I48.91 Unspecified atrial fibrillation (principal)
CPT/HCPCS: 36415; 80048; 85027

== ENCOUNTER → 2018-06-30 05:00 | Outpatient (REF) | payer MEDICARE, SELFPAY ==
[2018-06-30 08:00] LABS: Hematocrit 35.8 % (40-54); Mean Corp Hgb Conc 30.7 g/gl (32-36); Mean Corpuscular Hgb 30.3 pg (27.0-32.0); Mean Corpuscular Volume 98.6 fL (80-94); Mean Platelet Vol. 10.5 fl (6.2-12.0); Platelet Count 75 K/mm3 (150-450); RBC Distribution Width CV 14.9 % (11.6-14.6); Red Blood Count 3.63 M/mm3 (4.6-6.2); White Blood Count 3.5 K/mm3 (4.4-11.0)
[2018-06-30 08:05] LABS: Anion Gap 6 (5-15); BUN 14 mg/dL (7-18); BUN/Creat Ratio 13.1 RATIO (10-20); Calcium,Total 7.7 mg/dL (8.5-10.1); Chloride 111 mmol/L (98-107); Creatinine, Serum 1.07 mg/dL (0.70-1.30); EST Glomerular Filtration Rate 72 mL/min (>60); Est Glom Filt Rate - Afr Amer 87 mL/min (>60); Glucose 83 mg/dL (74-106); Potassium 3.8 mmol/L (3.5-5.1); Scan Indicated on CBC? Y/N NO; Sodium Level 146 mmol/L (136-145)
[2018-07-01 14:07] VITALS: BMI 26.5
--- OUTSIDE RECORDS SUMMARY | 2018-08-16 01:27 | XMS RPT_ITS ---
:1940 Author Organization [place] Support Name Relationship Address Phone Bernard Ruiz Unavailable [address] + [place] [address] Bill Ruiz Unavailable [address] + [place] [address] R Unavailable Unavailable Unavailable Bernard Ruiz Unavailable [address] + [place] [address] Bill Ruiz Unavailable [address] + [place] [address] R Unavailable Unavailable Unavailable Bernard Ruiz Unavailable [address] + [place] [address] Bill Ruiz Unavailable [address] + [place] [address] R Unavailable Unavailable Unavailable Bernard Ruiz Unavailable [address] + [place] [address] Bill Ruiz Unavailable [address] + [place] [address] R Unavailable Unavailable Unavailable Bernard Ruiz Unavailable [address] + [place] [address] Bill Ruiz Unavailable [address] + [place] [address] R Unavailable Unavailable Unavailable Bernard Ruiz Unavailable [address] + [place] [address] Bill Ruiz Unavailable [address] + [place] [address] R Unavailable Unavailable Unavailable Bernard Ruiz Unavailable [address] + [place] [address] Bill Ruiz Unavailable [address] + [place] [address] R Unavailable Unavailable Unavailable Bernard Ruiz Unavailable [address] + [place] [address] Yuri Ruizson Unavailable [address] + [place] [address] R Unavailable Unavailable Unavailable Bernard Ruiz Unavailable [address] + [place] [address] Yuri Ruizson Unavailable [address] + [place] [address] R Unavailable Unavailable Unavailable Bernard Ruiz Unavailable [address] + [place] [address] Yuri Ruizson Unavailable [address] + [place] [address] R Unavailable Unavailable Unavailable Bernard Ruiz Unavailable [address] + [place] [address] Yuri Ruizson Unavailable [address] + [place] [address] R Unavailable Unavailable Unavailable Bernard Ruiz Unavailable [address] + [place] [address] Yuri Ruizson Unavailable [address] + [place] [address] R Unavailable Unavailable Unavailable Bernard Ruiz Unavailable [address] + [place] [address] Yuri Ruizson Unavailable [address] + [place] [address] R Unavailable Unavailable Unavailable Bernard Ruiz Unavailable [address] + [place] [address] Yuri Ruizson Unavailable [address] + [place] [address] R Unavailable Unavailable Unavailable Bernard Ruiz Unavailable [address] + [place] [address] Yuri Ruizson Unavailable [address] + [place] [address] R Unavailable Unavailable Unavailable Bernard Ruiz Unavailable [address] + [place] [address] Joseph Bill Unavailable [address] + [place] [address] R Unavailable Unavailable Unavailable Bernard Ruiz Unavailable [address] + [place] [address] Yuri Ruizson Unavailable [address] + [place] [address] R Unavailable Unavailable Unavailable Bernard Ruiz Unavailable [address] + [place] [address] Joseph, Bill Unavailable [address] + [place] [address] R Unavailable Unavailable Unavailable Bernard Ruiz Unavailable [address] + [place] [address] Joseph Bill Unavailable [address] + [place] [address] R Unavailable Unavailable Unavailable Bernard Ruiz Unavailable [address] [phone]~330-3 [place] [address] Yuri Ruizson Unavailable [address] [phone]~330-2 [place] [address] R Unavailable Unavailable Unavailable Bernard Ruiz Unavailable [address] [phone]~330-3 [place] [address] Yuri Ruizson Unavailable [address] [phone]~330-2 [place] [address] R Unavailable Unavailable Unavailable Bernard Ruiz Unavailable [address] + [place] [address] Joseph Bill Unavailable [address] + [place] [address] R Unavailable Unavailable Unavailable Bernard Ruiz Unavailable [address] [phone]~330-3 [place] [address] Yuri Ruizson Unavailable [address] [phone]~330-2 [place] [address] R Unavailable Unavailable Unavailable Bernard Ruiz Unavailable [address] [phone]~330-3 [place] [address] Yuri Ruizson Unavailable [address] [phone]~330-2 [place] [address] R Unavailable Unavailable Unavailable Bernard Ruiz Unavailable [address] [phone]~330-3 [place] [address] Bill Ruiz Unavailable [address] [facility] [address] [phone]~330-2 [place] [address] R Unavailable Unavailable Unavailable Bernard Ruiz Unavailable [address] [phone]~330-3 [place] [address] Bill Ruiz Unavailable [address] [facility] [address] [phone]~330-2 [place] [address] R Unavailable Unavailable Unavailable Bernard Ruiz Unavailable [address] [phone]~330-3 [place] [address] Bill Ruiz Unavailable [address] [facility] [address] [phone]~330-2 [place] [address] R Unavailable Unavailable Unavailable Bernard Ruiz Unavailable [address] [phone]~330-3 [place] [address] Bill Ruiz Unavailable [address] [facility] [address] [phone]~330-2 [place] [address] R Unavailable Unavailable Unavailable Bernard Ruiz Unavailable [address] [phone]~330-3 [place] [address] Bill Ruiz Unavailable [address] [facility] [address] [phone]~330-2 [place] [address] R Unavailable Unavailable Unavailable Bernard Ruiz Unavailable [address] [phone]~330-3 [place] [address] Bill Ruiz Unavailable [address] [phone]~330-2 [place] [address] R Unavailable Unavailable Unavailable Bernard Ruiz Unavailable [address] [phone]~330-3 [place] [address] Bill Ruiz Unavailable [address] [phone]~330-2 [place] [address] R Unavailable Unavailable Unavailable Bernard Ruiz Unavailable [address] [phone]~330-3 [place] [address] Bill Ruiz Unavailable [address] [phone]~330-2 [place] [address] R Unavailable Unavailable Unavailable Bernard Ruiz Unavailable [address] [phone]~330-3 [place] [address] Bill Ruiz Unavailable [address] [phone]~330-2 [place] [address] R Unavailable Unavailable Unavailable Bernard Ruiz Unavailable [address] [phone]~330-3 [place] [address] Bill Ruiz Unavailable [address] [phone]~330-2 [place] [address] R Unavailable Unavailable Unavailable Bernard Ruiz Unavailable [address] [phone]~330-3 [place] [address] Bill Ruiz Unavailable [address] [phone]~330-2 [place] [address] R Unavailable Unavailable Unavailable Bernard Ruiz Unavailable [address] [phone]~330-3 [place] [address] Bill Ruiz Unavailable [address] [phone]~330-2 [place] [address] R Unavailable Unavailable Unavailable Bernard Ruiz Unavailable [address] [phone]~330-3 [place] [address] Bill Ruiz Unavailable [address] [phone]~330-2 [place] [address] R Unavailable Unavailable Unavailable Care Team Providers Name Role Phone Omer Ivey Attending Unavailable Xander Ruano Attending Unavailable Omer Ivey Referring Unavailable Omer Ivey Attending Unavailable Daisha Lcuio Attending Unavailable Xander Ruano Attending Unavailable Omer Ivey Referring Unavailable Omer Ivey Attending Unavailable Omer Ivey Primary Care Unavailable Sj Taylor Admitting Unavailable Paintsil, Tabernash Attending Unavailable Sj Taylor Admitting Unavailable Sj Taylor Attending Unavailable Ivey, Omer Primary Care Unavailable Sj Taylor Consulting Unavailable Sj Taylor Admitting Unavailable Ivey, Omer Primary Care Unavailable Paintsil, Tabernash Consulting Unavailable Paintsil, Tabernash Attending Unavailable Sj Taylor Admitting Unavailable Ivey, Omer Primary Care Unavailable Paintsil, Tabernash Consulting Unavailable Lexie Daniele, TAILER OFF-C Attending Unavailable Sj Taylor Admitting Unavailable Ivey, Omer Primary Care Unavailable Paintsil, Tabernash Consulting Unavailable Lexie Sanabria, TAILER OFF-C Attending Unavailable Sj Taylor Admitting Unavailable Lexiekillian Sanabria, TAILER OFF-C Attending Unavailable Ivey, Omer Primary Care Unavailable Paintsil, Tabernash Consulting Unavailable Ivey, Omer Attending Unavailable Cannon, Joanna Attending Unavailable Cannon, Joanna Attending Unavailable Ivey, Omer Attending Unavailable Roof, Omer Allen Attending Unavailable Ivey, Omer Referring Unavailable Ivey, Omer Primary Care Unavailable Ivey, Omer Attending Unavailable Ivey, Omer Attending Unavailable Ivey, Omer Attending Unavailable Jwayyed, Antelmo Attending Unavailable JwayyedAntelmo Referring Unavailable Ivey, Omer Primary Care Unavailable Ivey, Omer Attending Unavailable Bindu, Xander Attending Unavailable KittoeAfshin Referring Unavailable Ivey, Omer Attending Unavailable Ivey, Omer Attending Unavailable Ivey, Omer Primary Care Unavailable Ashelfah, Ghasem Admitting Unavailable Ashelfah, Ghasem Attending Unavailable Ashelfah, Ghasem Attending Unavailable Ivey, Omer Primary Care Unavailable Ashelfah, Ghasem Admitting Unavailable Jopperi, Ovi Attending Unavailable Ivey, Omer Primary Care Unavailable Jopperi, Ovi Consulting Unavailable Ashelfah, Ghasem Admitting Unavailable Jopperi, Ovi Attending Unavailable Ivey, Omer Primary Care Unavailable Jopperi, Ovi Consulting Unavailable Ashelfah, Ghasem Admitting Unavailable Ashelfah, Ghasem Attending Unavailable Ivey, Omer Primary Care Unavailable Ashelfah, Ghasem Consulting Unavailable Ashelfah, Ghasem Admitting Unavailable Ashelfah, Ghasem Attending Unavailable Ivey, Omer Primary Care Unavailable Ashelfah, Ghasem Consulting Unavailable Ivey, Omer Attending Unavailable Ivey, Omer Attending Unavailable Clement Ardon Attending Unavailable Suzanna Dennis Referring Unavailable Ivey, Omer Attending Unavailable Ivey, Omer Attending Unavailable Nasir Garcia D.O. Attending Unavailable IveyOmer Referring Unavailable PROBLEMS PROBLEMS DATE TYPE CONDITION / CODE ATTENDING STATUS SOURCE 07/01/2018 Unknown R06.02 - Shortness of Bindu, Xander [facility] breath / Community R06.02(ICD-10) Hospital Repository 07/01/2018 Unknown Z95.5 - Presence of Bindu, [place] Active [facility] coronary angioplasty Community implant and graft / Hospital Z95.5(ICD-10) Repository 07/01/2018 Unknown I50.32 - Chronic Bindu, [place] Active [facility] diastolic (congestive) Community heart failure / Hospital I50.32(ICD-10) Repository 07/19/2018 Unknown I10 - Essential Omer Ivey Active [facility] (primary) hypertension Community / I10(ICD-10) Hospital Repository 07/19/2018 Unknown E78.5 - Omer Ivey Active [facility] Hyperlipidemia, Community unspecified / Hospital E78.5(ICD-10) Repository 05/19/2018 Unknown J18.9 - Pneumonia, Omer Ivey Active [facility] unspecified organism / Community J18.9(ICD-10) Hospital Repository 05/18/2018 Unknown R50.9 - Fever, Omer Ivey Active [place] unspecified / Community R50.9(ICD-10) Hospital Repository 05/18/2018 Unknown R05 - Cough / Omer Ivey Active [facility] R05(ICD-10) [facility] Hospital Repository 04/08/2018 Unknown I48.0 - Paroxysmal MoodispaClement [place] Active [facility] atrial fibrillation / Community I48.0(ICD-10) Hospital Repository 04/08/2018 Unknown R94.31 - Abnormal MoodispaClement [place] Active [facility] electrocardiogram Community [ECG] [EKG] / Hospital R94.31(ICD-10) Repository 04/08/2018 Unknown I44.7 - Left MoodispaClement [place] Active [facility] bundle-branch block, Community unspecified / Hospital I44.7(ICD-10) Repository 03/01/2018 Unknown A41.9 - Sepsis, Ashelfah, Active [facility] unspecified organism / Ghas[facility] Community A41.9(ICD-10) Hospital Repository 01/15/2018 Unknown M25.552 - Pain in left Jwayyed, Active [facility] hip / M25.552(ICD-10) [facility] Repository 12/30/2017 Unknown I48.91 - Unspecified Bindu, [place] Active [facility] atrial fibrillation / Community I48.91(ICD-10) Hospital Repository 12/30/2017 Unknown I47.1 - Bindu, Xander Active [place] Supraventricular Community tachycardia / Hospital I47.1(ICD-10) Repository PROCEDURES PROCEDURES No Procedure Records FoundRESULTS RESULTS BASIC METABOLIC Collected: 08/02/2018 Status: F Source: [place] PROFILE (BMP) 5:35 AM [facility] REPOSITORY Order Comment: 223 TYPE CODE TESTS RESULT OUT OF RANGE REFERENCE UNITS LAB L501.0100 74-106 mg/dL Normal GLU 78 Result Comment: Please note revised GLUCOSE reference range effective 2017. LAB L501.1000 7-18 mg/dL Normal BUN 11 LAB L501.1100 0.70-1.30 mg/dL Normal CREAT,SERUM 1.12 Result Comment: The validity of the calculated GFR AND GFRAA in patients over 70 years has not been determined. Clinical correlation is essential. LAB L501.1110 >60 mL/min Normal EST GFR 68 Result Comment: Non- GFR Calc LAB L501.1115 >60 mL/min Normal EST GFR - AA 82 Result Comment: GFR Calc LAB L501.1300 10-20 RATIO Low BUN/CRE 9.8 LAB L501.2200 8.5-10.1 mg/dL Low CA 7.8 LAB L501.5300 136-145 mmol/L High NA 147 LAB L501.5600 3.5-5.1 mmol/L Normal K 3.5 LAB L501.5900 98-107 mmol/L High CL 110 LAB L501.6100 21.0-32.0 mmol/L Normal CO2 30.0 LAB L501.6200 5-15 Normal GAP 7 Performed By: #### L500.2500 #### [facility] [address] [place], [address] CBC-COMPLETE BLOOD CNT Collected: 08/02/2018 Status: F Source: [place] NO DIFF 5:35 AM [facility] REPOSITORY TYPE CODE TESTS RESULT OUT OF RANGE REFERENCE UNITS LAB L100.1000 4.4-11.0 K/mm3 Low WBC 4.2 LAB L100.1200 4.6-6.2 M/mm3 Low RBC 3.67 LAB L100.1300 13.0-16.5 g/dl Low HGB 11.2 LAB L100.1400 40-54 % Low HCT 36.8 LAB L100.1500 80-94 fL High MCV 100.3 LAB L100.1600 27.0-32.0 pg Normal MCH 30.5 LAB L100.1700 32-36 g/gl Low MCHC 30.4 LAB L100.1810 11.6-14.6 % High RDW CV 14.8 LAB L100.1820 35.1-43.9 fl High RDW SD 52.4 LAB L100.1900 150-450 K/mm3 Low PLT 82 LAB L100.2000 6.2-12.0 fl Normal MPV 10.8 Performed By: #### L100.0500 #### [facility] [address] [place], [address] CARDIOLOGY VISIT Observed: 07/01/2018 Status: F Source: [place] REPORT 2:25 PM [facility] REPOSITORY [facility] [address] [place] [address] OFFICE VISIT Date of Service: 07/01/18 MR#: [id number] Acct: [id number] Name: SAMMY RUIZ Rep #: [id number] : 1940 Provider: Xander Ruano MD Age/Sex: 77/M [place] [facility] [place] [facility] [place] Status: Signed HPI HPI Chief Complaint: Follow-up visit Details: SAMMY RUIZ, is a 77 M who presents to the office today for a follow-up visit. He is a gentleman with a history of coronary artery disease status post angioplasty and stenting of his right coronary artery in 2004, chronic diastolic heart failure, paroxysmal atrial fibrillation, hypertension, hyperlipidemia, chronic kidney disease. He is currently domiciled in the custodial. He says that he occasionally gets some chest discomfort which appears to be sharp and moves around. It tends to occur more in the evening. His other major problem is that he gets short of breath. As you know he does use oxygen sometimes at night. He has had no dizziness or diaphoresis no near syncope or syncope. He has been compliant with his medications which are administered to him by the custodial. His physical exam here today demonstrates clear lung webster at the apexes and mild rales at the bases. Regular rate and rhythm and no pedal edema. His blood pressure is under good control. 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 Is patient in pain?: No Allergies No Known Allergies Allergy (Verified 07/01/18 14:08) Medications Aspirin [Aspirin, Baby] 81 mg PO DAILY@0800 09/23/15 [History Confirmed 07/01/18] Atorvastatin Calcium [Lipitor] 40 mg PO QHS 09/23/15 [History Confirmed 07/01/18] Famotidine [Pepcid] 20 mg PO DAILY 09/23/15 [History Confirmed 07/01/18] Lisinopril [Zestril] 10 mg PO DAILY 09/23/15 [History Confirmed 07/01/18] Acetaminophen [Tylenol] 650 mg PO BID 10/09/15 [History Confirmed 07/01/18] Umeclidinium Brm/Vilanterol Tr [Anoro Ellipta 62.5-25 Mcg INH] 1 inh INHALATION DAILY 10/09/15 [History Confirmed 07/01/18] escitalopram 10 mg tablet 10 mg PO DAILY tab 11/03/17 [History Confirmed 07/01/18] loratadine 10 mg tablet 10 mg PO DAILY 11/03/17 [History Confirmed 07/01/18] nitroglycerin 0.4 mg sublingual tablet 0.4 mg SUBLINGUAL Q5- 15M PRN 11/03/17 [History Confirmed 07/01/18] tamsulosin 0.4 mg capsule 0.4 mg PO DAILY 11/03/17 [History Confirmed 07/01/18] Docusate Sodium [Colace] 200 mg PO DAILY 02/19/18 [History Confirmed 07/01/18] Carvedilol [Coreg (Beta Tasha)] 12.5 mg PO BID #90 tab 02/23/18 [Rx Confirmed 07/01/18] Ipratropium/Albuterol Sulfate [Duoneb] 3 ml INHALATION Q4H PRN PRN #0 02/23/18 [Rx Confirmed 07/01/18] PFSH Medical History Thrombocytopenia (Chronic) 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, dilated (Chronic) Chronic diastolic (congestive) heart failure (Chronic) Premature ventricular contraction (Chronic) Paroxysmal atrial fibrillation (Chronic) Benign essential HTN (Chronic) Depression (Chronic) HLD (hyperlipidemia) (Chronic) PAT (paroxysmal atrial tachycardia) (Chronic) COPD (chronic obstructive pulmonary disease) (Chronic) Coronary artery disease (Chronic) Dementia (Chronic) CVA (cerebral vascular accident) (Acute) TIA (transient ischemic attack) (Acute) Hypertension (Chronic) Surgical History Presence of stent in coronary artery (Chronic 04/09/05) History of PTCA (Chronic) History of back surgery (Resolved) History of knee replacement procedure of right knee (Resolved) Family History Mother CAD (coronary artery disease) CHF (congestive heart failure) Brother Heart disease Social History housing: assisted living facility Smoking Status: Former smoker quit date: 07/20/10 pack-years: 50 alcohol intake: never ROS Const Const: Negative for fatigue, weakness, night sweats, excessive sweating, frequent falls, headache(s) or daytime sleepiness Eyes Eyes: Negative for loss of peripheral vision, transient loss of vision, blind spots, double vision or blurry vision ENT ENT: Negative for headache(s), dizziness, balance problems, Nosebleed/epistaxis, tongue swelling or lip swelling Cardio Chest Pain: Yes Character: sharp Palpitations: No Edema: None Muscle aches with walking: None Resp Respiratory: Negative for SOB at rest, SOB orthopnea\SOB lying down, Cough, paroxysmal nocturnal dyspnea or SOB with activity GI GI: Negative nausea, vomiting, heartburn, black,tarry stools or bright, red blood in stools : Negative for hematuria Musc Musc: Negative for balance problems, muscle aches/ myalgia, muscle weakness or joint pain Skin Skin: Negative non-healing lesions, unusual bruising or rash Neuro Neuro: Negative for weakness, frequent falls, headache(s), double vision, dizziness, lightheadedness, orthostatic symptoms, blurry vision or lack of coordination Chris Hematologic/Lymphatic: Negative for easy bruising or easy bleeding Endo Endo: Negative for fatigue, excessive sweating, cold intolerance, heat intolerance, increased thirst/drinking or hair loss Psych Psych: Negative for anxiety or depression Allergy Allergy/Immunology: Negative for throat swelling, Negative for tongue swelling, Negative for hives, Negative for rash, Negative for lip swelling Cardiology Exam Const Appearance: cooperative, healthy appearing, well developed, well groomed and no acute distress Nutritional Appearance: well nourished and average body habitus Orientation: alert, awake and oriented x3 Head Head: normal to inspection, normocephalic and atraumatic Ears: hearing grossly normal bilaterally and external ears normal Nose: external nose normal, nasal mucous membranes and turbinates normal, nares normal, septum normal, no nasal discharge Face and Sinus: face symmetric Mouth: oral mucosae normal, tongue normal, oropharynx normal and moist mucous membranes Teeth and gingiva: dentition normal Throat: posterior oropharynx normal, tonsils normal and uvula midline Eyes General: appearance normal, both eyes and all related structures Eyelids: eyelids normal Conjunctivae: conjunctivae normal Pupils: PERRL, normal by confrontation and accommodation normal EOM: EOM intact bilaterally Neck Neck: normal visual inspection, trachea midline and no JVD JVD: +5 Carotids: normal carotid upstroke and bounding pulses Chest Chest inspection: normal inspection of the chest, symmetric chest movement and normal respiratory effort Auscultation: Bilateral: Clear to Auscultation Cardio Palpation: normal PMI Rate: regular rate Rhythm: regular rhythm Heart sounds: S1 normal, S2 normal and normal, physiologic split S2; negative rub, gallop or murmur GI GI: normal to inspection, soft, no hepatosplenomegaly and bowel sounds present Neuro General: alert, awake, oriented x3, no focal sensory deficit, gait normal and moves all extremities Skin Skin: no rashes or lesions noted Extremities Pulses: Normal: Right Femoral Pulse, Left Femoral Pulse, Right Dorsalis Pedis Pulse, Left Dorsalis Pedis Pulse, Right Posterior Tibial Pulse, Left Posterior Tibial Pulse, Right Radial Pulse, Left Radial Pulse Lower Extremity Edema: None: Bilateral Musculoskel Musculoskeletal: No joint tenderness Psych Psychological: normal affect Assessment AND Plan 1. Shortness of breath R06.02 Plan He does have a history of shortness of breath. The etiology of the above is not entirely clear. He do remember that his last echocardiogram in July 2014 demonstrated an ejection fraction of 50%. I would recommend that we place him on Lasix 40 mg a day and repeat his echocardiogram. Depending on the findings further recommendations will be made. 2. Presence of stent in coronary artery Z95.5 PTCA/BINA to mid RCA 04/09/05 Plan He does have a history of atherosclerotic cardiovascular disease and does complain of some chest discomfort. His last catheterization however from 2015 demonstrated normal left main coronary artery, LAD with no high-grade stenosis, ramus intermedius with no high-grade stenosis, and right coronary artery previously stented with minimal disease. I do not think from the character of the chest discomfort that this is coronary in origin. Would continue to observe him in this regard. 3. Benign essential HTN I10 Plan He does have a history of hypertension with well-controlled blood pressure at this particular time. No other major changes will need to be made. 4. Pure hypercholesterolemia E78.5 Plan He does have a history of hyperlipidemia. His most recent lipid profile demonstrated total cholesterol of 75, LDL of 24 and HDL of 29. The above numbers are excellent and no changes will be made. He will remain on the statin therapy. Thank you for allowing me to participate in the care of your patient. Please don't hesitate to call if any issues arise 5. Chronic diastolic (congestive) heart failure I50.32 Plan He does have evidence of diastolic heart failure. Once again an echocardiogram will be performed and depending on the results further recommendations made. In the meantime however, he will start on Lasix 40 mg daily. He may need to be evaluated for nocturnal oxygen requirements. Plan Detail Follow Up 6 Months (jhr) Coding Level of Care Code Off vis,est,level 4 Diagnoses Shortness of breath R06.02 Presence of stent in coronary artery Z95.5 Benign essential HTN I10 Pure hypercholesterolemia E78.5 Chronic diastolic (congestive) heart failure I50.32 Coding Level of Care Code Off vis,est,level 4 Diagnoses Shortness of breath R06.02 Presence of stent in coronary artery Z95.5 Benign essential HTN I10 Pure hypercholesterolemia E78.5 Chronic diastolic (congestive) heart failure I50.32 07/01/18 1425 <Electronically signed by Xander Ruano MD> Date Xander Ruano MD Cosigner Signature: Date (if applicable) CC: Omer Ivey MD BASIC METABOLIC Collected: 06/30/2018 Status: F Source: ANGEL PROFILE (BMP) 6:25 AM [facility] REPOSITORY Order Comment: 223 TYPE CODE TESTS RESULT OUT OF RANGE REFERENCE UNITS LAB L501.0100 74-106 mg/dL Normal GLU 83 Result Comment: Please note revised GLUCOSE reference range effective 2017. LAB L501.1000 7-18 mg/dL Normal BUN 14 LAB L501.1100 0.70-1.30 mg/dL Normal CREAT,SERUM 1.07 Result Comment: The validity of the calculated GFR AND GFRAA in patients over 70 years has not been determined. Clinical correlation is essential. LAB L501.1110 >60 mL/min Normal EST GFR 72 Result Comment: Non- GFR Calc LAB L501.1115 >60 mL/min Normal EST GFR - AA 87 Result Comment: GFR Calc LAB L501.1300 10-20 RATIO Normal BUN/CRE 13.1 LAB L501.2200 8.5-10.1 mg/dL Low CA 7.7 LAB L501.5300 136-145 mmol/L High NA 146 LAB L501.5600 3.5-5.1 mmol/L K Normal 3.8 LAB L501.5900 98-107 mmol/L High CL 111 LAB L501.6100 21.0-32.0 mmol/L Normal CO2 29.0 LAB L501.6200 5-15 Normal GAP 6 Performed By: #### L500.2500 #### [facility] [address] [place], [place], [address] CBC-COMPLETE BLOOD CNT Collected: 06/30/2018 Status: F Source: ANGEL NO DIFF 6:25 AM [facility] REPOSITORY Order Comment: 223 TYPE CODE TESTS RESULT OUT OF RANGE REFERENCE UNITS LAB L100.1000 4.4-11.0 K/mm3 Low WBC 3.5 LAB L100.1200 4.6-6.2 M/mm3 Low RBC 3.63 LAB L100.1300 13.0-16.5 g/dl Low HGB 11.0 LAB L100.1400 40-54 % Low HCT 35.8 LAB L100.1500 80-94 fL High MCV 98.6 LAB L100.1600 27.0-32.0 pg Normal MCH 30.3 LAB L100.1700 32-36 g/gl Low MCHC 30.7 LAB L100.1810 11.6-14.6 % High RDW CV 14.9 LAB L100.1820 35.1-43.9 fl High RDW SD 52.0 LAB L100.1900 150-450 K/mm3 Low PLT 75 LAB L100.2000 6.2-12.0 fl Normal MPV 10.5 Performed By: #### L100.0500 #### [facility] [address] [place], [address] PULMONARY VISIT REPORT Observed: 05/21/2018 Status: F Source: [place]AND 11:38 AM [facility] REPOSITORY [facility] [address] [place] [address] OFFICE VISIT Date of Service: 05/21/18 MR#: [id number] Acct: [id number] Name: SAMMY RUIZ Rep #: [id number] : 1940 Provider: Nasir Garcia D.O. Age/Sex: 77/M [place] [facility] [place] Status: Signed Assessment AND Plan 1. Recurrent aspiration pneumonia J69.0 Plan The patient has a history of what sounds to be like recurrent aspiration pneumonia due to residual swallowing difficulties that arose as a consequence of her prior stroke. He was supposed to be on a specialized diet per speech therapy recommendations following a swallowing evaluation completed in 2017. However, it is my impression from speaking with the patient's family, that he is no longer on any form of a specialized diet. He does report continued coughing with ingestion of liquids and food, raising the concern for continued aspiration of ingested nutrition. I am also a bit confused because the patient presented to our office with sign documentation indicating that he is a DNR comfort care patient. If the patient is truly electing to indulge in a regular diet, it would not be surprising if he were to develop recurrent pneumonias due to aspiration of ingested material. If aggressive measures were to be undertaken, would recommend reevaluation by speech therapy and potential repeat modified barium swallow. However, in light of the patient's DNR Comfort Care status, I would not pursue any additional testing at this time. 2. COPD (chronic obstructive pulmonary disease) J44.9 Plan The patient has a self-reported history of COPD of unknown severity. He has never undergone pulmonary function testing. He does have a [id number] smoking history, having quit completely in 2010. He is currently utilizing Anoro and DuoNeb's in his [facility] facility. My concern is that the patient is continuing to aspirate, despite recommendations to be on a modified diet. He did present to our office today with documentation indicating that he is a DNR comfort care. Therefore, I see no indication in pursuing any additional workup at this time. Plan Detail Follow Up PRN HPI HPI Comments Details: The patient is a 77-year-old male who presents to the clinic today in follow-up from a hospitalization. 10 pages of outside medical records were personally reviewed at today's office visit. The patient's [id number] is in attendance at today's visit. The patient was admitted to the hospital in February for 4 days due to sepsis secondary to Haemophilus influenza pneumonia. The patient reportedly has a history of prior CVA, which left him with residual swallowing deficits. In fact, the patient did have a PEG tube placed for period of time. He reports that he has had issues with recurrent pneumonia. He has a self-reported history of COPD, but denies ever having undergone pulmonary function testing. He currently receives DuoNeb aerosol treatments in his [facility]p facility. It appears that the patient underwent a modified barium swallow evaluation in 2017, which revealed evidence of aspiration. He is supposed to be on a modified diet with speech therapy following. However, from my conversation with the patient's [id number]-[id number], he is elected a non-modified diet at this time. The patient does report significant coughing with ingestion of liquids and food, raising the concern for continued aspiration. Patient was recently treated for pneumonia once again in his [facility] facility. However, it does not appear that the patient's sputum cultures grew out any type of bacteria. The patient presented to our office today with documentation indicating that he was a DNR comfort care. Although, there does appear to be some confusion about this but I spoke to the patient and his daughter in further detail. The patient does report that he oftentimes experiences chest discomfort and dizziness. The patient does have a smoking history of 50 pack years, having quit completely in 2010. He does not utilize supplemental oxygen at his baseline. 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 Is patient in pain?: No Allergies No Known Allergies Allergy (Verified 05/21/18 07:51) Medications Aspirin [Aspirin, Baby] 81 mg PO DAILY@0800 09/23/15 [History Confirmed 05/21/18] Atorvastatin Calcium [Lipitor] 40 mg PO QHS 09/23/15 [History Confirmed 05/21/18] Famotidine [Pepcid] 20 mg PO DAILY 09/23/15 [History Confirmed 05/21/18] Lisinopril [Zestril] 10 mg PO DAILY 09/23/15 [History Confirmed 05/21/18] Acetaminophen [Tylenol] 650 mg PO BID 10/09/15 [History Confirmed 05/21/18] Umeclidinium Brm/Vilanterol Tr [Anoro Ellipta 62.5-25 Mcg INH] 1 inh INHALATION DAILY 10/09/15 [History Confirmed 05/21/18] escitalopram 10 mg tablet 10 mg PO DAILY tab 11/03/17 [History Confirmed 05/21/18] loratadine 10 mg tablet 10 mg PO DAILY 11/03/17 [History Confirmed 05/21/18] nitroglycerin 0.4 mg sublingual tablet 0.4 mg SUBLINGUAL Q5- 15M PRN 11/03/17 [History Confirmed 05/21/18] tamsulosin 0.4 mg capsule 0.4 mg PO DAILY 11/03/17 [History Confirmed 05/21/18] Docusate Sodium [Colace] 200 mg PO DAILY 02/19/18 [History Confirmed 05/21/18] Guaifenesin [Mucinex] 600 mg PO BID 02/19/18 [History Confirmed 05/21/18] Amoxicillin/Potassium Clav [Augmentin 875-125 Tablet] 1 tab PO BID #10 tab 02/23/18 [Rx Confirmed 05/21/18] Carvedilol [Coreg (Beta Tasha)] 12.5 mg PO BID #90 tab 02/23/18 [Rx Confirmed 05/21/18] Ipratropium/Albuterol Sulfate [Duoneb] 3 ml INHALATION Q4H PRN PRN #0 02/23/18 [Rx Confirmed 05/21/18] [facility] Medical History Thrombocytopenia (Chronic) 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, dilated (Chronic) Chronic diastolic (congestive) heart failure (Chronic) Premature ventricular contraction (Chronic) Paroxysmal atrial fibrillation (Chronic) Benign essential HTN (Chronic) Depression (Chronic) HLD (hyperlipidemia) (Chronic) PAT (paroxysmal atrial tachycardia) (Chronic) COPD (chronic obstructive pulmonary disease) (Chronic) Coronary artery disease (Chronic) Dementia (Chronic) CVA (cerebral vascular accident) (Acute) TIA (transient ischemic attack) (Acute) Hypertension (Chronic) Surgical History Presence of stent in coronary artery (Chronic 04/09/05) History of PTCA (Chronic) History of back surgery (Resolved) History of knee replacement procedure of right knee (Resolved) Family History Mother CAD (coronary artery disease) CHF (congestive heart failure) Brother Heart disease Social History housing: assisted living facility Smoking Status: Former smoker quit date: 07/20/10 pack-years: 50 alcohol intake: never Review of Systems Const CONSTITUTIONAL: Positive fatigue; negative anorexia, body ache, chills, daytime sleepiness, fever(s), night sweats, oral thrush, stops breathing during sleep, weight loss, sleeping in chair, weight loss, weight gain, frequent colds, seasonal allergies, other, headache(s) or orthopnea EETM Ear Nose Throat Mouth: Positive hearing normal and nasal discharge; negative hard of hearing, hoarseness, dry mouth in morning, change in vision, itchy eyes, eye pain, swallowing Difficulty, ear pain, nose bleed, headache(s), mouth pain, nasal congestion, post nasal drip, sinus pain, sinus pressure, sore throat or other Cardio Cardiovascular: Negative chest pain, chest pain at rest, chest pain with activity, irregular heart rhythm, edema, shortness of breath when lying down, palpitations, murmur or other Resp Respiratory: Positive as per HPI, shortness of breath, cough cough: Positive productive and chest tightness; negative pain with cough, wheezing, chest congestion, pain on inspiration, inhalers, increase use of rescue inhalers, snoring, apnea or other Gastro Gastrointestional: Negative change in appetite, bloody stools, difficulty swallowing, reflux, hematemesis, melena stool, loose stool, constipation or other Genitourinary: Negative blood in urine, nocturia, pain with urination or other Musc Musculoskeletal: Negative body pain, back pain, neck pain or other Skin/Breast Skin/Breast: Negative dry skin, itching, rash, unusual bruising, breast lump or other Neuro Neurological: Negative restless legs, confusion, weakness or other Psych Psychocological: Negative abnormal sleep pattern, anxiety, thoughts of hurting self/others, hopelessness or other Lymph Lymphatic: Negative easy bleeding, easy bruising, swollen lymph nodes or other Exam Const Constitutional: Positive conversant, cooperative, in no acute respiratory distress, well developed and frail appearing Head Head: Positive normocephalic and atraumatic; negative cyanosis of lips/distal nose Eyes Eye: Positive clear conjunctiva; negative nystagmus or scleral abnormality Ears Ear: Positive hearing normal and external ears normal; negative hard of hearing Nose Nose: Positive external nose normal; negative epistaxis Mouth Mouth: Positive oral mucosae normal and posterior oropharynx is adequate; negative no lesions or post nasal drip Mallampati Score: II: Mallampati Score Neck Neck: Positive normal visual inspection and trachea midline; negative lymphadenopathy Chest Wall Chest: Positive symmetric chest movement Normal AP diameter. Resp lung sounds: Positive rhonchi, rales and diminished diminished: Positive bialteral; negative wheezes Cardio Cardiac: Positive regular rate, regular rhythm, S1 normal and S2 normal; negative rub, gallop or murmur GI GI: Positive normal bowel sounds Soft without distention Genitourinary: Positive deferred [facility] Musculoskeletal: Positive in a wheelchair Skin Pulmonary Skin Exam: Positive intact; negative lesion, ulcers, dermal atrophy or rash Pulses Pulse: Yes Pedal pulses present: Extremities Extremities: No clubbing, No cyanosis, Yes edema Neuro Neurologic: Yes conversant, Yes no focal neuro deficits, Yes cooperative Lymph Lymphatic: No lymphadenopathy Psych Appearance: Positive grossly normal Mental Status: Positive mental status grossly normal Mood: Positive congruent mood Affect: Positive normal affect Coding Level of Care Code Off vis,new,level 4 Diagnoses Recurrent aspiration pneumonia J69.0 COPD (chronic obstructive pulmonary disease) J44.9 11/02/18 1138 <Electronically signed by Nasir Garcia DO> Date Nasir Garcia DO Cosigner Signature: Date (if applicable) CC: Omer Ivey MD Observed: 04/15/2018 Status: F Source: FORDLAND LEGIONELLA ANTIGEN 12:30 PM [facility] URINE REPOSITORY Specimen Source: URINE, RANDOM Legionella, UR Legionella Antigen result interpretation: Negative Presumptive negative for Legionella pneumophila serogroup 1 antigen in urine, suggesting no recent or current infection. Legionella Ag, Urine Negative (See interpretation below) Performed By: #### M300.4500 #### [facility] [address] [place], [address] CBC W/DIFF, AUTOMATED Collected: 04/12/2018 Status: F Source: FORDLAND 5:15 AM [facility] REPOSITORY TYPE CODE TESTS RESULT OUT OF RANGE REFERENCE UNITS LAB L100.1000 4.4-11.0 K/mm3 Low WBC 3.4 LAB L100.1200 4.6-6.2 M/mm3 Low RBC 3.80 LAB L100.1300 13.0-16.5 g/dl Low HGB 11.4 LAB L100.1400 40-54 % Low HCT 37.4 LAB L100.1500 80-94 fL High MCV 98.4 LAB L100.1600 27.0-32.0 pg Normal MCH 30.0 LAB L100.1700 32-36 g/gl Low MCHC 30.5 LAB L100.1810 11.6-14.6 % High RDW CV 14.7 LAB L100.1820 35.1-43.9 fl High RDW SD 51.2 LAB L100.1900 150-450 K/mm3 Low PLT 83 LAB L100.2000 6.2-12.0 fl Normal MPV 10.9 LAB L100.2100 47-70 % Normal NEUT% 53.3 LAB L100.2200 19-41 % Normal LY% 34.8 LAB L100.2300 0-10 % Normal MONO% 9.2 LAB L100.2400 0-5 % Normal EO% 2.1 LAB L100.2500 0-1 % Normal BASO% 0.3 LAB L100.2550 0.0-0.9 % Normal IM GRAN % 0.300 Result Comment: IG% - Immature Granulocytes (promyelocytes, myelocytes and metamyelocytes) > 1% indicates that a LEFT SHIFT is Present. LAB L100.2620 2.0-7.7 X10 3/uL Low Absolute Neut 1.8 LAB L100.2720 0.83-4.51 X10 3/ul Normal Absolute Lymph 1.17 Performed By: #### L100.0100 #### [facility] [address] [place], [address] BASIC METABOLIC Collected: 04/12/2018 Status: F Source: [place] PROFILE ([facility]) 5:15 AM [facility] REPOSITORY TYPE CODE TESTS RESULT OUT OF RANGE REFERENCE UNITS LAB L501.0100 74-106 mg/dL Normal GLU 88 Result Comment: Please note revised GLUCOSE reference range effective 2017. LAB L501.1000 7-18 mg/dL Normal BUN 17 LAB L501.1100 0.70-1.30 mg/dL Normal CREAT,SERUM 1.13 Result Comment: The validity of the calculated GFR AND GFRAA in patients over 70 years has not been determined. Clinical correlation is essential. LAB L501.1110 >60 mL/min Normal EST GFR 67 Result Comment: Non- GFR Calc LAB L501.1115 >60 mL/min Normal EST GFR - AA 81 Result Comment: GFR Calc LAB L501.1300 10-20 RATIO Normal BUN/CRE 15.0 LAB L501.2200 8.5-10.1 mg/dL Low CA 7.7 LAB L501.5300 136-145 mmol/L NA Normal 144 LAB L501.5600 3.5-5.1 mmol/L K Normal 3.7 LAB L501.5900 98-107 mmol/L High CL 112 LAB L501.6100 21.0-32.0 mmol/L Normal CO2 26.0 LAB L501.6200 5-15 Normal GAP 6 Performed By: #### L500.2500 #### [facility] [address] [place], [place], [address] CBC-COMPLETE BLOOD CNT Collected: 04/08/2018 Status: F Source: ANGEL NO DIFF 6:05 AM [facility] REPOSITORY Order Comment: ROOM 223 TYPE CODE TESTS RESULT OUT OF RANGE REFERENCE UNITS LAB L100.1000 4.4-11.0 K/mm3 Low WBC 3.9 LAB L100.1200 4.6-6.2 M/mm3 Low RBC 3.97 LAB L100.1300 13.0-16.5 g/dl Low HGB 11.9 LAB L100.1400 40-54 % Low HCT 39.1 LAB L100.1500 80-94 fL High MCV 98.5 LAB L100.1600 27.0-32.0 pg Normal MCH 30.0 LAB L100.1700 32-36 g/gl Low MCHC 30.4 LAB L100.1810 11.6-14.6 % Normal RDW CV 14.3 LAB L100.1820 35.1-43.9 fl High RDW SD 50.1 LAB L100.1900 150-450 K/mm3 Low PLT 94 LAB L100.2000 6.2-12.0 fl Normal MPV 11.3 Performed By: #### L100.0500 #### [facility] [address] [place], [place], [address] BASIC METABOLIC Collected: 04/08/2018 Status: F Source: ANGEL PROFILE (BMP) 6:05 AM [facility] REPOSITORY Order Comment: ROOM 223 TYPE CODE TESTS RESULT OUT OF RANGE REFERENCE UNITS LAB L501.0100 74-106 mg/dL Normal GLU 90 Result Comment: Please note revised GLUCOSE reference range effective 2017. LAB L501.1000 7-18 mg/dL Normal BUN 12 LAB L501.1100 0.70-1.30 mg/dL Normal CREAT,SERUM 1.06 Result Comment: The validity of the calculated GFR AND GFRAA in patients over 70 years has not been determined. Clinical correlation is essential. LAB L501.1110 >60 mL/min Normal EST GFR 72 Result Comment: Non- GFR Calc LAB L501.1115 >60 mL/min Normal EST GFR - AA 88 Result Comment: GFR Calc LAB L501.1300 10-20 RATIO Normal BUN/CRE 11.3 LAB L501.2200 8.5-10.1 mg/dL Low CA 8.2 LAB L501.5300 136-145 mmol/L NA Normal 144 LAB L501.5600 3.5-5.1 mmol/L K Normal 3.9 LAB L501.5900 98-107 mmol/L High CL 111 LAB L501.6100 21.0-32.0 mmol/L Normal CO2 25.0 LAB L501.6200 5-15 Normal GAP 8 Performed By: #### L500.2500 #### [facility] [address] [facility] [address] [place], [place], [address] CBC-COMPLETE BLOOD CNT Collected: 03/08/2018 Status: F Source: ANGEL NO DIFF 5:35 AM [facility] REPOSITORY Order Comment: 408 TYPE CODE TESTS RESULT OUT OF RANGE REFERENCE UNITS LAB L100.1000 4.4-11.0 K/mm3 Low WBC 3.7 LAB L100.1200 4.6-6.2 M/mm3 Low RBC 3.63 LAB L100.1300 13.0-16.5 g/dl Low HGB 10.8 LAB L100.1400 40-54 % Low HCT 36.1 LAB L100.1500 80-94 fL High MCV 99.4 LAB L100.1600 27.0-32.0 pg Normal MCH 29.8 LAB L100.1700 32-36 g/gl Low MCHC 29.9 LAB L100.1810 11.6-14.6 % Normal RDW CV 14.4 LAB L100.1820 35.1-43.9 fl High RDW SD 52.2 LAB L100.1900 150-450 K/mm3 Low PLT 137 LAB L100.2000 6.2-12.0 fl Normal MPV 10.9 Performed By: #### L100.0500 #### [facility] [address] [place], [place], [id number] BASIC METABOLIC Collected: 03/08/2018 Status: F Source: ANGEL PROFILE (BMP) 5:35 AM [facility] REPOSITORY Order Comment: 408 TYPE CODE TESTS RESULT OUT OF RANGE REFERENCE UNITS LAB L501.0100 74-106 mg/dL Normal GLU 89 Result Comment: Please note revised GLUCOSE reference range effective 2017. LAB L501.1000 7-18 mg/dL Normal BUN 14 LAB L501.1100 0.70-1.30 mg/dL Normal CREAT,SERUM 0.99 Result Comment: The validity of the calculated GFR AND GFRAA in patients over 70 years has not been determined. Clinical correlation is essential. LAB L501.1110 >60 mL/min Normal EST GFR 78 Result Comment: Non- GFR Calc LAB L501.1115 >60 mL/min Normal EST GFR - AA 94 Result Comment: GFR Calc LAB L501.1300 10-20 RATIO Normal BUN/CRE 14.1 LAB L501.2200 8.5-10.1 mg/dL Low CA 7.9 LAB L501.5300 136-145 mmol/L High NA 146 LAB L501.5600 3.5-5.1 mmol/L K Normal 3.5 LAB L501.5900 98-107 mmol/L High CL 109 LAB L501.6100 21.0-32.0 mmol/L Normal CO2 25.0 LAB L501.6200 5-15 Normal GAP 12 Performed By: #### L500.2500 #### [facility] [address] [facility] [place], [address] 12 LEAD ELECTROCARDIOGRAM Observed: 02/26/2018 Status: F Source: [place] 2:09 PM [facility] REPOSITORY [facility] Cardiovascular Services [address] [place] [address] 12 Lead EKG 02/23/18 0125 MR#: [id number] Acct: [id number] Name: SAMMY RUIZ Rep #: [id number] : 1940 77 From: Clement Ardon MD Attending Dr: Andre Bolaños Status: DIS IN Ordering Dr: Andre Bolaños MD Date: 02/23/18 Location: [facility] Sex: M C Admitted: 02/19/18 Test Reason : BRADYCARDIA Blood Pressure : / mmHG Vent. Rate : 040 BPM Atrial Rate : 040 BPM P-R Int : 156 ms QRS Dur : 076 ms QT Int : 446 ms P-R-T Axes : 041 015 062 degrees QTc Int : 363 ms Marked sinus bradycardia Nonspecific ST and T wave abnormality Abnormal ECG Confirmed by CLEMENT ARDON MD ([id number]), photography editor HÉCTOR IVEY ([id number]) on 02/26/2018 2:08:58 PM Referred By: VASQUEZ Confirmed By:CLEMENT ARDON MD 02/26/18 1409 Date Clement Ardon MD CC: Andre Bolaños; Omer Ivey MD Signed 12 LEAD ELECTROCARDIOGRAM Observed: 02/24/2018 Status: F Source: ANGEL 11:37 AM [facility] REPOSITORY [facility] Cardiovascular Services [address] [place] [address] 12 Lead EKG 02/20/18 0559 MR#: [id number] Acct: [id number] Name: SAMMY RUIZ Rep #: [id number] : 1940 77 From: Clement Ardon MD Attending Dr: Andre Bolaños Status: DIS IN Ordering Dr: Andre Bolaños MD Date: 02/19/18 Location: [facility] Sex: M C Admitted: 02/19/18 Test Reason : AMEKG Blood Pressure : / mmHG Vent. Rate : 075 BPM Atrial Rate : 075 BPM P-R Int : 168 ms QRS Dur : 136 ms QT Int : 478 ms P-R-T Axes : 036 011 156 degrees QTc Int : 533 ms Normal sinus rhythm Left bundle branch block Abnormal ECG Confirmed by CLEMENT ARDON MD ([id number]), photography editor HÉCTOR IVEY ([id number]) on 02/24/2018 11:37:18 AM Referred By: DR DENNIS Confirmed By:CLEMENT ARDON MD 02/24/18 1137 Date Clement Ardon MD CC: Andre Bolaños; Omer Ivey MD Signed 12 LEAD ELECTROCARDIOGRAM Observed: 02/24/2018 Status: F Source: ANGEL 11:31 AM [facility] REPOSITORY [facility] Cardiovascular Services [address] [place] [address] 12 Lead EKG 02/21/18 0511 MR#: [id number] Acct: [id number] Name: SIM RUIZTiffany Brush Rep #: [id number] : 1940 77 From: Clement Ardon MD Attending Dr: Andre Bolaños Status: DIS IN Ordering Dr: Suzanna Dennis Date: 02/21/18 Location: [facility] Sex: M C Admitted: 02/19/18 Test Reason : AM EKG Blood Pressure : / mmHG Vent. Rate : 074 BPM Atrial Rate : 074 BPM P-R Int : 170 ms QRS Dur : 132 ms QT Int : 406 ms P-R-T Axes : 043 022 188 degrees QTc Int : 450 ms Sinus rhythm with Premature atrial complexes and Premature ventricular complexes or Fusion complexes Left bundle branch block Abnormal ECG Confirmed by REVA HAGEN, CLEMENT ([id number]), photography editor HÉCTOR IVEY ([id number]) on 02/24/2018 11:31:43 AM Referred By: DIVINE Confirmed By:CLEMENT ARDON MD 02/24/18 113 Date Clement Ardon MD CC: Suzanna Dennis; Andre Bolaños; Omer Ivey MD Signed DISCHARGE SUMMARY Observed: 02/23/2018 Status: F Source: ANGEL 2:17 PM [facility] HOSPITAL REPOSITORY [facility] Medical Records Department [address] [place] [address] Discharge Summary 02/23/18 1400 MR#: [id number] Acct: [id number] Name: SIM RUIZTiffany Brush Rep #: [id number] : 1940 77 From: Andre Bolaños MD PCP: Omer vIey MD Status: ADM IN Y [id number] Date and Diagnosis Date of Admission: 02/19/18 Date of Discharge: 02/23/18 - Primary Discharge Diagnosis #1 Haemophilus influenza acute healthcare associated pneumonia. #2 sepsis. - Secondary Discharge Diagnosis Chronic Problems (Last Updated 02/19/18 @ 20:40 by Andre Bolaños MD) Thrombocytopenia (Chronic) Atherosclerotic heart disease of [place] coronary artery without angina pectoris (Chronic) PTCA/BINA to mid RCA 04/09/05 Cardiomyopathy, dilated (Chronic) Presence of stent in coronary artery (Chronic 04/09/05) PTCA/BINA to mid RCA 04/09/05 Chronic diastolic (congestive) heart failure (Chronic) Premature ventricular contraction (Chronic) Paroxysmal atrial fibrillation (Chronic) Benign essential HTN (Chronic) Depression (Chronic) HLD (hyperlipidemia) (Chronic) PAT (paroxysmal atrial tachycardia) (Chronic) History of PTCA (Chronic) COPD (chronic obstructive pulmonary disease) (Chronic) Coronary artery disease (Chronic) Dementia (Chronic) Hospital Course and Treatment Imaging Results: Clinical Impression(s) from Imaging Studies Chest X-Ray 02/19/18 19:33 IMPRESSION: 1. 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 2. Calcific plaques of the aortic arch. 3. Generalized osteopenia. 4. No acute cardiopulmonary disease process is seen. There is no evidence of infiltrate, atelectasis, or pleural effusion. Electronically Signed: Jose Marie MD at 19:53 EDT , Service support , Chest X-Ray 02/20/18 09:27 IMPRESSION: Findings are suspicious for possible multifocal pneumonia superimposed on underlying chronic lung disease. Consider follow-up noncontrast chest CT for clarification. Electronically Signed: Dione Lopez MD at 10:16 EDT Tel , Service support , Operations: None, - Procedures: EKG Summary of Care Provided: Patient seen and examined on the day of discharge and appeared to be stable to be discharged to assisted living. Today, he denied any significant complaints. He has no more cough or sputum production, breathing is fine. His heart rate has been in the 50s, other vital signs are stable and pulse ox maintained on 2 L of oxygen. - Physical Exam General: Alert, Cooperative, No apparent distress, Disoriented HEENT: Atraumatic, PERRLA, EOMI, Normocephalic Oral: Moist Mucosa, No Gingival or Mucosal Lesions/ Ulcerations Neck: Supple, No JVD, Negative Carotid Bruits, Trachea Midline, Thyroid Normal Size and Texture Lungs: No wheeze, No rales, Diminished, Rhonchi, - - Decreased breath sounds bilateral, rhonchi. Cardiovascular: Normal S1, Normal S2, No murmurs, PMI Normal, Irregular Rate Abdomen: Bowel Sounds Present, Soft, Non Tender, Non-Distended, No Hepato-splenomegaly Extremities: No clubbing, No cyanosis, No edema Skin: No rashes, No breakdown Lymphatic: No Cervical, Supraclavicular, or Inguinal Adenopathy Neurological: Cranial nerves II-XII grossly intact, Neuro grossly intact Psych/Mental Status: Normal Affect, Appropriate Vital Signs are stable. Hospital course: The patient is a 77 year old M admitted from the custodial because of fever, cough and low oxygen on pulse oximeter and he was found to have Haemophilus influenza healthcare associated pneumonia complicated by sepsis. His initial chest x-ray revealed no evidence of acute or new infiltrate or consolidation. Repeat chest x-ray revealed findings consistent with possible multifocal pneumonia superimposed on underlying chronic lung disease. Patient was found to be in sepsis based on fever, hypoxia and chest x-ray findings. His lactic acid was normal. He was treated with IV vancomycin and Zosyn for healthcare associated pneumonia. His blood culture showed no growth in 48 hours. Urine culture showed no growth. Pneumococcal and Legionella antigen were negative. Sputum culture revealed Haemophilus influenza. During this hospital stay, patient's heart rate has been in the 40s and he has been on high dose of Coreg 25 mg p.o. twice daily. Dose of Coreg decreased down to 12.5 mg p.o. twice daily because of bradycardia. With above-mentioned treatment, patient symptoms improved and he was able to maintain his pulse oximeter at around 95% on 2 L on the day of discharge. Patient discharged back to the assisted living in a stable medical condition, discharged on mechanical soft diet and nectar thick liquid, discharged on Augmentin twice daily for another 5 days of treatment, dose of Coreg decreased down to 12.5 mg p.o. twice daily, discharged on oxygen at 2 L, recommended to follow-up with PCP in 1 week. Discharge Activity: Return to Normal Activity Weight Bearing Status: Weight bearing as tolerated Call your doctor if you observe: Fever of 101 or Higher, Shortness of breath, Dizziness, Fainting spells, Chest pain, Increased palpitations (irregular heartbeat), Uncontrolled pain Home Medications: Medications to take at Discharge Aspirin [Aspirin, Baby] 81 mg PO DAILY@0800 09/23/15 Atorvastatin Calcium [Lipitor] 40 mg PO QHS 09/23/15 Famotidine [Pepcid] 20 mg PO DAILY 09/23/15 Lisinopril [Zestril] 10 mg PO DAILY 09/23/15 Acetaminophen [Tylenol] 650 mg PO BID 10/09/15 Umeclidinium Brm/Vilanterol Tr [Anoro Ellipta 62.5-25 Mcg INH] 1 inh INHALATION DAILY 10/09/15 escitalopram 10 mg tablet 10 mg PO DAILY tab 11/03/17 loratadine 10 mg tablet 10 mg PO DAILY 11/03/17 nitroglycerin 0.4 mg sublingual tablet 0.4 mg SUBLINGUAL Q5- 15M PRN 11/03/17 tamsulosin 0.4 mg capsule 0.4 mg PO DAILY 11/03/17 Docusate Sodium [Colace] 200 mg PO DAILY 02/19/18 Guaifenesin [Mucinex] 600 mg PO BID 02/19/18 Amoxicillin/Potassium Clav [Augmentin 875-125 Tablet] 1 tab PO BID #10 tab 02/23/18 Carvedilol [Coreg (Beta Tasha)] 12.5 mg PO BID #90 tab 02/23/18 Ipratropium/Albuterol Sulfate [Duoneb] 3 ml INHALATION Q4H PRN PRN #0 02/23/18 Following Prescrptions Were Given to Patient: Amoxicillin/Potassium Clav [Augmentin 875-125 Tablet] 1 tab PO BID #10 tab Carvedilol [Coreg (Beta Tasha)] 12.5 mg PO BID #90 tab Primary Care Physician: Omer Ivey MD [Primary Care Provider] - Please follow up with your Primary Care Physician in: 1 week. Please Follow Up With: Omer Ivey MD Disposition: Asstd Living/Non-Skill ME Minutes spent on discharge:: 32 Patient Condition:: Stable Medical Necessity - Tobacco Use Smoking Status: Former smoker Meaningful Use Info Meaningful Use Diagnoses (Choose all that apply): None applicable Code Visit Inpatient E MANAV M: [id number] Disch Hosp 02/23/18 1417 <Electronically signed by Andre Bolaños MD> Date Andre Bolaños MD Cosigner Signature (if applicable): Date CC: Andre Bolaños; Omer Ivey MD Signed DISCHARGE INSTRUCTION Observed: 02/23/2018 Status: F Source: [place] 10:13 AM [facility] REPOSITORY [facility] Medical Records Department [address] [place] [address] Instructions for Home/Discharge Instructions 02/23/18 1011 MR#: [id number] Acct: [id number] Name: SAMMY RUIZ Rep #: [id number] : 1940 77 From: Andre Bolaños MD PCP: Omer Ivey MD Status: ADM IN You will use the following diet at home:: Cardiac Your food should be the consistency of: Mechanical soft (ground) Your liquids should be the consistency of: [place] Thick Discharge Activity: Return to Normal Activity Weight Bearing Status: Weight bearing as tolerated Call your doctor if you observe: Fever of 101 or Higher, Shortness of breath, Dizziness, Fainting spells, Chest pain, Increased palpitations (irregular heartbeat), Uncontrolled pain Additional Instructions: Keep patient on oxygen at 2 L to maintain pulse oximeter around 92%. Allergies/Adverse Reactions: Allergies No Known Allergies Allergy (Verified 02/19/18 19:02) Medications to take at Discharge Aspirin [Aspirin, Baby] 81 mg PO DAILY@0800 09/23/15 Atorvastatin Calcium [Lipitor] 40 mg PO QHS 09/23/15 Famotidine [Pepcid] 20 mg PO DAILY 09/23/15 Lisinopril [Zestril] 10 mg PO DAILY 09/23/15 Acetaminophen [Tylenol] 650 mg PO BID 10/09/15 Umeclidinium Brm/Vilanterol Tr [Anoro Ellipta 62.5-25 Mcg INH] 1 inh INHALATION DAILY 10/09/15 escitalopram 10 mg tablet 10 mg PO DAILY tab 11/03/17 loratadine 10 mg tablet 10 mg PO DAILY 11/03/17 nitroglycerin 0.4 mg sublingual tablet 0.4 mg SUBLINGUAL Q5- 15M PRN 11/03/17 tamsulosin 0.4 mg capsule 0.4 mg PO DAILY 11/03/17 Docusate Sodium [Colace] 200 mg PO DAILY 02/19/18 Guaifenesin [Mucinex] 600 mg PO BID 02/19/18 Amoxicillin/Potassium Clav [Augmentin 875-125 Tablet] 1 tab PO BID #10 tab 02/23/18 Carvedilol [Coreg (Beta Tasha)] 12.5 mg PO BID #90 tab 02/23/18 Ipratropium/Albuterol Sulfate [Duoneb] 3 ml INHALATION Q4H PRN PRN #0 02/23/18 The following prescriptions were given: Amoxicillin/Potassium Clav [Augmentin 875-125 Tablet] 1 tab PO BID #10 tab Carvedilol [Coreg (Beta Tasha)] 12.5 mg PO BID #90 tab Primary Care Physician: Omer Ivey MD [Primary Care Provider] - Please follow up with your Primary Care Physician in: 1 week. Test Results: Test results from this visit will be discussed in further detail at your follow-up appointment, if applicable. 02/23/18 1013 <Electronically signed by Andre Bolaños MD> Date Andre Bolaños MD CC: Omer Ivey MD Observed: 02/21/2018 Status: F Source: [place] LEGIONELLA ANTIGEN 7:20 AM [facility] URINE REPOSITORY Order Date: 02/21/18 Legionella, UR Legionella Antigen result interpretation: Negative Presumptive negative for Legionella pneumophila serogroup 1 antigen in urine, suggesting no recent or current infection. Legionella Ag, Urine Negative (See interpretation below) Performed By: #### M300.4500 #### [facility] [address] [place], [address] STREP Observed: 02/21/2018 Status: F Source: [place] PNEUMONIAE ANTIG(UR,CSF) 7:20 AM [facility] REPOSITORY Order Date: 02/21/18 S pneumo Ag URINE INTERPRETATION Negative Urine Presumptive negative for pneumococcal pneumonia, suggesting no current or recent pneumococcal infection. Infection due to S pneumoniae cannot be ruled out since the antigen present in the sample may be below the detection limit of the test. Strep pneumo Test Negative URINE (See interpretation below) Performed By: #### M300.4600 #### [facility] [address] [place], [address] CBC W/DIFF, AUTOMATED Collected: 02/21/2018 Status: F Source: [place] 6:00 AM [facility] REPOSITORY TYPE CODE TESTS RESULT OUT OF RANGE REFERENCE UNITS LAB L100.1000 4.4-11.0 K/mm3 Normal WBC 5.0 LAB L100.1200 4.6-6.2 M/mm3 Low RBC 3.35 LAB L100.1300 13.0-16.5 g/dl Low HGB 10.1 LAB L100.1400 40-54 % Low HCT 34.1 LAB L100.1500 80-94 fL High MCV 101.8 LAB L100.1600 27.0-32.0 pg Normal MCH 30.1 LAB L100.1700 32-36 g/gl Low MCHC 29.6 LAB L100.1810 11.6-14.6 % High RDW CV 14.7 LAB L100.1820 35.1-43.9 fl High RDW SD 53.2 LAB L100.1900 150-450 K/mm3 Low PLT 78 LAB L100.2000 6.2-12.0 fl Normal MPV 11.1 LAB L100.2100 47-70 % High NEUT% 72.9 LAB L100.2200 19-41 % Low LY% 15.9 LAB L100.2300 0-10 % Normal MONO% 8.8 LAB L100.2400 0-5 % Normal EO% 2.0 LAB L100.2500 0-1 % Normal BASO% 0.2 LAB L100.2550 0.0-0.9 % Normal IM GRAN % 0.200 Result Comment: IG% - Immature Granulocytes (promyelocytes, myelocytes and metamyelocytes) > 1% indicates that a LEFT SHIFT is Present. LAB L100.2620 2.0-7.7 X10 3/uL Normal Absolute Neut 3.6 LAB L100.2720 0.83-4.51 X10 3/ul Low Absolute Lymph 0.79 Performed By: #### L100.0100 #### [facility] [address] [place], [address] BASIC METABOLIC Collected: 02/21/2018 Status: F Source: [place] PROFILE ([facility]) 6:00 AM [facility] REPOSITORY TYPE CODE TESTS RESULT OUT OF RANGE REFERENCE UNITS LAB L501.0100 74-106 mg/dL Normal GLU 101 Result Comment: Fasting Glucose result from 100 to 125 mg/dL suggests IMPAIRED HOMEOSTASIS per A.D.A. criteria. Please note revised GLUCOSE reference range effective 2017. LAB L501.1000 7-18 mg/dL High BUN 20 LAB L501.1100 0.70-1.30 mg/dL Normal CREAT,SERUM 1.22 Result Comment: The validity of the calculated GFR AND GFRAA in patients over 70 years has not been determined. Clinical correlation is essential. LAB L501.1110 >60 mL/min Normal EST GFR 62 Result Comment: Non- GFR Calc LAB L501.1115 >60 mL/min Normal EST GFR - AA 74 Result Comment: GFR Calc LAB L501.1255 ml/min Normal Estimated CRCL 57.42 LAB L501.1300 10-20 RATIO Normal BUN/CRE 16.4 LAB L501.2200 8.5-10 mg/dL Low .1 CA 7.6 LAB L501.5300 136-14 mmol/L High 5 NA 147 LAB L501.5600 3.5-5. mmol/L Normal 1 K 3.7 LAB L501.5900 98-107 mmol/L High CL 115 LAB L501.6100 21.0-3 mmol/L Normal 2.0 CO2 26.0 LAB L501.6200 5-15 Normal GAP 6 Performed By: #### L500.2500 #### [facility] [address] [place], [address] MAGNESIUM Collected: 02/21/2018 Status: F Source: [place] 6:00 AM [facility] REPOSITORY TYPE CODE TESTS RESULT OUT OF RANGE REFERENCE UNITS LAB L501.5200 1.6-2.6 mg/dL Normal MG 2.3 Performed By: #### L501.5200 #### [facility] [address] [place], [address] CBC W/DIFF, AUTOMATED Collected: 02/20/2018 Status: F Source: [place] 6:00 AM [facility] REPOSITORY TYPE CODE TESTS RESULT OUT OF RANGE REFERENCE UNITS LAB L100.1000 4.4-11.0 K/mm3 Normal WBC 8.4 LAB L100.1200 4.6-6.2 M/mm3 Low RBC 3.69 LAB L100.1300 13.0-16.5 g/dl Low HGB 11.3 LAB L100.1400 40-54 % Low HCT 37.3 LAB L100.1500 80-94 fL High MCV 101.1 LAB L100.1600 27.0-32.0 pg Normal MCH 30.6 LAB L100.1700 32-36 g/gl Low MCHC 30.3 LAB L100.1810 11.6-14.6 % High RDW CV 14.8 LAB L100.1820 35.1-43.9 fl High RDW SD 53.3 LAB L100.1900 150-450 K/mm3 Low PLT 59 LAB L100.2000 6.2-12.0 fl Normal MPV 10.5 LAB L100.2100 47-70 % High NEUT% 83.8 LAB L100.2200 19-41 % Low LY% 7.9 LAB L100.2300 0-10 % Normal MONO% 7.7 LAB L100.2400 0-5 % Normal EO% 0.1 LAB L100.2500 0-1 % Normal BASO% 0.1 LAB L100.2550 0.0-0.9 % Normal IM GRAN % 0.400 Result Comment: IG% - Immature Granulocytes (promyelocytes, myelocytes and metamyelocytes) > 1% indicates that a LEFT SHIFT is Present. LAB L100.2620 2.0-7.7 X10 3/uL Normal Absolute Neut 7.1 LAB L100.2720 0.83-4.51 X10 3/ul Low Absolute Lymph 0.67 Performed By: #### L100.0100 #### [facility] [address] [place], [address] BASIC METABOLIC Collected: 02/20/2018 Status: F Source: [place] PROFILE (B[facility]) 6:00 AM [facility] REPOSITORY TYPE CODE TESTS RESULT OUT OF RANGE REFERENCE UNITS LAB L501.0100 74-106 mg/dL High GLU 107 Result Comment: Fasting Glucose result from 100 to 125 mg/dL suggests IMPAIRED HOMEOSTASIS per A.D.A. criteria. Please note revised GLUCOSE reference range effective 2017. LAB L501.1000 7-18 mg/dL Normal BUN 17 LAB L501.1100 0.70-1.30 mg/dL Normal CREAT,SERUM 1.21 Result Comment: The validity of the calculated GFR AND GFRAA in patients over 70 years has not been determined. Clinical correlation is essential. LAB L501.1110 >60 mL/min Normal EST GFR 62 Result Comment: Non- GFR Calc LAB L501.1115 >60 mL/min Normal EST GFR - AA 75 Result Comment: GFR Calc LAB L501.1255 ml/min Normal Estimated CRCL 57.90 LAB L501.1300 10-20 RATIO Normal BUN/CRE 14.0 LAB L501.2200 8.5-10 mg/dL Low .1 CA 7.6 LAB L501.5300 136-14 mmol/L Normal 5 NA 143 LAB L501.5600 3.5-5. mmol/L Normal 1 K 3.7 LAB L501.5900 98-107 mmol/L High CL 113 LAB L501.6100 21.0-3 mmol/L Normal 2.0 CO2 23.0 LAB L501.6200 5-15 Normal GAP 7 Performed By: #### L500.2500 #### [facility] [address] [place], [address] Observed: 02/20/2018 Status: F Source: [place] CULTURE, SPUTUM 3:04 AM [facility] REPOSITORY Gram Stain Acceptable Specimen? Yes (<25 Epithelial cells per/lpf) Gram Stain 2+ White Blood Cells 1+ Epithelial cells 2+ Gram positive cocci Resp. Culture * This is an amended result. * A prior result that was reported as final has been changed. 02/22/18 1518 by UNRULY Previously reported as: * Ampicillin can be used for Beta-Lactamase negative isolates. Trimeth/Sulfa, Chloramphenicol, Cefotaxime, Ciprofloxacin, Amoxicillin/Clavulanic Acid,and Oral 2nd/3rd Generation Cephlosporins are effective against both Beta-Lactamase positive and Beta-Lactamase negative isolates. ORGANISM 1: Haemophilus influenzae Amount Growth 2+ Beta Lactamase Negative Performed By: #### M100.0800 #### [facility] [address] [place], [address] EMERGENCY DEPARTMENT Observed: 02/20/2018 Status: F Source: [place] SUMMARY 12:36 AM [facility] REPOSITORY [facility] Medical Records Department [address] [place] [address] Emergency Department Summary 02/19/182023 MR#: [id number] Acct: [id number] Name: Sammy Ruiz Rep #: [id number] : 1940 77 From: Braulio Johnson MD PCP: Omer Ivey MD Status: ADM IN - ER Visit Summary Date of Service: 02/19/18 Chief Complaint: Fever and cough History of Present Illness: The patient is a [address] Omer Ivey. He is a poor informant. correction notes that he had a fever of 103 and was given Tylenol approximately an hour and a half ago. Patient does admit to a cough. He denies any chest pain or shortness of breath. Upon arrival to the emergency department patient complains of abdominal pain. He vomited twice. No blood in his emesis. He denies any diarrhea, dysuria or frequency. He does admit to generalized weakness. Physical Examination: Vitals: 102.0, 160/85, 87, 22, 95% on room air which is not hypoxic. General: Well-nourished and well-developed. Head: Normocephalic atraumatic. Neck: Supple, no lymphadenopathy. No JVD. Nontender. Cardiovascular: Regular rate and rhythm. 2 out of 6 systolic murmur. Respiratory: No respiratory distress. Rhonchi bilaterally. Abdominal: Soft, nontender, nondistended, normal bowel sounds. No guarding, rebound, or peritoneal signs. Back: Nontender. Extremities: Nontender, no edema. Skin: Normal color, no rash. Neurologic: Alert and oriented 2. Cranial nerves II through XII are intact. Normal strength and sensation. Psych: Normal affect. Test Results: CBC is marked for hemoglobin 12.5, platelets 291, segmented neutrophils 83, lymphocytes of 10. Chem-7 is more for chloride 111, glucose 120, calcium 8.2. LFTs marked for an albumin 3.0, ALT of 13, AST of 12. INR is 1.3. PTT is 39.1. UA is negative. Lactic acid is 1.0. Chest x-ray shows chronic changes. Emergency Department Course and Treatment: Patient was given Zofran IV. After discussion with the hospitalist the patient was given Zosyn and vancomycin IV. Treatment Plan: Patient has had a fever to 103 . His temperature here is 102 . While the chest x-ray does not show any obvious pneumonia the patient has pneumonia clinically. He will be admitted to the hospital for further relation and treatment. Disposition: Admitted in serious condition. Impression: 1. Clinical pneumonia. This note was generated with [employer] dictation software. It may contain incorrect words, spelling, and punctuation that were not noted in review of the chart prior to signing ED Disposition - Plan for ED Patient: Chief Complaint: Shortness of Breath Referrals: Omer Ivey MD [Primary Care Provider] - What to do if you have Problems For any increased pain, shortness of breath, bleeding, nausea or vomiting, chest pain, or any unexpected problems, contact your Primary Care Provider. Call [facility] ([phone]) or report to the closest Emergency Room. Call 911 if necessary. 02/20/18 0036 <Electronically signed by Braulio Johnson MD> Date Braulio Johnson MD Cosigner Signature (If Indicated): Date CC: Omer Ivey MD CHEST PA AND LATERAL Observed: 02/20/2018 Status: F Source: [place] 12:00 AM [facility] REPOSITORY [facility] Imaging Services [address] [place] [address] Chest PA and Lateral MR#: [id number] Acct: [id number] Name: SAMMY RUIZ Rep #: [id number] : 1940 M 77 From: Dione Lopez MD PCP: Omer Ivey MD Status: ADM IN Study: Chest PA and Lateral Date of Exam: 02/20/18 Exam# [id number] Ordering Dr: Andre Bolaños MD STUDY: X-RAY CHEST REASON FOR EXAM: Male, 77 years old. Fever pneumonia sepsis TECHNIQUE: PA and lateral views of the chest. COMPARISON: February 19, 2018 chest x-ray FINDINGS: The lungs are underexpanded. There is otherwise focal subtle opacity in the left upper lobe. There is patchy density in the lingula left lower lobe. The interstitial markings are prominent suggesting underlying chronic lung disease. There is mild cardiac enlargement. Normal mediastinum and nancy. Normal visualized pulmonary arteries. Normal visualized aortic arch and descending thoracic aorta. There are diffuse degenerative changes of the visualized thoracic spine. Normal visualized ribs, clavicles, and shoulders. There is no demonstrated abnormality of the visualized soft tissue structures of the upper abdomen. RAD/Chest PA and Lateral IMPRESSION: Findings are suspicious for possible multifocal pneumonia superimposed on underlying chronic lung disease. Consider follow-up noncontrast chest CT for clarification. Electronically Signed: Dione Lopez MD at 10:16 EDT Tel , Service support , CC: Andre Bolaños; Omer Ivey MD Granulator Tender: Signed TROPONIN-I Collected: 02/19/2018 Status: F Source: [place] 10:13 PM [facility] REPOSITORY Order Comment: 'TROP' Serial specimen #1, #2 or #3: 1 TYPE CODE TESTS RESULT OUT OF RANGE REFERENCE UNITS LAB L501.4010 <0.045 ng/mL Normal 0.020 TROPONIN-I Result Comment: TROPONIN-I EXPECTED VALUES <0.045 Negative 0.045 - 0.590 Consistent with Cardiac Damage > OR = 0.600 Critical Value Not every elevated troponin is indicative of PA. These values should be used with clinical judgement in examining the patient's clinical picture for diagnosis. To establish a diagnosis of PA versus myocardial injury, there must be a demonstrated rise and/or fall in the troponin values, in addition to ischemic symptoms, EKG changes, new regional wall motion abnormality, and/or angiographical evidence. PLEASE NOTE: REFERENCE RANGES EDITED 17 Performed By: #### L501.4010 #### [facility] [address] [place], [address] HISTORY AND PHYSICAL Observed: 02/19/2018 Status: F Source: [place] EXAM 8:53 PM [facility] REPOSITORY [facility] Medical Records Department [address] [place] [address] History and Physical 02/19/182039 MR#: [id number] Acct: [id number] Name: Sammy Ruiz Rep #: [id number] : 1940 77 From: Andre Bolaños MD PCP: Omer Ivey MD Status: REG ER Y Location: ED Problem List (1) Thrombocytopenia Status: Chronic (2) Chronic diastolic (congestive) heart failure Status: Chronic (3) Paroxysmal atrial fibrillation Status: Chronic (4) Benign essential HTN Status: Chronic (5) Depression Status: Chronic (6) HLD (hyperlipidemia) Status: Chronic Qualifiers: (7) COPD (chronic obstructive pulmonary disease) Status: Chronic (8) Coronary artery disease Status: Chronic (9) Dementia Status: Chronic History of Present Illness Date of Admission: 02/19/18 Chief Complaint: Fever. The patient is a 77 year old M with past medical history as mentioned above presented to the emergency room from the custodial because of fever. The patient has demented, confused and disoriented at baseline and is not able to provide good history. He is a poor informant. When I asked him few questions, he just replies yes. Reportedly, he had a fever at the custodial of up to 103 Fahrenheit and he has been having cough as well. Patient himself did admit that he has cough with some sputum as well. He denied chest pain or shortness of breath. He had a history of paroxysmal atrial fibrillation, has been on Coreg for rate control but not on any anticoagulation because of high risk of bleeding. He has a history of CAD status post stents and he has been on aspirin, statins, beta blockers and SHUN inhibitors. He has a history of chronic thrombocytopenia and his platelet counts are always low since 2013. He had history of COPD and he has been on bronchodilators at the custodial. In the emergency department, patient was febrile, tachypneic and pulse ox was 92% on room air. His heart rate was above 90/min. His routine blood work is remarkable for hemoglobin of 12.5 g/dL, platelet count of 91,000, otherwise normal. Lactic acid was normal. LFT was normal. Urinalysis revealed clear urine without evidence of acute cystitis. Chest x-ray showed chronic fibrotic changes without evidence of acute infiltrate or consolidation. He is being admitted for probable healthcare associated pneumonia with sepsis. Past Medical History Past Medical History (Chronic Problems): Chronic Problems (Last Updated 02/19/18 @ 20:40 by Andre Bolaños MD) Thrombocytopenia (Chronic) Atherosclerotic heart disease of [place] coronary artery without angina pectoris (Chronic) PTCA/BINA to mid RCA 04/09/05 Cardiomyopathy, dilated (Chronic) Presence of stent in coronary artery (Chronic 04/09/05) PTCA/BINA to mid RCA 04/09/05 Chronic diastolic (congestive) heart failure (Chronic) Premature ventricular contraction (Chronic) Paroxysmal atrial fibrillation (Chronic) Benign essential HTN (Chronic) Depression (Chronic) HLD (hyperlipidemia) (Chronic) PAT (paroxysmal atrial tachycardia) (Chronic) History of PTCA (Chronic) COPD (chronic obstructive pulmonary disease) (Chronic) Coronary artery disease (Chronic) Dementia (Chronic) Medical History: Medical History (Last Updated 02/19/18 @ 20:40 by Andre Bolaños MD) Thrombocytopenia (Chronic) D69.6 Atherosclerotic heart disease of [place] ira coronary artery without angina pectoris (Chronic) I25.10 PTCA/BINA to mid RCA 04/09/05 Cardiomyopathy, dilated (Chronic) I42.0 Presence of stent in coronary artery (Chronic) Onset Date: 04/09/05 Z95.5 PTCA/BINA to mid RCA 04/09/05 Chronic diastolic (congestive) heart failure (Chronic) I50.32 Premature ventricular contraction (Chronic) I49.3 Paroxysmal atrial fibrillation (Chronic) I48.0 Benign essential HTN (Chronic) I10 Depression (Chronic) F32.9 HLD (hyperlipidemia) (Chronic) E78.5 PAT (paroxysmal atrial tachycardia) (Chronic) COPD (chronic obstructive pulmonary disease) (Chronic) J44.9 Coronary artery disease (Chronic) I25.10 Dementia (Chronic) F03.90 CVA (cerebral vascular accident) I63.9 TIA (transient ischemic attack) G45.9 Hypertension I10 Allergies No Known Allergies Allergy (Verified 02/19/18 19:02) Home Medications: Ambulatory Orders Medication Instructions Recorded Aspirin [Aspirin, Baby] 81 mg PO DAILY@0800 09/23/15 Atorvastatin Calcium [Lipitor] 40 mg PO QHS 09/23/15 Carvedilol [Coreg (Beta Tasha)] 25 mg PO BID 09/23/15 Surgical History: Surgical History (Last Reviewed 11/30/17 @ 10:38 by Araceli Simon) History of PTCA (Chronic) Z98.61 History of back surgery Z98.890 History of knee replacement procedure of right knee Z96.651 Surgical History: total hip arthroplasty - left, - - Left knee repair, back surgery Psychiatric History: No pertinent psych hx Lives: Shelter Smoking Status: Former smoker Alcohol: None Drugs: None - *Family History Maternal Family History: Family History (Last Reviewed 11/30/17 @ 10:38 by Araceli Simon) Mother CAD (coronary artery disease) CHF (congestive heart failure) Brother Heart disease History Items: Heart Disease Paternal Family History: Family History (Last Reviewed 11/30/17 @ 10:38 by Araceli Simon) Mother CAD (coronary artery disease) CHF (congestive heart failure) Brother Heart disease History Items: Heart Disease Review of Systems Constitutional: Reports: Fever. Denies: Anorexia, Chills, Weakness Eyes: Denies: Blurred vision, Double vision, Drainage, Redness HEENT: Denies: Difficulty Hearing, Ear Pain, Eye Pain, Nasal Congestion, Sore Throat Cardiovascular: Denies: Chest Pain, Chest Pressure, Palpitations, Syncope Respiratory: Reports: Cough, Shortness of Breath. Denies: Pleuritic Pain, Wheezing Gastrointestinal: Denies: Abdominal Pain, Diarrhea, Nausea, Vomiting Genitourinary: Denies: Dysuria, Frequency, Hematuria Musculoskeletal: Denies: Arm Pain, Back Pain, Foot Pain Skin: Denies: Dryness, Rash Neurological: Reports: Confusion. Denies: Balance problems, Double vision, Change in Speech, Focal weakness, Headaches, Incoordination Psychiatric: Reports: Depression. Denies: Anxiety Endocrine: Denies: Change in Body Habitus, Polydipsia VTE Information - Inpt Only VTE Present on Admission: No VTE Mechan Device Prophylaxis: None VTE Pharm Prophylaxis ordered?: Yes - Physical Exam General: Alert, Cooperative, Confused, Disoriented, - - Minimally short of breath. HEENT: Atraumatic, PERRLA, EOMI, Normocephalic Oral: Moist Mucosa, No Gingival or Mucosal Lesions/ Ulcerations Neck: Supple, No JVD, Negative Carotid Bruits, Trachea Midline, Thyroid Normal Size and Texture Lungs: No wheeze, Diminished, Rales, Rhonchi, Short of Breath, - - Decreased breath sounds bilateral, bilateral rhonchi, coarse crackles. Cardiovascular: Normal S1, Normal S2, PMI Normal, Irregular Rate Abdomen: Bowel Sounds Present, Soft, Non Tender, Non-Distended, No Hepato-splenomegaly Extremities: No clubbing, No cyanosis, No edema Skin: No rashes, No breakdown Lymphatic: No Cervical, Supraclavicular, or Inguinal Adenopathy Neurological: Cranial nerves II-XII grossly intact, Motor Exam 5/5 strength throughout Psych/Mental Status: Flat Affect Vital Signs Temp Pulse Resp BP Pulse Ox 98.6 F 93 21 H 159/73 H 93 02/19/18 20:22 02/19/18 20:00 02/19/18 20:00 08/03/18 20:00 02/19/18 20:00 Oxygen Flow Rate (L/min) 4 Oxygen Delivery Method Room Air Weight: 197 lb 12.074 oz Body Mass Index (BMI) 26.8 Finger Stick Blood Glucose 95 Laboratory Tests Past 24 Hrs WBC 8.7 RBC 4.18 L Hgb 12.5 L Hct 40.7 MCV 97.4 H MCH 29.9 MCHC 30.7 L RDW 14.6 WBC RBC Hgb Hct MCV MCH MCHC RDW RDW Differential Plt Count MPV Immature Gran % (Auto) Clinical Impression(s) from Imaging Studies Chest X-Ray 02/19/18 19:33 IMPRESSION: 1. 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 2. Calcific plaques of the aortic arch. 3. Generalized osteopenia. 4. No acute cardiopulmonary disease process is seen. There is no evidence of infiltrate, atelectasis, or pleural effusion. Electronically Signed: Jose Marie MD at 19:53 EDT , Service support , Assessment/Plan All Active Problems (Last Updated 02/19/18 @ 20:40 by Andre Bolaños MD) CAP (community acquired pneumonia) (Resolved) DVT (deep venous thrombosis) (Resolved) This is a 77 years old male patient was sent to ER by his PCP from the custodial because of fever and cough, found to have probable healthcare associated pneumonia based on fever, productive cough, tachypnea, chest auscultation and also found to have sepsis and he is being admitted for treatment. #1 probable healthcare associated pneumonia/sepsis: This is based on symptoms of cough with sputum, fever, chest auscultation, tachypnea. Chest x-ray showed no obvious infiltrate. No other source of infection identified. No reported aspiration or choking. At this time, blood pressure stable as well as heart rate, pulse ox is 92% on room air. Plan: Admit to PCU, cardiac monitoring, blood culture, urine culture, sputum culture, chest physical therapy, bronchodilators, incentive spirometer, IV vancomycin and Zosyn, repeat CBC and BMP tomorrow morning, repeat chest x-ray tomorrow morning, PT OT evaluation and treatment. #2 CAD status post stents: Patient denies any chest pain. Plan to do routine EKG, troponin 1. Continue aspirin, Coreg, Lipitor and lisinopril. #3 paroxysmal atrial fibrillation: Rate is controlled. Plan to continue Coreg for rate control. Patient is not on anticoagulation. #4 hypertension: Blood pressure stable, continue Coreg and lisinopril. #5 hyperlipidemia: Continue statins. #6 chronic diastolic CHF: Clinically stable, compensated. Plan for gentle IV Hydration, Monitor for Volume Overload, Continue Coreg and Lisinopril As Well As Aspirin and Statins. #7 COPD: DuoNeb every 6 hours, albuterol as needed, chest physiotherapy, incentive spirometer. #8 dementia: Patient is demented, confused and disoriented at baseline. #9 chronic thrombocytopenia: Admission platelet count is 91,000, this is chronic. No evidence of active bleeding. Plan to repeat CBC tomorrow morning. #10 DVT prophylaxis: Subcu Lovenox. This note was generated with [employer] dictation software. It may contain incorrect words, spelling, and punctuation that were not noted in checking the note before signing. Code Visit Inpatient E AND M: 84740 Init Hosp L3 02/19/182052 <Electronically signed by Andre Bolaños MD> Date Andre Bolaños MD Cosigner Signature: Date (if applicable) CC: Andre Bolaños; Omer Ivey MD Signed URINALYSIS, COMPLETE Collected: 02/19/2018 Status: F Source: ANGEL 7:26 PM [facility] REPOSITORY Order Comment: How was Urine Obtained? HOT STAMP OPERATOR TO SPECIFY TYPE CODE TESTS RESULT OUT OF RANGE REFERENCE UNITS LAB L400.3000 Yellow COLOR Normal Yellow LAB L400.3050 Clear Normal CLARITY Clear LAB L400.3200 Normal mg/dl Normal GLUCOSE, UR Normal LAB L400.3300 Negative mg/dL Normal BILIRUBIN URINE Negative LAB L400.3400 Negative mg/dl High 5 KETONE UR LAB L400.3465 1.002-1.030 Normal SP.GR. DIPSTX 1.010 LAB L400.3550 5.0 - 8.0 pH UR Normal 7.0 LAB L400.3600 Negative mg/dl High PROT DIPSTX 100 LAB L400.3700 Normal mg/dl High 1 UROBILI LAB L400.3750 Negative Normal NITRITE UR Negative LAB L400.3780 Negative /ul High 50 OCCULT BLOOD-UR LAB L400.3800 Negative /ul High LEUK 25 ESTERASE LAB L400.4050 0-5 /hpf WBC 0 Normal SEEN LAB L400.4100 0-5 /hpf Normal RBC-UA 0-5 SEEN LAB L400.4150 0-5 /hpf SQUAM 0 Normal EPI SEEN LAB L400.4300 None Seen /hpf 0 Normal BACTERIA SEEN LAB L400.4350 <or=2+ /hpf 0 Normal MUCUS, URINE SEEN Performed By: #### L400.0001 #### [facility] [address] [place] [address], [id number] Observed: 02/19/2018 Status: F Source: ANGEL CULTURE, URINE 7:26 PM [facility] REPOSITORY Urine Culture Culture exhibits no growth. Performed By: #### M100.0650 #### [facility] [address] [place] [address], [id number] Observed: 02/19/2018 Status: F Source: ANGEL CULTURE, BLOOD (WB) 7:08 PM [facility] REPOSITORY BC No growth in 5 days. Performed By: #### M200.1000 #### [facility] [address] [place] [address], [id number] CBC W/DIFF, AUTOMATED Collected: 02/19/2018 Status: F Source: ANGEL 6:59 PM [facility] REPOSITORY TYPE CODE TESTS RESULT OUT OF RANGE REFERENCE UNITS LAB L100.1000 4.4-11.0 K/mm3 Normal WBC 8.7 LAB L100.1200 4.6-6.2 M/mm3 Low RBC 4.18 LAB L100.1300 13.0-16.5 g/dl Low HGB 12.5 LAB L100.1400 40-54 % Normal HCT 40.7 LAB L100.1500 80-94 fL High MCV 97.4 LAB L100.1600 27.0-32.0 pg Normal MCH 29.9 LAB L100.1700 32-36 g/gl Low MCHC 30.7 LAB L100.1810 11.6-14.6 % Normal RDW CV 14.6 LAB L100.1820 35.1-43.9 fl High RDW SD 51.9 LAB L100.1900 150-450 K/mm3 Low PLT 91 LAB L100.2000 6.2-12.0 fl Normal MPV 11.4 LAB L100.2100 47-70 % High NEUT% 82.6 LAB L100.2200 19-41 % Low LY% 10.3 LAB L100.2300 0-10 % Normal MONO% 7.0 LAB L100.2400 0-5 % Normal EO% 0.0 LAB L100.2500 0-1 % Normal BASO% 0.1 LAB L100.2550 0.0-0.9 % Normal IM GRAN % 0.000 Result Comment: IG% - Immature Granulocytes (promyelocytes, myelocytes and metamyelocytes) > 1% indicates that a LEFT SHIFT is Present. LAB L100.2620 2.0-7.7 X10 3/uL Normal Absolute Neut 7.2 LAB L100.2720 0.83-4.51 X10 3/ul Normal Absolute Lymph 0.89 Performed By: #### L100.0100 #### [facility] [address] [facility]. [place], [place], [address] COMPREHENSIVE METABOLIC Collected: 02/19/2018 Status: F Source: [facility] 6:59 PM [facility] REPOSITORY TYPE CODE TESTS RESULT OUT OF RANGE REFERENCE UNITS LAB L501.0100 74-106 mg/dL High GLU 122 Result Comment: Fasting Glucose result from 100 to 125 mg/dL suggests IMPAIRED HOMEOSTASIS per A.D.A. criteria. Please note revised GLUCOSE reference range effective 2017. LAB L501.1000 7-18 mg/dL Normal BUN 13 LAB L501.1100 0.70-1.30 mg/dL Normal CREAT,SERUM 1.16 Result Comment: The validity of the calculated GFR AND GFRAA in patients over 70 years has not been determined. Clinical correlation is essential. LAB L501.1110 >60 mL/min Normal EST GFR 65 Result Comment: Non- GFR Calc LAB L501.1115 >60 mL/min Normal EST GFR - AA 79 Result Comment: GFR Calc LAB L501.1255 ml/min Normal Estimated CRCL 60.39 LAB L501.1300 10-20 RATIO Normal BUN/CRE 11.2 LAB L501.1500 6.4-8. g/dL Normal 2 T PROT 7.0 LAB L501.1800 3.2-5. g/dL Low 0 ALB 3.0 LAB L501.1950 2.2-4. g/dL Normal 2 GLOB 4.0 LAB L501.2000 0.9-2. RATIO Low 4 A/G 0.8 LAB L501.2200 8.5-10 mg/dL Low .1 CA 8.2 LAB L501.4100 15-37 U/L Low AST 12 LAB L501.4305 45-117 U/L Normal ALK P 89 LAB L501.4405 16-61 U/L Low ALT 13 LAB L501.4600 0.20-1 mg/dL Normal .00 T BILI 1.00 LAB L501.5300 136-14 mmol/L Normal 5 NA 142 LAB L501.5600 3.5-5. mmol/L Normal 1 K 3.5 LAB L501.5900 98-107 mmol/L High CL 111 LAB L501.6100 21.0-3 mmol/L Normal 2.0 CO2 24.0 LAB L501.6200 5-15 Normal GAP 7 Performed By: #### L500.4050 #### [facility] [address] [facility]. [place], [place], [id number] PROTHROMBIN TIME W/INR Collected: 02/19/2018 Status: F Source: [place] 6:59 PM [facility] REPOSITORY TYPE CODE TESTS RESULT OUT OF RANGE REFERENCE UNITS LAB L300.4150 11.7-14.9 SECONDS High PROTIME 16.0 LAB L300.4200 Normal INR 1.3 Performed By: #### L300.3900, L300.4310 #### [facility] [address] [place], [place], [address] PARTIAL THROMBOPLAST Collected: 02/19/2018 Status: F Source: ANGEL TIME 6:59 PM [facility] REPOSITORY TYPE CODE TESTS RESULT OUT OF REFERENCE UNITS RANGE LAB L300.4310 24.1-36.2 Seconds High PTT 39.1 Performed By: #### L300.3900, L300.4310 #### [facility] [address] [place], [address] LACTIC ACID Collected: 02/19/2018 Status: F Source: [place] 6:59 PM [facility] REPOSITORY Order Comment: Yes/No query for Sepsis Lactate Rule Y TYPE CODE TESTS RESULT OUT OF RANGE REFERENCE UNITS LAB L503.6005 0.4-2.0 mmol/L Normal LACTIC ACID 1.0 Performed By: #### L503.6005 #### [facility] [address] [place], [address] Observed: 02/19/2018 Status: F Source: [place] CULTURE, BLOOD (WB) 6:59 PM [facility] REPOSITORY BC No growth in 5 days. Performed By: #### M200.1000 #### [facility] [address] [place], [address] CHEST PA AND LATERAL Observed: 02/19/2018 Status: F Source: [place] 6:52 PM [facility] REPOSITORY [facility] Imaging Services [address] [facility] [place] [address] Chest PA and Lateral MR#: [id number] Acct: [id number] Name: Sammy Ruiz Rep #: [id number] : 1940 M 77 From: Jose Marie MD PCP: Omer Ivey MD Status: REG ER Study: Chest PA and Lateral Date of Exam: 02/19/18 Exam# [id number] Ordering Dr: Braulio Johnson MD STUDY: X-RAY CHEST REASON FOR EXAM: Male, 77 years old. Fever, shortness of breath, hypoxia TECHNIQUE: PA and lateral views of the chest. COMPARISON: Prior study of 11/12/2017 FINDINGS: color television console monitor leads are seen. There are chronic interstitial fibrotic changes of the lungs. There is no demonstrated pleural abnormality. Normal size heart. Normal mediastinum and nancy. Normal visualized pulmonary arteries. There are calcified plaques of the aortic arch. Normal visualized thoracic spine. Normal visualized ribs, clavicles, and shoulders. There is no demonstrated abnormality of the visualized soft tissue structures of the upper abdomen. RAD/Chest PA and Lateral IMPRESSION: 1. 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 2. Calcific plaques of the aortic arch. 3. Generalized osteopenia. 4. No acute cardiopulmonary disease process is seen. There is no evidence of infiltrate, atelectasis, or pleural effusion. Electronically Signed: Jose Marie MD at 19:53 EDT , Service support , CC: Omer Ivey MD; Braulio Johnson MD Granulator Tender: Signed CBC-COMPLETE BLOOD CNT Collected: 01/08/2018 Status: F Source: ANGEL NO DIFF 5:27 AM [facility] REPOSITORY TYPE CODE TESTS RESULT OUT OF RANGE REFERENCE UNITS LAB L100.1000 4.4-11.0 K/mm3 Low WBC 3.6 LAB L100.1200 4.6-6.2 M/mm3 Low RBC 3.77 LAB L100.1300 13.0-16.5 g/dl Low HGB 11.3 LAB L100.1400 40-54 % Low HCT 37.2 LAB L100.1500 80-94 fL High MCV 98.7 LAB L100.1600 27.0-32.0 pg Normal MCH 30.0 LAB L100.1700 32-36 g/gl Low MCHC 30.4 LAB L100.1810 11.6-14.6 % High RDW CV 15.7 LAB L100.1820 35.1-43.9 fl High RDW SD 56.5 LAB L100.1900 150-450 K/mm3 Low PLT 91 LAB L100.2000 6.2-12.0 fl Normal MPV 11.3 Performed By: #### L100.0500 #### [facility] [address] [place], [place], [id number] BASIC METABOLIC Collected: 01/08/2018 Status: F Source: ANGEL PROFILE (BMP) 5:27 AM [facility] REPOSITORY Order Comment: ADD ON LIPID TYPE CODE TESTS RESULT OUT OF RANGE REFERENCE UNITS LAB L501.0100 74-106 mg/dL Normal GLU 82 Result Comment: Please note revised GLUCOSE reference range effective 2017. LAB L501.1000 7-18 mg/dL Normal BUN 13 LAB L501.1100 0.70-1.30 mg/dL Normal CREAT,SERUM 1.13 Result Comment: The validity of the calculated GFR AND GFRAA in patients over 70 years has not been determined. Clinical correlation is essential. LAB L501.1110 >60 mL/min Normal EST GFR 67 Result Comment: Non- GFR Calc LAB L501.1115 >60 mL/min Normal EST GFR - AA 81 Result Comment: GFR Calc LAB L501.1300 10-20 RATIO Normal BUN/CRE 11.5 LAB L501.2200 8.5-10.1 mg/dL Low CA 7.9 LAB L501.5300 136-145 mmol/L NA Normal 144 LAB L501.5600 3.5-5.1 mmol/L K Normal 3.8 LAB L501.5900 98-107 mmol/L High CL 113 LAB L501.6100 21.0-32.0 mmol/L Normal CO2 26.0 LAB L501.6200 5-15 Normal GAP 5 Performed By: #### L500.2500, L500.4100 #### [facility] [address] [place], [address] LIPID PROFILE Collected: 01/08/2018 Status: F Source: [place] 5:27 AM [facility] REPOSITORY Order Comment: ADD ON LIPID TYPE CODE TESTS RESULT OUT OF RANGE REFERENCE UNITS LAB L501.4900 200 mg/dL Normal CHOL 75 Result Comment: <200 mg/dL Desirable 200-240 mg/dL Borderline >240 mg/dL High Risk LAB L501.5000 mg/dL Normal TRIG 108 Result Comment: The drugs N-Acetylcysteine and Metamizole may falsely depress this assay. Serum Triglycerides Reference Interval Normal <150 mg/dL Borderline high 150 - 199 mg/dL High 200 - 499 mg/dL Very High > or = 500 mg/dL LAB L501.6400 mg/dL Low HDL 29 Result Comment: The drugs N-Acetylcysteine and Metamizole may falsely depress this assay. Reference Range HDL <40 mg/dL Low HDL Cholesterol HDL >or= 60 mg/dL High HDL Cholesterol LAB L501.6500 0-130 mg/dL Normal LDL 24 LAB L501.6600 5-40 mg/dL Normal VLDL 22 Performed By: #### L500.2500, L500.4100 #### [facility] [address] [place], [address] DOWNTIME REPORT Observed: 01/06/2018 Status: F Source: [place] 2:00 PM [facility] REPOSITORY [facility] Medical Records Department [address] [place] [address] Downtime Report MR#: [id number] Acct: [id number] Name: Sammy Ruiz Rep #: [id number] : 1940 77 From: Hunter Ivey MD PCP: Omer Ivey MD Status: [facility] This patient was seen during an EMR downtime December 21, 2017 - December 28, 2017. This patient may have a combination of paper and electronic documentation or all paper documentation. All documentation is viewable within the e-chart portion of [facility] for each patient visit. BASIC METABOLIC Collected: 01/01/2018 Status: F Source: [place] PROFILE (BMP) 6:05 AM [facility] REPOSITORY Order Comment: 416 TYPE CODE TESTS RESULT OUT OF RANGE REFERENCE UNITS LAB L501.0100 74-106 mg/dL Normal GLU 88 Result Comment: Please note revised GLUCOSE reference range effective 2017. LAB L501.1000 7-18 mg/dL Normal BUN 15 LAB L501.1100 0.70-1.30 mg/dL Normal CREAT,SERUM 1.21 Result Comment: The validity of the calculated GFR AND GFRAA in patients over 70 years has not been determined. Clinical correlation is essential. LAB L501.1110 >60 mL/min Normal EST GFR 62 Result Comment: Non- GFR Calc LAB L501.1115 >60 mL/min Normal EST GFR - AA 75 Result Comment: GFR Calc LAB L501.1300 10-20 RATIO Normal BUN/CRE 12.4 LAB L501.2200 8.5-10.1 mg/dL Low CA 7.7 LAB L501.5300 136-145 mmol/L High NA 148 LAB L501.5600 3.5-5.1 mmol/L K Normal 3.6 LAB L501.5900 98-107 mmol/L High CL 115 LAB L501.6100 21.0-32.0 mmol/L Normal CO2 27.0 LAB L501.6200 5-15 Normal GAP 6 Performed By: #### L500.2500 #### [facility] [address] [place], [place], [id number] CBC-COMPLETE BLOOD CNT Collected: 01/01/2018 Status: F Source: [facility] NO DIFF 6:05 AM [facility] REPOSITORY Order Comment: 416 TYPE CODE TESTS RESULT OUT OF RANGE REFERENCE UNITS LAB L100.1000 4.4-11.0 K/mm3 Normal WBC 4.5 LAB L100.1200 4.6-6.2 M/mm3 Low RBC 3.65 LAB L100.1300 13.0-16.5 g/dl Low HGB 11.1 LAB L100.1400 40-54 % Low HCT 36.1 LAB L100.1500 80-94 fL High MCV 98.9 LAB L100.1600 27.0-32.0 pg Normal MCH 30.4 LAB L100.1700 32-36 g/gl Low MCHC 30.7 LAB L100.1810 11.6-14.6 % High RDW CV 16.0 LAB L100.1820 35.1-43.9 fl High RDW SD 58.4 LAB L100.1900 150-450 K/mm3 Low PLT 91 LAB L100.2000 6.2-12.0 fl High MPV 12.1 Performed By: #### L100.0500 #### [facility] [address] [place], [place], [address] Observed: 12/28/2017 Status: F Source: ANGEL LEGIONELLA ANTIGEN 1:45 PM [facility] URINE REPOSITORY Specimen Source: URINE, RANDOM Legionella, UR Legionella Antigen result interpretation: Negative Presumptive negative for Legionella pneumophila serogroup 1 antigen in urine, suggesting no recent or current infection. Legionella Ag, Urine Negative (See interpretation below) Performed By: #### M300.4500 #### [facility] [address] [place], [address] PELVIS 1 OR 2 VIEWS Observed: 12/25/2017 Status: F Source: [place] 12:05 PM [facility] REPOSITORY [facility] Imaging Services [address] [place] [address] Pelvis 1 or 2 Views MR#: [id number] Acct: [id number] Name: Sammy Ruiz Rep #: [id number] : 1940 M 77 From: Zuhair Sanabria DO PCP: Omer Ivey MD Status: REG ER Study: Pelvis 1 or 2 Views Date of Exam: 12/24/17 Exam# [id number] Ordering Dr: Antelmo Rosenthal MD STUDY: X-RAY - PELVIS REASON FOR EXAM: Male, 77 years old. Pain TECHNIQUE: One view of the pelvis was obtained. COMPARISON: CT 06/20/2015 FINDINGS: There is a non-specific bowel gas pattern. There are atherosclerotic vascular calcifications of the pelvic arteries. Postoperative changes are seen within the lower lumbar spine. Normal bilateral iliac wings, sacroiliac joints and visualized sacrum. Normal visualized bilateral superior and inferior pubic rami. Normal pubic symphysis. Normal ischial tuberosities. Normal visualized right femoral head. Normal right acetabulum. There is mild articular joint space narrowing of the right hip. A proximal left femoral prosthesis is partially visualized. The orthopedic hardware appears intact in its visualized portions. Normal left acetabulum. Normal left hip joint. RAD/Pelvis 1 or 2 Views IMPRESSION: Postoperative changes to the left hip. No acute bony abnormality. Electronically Signed: Zuhair Sanabria DO at 13:13 EDT Tel , Service support , CC: MD Ino Rosenthal; Omer Ivey MD Granulator Tender: Signed CBC-COMPLETE BLOOD CNT Collected: 12/16/2017 Status: F Source: [facility] NO DIFF 6:20 AM [facility] REPOSITORY Order Comment: ROOM 407 TYPE CODE TESTS RESULT OUT OF RANGE REFERENCE UNITS LAB L100.1000 4.4-11.0 K/mm3 Low WBC 2.9 LAB L100.1200 4.6-6.2 M/mm3 Low RBC 3.60 LAB L100.1300 13.0-16.5 g/dl Low HGB 10.7 LAB L100.1400 40-54 % Low HCT 35.3 LAB L100.1500 80-94 fL High MCV 98.1 LAB L100.1600 27.0-32.0 pg Normal MCH 29.7 LAB L100.1700 32-36 g/gl Low MCHC 30.3 LAB L100.1810 11.6-14.6 % High RDW CV 15.9 LAB L100.1820 35.1-43.9 fl High RDW SD 57.1 LAB L100.1900 150-450 K/mm3 Low PLT 142 LAB L100.2000 6.2-12.0 fl Normal MPV 10.5 Performed By: #### L100.0500 #### [facility] [place], [address] BASIC METABOLIC Collected: 12/16/2017 Status: F Source: [facility] PROFILE (BMP) 6:20 AM [facility] REPOSITORY Order Comment: ROOM 407 TYPE CODE TESTS RESULT OUT OF RANGE REFERENCE UNITS LAB L501.0100 74-106 mg/dL Normal GLU 87 Result Comment: Please note revised GLUCOSE reference range effective 2017. LAB L501.1000 7-18 mg/dL Normal BUN 13 LAB L501.1100 0.70-1.30 mg/dL Normal CREAT,SERUM 1.19 Result Comment: The validity of the calculated GFR AND GFRAA in patients over 70 years has not been determined. Clinical correlation is essential. LAB L501.1110 >60 mL/min Normal EST GFR 63 Result Comment: Non- GFR Calc LAB L501.1115 >60 mL/min Normal EST GFR - AA 77 Result Comment: GFR Calc LAB L501.1300 10-20 RATIO Normal BUN/CRE 10.9 LAB L501.2200 8.5-10.1 mg/dL Low CA 7.8 LAB L501.5300 136-145 mmol/L NA Normal 145 LAB L501.5600 3.5-5.1 mmol/L K Normal 3.7 LAB L501.5900 98-107 mmol/L High CL 112 LAB L501.6100 21.0-32.0 mmol/L Normal CO2 26.0 LAB L501.6200 5-15 Normal GAP 7 Performed By: #### L500.2500 #### [facility] [address] [place], [address] BASIC METABOLIC Collected: 12/09/2017 Status: F Source: FORDLAND PROFILE (BMP) 5:25 AM [facility] [place] REPOSITORY Order Comment: ROOM 407 TYPE CODE TESTS RESULT OUT OF RANGE REFERENCE UNITS LAB L501.0100 74-106 mg/dL Normal GLU 84 Result Comment: Please note revised GLUCOSE reference range effective 2017. LAB L501.1000 7-18 mg/dL Normal BUN 12 LAB L501.1100 0.70-1.30 mg/dL Normal CREAT,SERUM 1.05 Result Comment: The validity of the calculated GFR AND GFRAA in patients over 70 years has not been determined. Clinical correlation is essential. LAB L501.1110 >60 mL/min Normal EST GFR 73 Result Comment: Non- GFR Calc LAB L501.1115 >60 mL/min Normal EST GFR - AA 89 Result Comment: GFR Calc LAB L501.1300 10-20 RATIO Normal BUN/CRE 11.4 LAB L501.2200 8.5-10.1 mg/dL Low CA 7.7 LAB L501.5300 136-145 mmol/L High NA 146 LAB L501.5600 3.5-5.1 mmol/L K Normal 4.1 LAB L501.5900 98-107 mmol/L High CL 113 LAB L501.6100 21.0-32.0 mmol/L Normal CO2 27.0 LAB L501.6200 5-15 Normal GAP 6 Performed By: #### L500.2500 #### [facility] [address], [place], [id number] CBC-COMPLETE BLOOD CNT Collected: 12/09/2017 Status: F Source: ANGEL NO DIFF 5:25 AM [facility] REPOSITORY Order Comment: ROOM 407 TYPE CODE TESTS RESULT OUT OF RANGE REFERENCE UNITS LAB L100.1000 4.4-11.0 K/mm3 Low WBC 2.8 LAB L100.1200 4.6-6.2 M/mm3 Low RBC 3.48 LAB L100.1300 13.0-16.5 g/dl Low HGB 10.6 LAB L100.1400 40-54 % Low HCT 34.9 LAB L100.1500 80-94 fL High MCV 100.3 LAB L100.1600 27.0-32.0 pg Normal MCH 30.5 LAB L100.1700 32-36 g/gl Low MCHC 30.4 LAB L100.1810 11.6-14.6 % High RDW CV 15.5 LAB L100.1820 35.1-43.9 fl High RDW SD 55.0 LAB L100.1900 150-450 K/mm3 Low PLT 84 LAB L100.2000 6.2-12.0 fl Normal MPV 11.2 Performed By: #### L100.0500 #### [facility] [address], [place], [address] CBC-COMPLETE BLOOD CNT Collected: 12/02/2017 Status: F Source: ANGEL NO DIFF 5:45 AM [facility] REPOSITORY Order Comment: ROOM 407 TYPE CODE TESTS RESULT OUT OF RANGE REFERENCE UNITS LAB L100.1000 4.4-11.0 K/mm3 Low WBC 3.5 LAB L100.1200 4.6-6.2 M/mm3 Low RBC 3.58 LAB L100.1300 13.0-16.5 g/dl Low HGB 10.7 LAB L100.1400 40-54 % Low HCT 35.6 LAB L100.1500 80-94 fL High MCV 99.4 LAB L100.1600 27.0-32.0 pg Normal MCH 29.9 LAB L100.1700 32-36 g/gl Low MCHC 30.1 LAB L100.1810 11.6-14.6 % High RDW CV 15.6 LAB L100.1820 35.1-43.9 fl High RDW SD 54.9 LAB L100.1900 150-450 K/mm3 Low PLT 51 LAB L100.2000 6.2-12.0 fl Normal MPV 11.3 Performed By: #### L100.0500 #### [facility] [address] [place], [address] BASIC METABOLIC Collected: 12/02/2017 Status: F Source: ANGEL PROFILE (BMP) 5:45 AM [facility] [place] REPOSITORY Order Comment: ROOM 407 TYPE CODE TESTS RESULT OUT OF RANGE REFERENCE UNITS LAB L501.0100 74-106 mg/dL Normal GLU 82 Result Comment: Please note revised GLUCOSE reference range effective 2017. LAB L501.1000 7-18 mg/dL Normal BUN 13 LAB L501.1100 0.70-1.30 mg/dL Normal CREAT,SERUM 1.02 Result Comment: The validity of the calculated GFR AND GFRAA in patients over 70 years has not been determined. Clinical correlation is essential. LAB L501.1110 >60 mL/min Normal EST GFR 76 Result Comment: Non- GFR Calc LAB L501.1115 >60 mL/min Normal EST GFR - AA 92 Result Comment: GFR Calc LAB L501.1300 10-20 RATIO Normal BUN/CRE 12.7 LAB L501.2200 8.5-10.1 mg/dL Low CA 7.5 LAB L501.5300 136-145 mmol/L NA Normal 145 LAB L501.5600 3.5-5.1 mmol/L K Normal 4.3 LAB L501.5900 98-107 mmol/L High CL 113 LAB L501.6100 21.0-32.0 mmol/L Normal CO2 27.0 LAB L501.6200 5-15 Normal GAP 5 Performed By: #### L500.2500 #### [facility] [address] [place], [address] CARDIOLOGY VISIT Observed: 12/01/2017 Status: F Source: ANGEL REPORT 12:45 PM [facility] REPOSITORY [facility] [address] [place] [address] OFFICE VISIT Date of Service: 11/30/17 MR#: [id number] Acct: [id number] Name: Sammy Ruiz Rep #: [id number] : 1940 Provider: OREN Lee Age/Sex: 77/M [place] [facility] [place] Status: Signed HPI HPI Details: Sammy Ruiz, is a 77 M who presents to the office today for a cardiovascular outpatient follow-up. He has history of coronary artery disease status post stenting to his RCA in 2004, dilated cardiomyopathy, chronic diastolic congestive heart failure, paroxysmal atrial fibrillation, hypertension, hyperlipidemia, COPD, and chronic kidney disease. Patient presented to [facility] October 2017 for shortness of breath, cough, and fever. He was admitted and evaluated for community-acquired left lower lobe pneumonia and COPD exacerbation. His cardiac enzymes were elevated and believed to be related to demand ischemia. He was discharged home on antibiotic therapy. Pt. denies chest, arm, jaw, or neck discomfort. His exercise tolerance is stable. Pt. denies symptoms of CHF, palpitations, lightheadedness, near syncope, or syncopal episodes. Pt. denies edema or claudication issues. Pt. denies orthopnea, PND, fever, chills, blood in urine, blood in stool, myalgia, or unexplainable fatigue. Pt. states having a non-productive cough that started while in the hospital. This is comes and goes and causes some chest discomfort if cough too hard. He states feeling dizziness with ambulation. This improves with rest. 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 Accompanied by: caregiver Is patient in pain?: No Allergies No Known Allergies Allergy (Verified 11/30/17 10:38) Medications Aspirin [Aspirin, Baby] 81 mg PO DAILY@0800 09/23/15 [History Confirmed 11/12/17] Atorvastatin Calcium [Lipitor] 40 mg PO QHS 09/23/15 [History Confirmed 11/12/17] Carvedilol [Coreg (Beta Tasha)] 25 mg PO BID 09/23/15 [History Confirmed 11/12/17] Famotidine [Pepcid] 20 mg PO DAILY 09/23/15 [History Confirmed 11/12/17] Ipratropium/Albuterol Sulfate [Duoneb] 3 ml INHALATION Q4HWA.RT PRN 09/23/15 [History Confirmed 11/12/17] Lisinopril [Zestril] 10 mg PO DAILY 09/23/15 [History Confirmed 11/12/17] Acetaminophen [Tylenol] 650 mg PO BID 10/09/15 [History Confirmed 11/12/17] Umeclidinium Brm/Vilanterol Tr [Anoro Ellipta 62.5-25 Mcg INH] 1 ea IH DAILY 10/09/15 [History Confirmed 11/12/17] escitalopram 10 mg tablet 10 mg PO DAILY tab 11/03/17 [History Confirmed 11/12/17] guaifenesin ER 600 mg tablet, extended release 12 hr 600 mg PO Q12H tab 11/03/17 [History Confirmed 11/12/17] loratadine 10 mg tablet 10 mg PO DAILY 11/03/17 [History Confirmed 11/12/17] nitroglycerin 0.4 mg sublingual tablet 0.4 mg SUBLINGUAL Q5- 15M PRN 11/03/17 [History Confirmed 11/12/17] tamsulosin 0.4 mg capsule 0.4 mg PO DAILY 11/03/17 [History Confirmed 11/12/17] Oseltamivir Phosphate [Tamiflu] 30 mg PO BID cap 11/16/17 [Rx] Prednisone See Taper PO DAILY #22 tab 11/16/17 [Rx] levoFLOXacin tablet [Levaquin tablet] 750 mg PO Q48@0600 tab 11/16/17 [Rx] Ejection fraction %: 50 to 54 PFSH Medical History Pneumonia (Acute) Hypoxemia (Acute) JOHANNE (acute kidney injury) (Acute) Elevated troponin (Acute) Thrombocytopenia (Acute) 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, dilated (Chronic) Presence of stent in coronary artery (Chronic 04/09/05) Chronic diastolic (congestive) heart failure (Chronic) Premature ventricular contraction (Chronic) Paroxysmal atrial fibrillation (Chronic) Benign essential HTN (Chronic) Depression (Chronic) HLD (hyperlipidemia) (Chronic) PAT (paroxysmal atrial tachycardia) (Chronic) COPD (chronic obstructive pulmonary disease) (Chronic) Coronary artery disease (Chronic) Dementia (Chronic) CVA (cerebral vascular accident) (Acute) TIA (transient ischemic attack) (Acute) Hypertension (Chronic) Surgical History History of PTCA (Chronic) History of back surgery (Resolved) History of knee replacement procedure of right knee (Resolved) Family History Mother CAD (coronary artery disease) CHF (congestive heart failure) Brother Heart disease Social History Smoking Status: Former smoker alcohol intake: never ROS Const Const: Negative for fatigue, weakness, body ache, fever(s) or chills ENT ENT: Positive for dizziness Cardio Chest Pain: Yes (with coughing) Palpitations: No Edema: None Muscle aches with walking: None Resp Respiratory: Negative for SOB with activity, SOB at rest, SOB orthopnea\SOB lying down or paroxysmal nocturnal dyspnea GI GI: Negative nausea, black,tarry stools, bright, red blood in stools or vomiting blood/hematemesis : Negative for hematuria or frequent nighttime urination/ nocturia Musc Musc: Negative for muscle aches/ myalgia Skin Skin: Negative non-healing lesions or rash Neuro Neuro: Positive for dizziness; negative for weakness, lightheadedness, near syncope, syncope or orthostatic symptoms Endo Endo: Negative for fatigue Allergy Allergy/Immunology: Negative for rash Cardiology Exam Const Appearance: cooperative, healthy appearing, comfortable and no acute distress Orientation: alert, awake and oriented x3 Head Head: normal to inspection Ears: hearing grossly normal bilaterally Nose: external nose normal Face and Sinus: face symmetric Mouth: oral mucosae normal Eyes General: appearance normal, both eyes and all related structures Eyelids: eyelids normal Neck Neck: no JVD and normal visual inspection Carotids: normal carotid upstroke Chest Chest inspection: normal inspection of the chest and normal respiratory effort; negative cough Auscultation: Left: Clear to Auscultation, Right: Expiratory Wheezes (Clears with coughing) Cardio Rate: regular rate Rhythm: regular rhythm Heart sounds: S1 normal and S2 normal; negative rub or gallop GI GI: normal to inspection Neuro General: alert, awake, oriented x3 and CN's II-XI intact bilaterally Skin Skin: no rashes or lesions noted Extremities Pulses: Normal: Right Posterior Tibial Pulse, Left Posterior Tibial Pulse, Right Radial Pulse, Left Radial Pulse Lower Extremity Edema: None: Bilateral Psych Psychological: normal affect Supplemental Info Heart catheterization from February 2016 showed a normal left ventricular size and function, normal left main coronary artery, LAD with no high-grade stenosis, ramus intermedius with no high-grade stenosis, RCA previously stented with minimal disease, and preserved ejection fraction. Stress test from September 2015 was negative for myocardial induced ischemia, previous inferior infarct cannot be completely excluded, and preserved ejection fraction. Echocardiogram from July 2014 showed estimated ejection fraction of 50%. Assessment AND Plan 1. Dizziness R42 ALISSA Javier Patient does acknowledge some dizziness most noted during ambulation. His blood pressures is on the lower end of expected range. He will stop amlodipine 2.5 mg for this. He will continue to have his blood pressure and symptoms monitored at nursing facility. 2. Atherosclerosis of [place] coronary artery of [place] heart without angina pectoris I25.10 PTCA/BINA to mid RCA 04/09/05 ALISSA Javier Heart catheterization from February 2016 showed no high-grade stenosis and previous RCA stent to be patent. Patient denies any arm pain, jaw pain, neck pain, shortness of breath, or fatigue suggestive of angina at this time. His chest pain appears musculoskeletal related due to frequent coughing. We will continue to monitor this. We will not make any medication regimen changes and will continue risk factor modification. 3. Presence of stent in coronary artery Z95.5 PTCA/BINA to mid RCA 04/09/05 ALISSA Javier Patient continue current plan as outlined above. 4. Chronic diastolic (congestive) heart failure I50.32 ALISSA Javier Heart catheterization from February 2016 showed a preserved ejection fraction. Echocardiogram from July 2014 showed estimated ejection fraction of 50%. Patient denies any worsening shortness of breath or lower extremity edema. He is currently on oxygen therapy since discharge from hospitalization. We will continue to monitor this. We will not make any medication regimen changed. 5. Paroxysmal atrial fibrillation I48.0 ALISSA Javier EKG in office showed sinus rhythm at a rate of 69 bpm. Patient will continue current medications and we will continue to monitor this. Orders Orders: 6. Benign essential HTN I10 TYRESE JavierC Blood pressure is on the lower end of expected range. His amlodipine is being decreased to help with this in conjunction of his dizziness. 7. Pure hypercholesterolemia E78.00; E78.0 Plan - ALISSA Keen Lipid panel from October 2017 showed cholesterol: 83, HDL: 28, LDL: 37, and triglycerides: 89. Patient will continue current statin medication. Plan Detail Additional Comments - ALISSA Keen Discussed the above patient with Dr. Ruano, he agrees with the plan of care. Thank you for allowing us to participate in the patients plan of care, if you have any questions please do not hesitate to call. This note was generated using a voice recognition system and there may be incorrect words, spelling or punctuation that were not noted when reviewing the office note prior to saving. 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 transplanted heart: [place] heart Presence of stent in coronary artery Z95.5 Chronic diastolic (congestive) heart failure I50.32 Paroxysmal atrial fibrillation I48.0 Benign essential HTN I10 Pure hypercholesterolemia E78.00; E78.0 Hyperlipidemia type: pure hypercholesterolemia Coding Level of Care Code Off vis,est,level 3 Diagnoses Dizziness R42 Atherosclerosis of [place] coronary artery of [place] heart without angina pectoris I25.10 [place] vs. transplanted heart: [place] heart Presence of stent in coronary artery Z95.5 Chronic diastolic (congestive) heart failure I50.32 Paroxysmal atrial fibrillation I48.0 Benign essential HTN I10 Pure hypercholesterolemia E78.00; E78.0 Hyperlipidemia type: pure hypercholesterolemia 11/30/17 1154 <Electronically signed by Omer XIONGC> Date Omer MAXWELL 12/01/17 1245<Electronically signed by Xander Ruano MD> Cosigner Signature: Date (if applicable) Xander Ruano MD CC: Omer Ivey MD 12 LEAD EKG PERFORMED Observed: 11/30/2017 Status: F Source: ANGEL BY BMS 10:42 AM [facility] [place] REPOSITORY [facility] [address] [address] 12 Lead [place] [facility] [place]/30/17 1041 MR#: [id number] Acct: [id number] Name: SAMMY RUIZ Rep #: [id number] : 1940 77 From: Omer Lee TAILER OFF-C Attending Dr: Omer Lee, TAILER OFF Status: DEP AMB Ordering Dr: Omer Lee TAILER OFF-C Date: 11/30/17 Location: [facility] [place] Sex: M C Admitted: BMS/12 Lead EKG performed [place] [facility] [place] Report Interpretation Sinus Rhythm WITHIN NORMAL LIMITSElectronically signed on 12/02/2017 at 17:06 by Xander Ruano 12/02/171707 Date Omer Lee TAILER OFF-C CC: Omer Ivey MD Date Dictated: 11/30/171040 Date Transcribed: 11/30/171040 Granulator Tender: TRISTA Signed CBC-COMPLETE BLOOD CNT Collected: 11/25/2017 Status: F Source: ANGEL NO DIFF 6:40 AM [facility] REPOSITORY Order Comment: ROOM 407 TYPE CODE TESTS RESULT OUT OF RANGE REFERENCE UNITS LAB L100.1000 4.4-11.0 K/mm3 Normal WBC 4.5 LAB L100.1200 4.6-6.2 M/mm3 Low RBC 3.71 LAB L100.1300 13.0-16.5 g/dl Low HGB 11.2 LAB L100.1400 40-54 % Low HCT 36.6 LAB L100.1500 80-94 fL High MCV 98.7 LAB L100.1600 27.0-32.0 pg Normal MCH 30.2 LAB L100.1700 32-36 g/gl Low MCHC 30.6 LAB L100.1810 11.6-14.6 % High RDW CV 15.2 LAB L100.1820 35.1-43.9 fl High RDW SD 53.5 LAB L100.1900 150-450 K/mm3 Low PLT 73 LAB L100.2000 6.2-12.0 fl Normal MPV 10.9 Performed By: #### L100.0500 #### [facility] [address] [place], [address] BASIC METABOLIC Collected: 11/25/2017 Status: F Source: ANGEL PROFILE (BMP) 6:40 AM [facility] REPOSITORY Order Comment: ROOM 407 TYPE CODE TESTS RESULT OUT OF RANGE REFERENCE UNITS LAB L501.0100 74-106 mg/dL Normal GLU 76 Result Comment: Please note revised GLUCOSE reference range effective 2017. LAB L501.1000 7-18 mg/dL High BUN 19 LAB L501.1100 0.70-1.30 mg/dL Normal CREAT,SERUM 0.89 Result Comment: The validity of the calculated GFR AND GFRAA in patients over 70 years has not been determined. Clinical correlation is essential. LAB L501.1110 >60 mL/min Normal EST GFR 89 Result Comment: Non- GFR Calc LAB L501.1115 >60 mL/min Normal EST GFR - AA 107 Result Comment: GFR Calc LAB L501.1300 10-20 RATIO High BUN/CRE 21.4 LAB L501.2200 8.5-10.1 mg/dL Low CA 7.5 LAB L501.5300 136-145 mmol/L High NA 147 LAB L501.5600 3.5-5.1 mmol/L K Normal 3.9 LAB L501.5900 98-107 mmol/L High CL 112 LAB L501.6100 21.0-32.0 mmol/L Normal CO2 29.0 LAB L501.6200 5-15 Normal GAP 6 Performed By: #### L500.2500 #### [facility] [address] [place], [address] 12 LEAD ELECTROCARDIOGRAM Observed: 11/20/2017 Status: F Source: ANGEL 3:48 PM [facility] REPOSITORY [facility] Cardiovascular Services [address] [place] [address] 12 Lead EKG 11/14/17 1128 MR#: [id number] Acct: [id number] Name: SAMMY RUIZ Rep #: [id number] : 1940 77 From: Xander Ruano MD Attending Dr: Teresa Healy MD Status: DIS IN Ordering Dr: Sj Taylor DO Date: 11/14/17 Location: U Sex: M C Admitted: 11/12/17 Test Reason : Blood Pressure : / mmHG Vent. Rate : 065 BPM Atrial Rate : 069 BPM P-R Int : 000 ms QRS Dur : 080 ms QT Int : 432 ms P-R-T Axes : 000 013 010 degrees QTc Int : 449 ms Atrial fibrillation Abnormal ECG When compared with ECG of 12-NOV-2017 15:22, MANUAL COMPARISON REQUIRED, DATA IS UNCONFIRMED Confirmed by BINDU HAGEN, XANDER ([id number]), photography editor HÉCTOR IVEY ([id number]) on 11/20/2017 3:48:01 PM Referred By: CORNELL Confirmed By:XANDER RUANO MD 11/20/17 1548 Date Xander Ruano MD CC: Teresa Healy MD; Omer Ivey MD; Sj Taylor DO Signed 12 LEAD ELECTROCARDIOGRAM Observed: 11/18/2017 Status: F Source: FORDLAND 6:08 PM [facility] [place] REPOSITORY [facility] Cardi[facility] Services [address] [place] [address] 12 Lead EKG 11/12/17 1522 MR#: [id number] Acct: [id number] Name: SAMMY RUIZ Rep #: [id number] : 1940 77 From: Tuan Kirkpatrick MD Attending Dr: Teresa Healy MD Status: DIS IN Ordering Dr: Erich Olsen DO Date: 11/12/17 Location: U Sex: M C Admitted: 11/12/17 Test Reason : SOB Blood Pressure : / mmHG Vent. Rate : 071 BPM Atrial Rate : 071 BPM P-R Int : 124 ms QRS Dur : 076 ms QT Int : 440 ms P-R-T Axes : 029 004 019 degrees QTc Int : 478 ms Sinus rhythm with Premature atrial complexes Otherwise normal ECG Confirmed by TUAN KIRKPATRICK ([id number]), photography editor HÉCTOR IVEY ([id number]) on 11/17/2017 2:45:26 PM Referred By: MANOLO Confirmed By:TUAN KIRKPATRICK 11/17/17 1445 Date Tuan Kirkpatrick MD CC: Teresa Healy MD; Omer Ivey MD; Erich Olsen Signed BASIC METABOLIC Collected: 11/18/2017 Status: F Source: ANGEL PROFILE (BMP) 6:10 AM [facility] [place] REPOSITORY Order Comment: ROOM 407 TYPE CODE TESTS RESULT OUT OF RANGE REFERENCE UNITS LAB L501.0100 74-106 mg/dL High GLU 125 Result Comment: Fasting Glucose result from 100 to 125 mg/dL suggests IMPAIRED HOMEOSTASIS per A.D.A. criteria. Please note revised GLUCOSE reference range effective 2017. LAB L501.1000 7-18 mg/dL High BUN 28 LAB L501.1100 0.70-1.30 mg/dL Normal CREAT,SERUM 1.17 Result Comment: The validity of the calculated GFR AND GFRAA in patients over 70 years has not been determined. Clinical correlation is essential. LAB L501.1110 >60 mL/min Normal EST GFR 65 Result Comment: Non- GFR Calc LAB L501.1115 >60 mL/min Normal EST GFR - AA 78 Result Comment: GFR Calc LAB L501.1300 10-20 RATIO High BUN/CRE 23.9 LAB L501.2200 8.5-10.1 mg/dL Low CA 7.7 LAB L501.5300 136-145 mmol/L High NA 149 LAB L501.5600 3.5-5.1 mmol/L K Normal 4.0 LAB L501.5900 98-107 mmol/L High CL 116 LAB L501.6100 21.0-32.0 mmol/L Normal CO2 27.0 LAB L501.6200 5-15 Normal GAP 6 Performed By: #### L500.2500 #### [facility] [address] [place], [address] CBC-COMPLETE BLOOD CNT Collected: 11/18/2017 Status: F Source: ANGEL NO DIFF 6:10 AM [facility] REPOSITORY Order Comment: ROOM 407 TYPE CODE TESTS RESULT OUT OF RANGE REFERENCE UNITS LAB L100.1000 4.4-11.0 K/mm3 Low WBC 2.7 LAB L100.1200 4.6-6.2 M/mm3 Low RBC 3.77 LAB L100.1300 13.0-16.5 g/dl Low HGB 11.4 LAB L100.1400 40-54 % Low HCT 37.2 LAB L100.1500 80-94 fL High MCV 98.7 LAB L100.1600 27.0-32.0 pg Normal MCH 30.2 LAB L100.1700 32-36 g/gl Low MCHC 30.6 LAB L100.1810 11.6-14.6 % High RDW CV 15.0 LAB L100.1820 35.1-43.9 fl High RDW SD 52.2 LAB L100.1900 150-450 K/mm3 Low PLT 70 LAB L100.2000 6.2-12.0 fl Normal MPV 11.6 Performed By: #### L100.0500 #### [facility] [address] [place], [address] DISCHARGE SUMMARY Observed: 11/16/2017 Status: F Source: ANGEL 11:15 AM [facility] REPOSITORY [facility] Medical Records Department [address] [place] [address] Discharge Summary 11/16/17 1016 MR#: [id number] Acct: [id number] Name: SAMMY RUIZ Rep #: [id number] : 1940 77 From: Lexie MAXWELL PCP: Omer Ivey MD Status: ADM IN Y Location: [facility] [id number] <Lexie Sanabria - Last Filed: 11/16/17 10:24> Discharge Date and Diagnosis Date of Admission: 11/12/17 Date of Discharge: 11/16/17 - Primary Discharge Diagnosis Active and Suspected Problems (Last Updated 11/03/17 @ 17:00 by Daisha Lucio) 1. Acute hypoxia secondary to community-acquired left lower lobe pneumonia and COPD exacerbation secondary to acute influenza B 2. Acute community-acquired left lower lobe pneumonia, suspected gram-negative 3. Acute on chronic COPD exacerbation secondary to acute influenza B 4. Acute kidney injury on chronic kidney disease 5. Elevated troponin secondary to demand ischemia as a result of #1 6. Chronic thrombocytopenia - Secondary Discharge Diagnosis Chronic Problems (Last Updated 11/03/17 @ 17:00 by Daisha Lucio) Atherosclerotic heart disease of [place] coronary artery without angina pectoris (Chronic) PTCA/BINA to mid RCA 04/09/05 Cardiomyopathy, dilated (Chronic) Presence of stent in coronary artery (Chronic 04/09/05) PTCA/BINA to mid RCA 04/09/05 Chronic diastolic (congestive) heart failure (Chronic) Premature ventricular contraction (Chronic) Paroxysmal atrial fibrillation (Chronic) Benign essential HTN (Chronic) Depression (Chronic) HLD (hyperlipidemia) (Chronic) PAT (paroxysmal atrial tachycardia) (Chronic) History of PTCA (Chronic) COPD (chronic obstructive pulmonary disease) (Chronic) Coronary artery disease (Chronic) Dementia (Chronic) Hospital Course and Treatment Imaging Results: Diagnostic Data Chest X-Ray 11/12/17 15:41 IMPRESSION: Mild diffuse chronic interstitial changes with asymmetrically increased density in left lower lobe which may be consistent with coexisting atelectasis or evolving infiltrate.. Electronically Signed: Jose Juan Junior MD at 16:33 EDT , Service support , Operations: None, - Procedures: None Summary of Care Provided: Patient is a 77-year-old male admitted 11/12/17 due to shortness of breath, cough, fever. His past medical history per records includes dementia, paroxysmal atrial fibrillation, dementia, coronary artery disease status post PTCA, COPD, hyperlipidemia, hypertension, depression, chronic diastolic CHF, chronic kidney disease. 1. Acute hypoxia secondary to suspected community-acquired left lower lobe pneumonia and COPD exacerbation secondary to influenza B-continue supplemental oxygen to maintain O2 at or above 90%. 2. Acute community-acquired left lower lobe pneumonia-chest x-ray on admission with increased density in the left lower lobe. Patient reported subjective fever, cough on admission. Lactic acid 1.2. Patient initially received IV Levaquin and transitioned to oral Levaquin 750 mg every 48hr. Blood cultures show no growth. Not able to send sputum for culture. Urine for strep and Legionella negative. Albuterol and DuoNeb aerosols. Continue supplemental oxygen to maintain O2 at or above 90%. 3. Acute on chronic COPD exacerbation secondary to acute influenza B-albuterol DuoNeb aerosols. Received IV Solu-Medrol. Transition to oral prednisone taper. Continue supplemental oxygen to maintain O2 at or above 90%. Respiratory panel positive for influenza B. Continue Tamiflu 30 mg twice daily for 5 days. 4. Acute kidney injury on chronic kidney disease-suspect secondary to dehydration. Resolved with IV fluids. Monitor BMP. 5. Elevated troponin-suspect demand ischemia secondary to #1. EKG in ER without evidence of ischemia. 6. Chronic thrombocytopenia-unclear etiology. Monitor CBC. 7. CAD-status post PTCA/BINA to mid RCA in 2004. Patient had cardiac catheterization in 2016 which showed patent stents to the proximal mid RCA. Continue aspirin, statin. 8. Paroxysmal atrial fibrillation-currently sinus rhythm. Continue Coreg. Not on anticoagulation. 9. Chronic diastolic CHF-no acute exacerbation. 10. Hypertension-stable, continue home regimen. 11. Hyperlipidemia-continue statin. 12. Dementia-not on home regimen. Previously on donepezil. 13. BPH-continue home tamsulosin regimen. 14. GERD-continue famotidine regimen. General: Alert, Oriented x3, Cooperative, No apparent distress HEENT: Atraumatic, PERRLA, EOMI, Normocephalic Neck: Supple, No JVD, Negative Carotid Bruits Lungs: Clear to auscultation, Diminished Cardiovascular: Regular rate, Regular Rhythm, Normal S1, Normal S2, No murmurs Abdomen: Bowel Sounds Present, Soft, Non Tender, Non-Distended Extremities: No clubbing, No cyanosis, No edema, Capillary Refill Less than 3 Seconds Skin: No rashes, No breakdown Musculoskeletal: No Tenderness to Palpation of Joints or Extremities Neurological: Cranial nerves II-XII grossly intact, Neuro grossly intact Psych/Mental Status: Normal Affect, Appropriate Patient seen and examined prior to discharge. Physical assessment as noted above. Patient stable for [facility]. This patient was seen by ALISSA Mann under the supervision of Dr. Healy. Home Medications: Medications to take at Discharge Aspirin [Aspirin, Baby] 81 mg PO DAILY@0800 09/23/15 Atorvastatin Calcium [Lipitor] 40 mg PO QHS 09/23/15 Carvedilol [Coreg (Beta Tasha)] 25 mg PO BID 09/23/15 Famotidine [Pepcid] 20 mg PO DAILY 09/23/15 Ipratropium/Albuterol Sulfate [Duoneb] 3 ml INHALATION Q4HWA.RT PRN 09/23/15 Lisinopril [Zestril] 10 mg PO DAILY 09/23/15 Acetaminophen [Tylenol] 650 mg PO BID 10/09/15 Umeclidinium Brm/Vilanterol Tr [Anoro Ellipta 62.5-25 Mcg INH] 1 ea IH DAILY 10/09/15 escitalopram 10 mg tablet 10 mg PO DAILY tab 11/03/17 guaifenesin ER 600 mg tablet, extended release 12 hr 600 mg PO Q12H tab 11/03/17 loratadine 10 mg tablet 10 mg PO DAILY 11/03/17 nitroglycerin 0.4 mg sublingual tablet 0.4 mg SUBLINGUAL Q5- 15M PRN 11/03/17 tamsulosin 0.4 mg capsule 0.4 mg PO DAILY 11/03/17 Amlodipine [Norvasc] 2.5 mg PO QHS 11/12/17 Oseltamivir Phosphate [Tamiflu] 30 mg PO BID capsule 11/16/17 Prednisone See Taper PO DAILY #22 tablet 11/16/17 levoFLOXacin tablet [Levaquin tablet] 750 mg PO Q48@0600 tablet 11/16/17 Following Prescrptions Were Given to Patient: Prednisone See Taper PO DAILY #22 tablet Primary Care Physician: Omer Ivey MD [Primary Care Provider] - Please follow up with your Primary Care Physician in: 1 Week Disposition: Intermediate facility Minutes spent on discharge:: 35 Patient Condition:: Stable Medical Necessity - Tobacco Use Smoking Status: Former smoker Tobacco Use: Cigarettes Meaningful Use Info Meaningful Use Diagnoses (Choose all that apply): None applicable <Teresa Healy - Last Filed: 11/16/17 11:15> Discharge Date and Diagnosis - Secondary Discharge Diagnosis Chronic Problems (Last Updated 11/03/17 @ 17:00 by Daisha Lucio) Atherosclerotic heart disease of [place] coronary artery without angina pectoris (Chronic) PTCA/BINA to mid RCA 04/09/05 Cardiomyopathy, dilated (Chronic) Presence of stent in coronary artery (Chronic 04/09/05) PTCA/BINA to mid RCA 04/09/05 Chronic diastolic (congestive) heart failure (Chronic) Premature ventricular contraction (Chronic) Paroxysmal atrial fibrillation (Chronic) Benign essential HTN (Chronic) Depression (Chronic) HLD (hyperlipidemia) (Chronic) PAT (paroxysmal atrial tachycardia) (Chronic) History of PTCA (Chronic) COPD (chronic obstructive pulmonary disease) (Chronic) Coronary artery disease (Chronic) Dementia (Chronic) Hospital Course and Treatment Summary of Care Provided: The patient is a 77 year old M [] Code Visit Inpatient E AND M: [id number] Disch Hosp 11/16/17 1025 <Electronically signed by Lexie MAXWELL> Date Lexie MAXWELL 11/16/17 1115<Electronically signed by Teresa Healy MD> Cosigner Signature (if applicable): Date Teresa Healy MD CC: ALISSA Sanabria; Teresa Healy MD; Omer Ivey MD Signed TRANSFER TO EXTENDED Observed: 11/16/2017 Status: F Source: [facility] 11:14 [facility] REPOSITORY [facility] Medical Records Department [address] [place] [address] Transfer to Extended Care MR#: [id number] Acct: [id number] Name: SAMMY RUIZ Rep #: [id number] : 1940 77 From: Lexie MAXWELL PCP: Omer Ivey MD Status: ADM IN RUIZSAMMY K (Patient) (Health Ins. Claim No.) (Day of Discharge to Facility) Certification of patient admission REQUIRED AT TIME OF ADMISSION. I CERTIFY THAT POST-HOSPITAL ECF SERVICES ARE REQUIRED TO BE GIVEN ON AN IN-PATIENT BASIS BECAUSE OF THE ABOVE NAMED PATIENT'S NEED FOR JAIL CARE ON A CONTINUING BASIS FOR THE CONDITION(S) FOR WHICH HE/SHE WAS RECEIVING IN-PATIENT HOSPITAL SERVICES PRIOR TO HIS/HER TRANSFER TO THE [facility]. 11/16/17 1114 <Electronically signed by Teresa Healy MD> Date: - Diet 11/12/17 17:54 Diet: Cardiac/Low Cholesterol Food consistency:: Regular Liquid Consistency:: Regular/Thin - Routine Orders/Code Status Enema Type: Fleetz Enema Frequency: Daily PRN Suppository Type: Dulcolax 10mg Suppository Frequency: Daily PRN O2 Liters per Minute: 1-4 O2 Frequency: PRN Keep PO Greater than or Equal to (%): 90 Routine Lab Work: CBC, BMP, - - Q week Code Status: Full Code - Suggestions for Active Care Change Position every (hours): 2 Times a day to sit in chair: 3 - Therapies Physical Therapy: Eval and Treat Occupational Therapy: Eval and Treat - Problem/Diagnosis (1) JOHANNE (acute kidney injury) Status: Acute Current Visit: Yes (2) Elevated troponin Status: Acute Current Visit: Yes (3) Hypoxemia Status: Acute Current Visit: Yes (4) Pneumonia Status: Acute Current Visit: Yes (5) Thrombocytopenia Status: Acute Current Visit: Yes (6) Paroxysmal atrial fibrillation Status: Chronic Current Visit: No (7) Premature ventricular contraction Status: Chronic Current Visit: No (8) Atherosclerotic heart disease of [place] coronary artery without angina pectoris Status: Chronic Comment: PTCA/BINA to mid RCA 04/09/05 Current Visit: No (9) Benign essential HTN Status: Chronic Current Visit: No (10) COPD (chronic obstructive pulmonary disease) Status: Chronic Current Visit: No (11) Cardiomyopathy, dilated Status: Chronic Current Visit: No (12) Chronic diastolic (congestive) heart failure Status: Chronic Current Visit: No (13) Coronary artery disease Status: Chronic Current Visit: No (14) Dementia Status: Chronic Current Visit: No (15) Depression Status: Chronic Current Visit: No (16) HLD (hyperlipidemia) Status: Chronic Current Visit: No (17) History of PTCA Status: Chronic Current Visit: No (18) PAT (paroxysmal atrial tachycardia) Status: Chronic Current Visit: No (19) Presence of stent in coronary artery Status: Chronic Comment: PTCA/BINA to mid RCA 04/09/05 Current Visit: No - Allergies/Procedures Done in Hospital Allergies/Adverse Reactions: Allergies No Known Allergies Allergy (Verified 10/09/15 09:37) Procedures: None - Type of Care/Length of Stay Estimated LOS: More Than 30 Days Type of Care Needed: Skilled Rehab Potential: Fair Prognosis: Fair - Additional Orders/Day of Discharge H AND P will serve as current which was dated: 11/12/17 Day of Discharge: 11/16/17 - Follow Up Care Primary Care Physician: Omer Ivey MD [Primary Care Provider] - Please follow up with your Primary Care Physician in: 1 Week 11/16/17 1016 <Electronically signed by Lexie MAXWELL> Date Lexie XIONGC 11/16/17 1114<Electronically signed by Teresa Healy MD> Cosigner Signature: Date Teresa Healy MD CC: Omer Ivey MD BASIC METABOLIC Collected: 11/16/2017 Status: F Source: [place] PROFILE (BMP) 5:16 AM [facility] REPOSITORY TYPE CODE TESTS RESULT OUT OF RANGE REFERENCE UNITS LAB L501.0100 74-106 mg/dL High GLU 149 Result Comment: Fasting Glucose result greater than or equal to 126 mg/dL suggests DIABETES MELLITUS per A.D.A. criteria. Please note revised GLUCOSE reference range effective 2017. LAB L501.1000 7-18 mg/dL High BUN 31 LAB L501.1100 0.70-1.30 mg/dL Normal CREAT,SERUM 1.16 Result Comment: The validity of the calculated GFR AND GFRAA in patients over 70 years has not been determined. Clinical correlation is essential. LAB L501.1110 >60 mL/min Normal EST GFR 65 Result Comment: Non- GFR Calc LAB L501.1115 >60 mL/min Normal EST GFR - AA 79 Result Comment: GFR Calc LAB L501.1255 ml/min Normal Estimated CRCL 60.39 LAB L501.1300 10-20 RATIO High BUN/CRE 26.7 LAB L501.2200 8.5-10 mg/dL Low .1 CA 7.4 LAB L501.5300 136-14 mmol/L High 5 NA 147 LAB L501.5600 3.5-5. mmol/L Normal 1 K 3.8 LAB L501.5900 98-107 mmol/L High CL 116 LAB L501.6100 21.0-3 mmol/L Normal 2.0 CO2 24.0 LAB L501.6200 5-15 Normal GAP 7 Performed By: #### L500.2500 #### [facility] [address] [place], [address] CBC W/DIFF, AUTOMATED Collected: 11/16/2017 Status: C Source: [place] 5:16 AM [facility] REPOSITORY TYPE CODE TESTS RESULT OUT OF RANGE REFERENCE UNITS LAB L100.1000 4.4-11.0 K/mm3 Low WBC 2.7 LAB L100.1200 4.6-6.2 M/mm3 Low RBC 3.75 LAB L100.1300 13.0-16.5 g/dl Low HGB 11.5 LAB L100.1400 40-54 % Low HCT 36.9 LAB L100.1500 80-94 fL High MCV 98.4 LAB L100.1600 27.0-32.0 pg Normal MCH 30.7 LAB L100.1700 32-36 g/gl Low MCHC 31.2 LAB L100.1810 11.6-14.6 % High RDW CV 14.8 LAB L100.1820 35.1-43.9 fl High RDW SD 51.5 LAB L100.1900 150-450 K/mm3 Low PLT 58 LAB L100.2000 6.2-12.0 fl High MPV 12.1 LAB L100.2100 47-70 % High NEUT% 75.1 LAB L100.2200 19-41 % Low LY% 16.7 LAB L100.2300 0-10 % Normal MONO% 7.4 LAB L100.2400 0-5 % Normal EO% 0.0 LAB L100.2500 0-1 % Normal BASO% 0.4 LAB L100.2550 0.0-0.9 % Normal IM GRAN % 0.400 Result Comment: IG% - Immature Granulocytes (promyelocytes, myelocytes and metamyelocytes) > 1% indicates that a LEFT SHIFT is Present. LAB L100.2620 2.0-7.7 X10 3/uL Normal Absolute Neut 2.0 LAB L100.2720 0.83-4.51 X10 3/ul Low Absolute Lymph 0.45 LAB L100.4500 Normal SMEAR COMMENT SCANNED LAB L100.9900 Normal PATH REV Reviewed Result Comment: Leukopenia and Thrombocytopenia. Clinical correlation necessary. Antonio Miller M.D. 11/17/17 AMENDED REPORT 11/17/17 0953 PATH REV previously reported as: Ruthie nugent Performed By: #### L100.0100 #### [facility] [place], [address] CBC W/DIFF, AUTOMATED Collected: 11/15/2017 Status: F Source: [place] 5:03 AM [facility] REPOSITORY TYPE CODE TESTS RESULT OUT OF RANGE REFERENCE UNITS LAB L100.1000 4.4-11.0 K/mm3 Low WBC 3.1 LAB L100.1200 4.6-6.2 M/mm3 Low RBC 3.71 LAB L100.1300 13.0-16.5 g/dl Low HGB 11.4 LAB L100.1400 40-54 % Low HCT 36.6 LAB L100.1500 80-94 fL High MCV 98.7 LAB L100.1600 27.0-32.0 pg Normal MCH 30.7 LAB L100.1700 32-36 g/gl Low MCHC 31.1 LAB L100.1810 11.6-14.6 % High RDW CV 14.9 LAB L100.1820 35.1-43.9 fl High RDW SD 51.6 LAB L100.1900 150-450 K/mm3 Low PLT 61 LAB L100.2000 6.2-12.0 fl High MPV 12.2 LAB L100.2100 47-70 % High NEUT% 78.4 LAB L100.2200 19-41 % Low LY% 16.1 LAB L100.2300 0-10 % Normal MONO% 4.9 LAB L100.2400 0-5 % Normal EO% 0.0 LAB L100.2500 0-1 % Normal BASO% 0.3 LAB L100.2550 0.0-0.9 % Normal IM GRAN % 0.300 Result Comment: IG% - Immature Granulocytes (promyelocytes, myelocytes and metamyelocytes) > 1% indicates that a LEFT SHIFT is Present. LAB L100.2620 2.0-7.7 X10 3/uL Normal Absolute Neut 2.4 LAB L100.2720 0.83-4.51 X10 3/ul Low Absolute Lymph 0.49 Performed By: #### L100.0100 #### [facility] [address] [place], [address] BASIC METABOLIC Collected: 11/15/2017 Status: F Source: [place] PROFILE (BMP) 5:03 AM [facility] REPOSITORY TYPE CODE TESTS RESULT OUT OF RANGE REFERENCE UNITS LAB L501.0100 74-106 mg/dL High GLU 149 Result Comment: Fasting Glucose result greater than or equal to 126 mg/dL suggests DIABETES MELLITUS per A.D.A. criteria. Please note revised GLUCOSE reference range effective 2017. LAB L501.1000 7-18 mg/dL High BUN 35 LAB L501.1100 0.70-1.30 mg/dL Normal CREAT,SERUM 1.29 Result Comment: The validity of the calculated GFR AND GFRAA in patients over 70 years has not been determined. Clinical correlation is essential. LAB L501.1110 >60 mL/min Low EST GFR 58 Result Comment: Non- GFR Calc LAB L501.1115 >60 mL/min Normal EST GFR - AA 70 Result Comment: GFR Calc LAB L501.1255 ml/min Normal Estimated CRCL 54.31 LAB L501.1300 10-20 RATIO High BUN/CRE 27.1 LAB L501.2200 8.5-10 mg/dL Low .1 CA 7.2 LAB L501.5300 136-14 mmol/L High 5 NA 147 LAB L501.5600 3.5-5. mmol/L Normal 1 K 3.9 LAB L501.5900 98-107 mmol/L High CL 119 LAB L501.6100 21.0-3 mmol/L Low 2.0 CO2 19.0 LAB L501.6200 5-15 Normal GAP 9 Performed By: #### L500.2500 #### [facility] [address] [facility] [place], [place], [address] BASIC METABOLIC Collected: 11/14/2017 Status: F Source: [place] PROFILE (BMP) 5:48 AM [facility] REPOSITORY TYPE CODE TESTS RESULT OUT OF RANGE REFERENCE UNITS LAB L501.0100 74-106 mg/dL High GLU 159 Result Comment: Fasting Glucose result greater than or equal to 126 mg/dL suggests DIABETES MELLITUS per A.D.A. criteria. Please note revised GLUCOSE reference range effective 2017. LAB L501.1000 7-18 mg/dL High BUN 40 LAB L501.1100 0.70-1.30 mg/dL High CREAT,SERUM 1.59 Result Comment: The validity of the calculated GFR AND GFRAA in patients over 70 years has not been determined. Clinical correlation is essential. LAB L501.1110 >60 mL/min Low EST GFR 45 Result Comment: Non- GFR Calc LAB L501.1115 >60 mL/min Low EST GFR - AA 55 Result Comment: GFR Calc LAB L501.1255 ml/min Normal Estimated CRCL 44.06 LAB L501.1300 10-20 RATIO High BUN/CRE 25.2 LAB L501.2200 8.5-10 mg/dL Low .1 CA 7.2 LAB L501.5300 136-14 mmol/L Normal 5 NA 144 LAB L501.5600 3.5-5. mmol/L Normal 1 K 4.0 LAB L501.5900 98-107 mmol/L High CL 119 LAB L501.6100 21.0-3 mmol/L Low 2.0 CO2 17.0 LAB L501.6200 5-15 Normal GAP 8 Performed By: #### L500.2500 #### [facility] [address] [facility] [place], [place], [address] CBC W/DIFF, AUTOMATED Collected: 11/14/2017 Status: F Source: [place]GEL 5:48 AM [facility] REPOSITORY TYPE CODE TESTS RESULT OUT OF RANGE REFERENCE UNITS LAB L100.1000 4.4-11.0 K/mm3 Low WBC 1.9 LAB L100.1200 4.6-6.2 M/mm3 Low RBC 3.74 LAB L100.1300 13.0-16.5 g/dl Low HGB 11.3 LAB L100.1400 40-54 % Low HCT 37.3 LAB L100.1500 80-94 fL High MCV 99.7 LAB L100.1600 27.0-32.0 pg Normal MCH 30.2 LAB L100.1700 32-36 g/gl Low MCHC 30.3 LAB L100.1810 11.6-14.6 % High RDW CV 15.2 LAB L100.1820 35.1-43.9 fl High RDW SD 55.9 LAB L100.1900 150-450 K/mm3 Low PLT 53 LAB L100.2000 6.2-12.0 fl High MPV 12.5 LAB L100.2100 47-70 % High NEUT% 77.9 LAB L100.2200 19-41 % Low LY% 17.5 LAB L100.2300 0-10 % Normal MONO% 4.1 LAB L100.2400 0-5 % Normal EO% 0.0 LAB L100.2500 0-1 % Normal BASO% 0.0 LAB L100.2550 0.0-0.9 % Normal IM GRAN % 0.500 Result Comment: IG% - Immature Granulocytes (promyelocytes, myelocytes and metamyelocytes) > 1% indicates that a LEFT SHIFT is Present. LAB L100.2620 2.0-7.7 X10 3/uL Low Absolute Neut 1.5 LAB L100.2720 0.83-4.51 X10 3/ul Low Absolute Lymph 0.34 LAB L100.4500 Normal SMEAR COMMENT SCANNED Performed By: #### L100.0100 #### [facility] [address] [place], [address] CBC-COMPLETE BLOOD CNT Collected: 11/13/2017 Status: F Source: ANGEL NO DIFF 6:35 AM [facility] REPOSITORY TYPE CODE TESTS RESULT OUT OF RANGE REFERENCE UNITS LAB L100.1000 4.4-11.0 K/mm3 Low WBC 1.9 LAB L100.1200 4.6-6.2 M/mm3 Low RBC 3.98 LAB L100.1300 13.0-16.5 g/dl Low HGB 12.1 LAB L100.1400 40-54 % Low HCT 39.2 LAB L100.1500 80-94 fL High MCV 98.5 LAB L100.1600 27.0-32.0 pg Normal MCH 30.4 LAB L100.1700 32-36 g/gl Low MCHC 30.9 LAB L100.1810 11.6-14.6 % High RDW CV 15.1 LAB L100.1820 35.1-43.9 fl High RDW SD 53.7 LAB L100.1900 150-450 K/mm3 Low PLT 61 LAB L100.2000 6.2-12.0 fl Normal MPV 11.5 Performed By: #### L100.0500 #### [facility] [place], [address] BASIC METABOLIC Collected: 11/13/2017 Status: F Source: [place] PROFILE (BMP) 6:35 AM [facility] REPOSITORY TYPE CODE TESTS RESULT OUT OF RANGE REFERENCE UNITS LAB L501.0100 74-106 mg/dL High GLU 140 Result Comment: Fasting Glucose result greater than or equal to 126 mg/dL suggests DIABETES MELLITUS per A.D.A. criteria. Please note revised GLUCOSE reference range effective 2017. LAB L501.1000 7-18 mg/dL High BUN 34 LAB L501.1100 0.70-1.30 mg/dL High CREAT,SERUM 1.67 Result Comment: The validity of the calculated GFR AND GFRAA in patients over 70 years has not been determined. Clinical correlation is essential. LAB L501.1110 >60 mL/min Low EST GFR 43 Result Comment: Non- GFR Calc LAB L501.1115 >60 mL/min Low EST GFR - AA 52 Result Comment: GFR Calc LAB L501.1255 ml/min Normal Estimated CRCL 41.95 LAB L501.1300 10-20 RATIO High BUN/CRE 20.4 LAB L501.2200 8.5-10 mg/dL Low .1 CA 7.2 LAB L501.5300 136-14 mmol/L Normal 5 NA 145 LAB L501.5600 3.5-5. mmol/L Normal 1 K 4.1 LAB L501.5900 98-107 mmol/L High CL 115 LAB L501.6100 21.0-3 mmol/L Normal 2.0 CO2 24.0 LAB L501.6200 5-15 Normal GAP 6 Performed By: #### L500.2500 #### [facility] [address] [place], [address] TROPONIN-I Collected: 11/13/2017 Status: F Source: [place] 6:35 AM [facility] REPOSITORY Order Comment: 'TROP' Serial specimen #1, #2, #3, or #4: 4 TYPE CODE TESTS RESULT OUT OF RANGE REFERENCE UNITS LAB L501.4010 <0.06 ng/mL High 0.21 TROPONIN-I Result Comment: TROPONIN-I EXPECTED VALUES <0.05 NEGATIVE 0.06 - 0.59 AT RISK OF PA > OR = 0.60 SUGGEST PA Performed By: #### L501.4010 #### [facility] [address] [place], [place], [id number] TROPONIN-I Collected: 11/13/2017 Status: F Source: [place] 12:28 AM [facility] REPOSITORY Order Comment: 'TROP' Serial specimen #1, #2, #3, or #4: 3 TYPE CODE TESTS RESULT OUT OF RANGE REFERENCE UNITS LAB L501.4010 <0.06 ng/mL High 0.24 TROPONIN-I Result Comment: TROPONIN-I EXPECTED VALUES <0.05 NEGATIVE 0.06 - 0.59 AT RISK OF PA > OR = 0.60 SUGGEST PA Performed By: #### L501.4010 #### [facility] [address] [place], [place], [address] TROPONIN-I Collected: 11/12/2017 Status: F Source: [place] 8:56 PM [facility] REPOSITORY Order Comment: 'TROP' Serial specimen #1, #2, #3, or #4: 2 TYPE CODE TESTS RESULT OUT OF RANGE REFERENCE UNITS LAB L501.4010 <0.06 ng/mL High 0.26 TROPONIN-I Result Comment: TROPONIN-I EXPECTED VALUES <0.05 NEGATIVE 0.06 - 0.59 AT RISK OF PA > OR = 0.60 SUGGEST PA Performed By: #### L501.4010 #### [facility] [address] [place], [address] HISTORY AND PHYSICAL Observed: 11/12/2017 Status: F Source: [place] EXAM 8:27 PM [facility] REPOSITORY [facility] Medical Records Department [address] [place] [address] History and Physical 11/12/17 1801 MR#: [id number] Acct: [id number] Name: SAMMY RUIZ Rep #: [id number] : 1940 77 From: Lexie Sanabria TAILER OFF-C PCP: Omer Ivey MD Status: ADM IN Y Location: [place] [id number] ADDENDUM by Sj Taylor DO on 11/12/17 at 2026 Code Visit 77-year-old white male was seen in the emergency room at [facility] with complaints of shortness of breath and cough. I examined the patient independently of Lexie Sanabria. Patient lives in assisted living, he has a history of dementia and he has a poor informant. Patient had a chest x-ray performed as an outpatient which report was reviewed by the emergency room physician and there was noted to be a hazy area in the left upper lobe but was otherwise unremarkable. He gives no history of chills or fever at home- again it is difficult to obtain a detailed history from the patient. Patient states he has oxygen at assisted living and only uses it when he needs it. On examination, patient has diffuse expiratory wheezes bilaterally, his pulse ox on 3 L is now 93%, the patient does not appear to be in respiratory distress, patient's chest x-ray showed what appears to be a left lower lobe infiltrate which is either a consolidation or atelectasis. Patient's white blood cell count is low, lactic acid level was normal, and the patient has a slightly elevated troponin. Patient's creatinine was elevated which is not at his baseline. Heart rate and rhythm was regular. Patient will be admitted for acute exacerbation of COPD and community-acquired left lower lobe pneumonia, he was given aerosol treatments and IV Solu-Medrol as well as IV Zithromax and Rocephin in the emergency room. Aerosol treatments will be continued, IV Solu-Medrol will be continued, patient will be switched to Levaquin tomorrow and he will be seen by PT and OT. I have reviewed Lexie Sanabria's history and physical and medical plan of care and endorse both Inpatient E AND M: 19018 Init Hosp L3 11/12/172026 <Electronically signed by Sj Taylor DO> Date Sj Taylor DO cc: TAILER OFFBrentC Lexie Sanabria; Omer Ivey MD; Sj Taylor DO * Signed Problem List (1) JOHANNE (acute kidney injury) Status: Acute (2) Elevated troponin Status: Acute (3) Hypoxemia Status: Acute (4) Pneumonia Status: Acute (5) Thrombocytopenia Status: Acute (6) Paroxysmal atrial fibrillation Status: Chronic (7) Premature ventricular contraction Status: Chronic (8) Atherosclerotic heart disease of [place] coronary artery without angina pectoris Status: Chronic Comment: PTCA/BINA to mid RCA 04/09/05 (9) Benign essential HTN Status: Chronic (10) COPD (chronic obstructive pulmonary disease) Status: Chronic (11) Cardiomyopathy, dilated Status: Chronic (12) Chronic diastolic (congestive) heart failure Status: Chronic (13) Coronary artery disease Status: Chronic (14) Dementia Status: Chronic (15) Depression Status: Chronic (16) HLD (hyperlipidemia) Status: Chronic (17) History of PTCA Status: Chronic (18) PAT (paroxysmal atrial tachycardia) Status: Chronic (19) Presence of stent in coronary artery Status: Chronic Comment: PTCA/BINA to mid RCA 04/09/05 History of Present Illness Date of Admission: 11/12/17 Chief Complaint: Shortness of breath, cough, fever. The patient is a 77 year old M who presents to the emergency room from assisted living facility with complaints of shortness of breath, cough, fever. Patient has dementia and is a poor historian. He complains of chest discomfort associated with cough. He states he has oxygen available which he uses as needed at assisted living facility. He denies sputum production with cough. Denies other associated complaints. His other past medical history per records includes paroxysmal atrial fibrillation, dementia, coronary artery disease status post PTCA, COPD, hyperlipidemia, hypertension, depression, chronic diastolic CHF, chronic kidney disease. Past Medical History Past Medical History (Chronic Problems): Chronic Problems (Last Updated 11/03/17 @ 17:00 by Daisha Lucio) Atherosclerotic heart disease of [place] coronary artery without angina pectoris (Chronic) PTCA/BINA to mid RCA 04/09/05 Cardiomyopathy, dilated (Chronic) Presence of stent in coronary artery (Chronic 04/09/05) PTCA/BINA to mid RCA 04/09/05 Chronic diastolic (congestive) heart failure (Chronic) Premature ventricular contraction (Chronic) Paroxysmal atrial fibrillation (Chronic) Benign essential HTN (Chronic) Depression (Chronic) HLD (hyperlipidemia) (Chronic) PAT (paroxysmal atrial tachycardia) (Chronic) History of PTCA (Chronic) COPD (chronic obstructive pulmonary disease) (Chronic) Coronary artery disease (Chronic) Dementia (Chronic) Allergies No Known Allergies Allergy (Verified 10/09/15 09:37) Home Medications: Ambulatory Orders Medication Instructions Recorded Aspirin [Aspirin, Baby] 81 mg PO DAILY@0800 09/23/15 Atorvastatin Calcium [Lipitor] 40 mg PO QHS 09/23/15 Surgical History: total hip arthroplasty - left, - - Left knee repair, back surgery Psychiatric History: No pertinent psych hx Lives: Shelter Smoking Status: Former smoker Alcohol: None Drugs: None - *Family History Maternal History Items: Heart Disease Paternal History Items: Heart Disease Review of Systems Constitutional: Reports: Chills, Fever, Malaise HEENT: Denies: Head Aches, Sinus Congestion, Sinus Drainage, Sore Throat Cardiovascular: Reports: Chest Pain - Associated with coughing. Denies: Edema, Light Headedness, Palpitations, Syncope Respiratory: Reports: Cough, Shortness of Breath, Wheezing. Denies: Sputum production Gastrointestinal: Denies: Abdominal Pain, Nausea, Vomiting Genitourinary: Denies: Dysuria Musculoskeletal: Denies: Joint Pain, Joint Tenderness Skin: Denies: Rash, Wounds Neurological: Denies: Numbness, Tingling, Focal weakness Psychiatric: Denies: Anxiety, Depression, Homicidal Ideations, Suicidal Ideations Hematologic/ Lymphatic: Denies: Easy Bruising, Easy Bleeding VTE Information - Inpt Only VTE Present on Admission: No VTE Mechan Device Prophylaxis: None VTE Pharm Prophylaxis ordered?: Yes Patient Problems: Active and Suspected Problems (Last Updated 11/03/17 @ 17:00 by Daisha Lucio) Pneumonia (Acute) Hypoxemia (Acute) JOHANNE (acute kidney injury) (Acute) Elevated troponin (Acute) Thrombocytopenia (Acute) - Physical Exam General: Alert, Cooperative, No apparent distress HEENT: Atraumatic, PERRLA, EOMI, Normocephalic Oral: Dry Mucosa Neck: Supple, No JVD, Negative Carotid Bruits Lungs: Diminished, Wheezes Cardiovascular: Regular rate, Regular Rhythm, Normal S1, Normal S2, No murmurs Abdomen: Bowel Sounds Present, Soft, Non Tender, Non-Distended Extremities: No clubbing, No cyanosis, No edema, Capillary Refill Less than 3 Seconds Skin: No rashes, No breakdown Musculoskeletal: No Tenderness to Palpation of Joints or Extremities Neurological: Cranial nerves II-XII grossly intact, Neuro grossly intact Psych/Mental Status: Normal Affect, Appropriate Vital Signs Temp Pulse Resp BP Pulse Ox 98.3 F 67 22 H 114/61 922 11/12/17 15:14 11/12/17 17:32 11/12/17 17:32 11/12/17 17:32 11/12/17 17:32 Oxygen Flow Rate (L/min) 4 Oxygen Delivery Method Nasal Cannula Weight: 90.718 kg Body Mass Index (BMI) 27.1 Finger Stick Blood Glucose 95 Laboratory Tests Past 24 Hrs WBC 2.8 L Assessment/Plan Active and Suspected Problems (Last Updated 11/03/17 @ 17:00 by Daisha Lucio) Pneumonia (Acute) Hypoxemia (Acute) JOHANNE (acute kidney injury) (Acute) Elevated troponin (Acute) Thrombocytopenia (Acute) 1. Acute hypoxia secondary to suspected community-acquired left lower lobe pneumonia and COPD exacerbation-continue supplemental oxygen to maintain O2 at or above 90%. Patient will need walking pulse ox prior to discharge to assess if he needs chronic supplemental oxygen. Patient states he has oxygen available at assisted living facility which he uses as needed. 2. Acute community-acquired left lower lobe pneumonia-chest x-ray on admission with increased density in the left lower lobe. Patient reports subjective fever, cough. Lactic acid 1.2. Patient started on IV antibiotics with azithromycin and ceftriaxone in ER. Blood cultures drawn. Send sputum sample if able. Urine for strep and Legionella. Albuterol and DuoNeb aerosols. Begin IV Levaquin. PEP/IS. Continue supplemental oxygen to maintain O2 at or above 90%. 3. Acute on chronic COPD exacerbation-albuterol DuoNeb aerosols. Begin IV Solu-Medrol 40 mg every 6 hours. Continue supplemental oxygen to maintain O2 at or above 90%. Complete respiratory panel. 4. Acute kidney injury on chronic kidney disease-suspect secondary to dehydration. IV fluids. Monitor BMP. 5. Elevated troponin-suspect demand ischemia secondary to #1. Trend enzymes. EKG in ER without evidence of ischemia. 6. Chronic thrombocytopenia-unclear etiology. Monitor CBC. 7. CAD-status post PTCA/BINA to mid RCA in 2004. Patient had cardiac catheterization in 2015 which showed patent stents to the proximal mid RCA. Continue aspirin, statin. 8. Paroxysmal atrial fibrillation-currently sinus rhythm. Continue Coreg. Not on anticoagulation. 9. Chronic diastolic CHF-no acute exacerbation. 10. Hypertension-stable, continue home regimen. 11. Hyperlipidemia-continue statin. 12. Dementia-not on home regimen. Previously on donepezil. 13. BPH-continue home tamsulosin regimen. 14. GERD-continue famotidine regimen. DVT prophylaxis-heparin subcu. This patient was seen by ALISSA Mann under the supervision of Dr. Taylor. 11/12/17 1824 <Electronically signed by Lexie XIONGC> Date Lexie MAXWELL 11/12/17 2019<Electronically signed by Sj Taylor DO> Cosigner Signature: Date (if applicable) Sj Taylor DO CC: ALISSA Sanabria; Omer Ivey MD; Sj Taylor DO Signed Observed: 11/12/2017 Status: C Source: [facility] RESPIRATORY PANEL 8:00 PM [facility] MOLECULAR REPOSITORY Order Date: 11/12/17 Has pt arrived? Y RP PANEL * This is an amended result. * A prior result that was reported as final has been changed. 11/13/17 1029 by NATHAN Previously reported as: FINAL RESULTS CALLED TO Boo SANCHEZ 11/13/17 1026 Sheron Tee. REPORT READ BACK BY NIKKY. Copy of report sent to [facility] MS#[id number] 11/13/17 1026 NATHAN. Normal Reference Range = Not Detected ADENOVIRUS Not Detected HUMAN METAPHNEUMO Not Detected INFLUENZA A Not Detected INFLUENZA A (SUBTYPE H1) Not Detected INFLUENZA A (SUBTYPE H3) Not Detected INFLUENZA B Positive for INFLUENZA B by NAAT technology PARAINFLUENZA 1 Not Detected PARAINFLUENZA 2 Not Detected PARAINFLUENZA 3 Not Detected PARAINFLUENZA 4 Not Detected RHINOVIRUS Not Detected RSV A Not Detected RSV B Not Detected NAAT METHOD Testing was performed using nucleic acid amplification ORGANISM 1: INFLUENZAE B Performed By: #### M100.638 #### [facility] [address] [place], [address] EMERGENCY DEPARTMENT Observed: 11/12/2017 Status: F Source: [place] SUMMARY 6:00 PM [facility] REPOSITORY [facility] Medical Records Department [address] [place] [address] Emergency Department Summary 11/12/17 1540 MR#: [id number] Acct: [id number] Name: SAMMY RUIZ Rep #: [id number] : 1940 77 From: Erich Michael PCP: Omer Ivey MD Status: REG ER - ER Visit Summary Date of Service: 11/12/17 Chief Complaint: Dyspnea, cough History of Present Illness: The patient is a 77 M sent from [facility] for increasing dyspnea and cough since yesterday. History of CHF, COPD and coronary stents. Noted outpatient chest x-ray yesterday was negative. Patient states previously on as needed oxygen. No chronic O2 use. Subjective fevers. Denies any productive cough. States his mild chest discomfort with cough. Decreased urine output. No burning. Unclear on his last hospitalization however states it was for pneumonia. Remote tobacco. No vomiting or diarrhea. No abdominal pain. No other complaints. Past med history: Coronary disease, CHF, COPD, hypertension, hypercholesterolemia, depression, BPH, paroxysmal A. fib, DVT Physical Examination: General: Alert and oriented 3, no acute distress HEENT: Normocephalic, atraumatic. Moist mucosa membranes Neck: supple, nontender. Cardiovascu mild expiratory wheezing, no distress stress Abdomen: Soft, nontender, nondistended Extremities: Nontender, no edema, pulses intact 4 Neuro: no focal neurological deficits. Test Results: EKG: Sinus rate of 71, no ST or T-wave changes. WBC 2.8. Hemoglobin 12.1. Platelets 67. Creatinine 2.33, INR 1.2. Troponin 0 0.28. UA negative. Lactic acid 1.2. Chest x-ray: Atelectasis versus evolving left lower lobe infiltrate Emergency Department Course and Treatment: Patient noted 88% on 2 L per EMS. Increased to 8 L and aerosol treatment by EMS. His continue at 3 L here. Additional aerosol treatment for mild wheezing. Solu-Medrol started with a COPD history. EKG no acute process. Patient's 2 view chest x-ray read by radiology concern for possible evolving left lobe infiltrate. Reported fevers and cough. Pending labs, at the time noted there is a respiratory rate 21, sepsis labs added prior to antibiotics. Rocephin and Zithromax for community acquired pneumonia. White count returned at 2.8. Creatinine 2.33. Last creatinine was 1.1. He was given 500 cc bolus of fluids initially. Blood pressure rechecked was 115/57 at 1655. Lactic acid returned at 1.2. Troponin returned 0.28. Patient planes of chest discomfort with cough. Does not seem to be cardiac in nature. Patient currently on aspirin. Wheezing improved. Currently vitals are stable. With initial hypoxemia, discuss with hospitalist for admission. Treatment Plan: [] Disposition: Admission Impression: Community acquired pneumonia, hypoxemia, acute kidney injury, elevated troponin, thrombocytopenia This note was generated with [employer] dictation software. It may contain incorrect words, spelling, and punctuation that were not noted in review of the chart prior to signing ED Disposition - Plan for ED Patient: Disposition: Acute Care Hospital [facility] Chief Complaint: Shortness of Breath Diagnosis: Pneumonia, Hypoxemia, JOHANNE (acute kidney injury), Elevated troponin, Thrombocytopenia Referrals: Omer Ivey MD [Primary Care Provider] - What to do if you have Problems For any increased pain, shortness of breath, bleeding, nausea or vomiting, chest pain, or any unexpected problems, contact your Primary Care Provider. Call [facility] ([phone]) or report to the closest Emergency Room. Call 911 if necessary. 11/12/17 1800 <Electronically signed by Erich Michael> Date Erich Michael Cosigner Signature (If Indicated): Date CC: Omer Ivey MD Observed: 11/12/2017 Status: F Source: [place] CULTURE, BLOOD (WB) 4:50 PM [facility] REPOSITORY BC No growth in 5 days. Performed By: #### M200.1000 #### [facility] [place], [address] CBC W/DIFF, AUTOMATED Collected: 11/12/2017 Status: F Source: [place] 4:45 PM [facility] REPOSITORY TYPE CODE TESTS RESULT OUT OF RANGE REFERENCE UNITS LAB L100.1000 4.4-11.0 K/mm3 Low WBC 2.8 LAB L100.1200 4.6-6.2 M/mm3 Low RBC 4.02 LAB L100.1300 13.0-16.5 g/dl Low HGB 12.1 LAB L100.1400 40-54 % Low HCT 39.7 LAB L100.1500 80-94 fL High MCV 98.8 LAB L100.1600 27.0-32.0 pg Normal MCH 30.1 LAB L100.1700 32-36 g/gl Low MCHC 30.5 LAB L100.1810 11.6-14.6 % High RDW CV 15.6 LAB L100.1820 35.1-43.9 fl High RDW SD 57.4 LAB L100.1900 150-450 K/mm3 Low PLT 67 LAB L100.2000 6.2-12.0 fl Normal MPV 11.6 LAB L100.2100 47-70 % Normal NEUT% 64.2 LAB L100.2200 19-41 % Normal LY% 27.3 LAB L100.2300 0-10 % Normal MONO% 8.5 LAB L100.2400 0-5 % Normal EO% 0.0 LAB L100.2500 0-1 % Normal BASO% 0.0 LAB L100.2550 0.0-0.9 % Normal IM GRAN % 0.000 Result Comment: IG% - Immature Granulocytes (promyelocytes, myelocytes and metamyelocytes) > 1% indicates that a LEFT SHIFT is Present. LAB L100.2620 2.0-7.7 X10 3/uL Low Absolute Neut 1.8 LAB L100.2720 0.83-4.51 X10 3/ul Low Absolute Lymph 0.77 Performed By: #### L100.0100 #### [facility] [address] [place], [place], [id number] PROTHROMBIN TIME W/INR Collected: 11/12/2017 Status: F Source: [place] 4:45 PM [facility] REPOSITORY TYPE CODE TESTS RESULT OUT OF RANGE REFERENCE UNITS LAB L300.4150 11.7-14.9 SECONDS High PROTIME 15.0 LAB L300.4200 Normal INR 1.2 Performed By: #### L300.3900, L300.4310 #### [facility] [address] [place], [place], [id number] PARTIAL THROMBOPLAST Collected: 11/12/2017 Status: F Source: [place] TIME 4:45 PM [facility] REPOSITORY TYPE CODE TESTS RESULT OUT OF REFERENCE UNITS RANGE LAB L300.4310 24.1-36.2 Seconds High PTT 41.6 Performed By: #### L300.3900, L300.4310 #### [facility] [address] [place], [place], [id number] COMPREHENSIVE METABOLIC Collected: 11/12/2017 Status: F Source: ANGEL BE 4:45 PM [facility] REPOSITORY Order Comment: 'TROP' Serial specimen #1, #2, #3, or #4: 1 TYPE CODE TESTS RESULT OUT OF RANGE REFERENCE UNITS LAB L501.0100 74-106 mg/dL High GLU 112 Result Comment: Fasting Glucose result from 100 to 125 mg/dL suggests IMPAIRED HOMEOSTASIS per A.D.A. criteria. Please note revised GLUCOSE reference range effective 2017. LAB L501.1000 7-18 mg/dL High BUN 40 LAB L501.1100 0.70-1.30 mg/dL High CREAT,SERUM 2.33 Result Comment: The validity of the calculated GFR AND GFRAA in patients over 70 years has not been determined. Clinical correlation is essential. LAB L501.1110 >60 mL/min Low EST GFR 29 Result Comment: Non- GFR Calc LAB L501.1115 >60 mL/min Low EST GFR - AA 35 Result Comment: GFR Calc LAB L501.1255 ml/min Normal Estimated CRCL 30.07 LAB L501.1300 10-20 RATIO Normal BUN/CRE 17.2 LAB L501.1500 6.4-8. g/dL Low 2 T PROT 5.6 LAB L501.1800 3.2-5. g/dL Low 0 ALB 2.6 LAB L501.1950 2.2-4. g/dL Normal 2 GLOB 3.0 LAB L501.2000 0.9-2. RATIO Normal 4 A/G 0.9 LAB L501.2200 8.5-10 mg/dL Low .1 CA 7.2 LAB L501.4100 15-37 U/L High AST 59 Result Comment: Slight Hemolysis, Result may be falsely increased. LAB L501.4305 45-117 U/L Normal ALK P 74 LAB L501.4405 16-61 U/L Normal ALT 27 LAB L501.4600 0.20-1.00 mg/dL Normal T BILI 0.50 LAB L501.5300 136-145 mmol/L Normal NA 144 LAB L501.5600 3.5-5.1 mmol/L Normal K 3.7 Result Comment: Slight Hemolysis, Result may be falsely increased. LAB L501.5900 98-107 mmol/L High CL 113 LAB L501.6100 21.0-32.0 mmol/L Normal CO2 23.0 LAB L501.6200 5-15 Normal 8 GAP Performed By: #### L500.4050, L501.4010 #### [facility] [address] [place], [address] TROPONIN-I Collected: 11/12/2017 Status: F Source: [place] 4:45 PM [facility] REPOSITORY Order Comment: 'TROP' Serial specimen #1, #2, #3, or #4: 1 TYPE CODE TESTS RESULT OUT OF RANGE REFERENCE UNITS LAB L501.4010 <0.06 ng/mL High 0.28 TROPONIN-I Result Comment: TROPONIN-I EXPECTED VALUES <0.05 NEGATIVE 0.06 - 0.59 AT RISK OF PA > OR = 0.60 SUGGEST PA Performed By: #### L500.4050, L501.4010 #### [facility] [address] [place], [address] LACTIC ACID Collected: 11/12/2017 Status: F Source: [place] 4:45 PM [facility] REPOSITORY Order Comment: Yes/No query for Sepsis Lactate Rule Y TYPE CODE TESTS RESULT OUT OF RANGE REFERENCE UNITS LAB L503.6005 0.4-2.0 mmol/L Normal LACTIC ACID 1.2 Performed By: #### L503.6005 #### [facility] [address] [place], [address] Observed: 11/12/2017 Status: F Source: ANGEL CULTURE, BLOOD (WB) 4:45 PM [facility] REPOSITORY BC No growth in 5 days. Performed By: #### M200.1000 #### [facility] [address] [place], [address] URINALYSIS, COMPLETE Collected: 11/12/2017 Status: F Source: [place] 4:30 PM [facility] REPOSITORY Order Comment: Order Date: 11/12/17 How was Urine Obtained? CLEAN CATCH TYPE CODE TESTS RESULT OUT OF RANGE REFERENCE UNITS LAB L400.3000 Yellow COLOR Normal Yellow LAB L400.3050 Clear Normal CLARITY Cloudy LAB L400.3200 Normal mg/dl Normal GLUCOSE, UR Normal LAB L400.3300 Negative mg/dL High BILIRUBIN URINE 1 Result Comment: COLOR OF URINE MAY AFFECT DIPSTICK RESULTS. LAB L400.3400 Negative mg/dl KETONE UR High 5 LAB L400.3465 1.002-1.030 SP.GR. Normal DIPSTX 1.020 LAB L400.3550 5.0 - 8.0 pH UR Normal 5.0 LAB L400.3600 Negative mg/dl PROT DIPSTX High 30 LAB L400.3700 Normal mg/dl UROBILI Normal Normal LAB L400.3750 Negative NITRITE UR Normal Negative LAB L400.3780 Negative /ul OCCULT High BLOOD-UR 25 LAB L400.3800 Negative /ul LEUK Normal ESTERASE Negative LAB L400.4050 0-5 /hpf WBC Normal 0 SEEN LAB L400.4100 0-5 /hpf RBC-UA Normal 0-5 SEEN LAB L400.4150 0-5 /hpf SQUAM EPI Normal 0 SEEN LAB L400.4300 None Seen /hpf BACTERIA Normal 1+ LAB L400.4350 <or=2+ /hpf MUCUS, Normal URINE 1+ LAB L400.4200 0-5 /hpf Normal TRANSITIONAL EP 0-5 SEEN LAB L400.4250 0-5 /hpf RENAL EPI Normal 5-10 SEEN LAB L400.4400 0-5 /lpf HYALINE Normal CAST 0-5 SEEN Result Comment: 0-5 RENAL TUBULAR EPITHELIAL CASTS SEEN /HPF LAB L400.4450 0-5 /lpf Normal FINE GRAN 0-5 CAST SEEN LAB L400.4500 0-5 /lpf /lpf Normal COARSE GRAN 0-5 SEEN Performed By: #### L400.0001 #### [facility] [address] [place], [place], [address] Observed: 11/12/2017 Status: F Source: [place] LEGIONELLA ANTIGEN 4:30 PM [facility] URINE REPOSITORY Comments: per lab; okay to use urine sample from earlier. Legionella, UR Legionella Antigen result interpretation: Negative Presumptive negative for Legionella pneumophila serogroup 1 antigen in urine, suggesting no recent or current infection. Legionella Ag, Urine Negative (See interpretation below) Performed By: #### M300.4500 #### [facility] [address] [place], [address] STREP Observed: 11/12/2017 Status: F Source: [place] PNEUMONIAE ANTIG(UR,CSF) 4:30 PM [facility] REPOSITORY Comments: per lab; okay to use urine sample from earlier. S pneumo Ag URINE INTERPRETATION Negative Urine Presumptive negative for pneumococcal pneumonia, suggesting no current or recent pneumococcal infection. Infection due to S pneumoniae cannot be ruled out since the antigen present in the sample may be below the detection limit of the test. Strep pneumo Test Negative URINE (See interpretation below) Performed By: #### M300.4600 #### [facility] [address] [place], [address] CHEST PA AND LATERAL Observed: 11/12/2017 Status: F Source: [place] 3:42 PM [facility] REPOSITORY [facility] Imaging Services [address] [place] [address] Chest PA and Lateral MR#: [id number] Acct: [id number] Name: SAMMY RUIZ Rep #: [id number] : 1940 M 77 From: Jose Juan Junior MD PCP: Omer Ivey MD Status: REG ER Study: Chest PA and Lateral Date of Exam: 11/12/17 Exam# [id number] Ordering Dr: Erich Olsen DO STUDY: X-RAY CHEST REASON FOR EXAM: Male, 77 years old. Cough and short of breath TECHNIQUE: PA and lateral COMPARISON: March 12, 2016 FINDINGS: There is mild chronic interstitial disease with asymmetric density in left lower lobe which may be consistent with coexisting atelectasis or evolving infiltrate.. There is no demonstrated pleural abnormality. Borderline cardiomegaly. Normal mediastinum and nancy. Normal visualized pulmonary arteries. Normal visualized aortic arch and descending thoracic aorta. Dorsal spine demonstrates spondylosis. Normal visualized ribs, clavicles, and shoulders. There is no demonstrated abnormality of the visualized soft tissue structures of the upper abdomen. RAD/Chest PA and Lateral IMPRESSION: Mild diffuse chronic interstitial changes with asymmetrically increased density in left lower lobe which may be consistent with coexisting atelectasis or evolving infiltrate.. Electronically Signed: Jose Juan Junior MD at 16:33 EDT , Service support , CC: Omer Ivey MD; Erich Olsen Granulator Tender: Signed CBC-COMPLETE BLOOD CNT Collected: 11/02/2017 Status: F Source: ANGEL NO DIFF 6:45 AM [facility] REPOSITORY Order Comment: 223 TYPE CODE TESTS RESULT OUT OF RANGE REFERENCE UNITS LAB L100.1000 4.4-11.0 K/mm3 Low WBC 4.1 LAB L100.1200 4.6-6.2 M/mm3 Low RBC 4.05 LAB L100.1300 13.0-16.5 g/dl Low HGB 12.6 LAB L100.1400 40-54 % Normal HCT 40.0 LAB L100.1500 80-94 fL High MCV 98.8 LAB L100.1600 27.0-32.0 pg Normal MCH 31.1 LAB L100.1700 32-36 g/gl Low MCHC 31.5 LAB L100.1810 11.6-14.6 % Normal RDW CV 14.4 LAB L100.1820 35.1-43.9 fl High RDW SD 50.7 LAB L100.1900 150-450 K/mm3 Low PLT 115 LAB L100.2000 6.2-12.0 fl Normal MPV 11.0 Performed By: #### L100.0500 #### [facility] [address] [place], [address] BASIC METABOLIC Collected: 11/02/2017 Status: F Source: [facility] PROFILE (BMP) 6:45 AM [facility] REPOSITORY Order Comment: 223 TYPE CODE TESTS RESULT OUT OF RANGE REFERENCE UNITS LAB L501.0100 74-106 mg/dL Normal GLU 91 Result Comment: Please note revised GLUCOSE reference range effective 2017. LAB L501.1000 7-18 mg/dL Normal BUN 14 LAB L501.1100 0.70-1.30 mg/dL Normal CREAT,SERUM 1.10 Result Comment: The validity of the calculated GFR AND GFRAA in patients over 70 years has not been determined. Clinical correlation is essential. LAB L501.1110 >60 mL/min Normal EST GFR 69 Result Comment: Non- GFR Calc LAB L501.1115 >60 mL/min Normal EST GFR - AA 84 Result Comment: GFR Calc LAB L501.1300 10-20 RATIO Normal BUN/CRE 12.7 LAB L501.2200 8.5-10.1 mg/dL Low CA 7.8 LAB L501.5300 136-145 mmol/L NA Normal 145 LAB L501.5600 3.5-5.1 mmol/L K Normal 3.8 LAB L501.5900 98-107 mmol/L High CL 114 LAB L501.6100 21.0-32.0 mmol/L Normal CO2 26.0 LAB L501.6200 5-15 Normal GAP 5 Performed By: #### L500.2500, L500.4100 #### [facility] [address] [place], [address] LIPID PROFILE Collected: 11/02/2017 Status: F Source: [place] 6:45 AM [facility] REPOSITORY Order Comment: 223 TYPE CODE TESTS RESULT OUT OF RANGE REFERENCE UNITS LAB L501.4900 200 mg/dL Normal CHOL 83 Result Comment: <200 mg/dL Desirable 200-240 mg/dL Borderline >240 mg/dL High Risk LAB L501.5000 mg/dL Normal TRIG 89 Result Comment: The drugs N-Acetylcysteine and Metamizole may falsely depress this assay. Serum Triglycerides Reference Interval Normal <150 mg/dL Borderline high 150 - 199 mg/dL High 200 - 499 mg/dL Very High > or = 500 mg/dL LAB L501.6400 mg/dL Low HDL 28 Result Comment: The drugs N-Acetylcysteine and Metamizole may falsely depress this assay. Reference Range HDL <40 mg/dL Low HDL Cholesterol HDL >or= 60 mg/dL High HDL Cholesterol LAB L501.6500 0-130 mg/dL Normal LDL 37 LAB L501.6600 5-40 mg/dL Normal VLDL 18 Performed By: #### L500.2500, L500.4100 #### [facility] [address] [place], [address] ALLERGIES ALLERGIES DATE TYPE / CODE NAME / CODE REACTION SEVERITY SOURCE 07/01/2018 Drug No Known Unknown [facility] Allergy/4160 Allergies/F00 Hospital 73259(SNOMED [id number](RXNOR Repository CT) M) ENCOUNTERS ENCOUNTERS ADMIT/DISCHARGE ACCOUNT ADMITTING ENCOUNTER LOCATION SOURCE NUMBER CLASS 08/02/2018 [id number] Amb[place] [facility] ing:[facility] Repository N 07/01/2018/ [id number] Ambulatory B[facility]Building:B [place] [facility] [place] Repository 06/30/2018 [id number] Ambulatory [place] [facility] ing:[facility] Repository N 05/21/2018/ [id number] Ambulatory BMSBuilding:B [place] 9 [place] Repository 04/15/2018 [id number] Ambulatory [place] [facility] ing:[facility] Repository N 04/12/2018 [id number] Ambulatory [place] [address] [facility] ing[facility] [facility] Repository N 04/08/2018 [id number] Ambulatory Angel Angel 8 [facility] ing:OLS.[facility] Repository N 03/08/2018 [id number] Ambulatory [place] 9 [facility] ing:OLS[facility] Repository C 02/20/2018/ [id number] Ambulatory BMSBuilding:W Angel 8 4 [facility] Repository 02/19/2018/ [id number] [facility], Inpatient Angel Angel 8 4 Ghasem Encounter [facility] ing:PCURoom: Repository [id number]: 1 02/19/2018 [id number] [facility], Ambulatory BMSBuilding:B [place] 3 Ghasem [place].[facility] Repository 02/19/2018 [id number] [facility], Ambulatory BMSBuilding:B Angel 4 Ghasem MS.[facility] Repository 02/19/2018 [id number] [facility], Ambulatory BMSBuilding:B [place] 3 Ghasem MS.[facility] Hospital Repository 02/19/2018 [id number] [place], Ambulatory BMSBuilding:B [place] 2 Ghasem MS.[facility] Hospital Repository 02/19/2018 [id number] Ambulatory BMSBuilding:B Angel 9 [place].[facility] Repository 01/08/2018 [id number] Ambulatory [place] Angel 4 [facility] Hospital ing:[facility] Repository C 01/01/2018 [id number] Ambulatory Angel Angel 5 [facility] Hospital ing:[facility] Repository C 12/28/2017 [id number] Ambulatory [place] Angel 7 [facility] Hospital ing:VINAY[facility] Repository N 12/24/2017/ [id number] Emergency [place] 8 0 [facility] ing:ED Repository 12/16/2017 [id number] Ambulatory Angel Angel 1 [facility] Hospital ing:[facility] Repository C 12/09/2017 [id number] Ambulatory [place] 8 [facility] Hospital ing:[facility] Repository C 12/02/2017 [id number] Ambulatory [place] Angel 6 [facility] Hospital ing:[facility] Repository C 11/30/2017/ [id number] Ambulatory BMSBuilding:B [place] 8 8 [place] Repository 11/25/2017 [id number] Ambulatory [place] 4 [facility] Hospital ing:[facility] Repository C 11/24/2017 [id number] Ambulatory BMS Angel 7 [facility] Hospital Repository 11/24/2017 [id number] Ambulatory BMS Angel 6 [facility] Hospital Repository 11/18/2017 [id number] Ambulatory [place] Angel 5 [facility] Hospital ing:[facility] Repository C 11/14/2017/ [id number] Ambulatory BMSBuilding:W [place] 8 0 [facility] Repository 11/12/2017/ [id number] [place], Inpatient [place] 8 1 [facility] ing:PCURoom: Repository [id number]: 1 11/12/2017 [id number] [place], Ambulatory BMSBuilding:B Angel 2 Sj [place].[facility] Repository 11/12/2017 [id number] [place], Ambulatory BMSBuilding:B Angel 1 Sj [place].[facility] Repository 11/12/2017 [id number] [place], Ambulatory BMSBuilding:B Angel 3 Sj [place].[facility] Repository 11/12/2017 [id number] [place], Ambulatory BMSBuilding:B Angel 2 Sj [place].[facility] Repository 11/12/2017 [id number] [place], Ambulatory BMSBuilding:B [place] 9 Sj [place].[facility] Repository 11/05/2017 [id number] Ambulatory BMSBuilding:B Angel 2 [facility] Repository 11/03/2017 [id number] Ambulatory BMSBuilding:B Angel 1 [facility] Repository 11/02/2017 [id number] Ambulatory Angel [place] 9 [facility] ing:OLS[facility] Repository N PAYERS PAYERS ENCOUNTER GUARANTOR PAYER SUBSCRIBER SOURCE 08/02/2018 SAMMY Brush Primary NOT GIVENUNK [place] Insurance:SELF PAY [address] Number: Effective Repository [place], [place] Date:2018-08-02 [id number]: () 07/01/2018 SAMMY Brush Primary [place]MY [place] Insurance:TOSIN SUAREZOB: [place] [address] CRSC *[place] [id number] [facility] Repository [place], [place] Number: [id number]: [phone] [id number] [phone] () Date:7618-15-58QGTK CLAIMS [address]PT[address] [place] [address]YI: 07/01/2018 Secondary NOT GIVENUNK Angel Insurance:SELF PAY [facility] Number: Effective Repository Date:2018-05-17 06/30/2018 SAMMY K Primary SAMMY K Angel [place] Insurance:MYCARE PETERSONDOB: Community HEALTHY [id number] CRSC *[place] [id number] Clinic Repository [facility] [place] Number: [id number]: 330 [id number] [phone] (HP) Date:8198-81-90JNTV [place]S [address] [address]HZ: 06/30/2018 Secondary NOT GIVENUNK [place] Insurance:SELF PAY [facility] Number: Effective Repository Date:2018-06-30 05/21/2018 SAMMY K Primary SAMMY K [place] Insurance:MYCARE PETERSONDOB: Community Healthy [id number] CRSC *[place] [id number] Repository [place], [place] Number: [id number]: 330 [id number] [phone] (HP) Date:6438-65-24GLSK [place]S [address] [address]HT: 05/21/2018 Secondary NOT GIVENUNK Angel Insurance:SELF PAY [facility] Number: Effective Repository Date:2018-05-14 04/15/2018 SAMMY K Primary SAMMY K [place] Insurance:MYCARE PETERSONDOB: Community Healthy [id number] CRSC *[place] [id number] [facility] Hospital Repository [place], [place] Number: [id number]: 330 [id number] [phone] (HP) Date:6444-91-97WXEC CLAIMS [address] [address]XV: 04/15/2018 Secondary NOT GIVENUNK Angel Insurance:SELF PAY [facility] Number: Effective Repository Date:2018-04-15 04/12/2018 SAMMY K Primary SAMMY K [place] Insurance:MYCARE PETERSONDOB: Community Healthy [id number] CRSC *[place] [id number] [facility] Repository [place] Number: [address]Xfr: 330 [id number] [phone] (HP) Date:7641-81-31JHYP CLAIMS [address], [place] [address]ZC: 04/12/2018 Secondary NOT GIVENUNK [place] Insurance:SELF PAY [facility] Number: Effective Repository Date:2018-04-12 04/08/2018 SAMMY K Primary SAMMY K [place] Insurance:MYCARE PETERSONDOB: Community Healthy [id number] CRSC *[place] [id number] Gettysburg Hospital Repository [place], [place] Number: [id number]: 330 [id number] [phone] (HP) Date:1443-79-85TCYU CLAIMS [address], [place] [address]XI: 04/08/2018 Secondary NOT GIVENUNK Angel Insurance:SELF PAY [facility] Number: Effective Repository Date:2018-04-08 03/08/2018 SAMMY K Primary NOT GIVENUNK [place] Insurance:SELF PAY [facility] Healthy [id number] [facility] [address] Number: Effective Repository [place] Date:2018-03-08 [id number]: (HP) 02/20/2018 Sammy K Primary Sammy K [place] Insurance:MYCARE PetersonDOB: Community Healthy [id number] CRSC *[place] [id number] [facility]sburg Hospital Repository [place], [place] Number: [id number]: 330 [id number] [phone] (HP) Date:1395-08-81FPJK CLAIMS [address], [place] [address]LJ: 02/20/2018 Secondary NOT GIVENUNK Angel Insurance:SELF PAY [facility] Number: Effective Repository Date:2018-02-20 02/19/2018 SAMMY K Primary SAMMY K [place] Insurance:MYCARE PETERSONDOB: Community Healthy [id number] CRSC *[place] [id number] Gettysburg Hospital Repository [facility] Associationmariferwest [place], [place] Number: [id number]: 330 [id number] [phone] (HP) Date:2175-68-61RATS CLAIMS [address], [place] [address]RM: 02/19/2018 Secondary NOT GIVENUNK [place] Insurance:SELF PAY [facility] Number: Effective Repository Date:2018-02-19 02/19/2018 SAMMY K Primary SAMMY K [place] Insurance:MYCARE PETERSONDOB: Community Healthy [id number] CRSC *[place] [id number] [facility]sburg Hospital Repository [facility] Centerelliedesirewest [place] Number: [address]Jna: 330 [id number] [phone] () Date:0130-14-04UTCR CLAIMS [address], [place] [address]QB: 02/19/2018 Secondary NOT GIVENUNK Angel Insurance:SELF PAY [facility] Number: Effective Repository Date:2018-02-19 02/19/2018 SAMMY K Primary SAMMY K [place] Insurance:MYCARE PETERSONDOB: Community Healthy [id number] CRSC *[place] [id number] [facility] Hospital Repository [facility] [place] Number: [id number]: 330 [id number] [phone] Date:9447-81-15XKQI CLAIMS [address], [place] [address]UT: 02/19/2018 Secondary NOT GIVENUNK Angel Insurance:SELF PAY [facility] Number: Effective Repository Date:2018-02-19 02/19/2018 SAMMY K Primary SAMMY K [place] Insurance:MYCARE PETERSONDOB: Community Healthy [id number] CRSC *[place] [id number] [facility] Hospital Repository [facility] [place] Number: [id number]: [phone]) [id number] [phone] (HP) Date:0820-50-86HVAC CLAIMS DE[address]PO [address] [address]MK: 02/19/2018 Secondary NOT GIVENUNK Angel Insurance:SELF PAY [facility] Number: Effective Repository Date:2018-02-19 02/19/2018 SAMMY K Primary SAMMY K [place] Insurance:MYCARE PETERSONDOB: Community Healthy [id number] CRSC *[place] [id number] [facility]sburg Hospital [place], [place] Number: [id number]: [phone]) [id number] [phone] (HP) Date:8427-16-20CWAH CLAIMS [address] [address]KE: 02/19/2018 Secondary NOT GIVENUNK Angel Insurance:SELF PAY [facility] Number: Effective Repository Date:2018-02-19 02/19/2018 SAMMY K Primary SAMMY K [place] Insurance:MYCARE PETERSONDOB: Community Healthy [id number] CRSC *[place] [id number] [facility]sburg Hospital Repository [facility] [place] Number: [id number]: 330 [id number] [phone] (HP) Date:2699-25-02KUEN CLAIMS [address] [address]JG: 02/19/2018 Secondary NOT GIVENUNK Angel Insurance:SELF PAY [facility] Number: Effective Repository Date:2018-02-19 01/08/2018 SAMMY K Primary NOT GIVENUNK [place] Insurance:SELF PAY [facility] Healthy [id number] [facility] [address] Number: Effective Repository [place] Date:2018-01-08 [id number]: (HP) 01/01/2018 SAMMY K Primary NOT GIVENUNK [place] Insurance:SELF PAY [facility] Healthy [id number] [facility] [address] Number: Effective Repository [facility] [place] Date:2018-01-01 [id number]: (HP) 12/28/2017 Sammy K Primary Sammy K [place] Insurance:MYCARE PetersonDOB: Community Healthy [id number] CRSC *[place] [id number] [facility]sburg Hospital Repository [place] Number: [id number]: [phone] [id number] [phone] (HP) Date:5127-99-02ZTIU CLAIMS DEPT[address] [place] [address]KV: 12/28/2017 Secondary NOT GIVENUNK [place] Insurance:SELF PAY [facility] Number: Effective Repository Date:2017-12-28 12/24/2017 SAMMY K Primary SAMMY K [place] Insurance:MYCARE PETERSONDOB: Community Healthy [id number] CRSC *[place] [id number] Gettysburg Hospital Repository [place], [place] Number: [id number]: [phone]) [id number] [phone] (HP) Date:2547-11-30TDZY CLAIMS [address], [place] [address]ZD: 12/24/2017 Secondary NOT GIVENUNK [place] Insurance:SELF PAY [facility] Number: Effective Repository Date:2017-12-24 12/16/2017 SAMMY K Primary NOT GIVENUNK [place] Insurance:SELF PAY [facility] Healthy [id number] [facility] [address] Number: Effective [place], [place] Date:2017-12-16 [id number]: (HP) 12/09/2017 SAMMY K Primary NOT GIVENUNK [place] Insurance:SELF PAY [facility] Healthy [id number] [facility] [address] Number: [place] Date:2017-12-09 [id number]: (HP) 12/02/2017 SAMMY K Primary NOT GIVENUNK [place] Insurance:SELF PAY [address] Number: [place] Date:2017-12-02 00183Gdm: (HP) 11/30/2017 SAMMY K Primary SAMMY K [place] Insurance:MYCARE PETERSONDOB: Community Healthy [id number] CRSC *[place] [id number] [facility]sburg Hospital [place], [place] Number: [address]Kdz: 330 [id number] [phone] (HP) Date:5711-72-15WCZC CLAIMS [address], [place] [address]PQ: 11/30/2017 Secondary NOT GIVENUNK Angel Insurance:SELF PAY [facility] Number: Effective Repository Date:2017-11-30 11/25/2017 SAMMY K Primary NOT GIVENUNK [place] Insurance:SELF PAY [facility] Healthy [id number] [facility] [address] Number: [place] Date:2017-11-25 [id number]: (HP) 11/24/2017 SAMMY K Primary SAMMY K [place] Insurance:MYCARE PETERSONDOB: Community Healthy [id number] CRSC *[place] [id number] Gettysburg Hospital [place] Number: [address]Dfd: 330 [id number] [phone] (HP) Date:1222-46-11OPZJ CLAIMS [address] [address]ZX: 11/24/2017 Secondary NOT GIVENUNK Angel Insurance:SELF PAY [facility] Number: Effective Repository Date:2017-11-24 11/24/2017 SAMMY K Primary SAMMY K [place] Insurance:MYCARE PETERSONDOB: Community Healthy [id number] CRSC *[place] [id number] [facility]sburg Hospital [place], [place] Number: [id number]: 330 [id number] [phone] (HP) Date:9601-94-42OWYG CLAIMS [address], [place] [address]RT: 11/24/2017 Secondary NOT GIVENUNK [place] Insurance:SELF PAY [facility] Number: Effective Repository Date:2017-11-24 11/18/2017 SAMMY K Primary NOT GIVENUNK [place] Insurance:SELF PAY [facility] Healthy [id number] [facility] [address] Number: Effective Repository [place] Date:2017-11-18 [id number]: (HP) 11/14/2017 SAMMY K Primary SAMMY K [place] Insurance:MYCARE PETERSONDOB: Community Healthy [id number] CRSC *[place] [id number] [facility] Hospital Repository [place] Number: [id number]: [phone]) [id number] [phone] (HP) Date:7024-20-49SPQX CLAIMS DEPTPO [address] [place] [address]EE: 11/14/2017 Secondary NOT GIVENUNK [place] Insurance:SELF PAY [facility] Number: Effective Repository Date:2017-11-14 11/12/2017 SAMMY K Primary SAMMY K [place] Insurance:MYCARE PETERSONDOB: Community Healthy [id number] CRSC *[place] [id number] Gettysburg Hospital Repository [place], [place] Number: [address]Hkf: ([phone]) [id number] [phone] (HP) Date:2960-01-93ZECB CLAIMS DEPTPO [address] [place] [address]QX: 11/12/2017 Secondary NOT GIVENUNK [place] Insurance:SELF PAY [facility] Number: Effective Repository Date:2017-11-12 11/12/2017 SAMMY K Primary SAMMY K [place] Insurance:MYCARE PETERSONDOB: Community Healthy [id number] CRSC *[place] [id number] [facility]sburg Hospital Repository [place] Number: [id number]: ([phone] [id number] [phone]) Date:7404-94-62PFTR CLAIMS [address] [address]MJ: 11/12/2017 Secondary NOT GIVENUNK [place] Insurance:SELF PAY [facility] Number: Effective Repository Date:2017-11-12 11/12/2017 SAMMY K Primary SAMMY K [place] Insurance:MYCARE PETERSONDOB: Community Healthy [id number] CRSC *[place] [id number] [facility] Hospital Repository [place] Number: [address]Wkg: 330 [id number] [phone] (HP) Date:6767-80-32UIKW CLAIMS DEPTPO [address] [address]KJ: 11/12/2017 Secondary NOT GIVENUNK [place] Insurance:SELF PAY [facility] Number: Effective Repository Date:2017-11-12 11/12/2017 SAMMY K Primary SAMMY K [place] Insurance:MYCARE PETERSONDOB: Community Healthy [id number] CRSC *[place] [id number] [facility]sburg Hospital Repository [place] Number: [id number]: (330 [id number] [phone] (HP) Date:4808-80-76XRKB CLAIMS DE[address] [address]JW: 11/12/2017 Secondary NOT GIVENUNK [place] Insurance:SELF PAY [facility] Number: Effective Repository Date:2017-11-12 11/12/2017 SAMMY K Primary SAMMY K [place] Insurance:MYCARE PETERSONDOB: Community Healthy [id number] CRSC *[place] [id number] [facility]sburg Hospital Repository [place], [place] Number: [address]Hcx: 330 [id number] [phone] (HP) Date:4015-21-24NBBX CLAIMS [address] [address]RJ: 11/12/2017 Secondary NOT GIVENUNK [place] Insurance:SELF PAY [facility] Number: Effective Repository Date:2017-11-12 11/12/2017 SAMMY K Primary SAMMY K [place] Insurance:MYCARE PETERSONDOB: Community Healthy [id number] CRSC *[place] [id number] [facility]sburg Hospital [place] Number: [id number]: [phone] [id number] [phone] (HP) Date:5365-90-47GMIT CLAIMS [address], [place] [address]TU: 11/12/2017 Secondary NOT GIVENUNK [place] Insurance:SELF PAY [facility] Number: Effective Repository Date:2017-11-12 11/05/2017 SAMMY K Primary NOT GIVENUNK [place] Insurance:SELF PAY [facility] Healthy [id number] [facility] [address] Number: Effective Repository [place] Date:2017-11-02 296[address]Qag: (HP) 11/03/2017 SAMMY K Primary SAMMY K [place] Insurance:MYCARE PETERSONDOB: Community Healthy [id number] CRSC *[place] [id number] Gettysburg Hospital [place] Number: [id number]: 330 [id number] [phone] (HP) Date:1204-48-59NWJM CLAIMS [address], [place] [address]PU: 11/03/2017 Secondary NOT GIVENUNK [place] Insurance:SELF PAY [facility] Number: Effective Repository Date:2017-11-03 11/02/2017 SAMMY K Primary SAMMY K [place] Insurance:MYCARE PETERSONDOB: Community Healthy [id number] CRSC *[place] [id number] Gettysburg Hospital Repository [place] Number: [id number]: ([phone]) [id number] [phone] (HP) Date:8934-56-26HMPQ CLAIMS [address], [place] [address]HC: 11/02/2017 Secondary NOT GIVENUNK [place] Insurance:SELF PAY [facility] Number: Effective Repository Date:2017-11-02
== END ==
LOC: OLS.WHLBEN 05:00
PROVIDERS: Visit Provider Family Medicine
DX: I10 Essential (primary) hypertension (principal); E87.5 Hyperkalemia
CPT/HCPCS: 36415; 80048; 85027

== ENCOUNTER → 2018-08-02 05:00 | Outpatient (REF) | payer MEDICARE, SELFPAY ==
[2018-07-01 14:07] VITALS: BMI 26.5
[2018-08-02 08:40] LABS: Hematocrit 36.8 % (40-54); Hemoglobin 11.2 g/dl (13.0-16.5); Mean Corp Hgb Conc 30.4 g/gl (32-36); Mean Corpuscular Hgb 30.5 pg (27.0-32.0); Mean Corpuscular Volume 100.3 fL (80-94); Mean Platelet Vol. 10.8 fl (6.2-12.0); Platelet Count 82 K/mm3 (150-450); RBC Distribution Width CV 14.8 % (11.6-14.6); RBC Distribution Width SD 52.4 fl (35.1-43.9); Red Blood Count 3.67 M/mm3 (4.6-6.2); White Blood Count 4.2 K/mm3 (4.4-11.0)
[2018-08-02 08:49] LABS: Anion Gap 7 (5-15); BUN 11 mg/dL (7-18); BUN/Creat Ratio 9.8 RATIO (10-20); Calcium,Total 7.8 mg/dL (8.5-10.1); Chloride 110 mmol/L (98-107); Creatinine, Serum 1.12 mg/dL (0.70-1.30); EST Glomerular Filtration Rate 68 mL/min (>60); Est Glom Filt Rate - Afr Amer 82 mL/min (>60); Glucose 78 mg/dL (74-106); Potassium 3.5 mmol/L (3.5-5.1); Sodium Level 147 mmol/L (136-145)
[2018-08-02 09:05] LABS: Scan Indicated on CBC? Y/N NO
== END ==
LOC: OLS.WHLBEN 05:00
PROVIDERS: Visit Provider Family Medicine
DX: I10 Essential (primary) hypertension (principal); E78.5 Hyperlipidemia, unspecified
CPT/HCPCS: 36415; 80048; 85027

== ENCOUNTER → 2018-09-01 05:00 | Outpatient (REF) | payer MEDICARE, SELFPAY ==
[2018-07-01 14:07] VITALS: BMI 26.5
[2018-09-01 07:02] LABS: Hematocrit 37.7 % (40-54); Hemoglobin 11.3 g/dl (13.0-16.5); Mean Corpuscular Hgb 30.5 pg (27.0-32.0); Mean Corpuscular Volume 101.6 fL (80-94); Mean Platelet Vol. 10.3 fl (6.2-12.0); Platelet Count 63 K/mm3 (150-450); RBC Distribution Width SD 54.5 fl (35.1-43.9); Red Blood Count 3.71 M/mm3 (4.6-6.2); White Blood Count 3.6 K/mm3 (4.4-11.0)
[2018-09-01 07:08] LABS: Anion Gap 8 (5-15); BUN 14 mg/dL (7-18); BUN/Creat Ratio 12.5 RATIO (10-20); Calcium,Total 7.8 mg/dL (8.5-10.1); Chloride 111 mmol/L (98-107); Creatinine, Serum 1.12 mg/dL (0.70-1.30); EST Glomerular Filtration Rate 68 mL/min (>60); Est Glom Filt Rate - Afr Amer 82 mL/min (>60); Glucose 87 mg/dL (74-106); Scan Indicated on CBC? Y/N NO; Sodium Level 146 mmol/L (136-145)
== END ==
LOC: OLS.WHLBEN 05:00
PROVIDERS: Visit Provider Family Medicine
DX: I10 Essential (primary) hypertension (principal); E78.5 Hyperlipidemia, unspecified
CPT/HCPCS: 36415; 80048; 85027

== ENCOUNTER → 2018-09-29 05:00 | Outpatient (REF) | payer MEDICARE, SELFPAY ==
[2018-09-29 07:25] LABS: Hemoglobin 11.5 g/dl (13.0-16.5); Mean Corp Hgb Conc 30.3 g/gl (32-36); Mean Corpuscular Hgb 30.3 pg (27.0-32.0); Mean Platelet Vol. 10.7 fl (6.2-12.0); Platelet Count 80 K/mm3 (150-450); RBC Distribution Width CV 14.6 % (11.6-14.6); RBC Distribution Width SD 52.4 fl (35.1-43.9); White Blood Count 4.9 K/mm3 (4.4-11.0)
[2018-09-29 07:26] LABS: Scan Indicated on CBC? Y/N NO
[2018-09-29 07:45] LABS: Anion Gap 5 (5-15); BUN 12 mg/dL (7-18); BUN/Creat Ratio 10.3 RATIO (10-20); Calcium,Total 7.7 mg/dL (8.5-10.1); Chloride 110 mmol/L (98-107); Creatinine, Serum 1.17 mg/dL (0.70-1.30); EST Glomerular Filtration Rate 64 mL/min (>60); Est Glom Filt Rate - Afr Amer 78 mL/min (>60); Glucose 80 mg/dL (74-106); Potassium 3.4 mmol/L (3.5-5.1); Sodium Level 144 mmol/L (136-145)
== END ==
LOC: OLS.WHLBEN 05:00
PROVIDERS: Visit Provider Family Medicine
DX: E78.5 Hyperlipidemia, unspecified (principal)
CPT/HCPCS: 36415; 80048; 85027

== ENCOUNTER → 2018-09-30 05:00 | Outpatient (REF) | payer MEDICARE, SELFPAY ==
[2018-09-30 08:25] LABS: ALB/GLOB Ratio 0.8 RATIO (0.9-2.4); Albumin, Serum 2.7 g/dL (3.2-5.0); Globulin 3.3 g/dL (2.2-4.2); Magnesium 2.2 mg/dL (1.6-2.6)
[2018-09-30 08:57] LABS: PTHIN 115.1 pg/mL (18.4-80.1); Vitamin D,25 Hydroxy 14.7 ng/mL (29.95-100.01)
== END ==
LOC: OLS.WHLBEN 05:00
PROVIDERS: Visit Provider Family Medicine
DX: E83.51 Hypocalcemia (principal)
CPT/HCPCS: 36415; 82040; 82306; 83735; 83970; 84156

== ENCOUNTER → 2018-10-04 06:00 | Outpatient (REF) | payer MEDICARE, SELFPAY ==
[2018-10-05 09:59] LABS: (24 HR) Urine Calcium 49.2 mg/24 HR (42.0-353.0); 24HR UR TOTAL VOLUME 600 ml; Calcium Urine pH Range 1; Urine Calcium (Random) 8.2 (Not Estab.)
== END ==
LOC: OLS.WHLBEN 06:00
PROVIDERS: Visit Provider Family Medicine
DX: E21.5 Disorder of parathyroid gland, unspecified (principal)
CPT/HCPCS: 82340

== ENCOUNTER → 2018-10-21 05:00 | Outpatient (REF) | payer MEDICARE, SELFPAY ==
[2018-10-21 08:53] LABS: Hematocrit 37.3 % (40-54); Hemoglobin 11.6 g/dl (13.0-16.5); Mean Corp Hgb Conc 31.1 g/gl (32-36); Mean Corpuscular Hgb 30.4 pg (27.0-32.0); Mean Corpuscular Volume 97.6 fL (80-94); Mean Platelet Vol. 10.7 fl (6.2-12.0); Platelet Count 96 K/mm3 (150-450); RBC Distribution Width CV 14.5 % (11.6-14.6); RBC Distribution Width SD 52.1 fl (35.1-43.9); Red Blood Count 3.82 M/mm3 (4.6-6.2); White Blood Count 5.1 K/mm3 (4.4-11.0)
[2018-10-21 08:54] LABS: Scan Indicated on CBC? Y/N NO
[2018-10-21 09:00] LABS: Anion Gap 4 (5-15); BUN 19 mg/dL (7-18); BUN/Creat Ratio 18.8 RATIO (10-20); Calcium,Total 7.9 mg/dL (8.5-10.1); Chloride 107 mmol/L (98-107); Creatinine, Serum 1.01 mg/dL (0.70-1.30); EST Glomerular Filtration Rate 76 mL/min (>60); Est Glom Filt Rate - Afr Amer 92 mL/min (>60); Glucose 102 mg/dL (74-106); Potassium 3.9 mmol/L (3.5-5.1); Sodium Level 140 mmol/L (136-145)
[2018-10-21 11:10] LABS: Vitamin D,25 Hydroxy 49.2 ng/mL (29.95-100.01)
== END ==
LOC: OLS.WHLBEN 05:00
PROVIDERS: Visit Provider Family Medicine
DX: E55.9 Vitamin D deficiency, unspecified (principal)
CPT/HCPCS: 36415; 80048; 82306; 82330; 85027

== ENCOUNTER → 2018-11-18 05:00 | Outpatient (REF) | payer MEDICARE, SELFPAY ==
[2018-07-01 14:07] VITALS: BMI 26.5
[2018-11-18 08:48] LABS: Absolute Lymphocyte Count 1.06 X10^3/ul (0.83-4.51); Absolute Neutrophil Count 2.1 X10^3/uL (2.0-7.7); Basophil# 0.01 X10^3/uL; Basophil% 0.3 % (0-1); Eosinophils% 2.8 % (0-5); Hemoglobin 11.1 g/dl (13.0-16.5); Lymphocyte # 1.06 X10^3/ul (4.0); Lymphocyte % 29.2 % (19-41); Mean Platelet Vol. 10.9 fl (6.2-12.0); Monocyte# 0.38 X10^3/uL; Monocyte% 10.5 % (0-10); Neutrophil # 2.07 X10^3/uL (2.7-7.7); Neutrophil % 56.9 % (47-70); Platelet Count 88 K/mm3 (150-450); RBC Distribution Width CV 14.9 % (11.6-14.6); RBC Distribution Width SD 53.2 fl (35.1-43.9); White Blood Count 3.6 K/mm3 (4.4-11.0)
[2018-11-18 09:02] LABS: Anion Gap 4 (5-15); BUN 16 mg/dL (7-18); BUN/Creat Ratio 13.1 RATIO (10-20); Calcium,Total 7.8 mg/dL (8.5-10.1); Chloride 109 mmol/L (98-107); Creatinine, Serum 1.22 mg/dL (0.70-1.30); EST Glomerular Filtration Rate 61 mL/min (>60); Est Glom Filt Rate - Afr Amer 74 mL/min (>60); Glucose 87 mg/dL (74-106); Potassium 3.7 mmol/L (3.5-5.1); Sodium Level 143 mmol/L (136-145)
[2018-11-18 09:15] LABS: POSITIVE COUNT NO; POSITIVE DIFFERENTIAL NO; POSITIVE MORPHOLOGY NO
== END ==
LOC: OLS.WHLBEN 05:00
PROVIDERS: Visit Provider Family Medicine
DX: J44.9 Chronic obstructive pulmonary disease, unspecified (principal); I10 Essential (primary) hypertension
CPT/HCPCS: 36415; 80048; 85025

== ENCOUNTER → 2018-12-23 | Outpatient (REF) | payer MEDICARE, SELFPAY ==
[2018-07-01 14:07] VITALS: BMI 26.5
[2018-12-23 07:54] LABS: Absolute Lymphocyte Count 1.49 X10^3/ul (0.83-4.51); Absolute Neutrophil Count 1.9 X10^3/uL (2.0-7.7); Basophil# 0.01 X10^3/uL; Basophil% 0.3 % (0-1); Eosinophil# 0.13 X10^3/uL; Eosinophils% 3.4 % (0-5); Hematocrit 36.6 % (40-54); Hemoglobin 11.2 g/dl (13.0-16.5); Lymphocyte # 1.49 X10^3/ul (4.0); Lymphocyte % 39.1 % (19-41); Mean Corp Hgb Conc 30.6 g/gl (32-36); Mean Corpuscular Hgb 29.9 pg (27.0-32.0); Mean Corpuscular Volume 97.9 fL (80-94); Mean Platelet Vol. 11.3 fl (6.2-12.0); Monocyte# 0.33 X10^3/uL; Monocyte% 8.7 % (0-10); Neutrophil # 1.85 X10^3/uL (2.7-7.7); Neutrophil % 48.5 % (47-70); Platelet Count 80 K/mm3 (150-450); RBC Distribution Width CV 14.5 % (11.6-14.6); Red Blood Count 3.74 M/mm3 (4.6-6.2); White Blood Count 3.8 K/mm3 (4.4-11.0)
[2018-12-23 07:57] LABS: Anion Gap 7 (5-15); BUN 20 mg/dL (7-18); BUN/Creat Ratio 15.2 RATIO (10-20); Calcium,Total 8.2 mg/dL (8.5-10.1); Chloride 110 mmol/L (98-107); Creatinine, Serum 1.32 mg/dL (0.70-1.30); EST Glomerular Filtration Rate 56 mL/min (>60); Est Glom Filt Rate - Afr Amer 68 mL/min (>60); Glucose 90 mg/dL (74-106); Potassium 3.6 mmol/L (3.5-5.1); Sodium Level 146 mmol/L (136-145)
[2018-12-23 08:01] LABS: POSITIVE COUNT NO; POSITIVE DIFFERENTIAL NO; POSITIVE MORPHOLOGY NO
== END | disposition home or self-care (01) ==
LOC: OLS.WHLBEN 05:00
PROVIDERS: Visit Provider Family Medicine
DX: J44.9 Chronic obstructive pulmonary disease, unspecified (principal); I10 Essential (primary) hypertension; M62.81 Muscle weakness (generalized)
CPT/HCPCS: 36415; 80048; 85025

== ENCOUNTER → 2019-01-19 05:00 | Outpatient (REF) | payer MEDICARE, SELFPAY ==
[2018-12-31 14:14] VITALS: BMI 27.3
[2019-01-19 07:20] LABS: Absolute Lymphocyte Count 0.95 X10^3/ul (0.83-4.51); Absolute Neutrophil Count 2.8 X10^3/uL (2.0-7.7); Basophil# 0.03 X10^3/uL; Basophil% 0.7 % (0-1); Eosinophil# 0.11 X10^3/uL; Eosinophils% 2.5 % (0-5); Hematocrit 44.4 % (40-54); Hemoglobin 14.3 g/dl (13.0-16.5); Lymphocyte # 0.95 X10^3/ul (4.0); Lymphocyte % 21.3 % (19-41); Mean Corp Hgb Conc 32.2 g/gl (32-36); Mean Corpuscular Hgb 29.7 pg (27.0-32.0); Mean Corpuscular Volume 92.1 fL (80-94); Mean Platelet Vol. 11.5 fl (6.2-12.0); Monocyte% 13.5 % (0-10); Neutrophil # 2.76 X10^3/uL (2.7-7.7); Neutrophil % 61.8 % (47-70); POSITIVE COUNT NO; POSITIVE DIFFERENTIAL NO; POSITIVE MORPHOLOGY NO; Platelet Count 150 K/mm3 (150-450); RBC Distribution Width CV 15.1 % (11.6-14.6); RBC Distribution Width SD 49.4 fl (35.1-43.9); Red Blood Count 4.82 M/mm3 (4.6-6.2); White Blood Count 4.5 K/mm3 (4.4-11.0)
[2019-01-19 07:59] LABS: Anion Gap 6 (5-15); BUN 24 mg/dL (7-18); BUN/Creat Ratio 27.6 RATIO (10-20); Calcium,Total 8.4 mg/dL (8.5-10.1); Chloride 107 mmol/L (98-107); Creatinine, Serum 0.87 mg/dL (0.70-1.30); EST Glomerular Filtration Rate 91 mL/min (>60); Est Glom Filt Rate - Afr Amer 110 mL/min (>60); Glucose 103 mg/dL (74-106); Potassium 4.2 mmol/L (3.5-5.1); Sodium Level 138 mmol/L (136-145)
== END ==
LOC: OLS.WHLBEN 05:00
PROVIDERS: Visit Provider Family Medicine
DX: I10 Essential (primary) hypertension (principal); J44.9 Chronic obstructive pulmonary disease, unspecified; I25.10 Atherosclerotic heart disease of native coronary artery without angina pectoris; F03.90 Unspecified dementia, unspecified severity, without behavioral disturbance, psychotic disturbance, mood disturbance, and anxiety
CPT/HCPCS: 36415; 80048; 85025

== ENCOUNTER → 2019-02-07 06:41 | Outpatient (CLI) | payer MEDICARE, SELFPAY ==
[2018-12-31 14:14] VITALS: BMI 27.3
--- NOTE | 2019-02-07 13:27 | STRESSREP ---
Stress Test Report Pharmacologic myocardial perfusion stress test. 78-year-old man with a history of coronary artery disease status post angioplasty and stenting of the right coronary artery. Stress protocol: Resting EKG demonstrates sinus bradycardia with a rate of 50 bpm resting blood pressures 142/60 meters of mercury. 0.4 mg of regadenoson was infused per usual protocol. 0.4 mg of regadenoson was infused. Continuous EKG monitoring was performed. The maximum heart rate attained was 73 bpm which was 50% of maximum predicted heart rate the maximum workload was 1 metabolic equivalent. At rest there were no ST or T wave changes noted suggest abnormal flow reserve at peak infusion nonspecific ST-T wave changes were noted. The resting blood pressures 142/60 meters of mercury final blood pressure 120/68 mmHg. Myocardial perfusion protocol. 14.5 mCi of technetium 99m sestamibi was injected at rest. 0.4 mg of regadenoson was infused per usual protocol peak infusion 44.8 mCi of technetium 99m sestamibi was injected stress images were obtained stress and rest images were reconstructed in comparing the short axis vertical and horizontal long axis. Gated images was obtained Perfusion SPECT analysis: Review of the stress images demonstrate a normal cardiac silhouette size. There is a medium-sized defect noted in the inferior lateral and mid inferior wall on the stress images the resting images demonstrate moderate amount of improvement in the same wall suggesting a moderate amount of inferior and inferolateral ischemia present. The rest of the rodriguez appear to be well perfused. Gated SPECT analysis: The gated ejection fraction is noted to be 63%. Conclusion: Abnormal myocardial perfusion stress test with evidence of mid inferior and inferolateral ischemia. Preserved ejection fraction
== END ==
PROVIDERS: Family Provider Family Medicine; PCP Family Medicine; Referring Provider Internal Medicine Cardiovascular Disease; Visit Provider Internal Medicine Cardiovascular Disease
DX: R07.9 Chest pain, unspecified (principal); I11.0 Hypertensive heart disease with heart failure; I50.32 Chronic diastolic (congestive) heart failure; I25.10 Atherosclerotic heart disease of native coronary artery without angina pectoris; I42.0 Dilated cardiomyopathy; I48.0 Paroxysmal atrial fibrillation; I49.3 Ventricular premature depolarization
CPT/HCPCS: 78452; 93017; A9500; A4216; J2785

== ENCOUNTER 2019-02-17 06:40 | Day surgery (SDC) | payer MEDICARE, SELFPAY ==
[2018-12-31 14:14] VITALS: BMI 27.3
--- NOTE | 2019-02-17 06:49 | PCM.HP.BLA ---
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 He has history of coronary artery disease status post stenting to his RCA in 2004, dilated cardiomyopathy, chronic diastolic congestive heart failure, paroxysmal atrial fibrillation, hypertension, hyperlipidemia, COPD, and chronic kidney disease. Patient was noted to have continual chest pain. He underwent a nuclear stress test on 02/07/2019. This was considered to be an abnormal myocardial perfusion stress test with evidence of mid inferior and inferolateral ischemia. His ejection was noted be preserved. Because of this, he will proceed with a left heart catheterization to further assess coronary artery disease and previous stenting to RCA in 2004. He is currently a resident of [facility]. He continues with chest pain and SOB at rest and with activity. He continues with dizziness and fatigue. He denies arm, jaw, or neck discomfort. His exercise tolerance is minimal. He denies symptoms of palpitations, lightheadedness, near syncope, or syncopal episodes. He denies edema or claudication issues. He denies orthopnea, PND, or myalgia. Intake Vital Signs: See EMR Intake Visit Reasons: Heart Catheterization Legal Process Specialist Required: No Accompanied by: none Is patient in pain?: No Allergies No Known Allergies Allergy (Verified 07/01/18 14:08) Medications Aspirin [Aspirin, Baby] 81 mg PO DAILY@0800 09/23/15 [History Confirmed 12/31/18] Atorvastatin Calcium [Lipitor] 40 mg PO QHS 09/23/15 [History Confirmed 12/31/18] Famotidine [Pepcid] 20 mg PO DAILY 09/23/15 [History Confirmed 12/31/18] Lisinopril [Zestril] 10 mg PO DAILY 09/23/15 [History Confirmed 12/31/18] Acetaminophen [Tylenol] 650 mg PO BID 10/09/15 [History Confirmed 12/31/18] Umeclidinium Brm/Vilanterol Tr [Anoro Ellipta 62.5-25 Mcg INH] 1 inh INHALATION DAILY 10/09/15 [History Confirmed 12/31/18] escitalopram 10 mg tablet 10 mg PO DAILY tab 11/03/17 [History Confirmed 12/31/18] loratadine 10 mg tablet 10 mg PO DAILY 11/03/17 [History Confirmed 12/31/18] nitroglycerin 0.4 mg sublingual tablet 0.4 mg SUBLINGUAL Q5-15M PRN 11/03/17 [History Confirmed 12/31/18] tamsulosin 0.4 mg capsule 0.4 mg PO DAILY 11/03/17 [History Confirmed 12/31/18] Docusate Sodium [Colace] 200 mg PO DAILY 02/19/18 [History Confirmed 12/31/18] Carvedilol [Coreg (Beta Tasha)] 12.5 mg PO BID #90 tab 02/23/18 [Rx Confirmed 12/31/18] Ipratropium/Albuterol Sulfate [Duoneb] 3 ml INHALATION Q4H PRN PRN #0 02/23/18 [Rx Confirmed 12/31/18] donepezil 10 mg tablet 10 mg PO DAILY 12/31/18 [History Confirmed 12/31/18] furosemide 40 mg tablet 40 mg PO DAILY 12/31/18 [History Confirmed 12/31/18] PFS Medical History Thrombocytopenia (Chronic) Atherosclerotic heart disease of [place] coronary artery without angina pectoris (Chronic) Cardiomyopathy, dilated (Chronic) Chronic diastolic (congestive) heart failure (Chronic) Premature ventricular contraction (Chronic) Paroxysmal atrial fibrillation (Chronic) Benign essential HTN (Chronic) Depression (Chronic) HLD (hyperlipidemia) (Chronic) PAT (paroxysmal atrial tachycardia) (Chronic) COPD (chronic obstructive pulmonary disease) (Chronic) Coronary artery disease (Chronic) Dementia (Chronic) CVA (cerebral vascular accident) (Acute) TIA (transient ischemic attack) (Acute) Hypertension (Chronic) Surgical History Presence of stent in coronary artery (Chronic ~04/09/05) History of PTCA (Chronic) History of back surgery (Resolved) History of knee replacement procedure of right knee (Resolved) Family History Mother CAD (coronary artery disease) CHF (congestive heart failure) Brother Heart disease Social History housing: assisted living facility Smoking Status: Former smoker quit date: 07/20/10 pack-years: 50 alcohol intake: never ROS Const Const: Positive for fatigue; negative for weakness, fever(s) or headache(s) Eyes Eyes: Negative for blind spots, loss of peripheral vision or transient loss of vision ENT ENT: Positive for dizziness; negative for headache(s), tinnitus or Nosebleed/epistaxis Cardio Chest Pain: Yes Palpitations: No Edema: None Muscle aches with walking: None Resp Respiratory: Positive for SOB with activity; negative for SOB at rest, SOB orthopnea\SOB lying down or Cough GI GI: Negative nausea, vomiting, heartburn or vomiting blood/hematemesis : Negative for hematuria Musc Musc: Negative for muscle aches/ myalgia Neuro Neuro: Positive for dizziness; negative for lightheadedness, near syncope, syncope, orthostatic symptoms, headache(s) or weakness Chris Hematologic/Lymphatic: Negative for easy bleeding Endo Endo: Positive for fatigue Cardiology Exam Const Appearance: cooperative, no acute distress, frail appearing and other (in wheels walker) Orientation: alert and awake Head Head: normocephalic and atraumatic Mouth: moist mucous membranes Eyes General: appearance normal, both eyes and all related structures Conjunctivae: conjunctivae normal Pupils: PERRL EOM: EOM intact bilaterally Neck Neck: normal visual inspection, no lymphadenopathy and no JVD Carotids: Negative bruit Neck Mass: Negative Neck mass Chest Chest inspection: normal inspection of the chest, symmetric chest movement and cough Auscultation: Bilateral: Rhonchi Cardio Palpation: normal PMI Rate: regular rate Rhythm: regular rhythm Heart sounds: S1 normal and S2 normal; negative rub, gallop or murmur GI GI: normal to inspection, soft, no hepatosplenomegaly and bowel sounds present; negative tender Neuro General: alert, awake, oriented x3, CN's II-XI intact bilaterally and moves all extremities Gait: gait assisted Extremities Pulses: Normal: Right Posterior Tibial Pulse, Left Posterior Tibial Pulse, Right Radial Pulse, Left Radial Pulse Lower Extremity Edema: None: Bilateral Psych Psychological: normal affect Assessment & Plan 1. Atherosclerosis of [place] coronary artery of [place] heart without angina pectoris I25.10 PTCA/BINA to mid RCA 04/09/05 Plan Due to his recent abnormal nuclear stress test, he will proceed with heart catheterization for further evaluation. He will continue with aspirin, atorvastatin, carvedilol, and lisinopril. Based on results further recommendation will be made, which may include long-term antiplatelet therapy. 2. Paroxysmal atrial fibrillation I48.0 Plan He denies any symptoms associated with proximal atrial fibrillation. His ECG today shows Sinus Bradycardia. He is not anticoagulated. He will continue with his rate limiting medication. We will continue to monitor. 3. Benign essential HTN I10 Plan Blood pressure is well controlled on current medications, we do not recommend any changes at this time. 4. Pure hypercholesterolemia E78.00; E78.0 Plan Patient will continue with moderate intensity statin. These have been managed by his primary care doctor. 5. Chronic diastolic (congestive) heart failure I50.32 Plan Echocardiogram from July 2014 showed ejection fraction of 50%. His most recent nuclear stress test from January 2019 showed a preserved ejection fraction. He does not have any symptoms of congestive heart failure. We will continue with current medications and we will continue to monitor. Plan Detail Additional Comments Thank you for allowing us to participate in patient's plan of care, if you have any questions please do not hesitate to call. This note was generated using a voice recognition system and there may be incorrect words, spelling or punctuation errors that were not noted when reviewing the office note prior to saving. Supplemental Information Heart catheterization from 03/13/2016: CONCLUSION: 1. Normal left ventricular size and function. 2. Normal left main coronary artery. 3. Left anterior descending artery with no high-grade stenosis. 4. Ramus intermedius with no high-grade stenosis. 5. Right coronary artery previously stented with minimal disease. 6. Preserved ejection fraction. Echocardiogram from 07/24/2014: Interpretation Summary Normal LV size. Left ventricular systolic function is normal. The estimated ejection fraction is 50 %. Limited views were obtained. The study was technically limited. The study was technically difficult. Nuclear stress test from 02/07/2019: Conclusion: Abnormal myocardial perfusion stress test with evidence of mid inferior and inferolateral ischemia. Preserved ejection fraction
--- NOTE | 2019-02-17 07:03 | EKG12_ITS ---
Test Reason : PRE PROCEDURE Blood Pressure : / mmHG Vent. Rate : 057 BPM Atrial Rate : 057 BPM P-R Int : 178 ms QRS Dur : 076 ms QT Int : 486 ms P-R-T Axes : 054 006 044 degrees QTc Int : 473 ms Sinus bradycardia Otherwise normal ECG No previous ECGs available Confirmed by TRINI KIRKPATRICK ([id number]), material expeditor HÉCTOR IVEY ([id number] on 02/23/2019 3:46:54 PM Referred By: Xander Ruano Confirmed By:TRINI KIRKPATRICK
[2019-02-17 07:08] VITALS: BMI 27.3
--- NOTE | 2019-02-17 08:37 | CL.D_ITS ---
Patient Name: FANTA WHEAT Study Date: 02/17/2019 Performing: Xander Ruano MD Ht: inches cm : 1940 Wt: 184 lbs 83.461 kg Age: 78 Gender: male BSA: PROCEDURE(S) PERFORMED [id number]/COR/LV CLINICAL PROFILE AND INDICATIONS Indications: Suspected CAD Heart Failure: None Stress/Imaging Date: 02/07/2019 CAD Presentations: Symptom unlikely to be ischemic. CONCLUSIONS Mild in-stent stenosis noted in the previously placed stent in the right coronary artery. Mild lumin al irregularities noted in the LAD and left circumflex artery. RECOMMENDATIONS Medical therapy DESCRIPTION OF PROCEDURE The patient arrived to the procedure lab. The risks and benefits of the procedure as well as a full d escription of our services here and current unavailability of surgical backup were fully explained to the patient and/or their significant other prior to the catheterization. The Timeout was completed, verifying the correct patient and procedure. The patient's procedural site was prepped and draped in the usual fashion. Local anesthetic was given subcutaneously to right radial region with Lidocaine 2% . Using a modified Seldinger technique, arterial access was obtained via the right radial artery, a 6 Fr sheath was inserted. Left Coronary Artery selective angiography was performed in multiple views u sing a 5 Fr. 4.0 [place] catheter. Right Coronary Artery selective angiography was then performed in mu ltiple views using a 5 Fr. 4.0 [place] catheter. Left Ventriculography was performed in COY projection using a 5 Fr. Pigtail catheter. LV to AO pullback pressures were then recorded.The arterial sheath was pulled and a TR Band was applied for hemostasis. 12cc of air CORONARY ANGIOGRAPHY DOMINANCE: Right Dominant LEFT HEART ASSESSMENT Left Ventricular Ejection Fraction: by LV Gram 55 % Normal Left Ventricular systolic function LEFT MAIN: Mild calcification, No significant disease noted LEFT ANTERIOR DESCENDING ARTERY: Mild luminal irregularities CIRCUMFLEX ARTERY: Mild luminal irregularities RIGHT CORONARY ARTERY: Mild luminal irregularities MID RCA: Previously placed stent has an instent 20 % restenosis COMPLICATIONS No Complications PROCEDURE MEDICATIONS Versed 1 mg IV Oxygen: 2 L/min via nasal cannula Heparin diluted in 23cc Heparinized saline. Patient given 10cc IA of this solution. 02/17/2019 08:11:0 4 SUMMARY OF HEMODYNAMIC DATA Time AIR REST ECG 07:09:54 AO 129/62 (88) SA 08:15:20 LV 154/0, 3 08:24:26 LV 147/-1, 3 08:24:33 LV 133/0, 2 08:25:58 LVp 139/7, 27 08:26:05 AOp 146/55 (86) 08:26:10 Signed By Xander Ruano MD On 02/17/2019 08:37:28 Xander Ruano MD
== END 2019-02-17 12:15 | disposition home or self-care (01) ==
PROVIDERS: Family Provider Family Medicine; PCP Family Medicine; Referring Provider Internal Medicine Cardiovascular Disease; Visit Provider Internal Medicine Cardiovascular Disease
DX: T82.855A Stenosis of coronary artery stent, initial encounter (principal); I25.10 Atherosclerotic heart disease of native coronary artery without angina pectoris; I13.0 Hypertensive heart and chronic kidney disease with heart failure and stage 1 through stage 4 chronic kidney disease, or unspecified chronic kidney disease; I50.32 Chronic diastolic (congestive) heart failure; N18.9 Chronic kidney disease, unspecified; I48.0 Paroxysmal atrial fibrillation; I42.0 Dilated cardiomyopathy; I49.3 Ventricular premature depolarization; I47.1 Supraventricular tachycardia; J44.9 Chronic obstructive pulmonary disease, unspecified; E78.5 Hyperlipidemia, unspecified; F03.90 Unspecified dementia, unspecified severity, without behavioral disturbance, psychotic disturbance, mood disturbance, and anxiety; F32.9 Major depressive disorder, single episode, unspecified; Z79.82 Long term (current) use of aspirin; Z79.899 Other long term (current) drug therapy; Z86.73 Personal history of transient ischemic attack (TIA), and cerebral infarction without residual deficits; Z87.891 Personal history of nicotine dependence; Z95.5 Presence of coronary angioplasty implant and graft; Z96.651 Presence of right artificial knee joint
CPT/HCPCS: 93005; 93458; 99152; 99153; J7040; Q9967; C1769; C1894

== ENCOUNTER → 2019-02-23 05:00 | Outpatient (REF) | payer MEDICARE, SELFPAY ==
[2019-02-17 07:08] VITALS: BMI 27.3
[2019-02-23 07:03] LABS: Absolute Lymphocyte Count 1.41 X10^3/uL (0.83-4.51); Basophil# 0.02 X10^3/uL; Basophil% 0.5 % (0-1); Eosinophil# 0.11 X10^3/uL; Eosinophils% 2.9 % (0-5); Hematocrit 38.8 % (40-54); Hemoglobin 12.1 g/dL (13.0-16.5); Lymphocyte # 1.41 X10^3/ul (4.0); Lymphocyte % 37.4 % (19-41); Mean Corp Hgb Conc 31.2 g/dL (32-36); Mean Corpuscular Hgb 30.9 pg (27.0-32.0); Mean Corpuscular Volume 99.2 fL (80-94); Mean Platelet Vol. 11.7 fl (6.2-12.0); Monocyte# 0.26 X10^3/uL; Monocyte% 6.9 % (0-10); NRBC Flagged by Analyzer 0 % (0-5); Neutrophil # 1.96 X10^3/uL (2.7-7.7); Platelet Count 86 K/mm3 (150-450); RBC Distribution Width CV 14.8 % (11.6-14.6); RBC Distribution Width SD 54.3 fl (35.1-43.9); Red Blood Count 3.91 M/mm3 (4.6-6.2); White Blood Count 3.8 K/mm3 (4.4-11.0)
[2019-02-23 07:43] LABS: Anion Gap 5 (5-15); BUN 20 mg/dL (7-18); Calcium,Total 8.3 mg/dL (8.5-10.1); Chloride 114 mmol/L (98-107); Creatinine, Serum 1.43 mg/dL (0.70-1.30); EST Glomerular Filtration Rate 51 mL/min (>60); Est Glom Filt Rate - Afr Amer 62 mL/min (>60); Glucose 86 mg/dL (74-106); Sodium Level 147 mmol/L (136-145)
== END ==
LOC: OLS.WHLBEN 05:00
PROVIDERS: Visit Provider Family Medicine
DX: J44.1 Chronic obstructive pulmonary disease with (acute) exacerbation (principal); J96.11 Chronic respiratory failure with hypoxia; M62.81 Muscle weakness (generalized); R26.2 Difficulty in walking, not elsewhere classified; I69.354 Hemiplegia and hemiparesis following cerebral infarction affecting left non-dominant side; I10 Essential (primary) hypertension
CPT/HCPCS: 36415; 80048; 85025

== ENCOUNTER → 2019-03-23 05:00 | Outpatient (REF) | payer MEDICARE, SELFPAY ==
[2019-03-23 06:28] LABS: Absolute Lymphocyte Count 1.35 X10^3/uL (0.83-4.51); Basophil# 0.02 X10^3/uL; Basophil% 0.5 % (0-1); Eosinophil# 0.11 X10^3/uL; Eosinophils% 2.9 % (0-5); Hematocrit 38.1 % (40-54); Hemoglobin 11.7 g/dL (13.0-16.5); Lymphocyte # 1.35 X10^3/ul (4.0); Lymphocyte % 36.1 % (19-41); Mean Corp Hgb Conc 30.7 g/dL (32-36); Mean Corpuscular Volume 101.1 fL (80-94); Mean Platelet Vol. 11.3 fl (6.2-12.0); Monocyte# 0.28 X10^3/uL; Monocyte% 7.5 % (0-10); NRBC Flagged by Analyzer 0 % (0-5); Neutrophil # 1.97 X10^3/uL (2.7-7.7); Neutrophil % 52.7 % (47-70); Platelet Count 73 K/mm3 (150-450); RBC Distribution Width CV 14.5 % (11.6-14.6); RBC Distribution Width SD 53.4 fl (35.1-43.9); Red Blood Count 3.77 M/mm3 (4.6-6.2); White Blood Count 3.7 K/mm3 (4.4-11.0)
[2019-03-23 06:33] LABS: Anion Gap 5 (5-15); BUN 17 mg/dL (7-18); BUN/Creat Ratio 12.3 RATIO (10-20); Calcium,Total 7.9 mg/dL (8.5-10.1); Chloride 114 mmol/L (98-107); Creatinine, Serum 1.38 mg/dL (0.70-1.30); EST Glomerular Filtration Rate 53 mL/min (>60); Est Glom Filt Rate - Afr Amer 64 mL/min (>60); Glucose 90 mg/dL (74-106); Potassium 3.9 mmol/L (3.5-5.1); Sodium Level 145 mmol/L (136-145)
== END ==
LOC: OLS.WHLBEN 05:00
PROVIDERS: Visit Provider Family Medicine
DX: J44.1 Chronic obstructive pulmonary disease with (acute) exacerbation (principal); J96.11 Chronic respiratory failure with hypoxia; M62.81 Muscle weakness (generalized); R26.2 Difficulty in walking, not elsewhere classified; I69.354 Hemiplegia and hemiparesis following cerebral infarction affecting left non-dominant side; I10 Essential (primary) hypertension
CPT/HCPCS: 36415; 80048; 85025

== ENCOUNTER → 2019-04-20 | Outpatient (REF) | payer MEDICARE, SELFPAY ==
[2019-04-20 08:12] LABS: Absolute Lymphocyte Count 1.46 X10^3/uL (0.83-4.51); Absolute Neutrophil Count 2.1 X10^3/uL (2.0-7.7); Basophil# 0.02 X10^3/uL; Basophil% 0.5 % (0-1); Eosinophil# 0.11 X10^3/uL; Eosinophils% 2.7 % (0-5); Hematocrit 39.6 % (40-54); Hemoglobin 12.3 g/dL (13.0-16.5); Lymphocyte # 1.46 X10^3/ul (4.0); Lymphocyte % 36.1 % (19-41); Mean Corp Hgb Conc 31.1 g/dL (32-36); Mean Corpuscular Hgb 31.5 pg (27.0-32.0); Mean Corpuscular Volume 101.3 fL (80-94); Mean Platelet Vol. 12.1 fl (6.2-12.0); Monocyte# 0.37 X10^3/uL; Monocyte% 9.2 % (0-10); NRBC Flagged by Analyzer 0 % (0-5); Neutrophil # 2.06 X10^3/uL (2.7-7.7); Platelet Count 77 K/mm3 (150-450); RBC Distribution Width CV 14.5 % (11.6-14.6); RBC Distribution Width SD 54.3 fl (35.1-43.9); Red Blood Count 3.91 M/mm3 (4.6-6.2)
[2019-04-20 08:24] LABS: Anion Gap 4 (5-15); BUN 18 mg/dL (7-18); BUN/Creat Ratio 12.9 RATIO (10-20); Calcium,Total 8.1 mg/dL (8.5-10.1); Chloride 110 mmol/L (98-107); EST Glomerular Filtration Rate 52 mL/min (>60); Est Glom Filt Rate - Afr Amer 63 mL/min (>60); Glucose 94 mg/dL (74-106); Potassium 3.6 mmol/L (3.5-5.1); Sodium Level 142 mmol/L (136-145)
== END | disposition home or self-care (01) ==
LOC: OLS.WHLBEN 05:00
PROVIDERS: Visit Provider Family Medicine
DX: I10 Essential (primary) hypertension (principal)
CPT/HCPCS: 36415; 80048; 85025

== ENCOUNTER → 2019-05-25 05:00 | Outpatient (REF) | payer MEDICARE, SELFPAY ==
[2019-05-25 07:23] LABS: Absolute Lymphocyte Count 1.52 X10^3/uL (0.83-4.51); Absolute Neutrophil Count 2.4 X10^3/uL (2.0-7.7); Basophil# 0.02 X10^3/uL; Basophil% 0.5 % (0-1); Eosinophil# 0.13 X10^3/uL; Eosinophils% 3.1 % (0-5); Hematocrit 39.4 % (40-54); Hemoglobin 12.3 g/dL (13.0-16.5); Lymphocyte # 1.52 X10^3/ul (4.0); Mean Corp Hgb Conc 31.2 g/dL (32-36); Mean Corpuscular Hgb 31.9 pg (27.0-32.0); Mean Corpuscular Volume 102.3 fL (80-94); Mean Platelet Vol. 11.5 fl (6.2-12.0); Monocyte# 0.16 X10^3/uL; Monocyte% 3.8 % (0-10); NRBC Flagged by Analyzer 0 % (0-5); Neutrophil # 2.38 X10^3/uL (2.7-7.7); Neutrophil % 56.4 % (47-70); POSITIVE COUNT YES; Platelet Count 80 K/mm3 (150-450); RBC Distribution Width SD 52.4 fl (35.1-43.9); Red Blood Count 3.85 M/mm3 (4.6-6.2); White Blood Count 4.2 K/mm3 (4.4-11.0)
[2019-05-25 07:37] LABS: Anion Gap 7 (5-15); BUN 17 mg/dL (7-18); BUN/Creat Ratio 12.4 RATIO (10-20); Calcium,Total 7.9 mg/dL (8.5-10.1); Chloride 110 mmol/L (98-107); Creatinine, Serum 1.37 mg/dL (0.70-1.30); EST Glomerular Filtration Rate 54 mL/min (>60); Est Glom Filt Rate - Afr Amer 65 mL/min (>60); Glucose 95 mg/dL (74-106); Potassium 3.7 mmol/L (3.5-5.1); Sodium Level 146 mmol/L (136-145)
== END ==
LOC: OLS.WHLBEN 05:00
PROVIDERS: Visit Provider Family Medicine
DX: I10 Essential (primary) hypertension (principal); J44.1 Chronic obstructive pulmonary disease with (acute) exacerbation; J96.11 Chronic respiratory failure with hypoxia; M62.81 Muscle weakness (generalized); R26.2 Difficulty in walking, not elsewhere classified; I69.354 Hemiplegia and hemiparesis following cerebral infarction affecting left non-dominant side
CPT/HCPCS: 36415; 80048; 85025

== ENCOUNTER → 2019-06-22 05:00 | Outpatient (REF) | payer MEDICARE, SELFPAY ==
[2019-06-22 07:54] LABS: Absolute Lymphocyte Count 1.56 X10^3/uL (0.83-4.51); Absolute Neutrophil Count 2.5 X10^3/uL (2.0-7.7); Basophil# 0.02 X10^3/uL; Basophil% 0.4 % (0-1); Eosinophil# 0.11 X10^3/uL; Eosinophils% 2.4 % (0-5); Hematocrit 41.9 % (40-54); Hemoglobin 13.4 g/dL (13.0-16.5); Lymphocyte # 1.56 X10^3/ul (4.0); Lymphocyte % 34.3 % (19-41); Mean Corpuscular Hgb 31.8 pg (27.0-32.0); Mean Corpuscular Volume 99.5 fL (80-94); Mean Platelet Vol. 11.4 fl (6.2-12.0); Monocyte# 0.33 X10^3/uL; Monocyte% 7.3 % (0-10); NRBC Flagged by Analyzer 0 % (0-5); Neutrophil # 2.52 X10^3/uL (2.7-7.7); Neutrophil % 55.4 % (47-70); POSITIVE COUNT YES; Platelet Count 83 K/mm3 (150-450); RBC Distribution Width CV 13.8 % (11.6-14.6); RBC Distribution Width SD 49.8 fl (35.1-43.9); Red Blood Count 4.21 M/mm3 (4.6-6.2); White Blood Count 4.6 K/mm3 (4.4-11.0)
[2019-06-22 07:55] LABS: Differential Indicated SCAN CRITERIA MET
[2019-06-22 07:59] LABS: Anion Gap 8 (5-15); BUN 19 mg/dL (7-18); BUN/Creat Ratio 14.4 RATIO (10-20); Calcium,Total 8.5 mg/dL (8.5-10.1); Chloride 115 mmol/L (98-107); Creatinine, Serum 1.32 mg/dL (0.70-1.30); EST Glomerular Filtration Rate 56 mL/min (>60); Est Glom Filt Rate - Afr Amer 68 mL/min (>60); Glucose 101 mg/dL (74-106); Potassium 3.6 mmol/L (3.5-5.1); Sodium Level 146 mmol/L (136-145)
== END ==
LOC: OLS.WHLBEN 05:00
PROVIDERS: Visit Provider Family Medicine
DX: I10 Essential (primary) hypertension (principal); J44.9 Chronic obstructive pulmonary disease, unspecified; J96.11 Chronic respiratory failure with hypoxia; M62.81 Muscle weakness (generalized); R26.2 Difficulty in walking, not elsewhere classified; I69.354 Hemiplegia and hemiparesis following cerebral infarction affecting left non-dominant side
CPT/HCPCS: 36415; 80048; 85025

== ENCOUNTER → 2019-08-25 05:00 | Outpatient (REF) | payer MEDICARE, MEDICAID, SELFPAY ==
[2019-08-25 08:07] LABS: Absolute Lymphocyte Count 1.28 X10^3/uL (0.83-4.51); Absolute Neutrophil Count 2.7 X10^3/uL (2.0-7.7); Basophil# 0.02 X10^3/uL; Basophil% 0.4 % (0-1); Eosinophil# 0.11 X10^3/uL; Eosinophils% 2.5 % (0-5); Hematocrit 40.6 % (40-54); Hemoglobin 12.9 g/dL (13.0-16.5); Lymphocyte # 1.28 X10^3/ul (4.0); Lymphocyte % 28.6 % (19-41); Mean Corp Hgb Conc 31.8 g/dL (32-36); Mean Corpuscular Hgb 32.2 pg (27.0-32.0); Mean Corpuscular Volume 101.2 fL (80-94); Mean Platelet Vol. 11.4 fl (6.2-12.0); Monocyte# 0.34 X10^3/uL; Monocyte% 7.6 % (0-10); NRBC Flagged by Analyzer 0 % (0-5); Neutrophil # 2.72 X10^3/uL (2.7-7.7); Neutrophil % 60.7 % (47-70); POSITIVE COUNT YES; Platelet Count 96 K/mm3 (150-450); RBC Distribution Width SD 51.3 fl (35.1-43.9); Red Blood Count 4.01 M/mm3 (4.6-6.2); White Blood Count 4.5 K/mm3 (4.4-11.0)
[2019-08-25 08:15] LABS: Anion Gap 1 (5-15); BUN 17 mg/dL (7-18); BUN/Creat Ratio 10.6 RATIO (10-20); Calcium,Total 8.7 mg/dL (8.5-10.1); Chloride 113 mmol/L (98-107); EST Glomerular Filtration Rate 45 mL/min (>60); Est Glom Filt Rate - Afr Amer 54 mL/min (>60); Glucose 97 mg/dL (74-106); Potassium 3.6 mmol/L (3.5-5.1); Sodium Level 143 mmol/L (136-145)
== END ==
LOC: OLS.WHLBEN 05:00
PROVIDERS: PCP Family Medicine; Visit Provider Family Medicine
DX: I10 Essential (primary) hypertension (principal); J44.1 Chronic obstructive pulmonary disease with (acute) exacerbation; J96.11 Chronic respiratory failure with hypoxia; M62.81 Muscle weakness (generalized); R26.2 Difficulty in walking, not elsewhere classified; I69.354 Hemiplegia and hemiparesis following cerebral infarction affecting left non-dominant side
CPT/HCPCS: 36415; 80048; 85025

== ENCOUNTER → 2019-09-22 05:00 | Outpatient (REF) | payer MEDICARE, MEDICAID, SELFPAY ==
[2019-09-22 08:40] LABS: Absolute Lymphocyte Count 1.37 X10^3/uL (0.83-4.51); Absolute Neutrophil Count 2.3 X10^3/uL (2.0-7.7); Basophil# 0.01 X10^3/uL; Basophil% 0.2 % (0-1); Eosinophil# 0.09 X10^3/uL; Eosinophils% 2.2 % (0-5); Hematocrit 38.1 % (40-54); Hemoglobin 11.9 g/dL (13.0-16.5); Lymphocyte # 1.37 X10^3/ul (4.0); Lymphocyte % 33.7 % (19-41); Mean Corp Hgb Conc 31.2 g/dL (32-36); Mean Corpuscular Hgb 31.5 pg (27.0-32.0); Mean Corpuscular Volume 100.8 fL (80-94); Mean Platelet Vol. 11.2 fl (6.2-12.0); Monocyte# 0.33 X10^3/uL; Monocyte% 8.1 % (0-10); NRBC Flagged by Analyzer 0 % (0-5); Neutrophil # 2.25 X10^3/uL (2.7-7.7); Neutrophil % 55.6 % (47-70); POSITIVE COUNT YES; Platelet Count 93 K/mm3 (150-450); RBC Distribution Width CV 14.5 % (11.6-14.6); RBC Distribution Width SD 53.1 fl (35.1-43.9); Red Blood Count 3.78 M/mm3 (4.6-6.2); White Blood Count 4.1 K/mm3 (4.4-11.0)
[2019-09-22 08:48] LABS: Anion Gap 3 (5-15); BUN 18 mg/dL (7-18); BUN/Creat Ratio 14.6 RATIO (10-20); Calcium,Total 8.5 mg/dL (8.5-10.1); Chloride 114 mmol/L (98-107); Creatinine, Serum 1.23 mg/dL (0.70-1.30); EST Glomerular Filtration Rate 61 mL/min (>60); Est Glom Filt Rate - Afr Amer 73 mL/min (>60); Glucose 90 mg/dL (74-106); Potassium 3.5 mmol/L (3.5-5.1); Sodium Level 144 mmol/L (136-145)
== END ==
LOC: OLS.WHLBEN 05:00
PROVIDERS: PCP Family Medicine; Visit Provider Family Medicine
DX: I10 Essential (primary) hypertension (principal); J44.1 Chronic obstructive pulmonary disease with (acute) exacerbation; J96.11 Chronic respiratory failure with hypoxia; M62.81 Muscle weakness (generalized); R26.2 Difficulty in walking, not elsewhere classified; I69.354 Hemiplegia and hemiparesis following cerebral infarction affecting left non-dominant side
CPT/HCPCS: 36415; 80048; 85025

== ENCOUNTER → 2019-12-22 05:00 | Outpatient (REF) | payer MEDICARE, MEDICAID, SELFPAY ==
[2019-12-22 08:22] LABS: Absolute Lymphocyte Count 1.52 X10^3/uL (0.83-4.51); Absolute Neutrophil Count 2.8 X10^3/uL (2.0-7.7); Basophil# 0.02 X10^3/uL; Basophil% 0.4 % (0-1); Eosinophil# 0.11 X10^3/uL; Eosinophils% 2.3 % (0-5); Hematocrit 35.5 % (40-54); Hemoglobin 11.1 g/dL (13.0-16.5); Lymphocyte # 1.52 X10^3/ul (4.0); Lymphocyte % 31.9 % (19-41); Mean Corp Hgb Conc 31.3 g/dL (32-36); Mean Corpuscular Hgb 31.7 pg (27.0-32.0); Mean Corpuscular Volume 101.4 fL (80-94); Mean Platelet Vol. 11.3 fl (6.2-12.0); Monocyte# 0.28 X10^3/uL; Monocyte% 5.9 % (0-10); NRBC Flagged by Analyzer 0 % (0-5); Neutrophil # 2.82 X10^3/uL (2.7-7.7); Neutrophil % 59.1 % (47-70); Platelet Count 107 K/mm3 (150-450); RBC Distribution Width CV 13.8 % (11.6-14.6); RBC Distribution Width SD 50.9 fl (35.1-43.9); White Blood Count 4.8 K/mm3 (4.4-11.0)
[2019-12-22 08:32] LABS: Anion Gap 3 (5-15); BUN 19 mg/dL (7-18); Calcium,Total 7.9 mg/dL (8.5-10.1); Chloride 112 mmol/L (98-107); Creatinine, Serum 1.27 mg/dL (0.70-1.30); EST Glomerular Filtration Rate 58 mL/min (>60); Est Glom Filt Rate - Afr Amer 71 mL/min (>60); Glucose 84 mg/dL (74-106); Potassium 3.3 mmol/L (3.5-5.1); Sodium Level 143 mmol/L (136-145)
== END ==
LOC: OLS.WHLBEN 05:00
PROVIDERS: PCP Family Medicine; Visit Provider Family Medicine
DX: I10 Essential (primary) hypertension (principal); J44.1 Chronic obstructive pulmonary disease with (acute) exacerbation; J96.11 Chronic respiratory failure with hypoxia; M62.81 Muscle weakness (generalized); R26.2 Difficulty in walking, not elsewhere classified; I69.354 Hemiplegia and hemiparesis following cerebral infarction affecting left non-dominant side
CPT/HCPCS: 36415; 80048; 85025

== ENCOUNTER → 2020-02-23 05:00 | Outpatient (REF) | payer MEDICARE, SELFPAY ==
[2020-02-23 07:46] LABS: Cholesterol 89 mg/dL (200); High Density Lipoprotein 30 mg/dL; Triglycerides 106 mg/dL; Very Low Density Lipoprotein 21 mg/dL (5-40)
== END ==
LOC: OLS.WHLBEN 05:00
PROVIDERS: PCP Family Medicine; Referring Provider Family Medicine; Visit Provider Family Medicine
DX: E78.2 Mixed hyperlipidemia (principal)
CPT/HCPCS: 36415; 80061

== ENCOUNTER → 2020-03-05 04:00 | Outpatient (REF) | payer MEDICARE, SELFPAY ==
[2020-03-05 06:56] LABS: Color, Urine Yellow (Yellow); Glucose, Dipstick Normal (Normal); Ketone-Dipstick Negative (Negative); Leukocyte Esterase-Dipstick 500 /ul (Negative); Nitrite-Dipstick Negative (Negative); Occult Blood-Urine 10 /ul (Negative); Protein-Dipstick Negative (Negative); Specific Gravity, Urine 1.015 (1.002-1.030); Urine Bilirubin Dipstick Negative (Negative); Urine Clarity Clear (Clear); Urine Urobilinogen Normal (Normal)
[2020-03-05 06:59] LABS: Absolute Lymphocyte Count 0.71 X10^3/uL (0.83-4.51); Absolute Neutrophil Count 4.3 X10^3/uL (2.0-7.7); Basophil# 0.01 X10^3/uL; Basophil% 0.2 % (0-1); Eosinophil# 0.04 X10^3/uL; Eosinophils% 0.7 % (0-5); Hematocrit 42.6 % (40-54); Hemoglobin 13.1 g/dL (13.0-16.5); Lymphocyte # 0.71 X10^3/ul (4.0); Lymphocyte % 12.8 % (19-41); Mean Corp Hgb Conc 30.8 g/dL (32-36); Mean Corpuscular Volume 104.2 fL (80-94); Mean Platelet Vol. 11.5 fl (6.2-12.0); Monocyte# 0.45 X10^3/uL; Monocyte% 8.1 % (0-10); NRBC Flagged by Analyzer 0 % (0-5); Neutrophil # 4.32 X10^3/uL (2.7-7.7); Neutrophil % 77.8 % (47-70); POSITIVE COUNT YES; Platelet Count 90 K/mm3 (150-450); RBC Distribution Width CV 14.2 % (11.6-14.6); RBC Distribution Width SD 54.8 fl (35.1-43.9); Red Blood Count 4.09 M/mm3 (4.6-6.2); White Blood Count 5.6 K/mm3 (4.4-11.0)
[2020-03-05 07:26] LABS: Anion Gap 5 (5-15); BUN 20 mg/dL (7-18); BUN/Creat Ratio 12.2 RATIO (10-20); Calcium,Total 8.5 mg/dL (8.5-10.1); Chloride 108 mmol/L (98-107); Creatinine, Serum 1.64 mg/dL (0.70-1.30); EST Glomerular Filtration Rate 44 mL/min (>60); Est Glom Filt Rate - Afr Amer 53 mL/min (>60); Glucose 92 mg/dL (74-106); Potassium 3.5 mmol/L (3.5-5.1); Sodium Level 142 mmol/L (136-145)
== END ==
LOC: OLS.WHLBEN 04:00
PROVIDERS: PCP Family Medicine; Visit Provider Family Medicine
DX: N39.0 Urinary tract infection, site not specified (principal); J44.1 Chronic obstructive pulmonary disease with (acute) exacerbation; J96.11 Chronic respiratory failure with hypoxia; M62.81 Muscle weakness (generalized); R26.2 Difficulty in walking, not elsewhere classified; I69.354 Hemiplegia and hemiparesis following cerebral infarction affecting left non-dominant side
CPT/HCPCS: 36415; 80048; 81002; 85025; 87077; 87086; 87088; 87186

== ENCOUNTER → 2020-03-22 04:32 | Outpatient (REF) | payer MEDICARE, SELFPAY ==
[2020-03-22 07:24] LABS: Absolute Lymphocyte Count 1.44 X10^3/uL (0.83-4.51); Absolute Neutrophil Count 2.6 X10^3/uL (2.0-7.7); Basophil# 0.02 X10^3/uL; Basophil% 0.4 % (0-1); Eosinophil# 0.13 X10^3/uL; Eosinophils% 2.9 % (0-5); Hematocrit 37.5 % (40-54); Hemoglobin 11.9 g/dL (13.0-16.5); Lymphocyte # 1.44 X10^3/ul (4.0); Lymphocyte % 31.6 % (19-41); Mean Corp Hgb Conc 31.7 g/dL (32-36); Mean Corpuscular Hgb 32.2 pg (27.0-32.0); Mean Corpuscular Volume 101.4 fL (80-94); Mean Platelet Vol. 11.3 fl (6.2-12.0); Monocyte# 0.39 X10^3/uL; Monocyte% 8.6 % (0-10); NRBC Flagged by Analyzer 0 % (0-5); Neutrophil # 2.56 X10^3/uL (2.7-7.7); Neutrophil % 56.3 % (47-70); Platelet Count 108 K/mm3 (150-450); RBC Distribution Width CV 13.4 % (11.6-14.6); RBC Distribution Width SD 50.2 fl (35.1-43.9); White Blood Count 4.6 K/mm3 (4.4-11.0)
[2020-03-22 07:51] LABS: Anion Gap 6 (5-15); BUN 16 mg/dL (7-18); BUN/Creat Ratio 12.2 RATIO (10-20); Calcium,Total 8.2 mg/dL (8.5-10.1); Chloride 112 mmol/L (98-107); Creatinine, Serum 1.31 mg/dL (0.70-1.30); EST Glomerular Filtration Rate 56 mL/min (>60); Est Glom Filt Rate - Afr Amer 68 mL/min (>60); Glucose 88 mg/dL (74-106); Potassium 3.3 mmol/L (3.5-5.1); Sodium Level 144 mmol/L (136-145)
== END ==
LOC: OLS.WHLBEN 04:32
PROVIDERS: PCP Family Medicine; Referring Provider Family Medicine; Visit Provider Family Medicine
DX: J44.1 Chronic obstructive pulmonary disease with (acute) exacerbation (principal); I10 Essential (primary) hypertension; J96.11 Chronic respiratory failure with hypoxia; M62.81 Muscle weakness (generalized); R26.2 Difficulty in walking, not elsewhere classified; I69.354 Hemiplegia and hemiparesis following cerebral infarction affecting left non-dominant side
CPT/HCPCS: 36415; 80048; 85025

== ENCOUNTER → 2020-05-11 17:40 | Outpatient (REF) | payer MEDICARE, SELFPAY ==
[2020-05-12 09:52] LABS: Color, Urine Straw (Yellow); Glucose, Dipstick Normal (Normal); Ketone-Dipstick Negative (Negative); Leukocyte Esterase-Dipstick 500 /ul (Negative); Nitrite-Dipstick Negative (Negative); Occult Blood-Urine Negative /ul (Negative); Protein-Dipstick Negative (Negative); Specific Gravity, Urine 1.015 (1.002-1.030); Urine Bilirubin Dipstick Negative (Negative); Urine Clarity Clear (Clear); Urine Urobilinogen Normal (Normal)
== END ==
LOC: OLS.WHLBEN 17:40
PROVIDERS: PCP Family Medicine; Referring Provider Family Medicine; Visit Provider Family Medicine
DX: J44.1 Chronic obstructive pulmonary disease with (acute) exacerbation (principal); R32 Unspecified urinary incontinence; J96.11 Chronic respiratory failure with hypoxia; M62.81 Muscle weakness (generalized); R26.2 Difficulty in walking, not elsewhere classified; I69.354 Hemiplegia and hemiparesis following cerebral infarction affecting left non-dominant side
CPT/HCPCS: 81002; 87077; 87086; 87088; 87186